=== PATIENT | male | born 1960 | race Caucasian/White ===

== ENCOUNTER 2019-12-04 06:45 | Outpatient (REF) | payer BC, SELFPAY ==
[2019-12-04 07:51] LABS: MANUAL DIFF FLAG NO
[2019-12-04 07:54] LABS: Basophils Percent Auto 0.7 % (0-2); Eosinophils Absolute Auto 0.3 X10*3/uL (0.0-0.4); Eosinophils Percent Auto 5.3 % (0-4); Hematocrit 39.9 % (42-52); Hemoglobin 13.7 g/dl (14.0-18.0); Imm Gran Abs Auto 0.02 X10*3/uL (0.00-0.03); Imm Gran Pct Auto 0.4 % (0.0-0.4); Lymphocytes Absolute Auto 1.6 X10*3/uL (1.2-4.9); Lymphocytes Percent Auto 29.3 % (20-40); Mean Corpuscular HGB Conc 34.3 g/dl (31.0-36.0); Mean Corpuscular Hemoglobin 30.6 pg (27.0-33.0); Mean Corpuscular Volume 89.1 fL (80-98); Mean Platelet Volume 8.8 fL (9.4-12.4); Monocytes Absolute Auto 0.4 X10*3/uL (0.1-1.2); Monocytes Percent Auto 6.6 % (2-11); Neutrophils Absolute Auto 3.1 X10*3/uL (2.0-8.3); Neutrophils Percent Auto 57.7 % (45-73); Platelet Count 274 X10*3/uL (160-400); Red Blood Count 4.48 X10*6/uL (4.60-5.80); Red Cell Distribution Width 12.3 % (11.0-16.0); White Blood Count 5.4 X10*3/uL (4.8-10.8)
[2019-12-04 08:13] LABS: Alanine Aminotransferase 22 U/L (0-40); Albumin Level 4.3 g/dL (3.5-5.0); Alkaline Phosphatase 66 U/L (39-117); Anion Gap 10 (12-20); Aspartate Amino Transferase 22 U/L (5-37); Bilirubin Total 1.7 mg/dL (0.0-1.0); Blood Urea Nitrogen 16 mg/dL (9-16); Calcium 9.1 mg/dL (8.4-10.2); Carbon Dioxide 28 mmol/L (22-29); Chloride 106 mmol/L (96-108); Cholesterol 197 mg/dL; Estimated Glomerular Filt Rate > 60; Glucose Fasting 105 mg/dL (60-99); HDL Cholesterol 51 mg/dL; LDL Cholesterol Calculated 120 mg/dl; Sodium 140 mmol/L (135-145); Total Protein 7.2 g/dL (6.5-8.0); Triglycerides 134 mg/dL
[2019-12-04 08:20] LABS: Glucose Urine UA NEG (NEG); Leukocyte Esterase Urine NEG (NEG); Nitrite Urine NEG (NEG); Specific Gravity - Urine 1.025 (1.005-1.025); Urine Blood TRACE (NEG); Urine Ketones NEG (NEG); Urine Protein NEG (NEG-TRACE)
[2019-12-04 08:30] LABS: Appearance Urine CLEAR; Color Urine YELLOW
[2019-12-04 08:36] LABS: Prostate Specific Antigen 2.49 ng/mL (<0.05-4.0)
[2019-12-04 08:46] LABS: Vitamin B12 438 pg/mL (200-900)
[2019-12-04 08:47] LABS: Mucus Urine 2+ /LPF; Squamous Epithelial Cell Urine TRACE /LPF; WBC Urine 0 /HPF (0-4)
[2019-12-04 08:55] LABS: Creatinine Urine 158.23 mg/dL; Microalbumin Urine < 5.0 mg/L
[2019-12-04 09:25] LABS: Estimated Average Glucose 100 mg/dL; Hemoglobin A1c % 5.1 %
== END 2019-12-04 06:46 | disposition home or self-care (01) ==
LOC: HO.LAB 06:45
PROVIDERS: PCP Internal Medicine; Visit Provider Internal Medicine
DX: Z12.5 Encounter for screening for malignant neoplasm of prostate (principal); N40.0 Benign prostatic hyperplasia without lower urinary tract symptoms; R73.03 Prediabetes; E53.8 Deficiency of other specified B group vitamins
CPT/HCPCS: 36415; 80053; 80061; 81001; 81003; 82043; 82607; 82746; 83036; 84153; 85025

== ENCOUNTER 2020-02-01 15:17 | Outpatient (REF) | payer BC, SELFPAY | END 2020-02-01 15:18 | disposition home or self-care (01) | LOC: HO.LAB 15:17 | PROVIDERS: Visit Provider Internal Medicine | DX: Z20.828 Contact with and (suspected) exposure to other viral communicable diseases (principal) | CPT/HCPCS: C9803; U0003 ==

== ENCOUNTER 2020-11-19 12:18 | Emergency (ER) | payer BC, SELFPAY ==
[2020-11-19 12:30] VITALS: BP 117/76; PULSE 82; RESP 16; TEMP 36.6; O2SAT 98; BMI 33.5
[2020-11-19] MEDS: Lidocaine HCl 1 % MPF 5 ML VIAL SUBCUT (14:01)
--- NOTE | 2020-11-19 14:03 | ED_ITS ---
HPI - Wound/Laceration General Chief Complaint: Wound/Laceration Stated Complaint: lac rt arm Time Seen by Provider: 11/19/20 12:45 Source: patient and family Mode of arrival: ambulatory Limitations: no limitations History of Present Illness HPI narrative: Patient reports he was on a ladder at home when he slipped and he caught himself although when he caught himself his right forearm sustained a laceration. He reports that he is up-to-date on tetanus. He denies head injury or loss of consciousness. He denies thoughts of foreign bodies. He denies any other symptoms complaints or concerns at this time. Onset (ago): minute(s) (Prior to arrival) Extremity Location: right: forearm Place: home Patient tetanus UTD: Yes Context: accidental Associated symptoms: none Treatments prior to arrival: bandage Related Data Previous Rx's Medication Instructions Recorded cephalexin 500 mg capsule 500 mg PO Q6H 10 Days #40 cap 11/19/20 Allergies Allergy/AdvReac Type Severity Reaction Status Date / Time No Known Allergies Allergy Unverified 11/15/19 15:33 [No Known Allergies*] Review of Systems Review of Systems: Constitutional : No Fever, No Chills, Cardiovascular : No Chest Pain, No SOB Respiratory : No Dyspnea Gastrointestinal : No abdominal pain Musculoskeletal : No Joint Swelling Skin : positive skin laceration, No Foreign bodies, No rash, No surrounding erythema Neuro : No Weakness, No Numbness/tingling Psych : No SI/HI/thoughts of self injury Yes all other systems are reviewed and are negative [facility] Past Medical History Attestation statement: The following information was validated with the patient. Social History Social History Alcohol intake: unknown Patient Tobacco Use Status: Never used Tobacco Use of substances other than those prescribed or required for medical reasons: Unknown Advance Directives: Yes Advance Directives Information Provided: No Advance Directives on File: No Physical Exam Vital Signs: Vital Signs: Last Vital Signs Temp 98 F 11/19/20 12:30 Pulse 82 11/19/20 12:30 Resp 16 11/19/20 12:30 BP 117/76 11/19/20 12:30 Pulse Ox 98 11/19/20 12:30 Body Mass Index 33.5 vital signs have been reviewed as normal and appeared to be correct. Blood pressure normal. Heart rate normal. Respiration rate normal. Temperature normal. Oxygen saturation normal. Appearance: Alert. Oriented X3. No acute distress. Head: Normal external exam. Normocephalic. Atraumatic. Eyes: PERRLA. EOMI. Conjunctiva and sclera normal. Eyelids normal. ENT: Pharynx normal. Uvula midline. Moist mucous membranes. Neck: Normal inspection. Neck supple. FROM. CVS: Normal heart rate and rhythm. Respiratory: No respiratory distress. Painless inspiration. Back: Full range of motion noted. No rashes/lesion/induration/fluctuance or s igns of infection noted. Skin: Skin warm and dry. Normal skin color. Normal skin turgor. No rashes/lesions noted. Extremities: To right forearm at the proximal aspect patient has a 2 cm intermediate laceration no active bleeding or foreign bodies noted. No ligamentous or tendon injury noted on my exam. Otherwise all other extremity Extremities exhibit normal range of motion and nontender. Neuro: Oriented X 3. No motor deficit. No sensory deficit. Reflexes normal. Normal steady gait. No focal neuro deficits noted. Vascular: + radial pulses Normal cap refill. No cyanosis noted to upper extremity nails Course Course Course Narrative: Patient now status post laceration repair with 8 sutures placed. Patient tolerated procedure well. I had ordered an x-ray although patient refused and on my exam I do not see any signs of foreign bodies and the patient does not have any bony tenderness. No obvious ligamentous or tendon injury is noted. Patient understands return in 10-14 days for suture removal. Will DC home antibiotics. Tetanus is up-to-date. Along with instructions fo llow-up with primary care provider and to return if any new or worsening symptoms. Patient understands agrees with this plan. [facility] - Wound/Laceration Medical Records Attestation: I reviewed the patient's medical records. Procedures Laceration Laceration 1: Site: upper extremity (Forearm proximal aspect) Side (If applicable): right Size (cm): 2 Description: linear Depth: simple, single layer Local Anesthetic: lidocaine 1% Amount of anesthesia used (mL): 5 Pre-repair: wound explored, irrigated extensively and deep structures intact Skin layer closed with: nylon Size (cm): 4-0 Number of sutures: 8 Technique: simple, interrupted Discharge Plan Discharge Clinical Impression: Laceration Patient Disposition: Home, Self-Care Instructions: Laceration (ED) Prescriptions: New cephalexin 500 mg capsule 500 mg PO Q6H 10 Days Qty: 40 RF: 0 Referrals: Sridhar Holt MD [Primary Care Provider] - 2 days Lexii Genao PA [Emergency Midlevel Provider] - 10 days (10-14 days for suture removal you can come to this ER any other ER any urgent care or your primary care provider although let them know that you will be coming for suture removal some primary care providers do not remove sutures) Print Language: Kyrgyz
== END 2020-11-19 14:29 | disposition home or self-care (01) ==
PROVIDERS: Emergency Provider Emergency Medicine; PCP Internal Medicine
DX: S51.811A Laceration without foreign body of right forearm, initial encounter (principal); M79.631 Pain in right forearm; W26.9XXA Contact with unspecified sharp object(s), initial encounter; Y93.9 Activity, unspecified; Y92.009 Unspecified place in unspecified non-institutional (private) residence as the place of occurrence of the external cause; Y99.9 Unspecified external cause status; Z79.899 Other long term (current) drug therapy
CPT/HCPCS: 12001; 99284

== ENCOUNTER 2020-12-09 14:03 | Outpatient (REF) | payer BC, SELFPAY ==
[2020-12-09 14:06] LABS: MANUAL DIFF FLAG NO
[2020-12-09 14:14] LABS: Basophils Absolute Auto 0.1 X10*3/uL (0.0-0.2); Basophils Percent Auto 1.1 % (0-2); Eosinophils Absolute Auto 0.4 X10*3/uL (0.0-0.4); Eosinophils Percent Auto 7.2 % (0-4); Hematocrit 41.4 % (42-52); Hemoglobin 13.9 g/dl (14.0-18.0); Imm Gran Abs Auto 0.01 X10*3/uL (0.00-0.03); Imm Gran Pct Auto 0.2 % (0.0-0.4); Lymphocytes Absolute Auto 1.9 X10*3/uL (1.2-4.9); Lymphocytes Percent Auto 33.6 % (20-40); Mean Corpuscular HGB Conc 33.6 g/dl (31.0-36.0); Mean Corpuscular Hemoglobin 30.4 pg (27.0-33.0); Mean Corpuscular Volume 90.6 fL (80-98); Mean Platelet Volume 8.8 fL (9.4-12.4); Monocytes Absolute Auto 0.3 X10*3/uL (0.1-1.2); Neutrophils Percent Auto 51.9 % (45-73); Platelet Count 258 X10*3/uL (160-400); Red Blood Count 4.57 X10*6/uL (4.60-5.80); Red Cell Distribution Width 12.5 % (11.0-16.0); White Blood Count 5.7 X10*3/uL (4.8-10.8)
[2020-12-09 14:28] LABS: Alanine Aminotransferase 17 U/L (0-40); Albumin Level 4.2 g/dL (3.5-5.0); Alkaline Phosphatase 64 U/L (39-117); Anion Gap 10 (12-20); Appearance Urine CLEAR; Aspartate Amino Transferase 18 U/L (5-37); Bilirubin Total 1.3 mg/dL (0.0-1.0); Blood Urea Nitrogen 18 mg/dL (9-16); Calcium 9.2 mg/dL (8.4-10.2); Carbon Dioxide 26 mmol/L (22-29); Chloride 106 mmol/L (96-108); Cholesterol 194 mg/dL; Color Urine YELLOW; Estimated Glomerular Filt Rate > 60; Glucose Fasting 101 mg/dL (60-99); Glucose Urine UA NEG (NEG); HDL Cholesterol 50 mg/dL; LDL Cholesterol Calculated 123 mg/dl; Leukocyte Esterase Urine NEG (NEG); Nitrite Urine NEG (NEG); PH 5.5 (5.0-8.0); Potassium 3.9 mmol/L (3.3-5.1); Sodium 138 mmol/L (135-145); Specific Gravity - Urine >= 1.030 (1.005-1.025); Total Protein 7.1 g/dL (6.5-8.0); Triglycerides 106 mg/dL; Urine Blood NEG (NEG); Urine Ketones NEG (NEG); Urine Protein NEG (NEG-TRACE)
[2020-12-09 14:48] LABS: PSA,Total (Free>4and<10) 2.75 ng/mL (0.00-4.00)
[2020-12-09 14:50] LABS: Estimated Average Glucose 97 mg/dL
[2020-12-09 15:00] LABS: Reflex LDLD? No
[2020-12-09 15:19] LABS: Folate 8.9 ng/mL (> or = 4.0); Vitamin B12 351 pg/mL (200-900)
[2020-12-09 15:20] LABS: Creatinine Urine 184.93 mg/dL; Microalbum/Creatinine Ratio Ur 3.7 ug/mg cr
== END 2020-12-09 14:04 | disposition home or self-care (01) ==
LOC: HO.LNP 14:03
PROVIDERS: Visit Provider Internal Medicine
DX: Z00.00 Encounter for general adult medical examination without abnormal findings (principal); R73.03 Prediabetes; E53.8 Deficiency of other specified B group vitamins; N40.0 Benign prostatic hyperplasia without lower urinary tract symptoms; Z12.5 Encounter for screening for malignant neoplasm of prostate
CPT/HCPCS: 80053; 80061; 81003; 82043; 82607; 82746; 83036; 84153; 85025

== ENCOUNTER 2021-08-28 09:45 | Outpatient (REF) | payer BC, SELFPAY ==
--- NOTE | ~2021-08-28 | XR_ITS ---
EXAMINATION: XR KNEE, STANDING AP, BILATERAL XR KNEE, RIGHT XR KNEE, LEFT CLINICAL INFORMATION: Knee pain. COMPARISON: Standing AP knees and left knee 06/28/2017, right knee radiographs 04/27/2016. TECHNIQUE: Standing AP view of both knees is performed. Each knee is also imaged in lateral and axial patella views. FINDINGS: Right: Osteoarthritis medial compartment with prominent joint narrowing and marginal osteophytes medial femoral condyle and tibial plateau with mild secondary genu varus. No erosive change or chondrocalcinosis. No definite effusion. Hoffa's fat pad appears normal. Mild narrowing lateral patellofemoral joint. No lateralization or definite tilting patella. No fracture or dislocation or destructive process. Left: Osteoarthritis medial compartment of greatest severity with marked joint narrowing and medial femoral and tibial plateau osteophytes. Mild secondary genu varus. No erosive change or chondrocalcinosis. Probable trace suprapatellar fluid. Hoffa's fat pad appears normal. Borderline narrowing patellofemoral joint. No lateralization or tilting. No fracture or dislocation or destructive process. XR/XR knee standing BI IMPRESSION: -Bilateral osteoarthritis, medial compartments, greater on left. -Probable trace effusion on left.
--- NOTE | ~2021-08-28 | XR_ITS ---
EXAMINATION: XR KNEE, STANDING AP, BILATERAL XR KNEE, RIGHT XR KNEE, LEFT CLINICAL INFORMATION: Knee pain. COMPARISON: Standing AP knees and left knee 06/28/2017, right knee radiographs 04/27/2016. TECHNIQUE: Standing AP view of both knees is performed. Each knee is also imaged in lateral and axial patella views. FINDINGS: Right: Osteoarthritis medial compartment with prominent joint narrowing and marginal osteophytes medial femoral condyle and tibial plateau with mild secondary genu varus. No erosive change or chondrocalcinosis. No definite effusion. Hoffa's fat pad appears normal. Mild narrowing lateral patellofemoral joint. No lateralization or definite tilting patella. No fracture or dislocation or destructive process. Left: Osteoarthritis medial compartment of greatest severity with marked joint narrowing and medial femoral and tibial plateau osteophytes. Mild secondary genu varus. No erosive change or chondrocalcinosis. Probable trace suprapatellar fluid. Hoffa's fat pad appears normal. Borderline narrowing patellofemoral joint. No lateralization or tilting. No fracture or dislocation or destructive process. XR/XR knee LT 2V IMPRESSION: -Bilateral osteoarthritis, medial compartments, greater on left. -Probable trace effusion on left.
--- NOTE | ~2021-08-28 | XR_ITS ---
EXAMINATION: XR KNEE, STANDING AP, BILATERAL XR KNEE, RIGHT XR KNEE, LEFT CLINICAL INFORMATION: Knee pain. COMPARISON: Standing AP knees and left knee 06/28/2017, right knee radiographs 04/27/2016. TECHNIQUE: Standing AP view of both knees is performed. Each knee is also imaged in lateral and axial patella views. FINDINGS: Right: Osteoarthritis medial compartment with prominent joint narrowing and marginal osteophytes medial femoral condyle and tibial plateau with mild secondary genu varus. No erosive change or chondrocalcinosis. No definite effusion. Hoffa's fat pad appears normal. Mild narrowing lateral patellofemoral joint. No lateralization or definite tilting patella. No fracture or dislocation or destructive process. Left: Osteoarthritis medial compartment of greatest severity with marked joint narrowing and medial femoral and tibial plateau osteophytes. Mild secondary genu varus. No erosive change or chondrocalcinosis. Probable trace suprapatellar fluid. Hoffa's fat pad appears normal. Borderline narrowing patellofemoral joint. No lateralization or tilting. No fracture or dislocation or destructive process. XR/XR knee RT 2V IMPRESSION: -Bilateral osteoarthritis, medial compartments, greater on left. -Probable trace effusion on left.
== END 2021-08-28 09:46 | disposition home or self-care (01) ==
LOC: HO.HOSX 09:45
PROVIDERS: Visit Provider Physician Assistant
DX: M17.0 Bilateral primary osteoarthritis of knee (principal)
CPT/HCPCS: 20610; 73560; 73565; J1040

== ENCOUNTER 2021-12-11 10:38 | Outpatient (REF) | payer BC, SELFPAY ==
[2021-12-11 10:41] LABS: MANUAL DIFF FLAG NO
[2021-12-11 11:08] LABS: Basophils Absolute Auto 0.1 X10*3/uL (0.0-0.2); Basophils Percent Auto 1.2 % (0-2); Eosinophils Absolute Auto 0.3 X10*3/uL (0.0-0.4); Eosinophils Percent Auto 4.2 % (0-4); Hematocrit 39.4 % (42.0-52.0); Hemoglobin 13.3 g/dl (14.0-18.0); Imm Gran Abs Auto 0.01 X10*3/uL (0.00-0.03); Imm Gran Pct Auto 0.2 % (0.0-0.4); Lymphocytes Percent Auto 33.8 % (20-40); Mean Corpuscular HGB Conc 33.8 g/dl (31.0-36.0); Mean Corpuscular Hemoglobin 30.4 pg (27.0-33.0); Mean Platelet Volume 8.9 fL (9.4-12.4); Monocytes Absolute Auto 0.4 X10*3/uL (0.1-1.2); Monocytes Percent Auto 6.9 % (2-11); Neutrophils Absolute Auto 3.2 x10*3/uL (2.0-8.3); Neutrophils Percent Auto 53.7 % (45-73); Platelet Count 262 X10*3/uL (160-400); Red Blood Count 4.38 X10*6/uL (4.60-5.80); Red Cell Distribution Width 12.7 % (11.0-16.0)
[2021-12-11 11:12] LABS: Appearance Urine Clear; Color Urine Yellow; Glucose Urine UA Negative (Negative); Leukocyte Esterase Urine Negative (Negative); Nitrite Urine Negative (Negative); Urine Blood Negative (Negative); Urine Ketones Negative (Negative); Urine Protein Negative (Neg-Trace)
[2021-12-11 11:18] LABS: Bacteria Urine None Seen (None Seen); Hyaline Casts Urine 0-2 /LPF (0-2); RBC Urine 0-2 /HPF (0-2); Squamous Epithelial Cell Urine 0-2 /HPF (0-2); WBC Urine 0-5 /HPF (0-5)
[2021-12-11 11:25] LABS: Alanine Aminotransferase 18 U/L (0-40); Albumin Level 4.2 g/dL (3.5-5.0); Alkaline Phosphatase 66 U/L (39-117); Anion Gap 14 (12-20); Aspartate Amino Transferase 20 U/L (5-37); Bilirubin Total 1.8 mg/dL (0.0-1.0); Blood Urea Nitrogen 18 mg/dL (9-16); Calcium 9.3 mg/dL (8.4-10.2); Carbon Dioxide 28 mmol/L (22-29); Chloride 104 mmol/L (96-108); Cholesterol 203 mg/dL; Estimated Glomerular Filt Rate > 60; Glucose Fasting 102 mg/dL (60-99); HDL Cholesterol 58 mg/dL; LDL Cholesterol Calculated 129 mg/dl; Potassium 4.1 mmol/L (3.3-5.1); Sodium 142 mmol/L (135-145); Total Protein 7.1 g/dL (6.5-8.0); Triglycerides 83 mg/dL
[2021-12-11 11:27] LABS: Estimated Average Glucose 97 mg/dL
[2021-12-11 11:37] LABS: Creatinine Urine 121.96 mg/dL
[2021-12-11 11:47] LABS: PSA,Total (Free>4and<10) 2.41 ng/mL (0.00-4.00)
[2021-12-11 12:12] LABS: Folate 10.8 ng/mL (> or = 4.0); Vitamin B12 294 pg/mL (200-900)
== END 2021-12-11 10:39 | disposition home or self-care (01) ==
LOC: HO.LNP 10:38
PROVIDERS: Visit Provider Internal Medicine
DX: Z00.00 Encounter for general adult medical examination without abnormal findings (principal); Z12.5 Encounter for screening for malignant neoplasm of prostate; N40.0 Benign prostatic hyperplasia without lower urinary tract symptoms; E53.8 Deficiency of other specified B group vitamins; R73.03 Prediabetes
CPT/HCPCS: 80053; 80061; 81001; 82043; 82607; 82746; 83036; 84153; 85025

== ENCOUNTER 2022-01-28 10:31 | Outpatient (REF) | payer BC, SELFPAY ==
--- NOTE | ~2022-01-28 | XR_ITS ---
EXAMINATION: XR CERVICAL SPINE CLINICAL INFORMATION: Posterior occipital pain radiating to trapezius. COMPARISON: None TECHNIQUE: 5 views of the cervical spine were obtained. FINDINGS: There is mild straightening of the cervical lordosis. The vertebral heights and alignment are normal. There is moderate narrowing of the right neural foramina C3-C4, C4-C5, C5-C6, and C6-C7 disc levels from uncovertebral hypertrophic changes. Minimal narrowing of the left neural foramina at C2-C3 through C6-C7 disc levels is noted. The craniovertebral junction and C1-C2 alignment is normal. No visible acute fracture, dislocation or lytic process seen. The paravertebral soft tissues are normal. XR/XR cervical spine 4V IMPRESSION: Degenerative disc changes C3-C4 through C6-C7 disc levels with moderate ventral spondylosis. No visible acute fracture, dislocation or subluxation seen.
== END 2022-01-28 10:32 | disposition home or self-care (01) ==
LOC: HO.XRAY 10:31
PROVIDERS: PCP Internal Medicine; Visit Provider Internal Medicine
DX: M47.812 Spondylosis without myelopathy or radiculopathy, cervical region (principal)
CPT/HCPCS: 72050

== ENCOUNTER → 2022-04-12 13:12 | Outpatient (BNVA) | payer BC, SELFPAY | PROVIDERS: PCP Internal Medicine; Visit Provider Physician Assistant | DX: M17.12 Unilateral primary osteoarthritis, left knee (principal); M17.11 Unilateral primary osteoarthritis, right knee | CPT/HCPCS: 20610; J1040 ==

== ENCOUNTER → 2022-07-15 10:31 | Outpatient (BNVA) | payer BC, SELFPAY | PROVIDERS: PCP Internal Medicine; Visit Provider Orthopaedic Surgery ==

== ENCOUNTER → 2022-08-25 08:04 | Outpatient (BNVA) | payer BC, SELFPAY | PROVIDERS: PCP Internal Medicine; Visit Provider Orthopaedic Surgery ==

== ENCOUNTER → 2022-09-13 13:21 | Outpatient (BNV) | payer BC, SELFPAY | PROVIDERS: Admitting Provider Orthopaedic Surgery; PCP Internal Medicine; Visit Provider Internal Medicine Cardiovascular Disease | DX: Z01.818 Encounter for other preprocedural examination (principal); M17.0 Bilateral primary osteoarthritis of knee | CPT/HCPCS: 93010 ==

== ENCOUNTER 2022-09-15 11:00 | Outpatient (RCR) | payer BC, SELFPAY ==
--- NOTE | 2022-09-03 13:08 | MHC.PT.EP ---
[facility] [place] Office [place] Office [place] Office [address] Rodriguez Gonzalez [address] [phone] F: [phone] F: [phone] F: [phone] F: [phone] Physical Therapy Plan of Care Date of Evaluation: Date of Surgery: 09/21/22 Diagnosis: Unilateral primary OA, R knee, unilateral primary OA L knee, prehab pt scheduled for bilat TKAs on 09/21/22 Assessment: Cedrick is a 61 yo male referred to PT for pre-rehab for Unilateral primary OA, R knee, unilateral primary OA L knee, prehab pt scheduled for bilat TKAs on 09/21/22 . Impairments include impaired posture and gait. Functional limitations include difficulty negotiating stairs, pain with bending B knees, inability to squat, and pain with prolonged sitting/standing. PT to address aforementioned impairments, functional limitations, and to provide pt with pre-rehab HEP to prepare for his B TKA surgery. PT to include pt education regarding surgery and post-op expectations/PT, stair negotiation training, knee ROM/strengthening exercises, HEP, postural education, gait training, and AD use. 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 1. Pt will demonstrate good understanding of using AD for ambulation and stair negotiation Treatment Plan: Modalities to reduce pain, spasms and effusion. Manual therapy to restore motion and function. Therapeutic exercise to improve strength and flexibility. Neuromuscular re-education for posture and balance. Therapeutic activities to return to functional activities of daily living. Electronically signed by: Romana Santiago PT DPT Please sign and return to therapist. Thank you for your referral.
--- NOTE | 2022-09-15 14:13 | MHC.PT.DC ---
[facility] [place] Office [place] Office [place] Office [address] Rodriguez Gonzalez [address] [phone] F: [phone] F: [phone] F: [phone] F: [phone] Physical Therapy Discharge Report Diagnosis: Unilateral primary OA, R knee, unilateral primary OA L knee, prehab pt scheduled for bilat TKAs on 09/21/22 Date of Surgery: 09/21/22 Date of Evaluation: 09/03/22 Date of Discharge: 09/15/22 Treatments to Date: 2 Cancellations to Date: No Shows to Date: Discharge Status: Achieved Goals Improved Function Independent with HEP Discharge Summary: Cedrick arrived stating he is feeling good. He requested today to be his last day as he has a dentist appointment on Tuesday and his surgery is next week. I reviewed GT and stair training with AD and educated him on how to advance LE for ambulation. He was distributed updated HEP as well. Cedrick is being d/c from PT today. Electronically signed by: Romana Santiago, PT DPT Please sign and return to therapist. Thank you for your referral.
== END 2022-09-15 14:13 | disposition home or self-care (01) ==
LOC: HO.PT 11:00
PROVIDERS: PCP Internal Medicine; Visit Provider Physician Assistant
DX: M17.0 Bilateral primary osteoarthritis of knee (principal)
CPT/HCPCS: 97110; 97116; 97161

== ENCOUNTER 2022-09-16 11:30 | Outpatient (AMB) | payer BC, SELFPAY ==
--- NOTE | 2022-09-16 11:34 | MHC.OFFVIS ---
Intake Vital Signs 09/16/22 11:39 Height 5 ft 11 in Weight 240 lb BMI 33.5 Intake Visit Reasons: Preop bilat TKAs 09/21/2022 NE Intake Note: Cedrick 61 yr old male presents today for his Pre op visit for bilateral knee TKA. Patient signed and reviewed pain management. Allergies No Known Allergies [No Known Allergies*] Allergy (Verified 09/16/22 11:39) HPI Preop bilat TKAs 09/21/2022 NE HPI Details Cedrick is a 61 year old man who presents to discuss his bilateral TKA's, scheduled for 09/21/22. he is here with his today. He is unsure if he wants to proceed with bilateral vs unilateral TKA. He is limited in his daily activities by pain and is unable to do things he wants to do. He denies any changes in his medical history or symptoms. He says he is having some pain in a tooth and he is scheduled to see his dentist tomorrow. He is hoping this is just a cavity and he will be able to obtain dental clearance to proceed with surgery next week. 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 Review of Systems Const All systems reviewed & are unremarkable except as noted in HPI and below Physical Exam Vital Signs: BMI result Body Mass Index 33.5 Const General: no acute distress and alert Orientation/consciousness: patient oriented x3 Neuro General: patient oriented x3 Extrem Other: Bilateral Knees: TTP medial compartment Antalgic gait Varus thrust with gait Psych Appearance: grossly normal Affect: normal affect Attitude: cooperative Assessment & Plan Assessment & Plan (1) Osteoarthritis of left knee: Code(s): M17.12 - Unilateral primary osteoarthritis, left knee Plan: This is a 61 year old man with severe bilateral varus knee OA, L>R. He has significant pain with daily activity, worse with prolonged standing, ambulation, or using stairs. He has failed conservative treatment measures, feels limited in his ADLs and is unable to work without pain. He is scheduled for bilateral TKA, DOS: 09/21/22. He is a good candidate for bilateral TKA given his age, motivation, and work status. I discussed the risks, benefits, and alternatives including, but not limited to, the risk of pain, infection, stiffness, need for further surgery as well as potential medical complications such as blood clots, pulmonary embolism and cardiac complications. I discussed the recovery timeline and process as well as the importance of PT. Cedrick is a good candidate for this surgery, and he wishes to proceed with this decision. He is scheduled for a dental appointment on 09/17/22, and his surgery may have to be cancelled depending on diagnosis but no evidence of infection. He will contact the clinic following his appointment if his surgery needs to be rescheduled. (2) Osteoarthritis of right knee: Code(s): M17.11 - Unilateral primary osteoarthritis, right knee Plan Scribed for Cong Johnson MD by Genaro Bridges, medical supply technician, on 09/16/22 at 11:45 AM, EST. Coding Level of Care Code Global (07091) Diagnoses Osteoarthritis of left knee M17.12 Osteoarthritis of right knee M17.11
[2022-09-16 11:39] VITALS: BMI 33.5
== END 2022-09-16 12:17 | disposition home or self-care (01) ==
PROVIDERS: PCP Internal Medicine; Visit Provider Orthopaedic Surgery
DX: M17.0 Bilateral primary osteoarthritis of knee (principal)
CPT/HCPCS: 99024

== ENCOUNTER → 2022-09-16 11:30 | Outpatient (BNVA) | payer BC, SELFPAY | PROVIDERS: PCP Internal Medicine; Visit Provider Orthopaedic Surgery ==

== ENCOUNTER 2022-09-21 09:17 | Inpatient (IN) | payer BC, SELFPAY ==
--- NOTE | 2022-09-13 | ECG_ITS ---
Test Reason : PREOP Blood Pressure : / mmHG Vent. Rate : 072 BPM Atrial Rate : 072 BPM P-R Int : 150 ms QRS Dur : 084 ms QT Int : 382 ms P-R-T Axes : 041 021 -09 degrees QTc Int : 418 ms Normal sinus rhythm Low voltage QRS Borderline ECG No previous ECGs available Referred By: Cong Johnson Electronically Signed By:Robe Roblero
[2022-09-13 12:17] VITALS: BP 133/79; PULSE 71; RESP 20; O2SAT 97; BMI 35.3
--- NOTE | 2022-09-13 12:34 | P.CONAN_ITS ---
Documented by User: Ema Emery NP 09/20/22 08:28 HPI - Anesthesia Eval Consult details Narrative: 61yo M for Bilateral Knee Replacement Total Medically optimized Right ?bottom molar toothache. Pending dental clearance No recent illness No CP/SOB with minimal activity. Limited only d/t knee pain PMFSH Active Problems Active Problems: All Active Problems (Updated 09/13/22 @ 12:15 by Aisha Larios RN) Osteoarthritis of left knee (Acute) Osteoarthritis of right knee (Acute) Past Medical History Medical History Arthritis of neck BPH (benign prostatic hyperplasia) Heartburn Osteoarthritis Renal calculi Family History Family history of problems with anesthesia: No Surgical History Surgical History H/O colonoscopy H/O: knee surgery Hx of umbilical hernia repair History of Problems with Anesthesia: No Social History Social History Are you a primary neonatal intensive care nurse to a significant other at home: No Do you presently have visiting nurse or other home services: No Alcohol intake: unknown Patient Tobacco Use Status: Never used Tobacco Use of substances other than those prescribed or required for medical reasons: No Have you been hit, kicked, punched, or otherwise hurt by someone within the past year? 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 Meds Allergies Allergy/AdvReac Type Severity Reaction Status Date / Time No Known Allergies Allergy Verified 09/16/22 11:39 [No Known Allergies*] Home Medications Medication Instructions Recorded Confirmed Last Taken Type ibuprofen 800 mg tablet 800 mg PO TID 08/28/21 09/13/22 09/12/22 History docusate sodium 100 mg capsule 100 mg PO DAILY 09/13/22 09/13/22 Unknown History (Colace) tamsulosin 0.4 mg capsule 0.4 mg PO QAM 09/13/22 09/13/22 Unknown History Exam Exam Date and Time: September 13, 2022 1234 Height,Weight and Vital Signs: Height 5 ft 11 in Weight 114.759 kg Last Vital Signs Pulse 71 09/13/22 12:17 Resp 20 09/13/22 12:17 BP 133/79 09/13/22 12:17 Pulse Ox 97 09/13/22 12:17 O2 Del Method Room Air 09/13/22 12:17 Pertinent Lab Results Pertinent Lab Results: Lab Results 09/13/22 09/13/22 09/13/22 Range/Units 12:35 13:31 13:44 WBC 7.2 (4.8-10.8) X10*3/uL RBC 4.71 (4.60-5.80) X10*6/uL Hgb 14.2 (14.0-18.0) g/dl Hct 42.4 (42.0-52.0) % MCV 90.0 (80.0-98.0) fL MCH 30.1 (27.0-33.0) pg MCHC 33.5 (31.0-36.0) g/dl RDW 12.7 (11.0-16.0) % Plt Count 246 (160-400) X10*3/uL MPV 8.4 L (9.4-12.4) fL Immature Gran % (Auto) 0.4 (0.0-0.4) % Neut % (Auto) 64.5 (45-73) % Lymph % (Auto) 23.3 (20-40) % Garvin % (Auto) 7.3 (2-11) % Eos % (Auto) 3.9 (0-4) % Baso % (Auto) 0.6 (0-2) % Lymph # (Auto) 1.7 (1.2-4.9) X10*3/uL Garvin # (Auto) 0.5 (0.1-1.2) X10*3/uL Eos # (Auto) 0.3 (0.0-0.4) X10*3/uL Baso # (Auto) 0.0 (0.0-0.2) X10*3/uL Abs Immat Gran (auto) 0.03 (0.00-0.03) X10*3/uL Absolute Neuts (auto) 4.6 (2.0-8.3) x10*3/uL Absolute Nucleated RBC 0.000 (0.0-0.012) X10*3/uL Nucleated RBC % (auto) 0.0 (0.0-0.2) /100WBC Sodium (135-145) mmol/L Potassium (3.3-5.1) mmol/L Chloride (96-108) mmol/L Carbon Dioxide (22-29) mmol/L Anion Gap (12-20) BUN (9-16) mg/dL Creatinine (0.5-1.4) mg/dL Estim Creat Clear Calc Estimated GFR Random Glucose (60-115) mg/dL Calcium (8.4-10.2) mg/dL Nasal Screen MRSA (PCR) NEGATIVE (Negative) Nasal S. aureus Screen NEGATIVE (Negative) Nasal MRSA/S.aureus Interp SEE NOTE Blood Type O Positive Antibody Screen NEGATIVE 09/13/22 Range/Units 13:44 WBC (4.8-10.8) X10*3/uL RBC (4.60-5.80) X10*6/uL Hgb (14.0-18.0) g/dl Hct (42.0-52.0) % MCV (80.0-98.0) fL MCH (27.0-33.0) pg MCHC (31.0-36.0) g/dl RDW (11.0-16.0) % Plt Count (160-400) X10*3/uL MPV (9.4-12.4) fL Immature Gran % (Auto) (0.0-0.4) % Neut % (Auto) (45-73) % Lymph % (Auto) (20-40) % Garvin % (Auto) (2-11) % Eos % (Auto) (0-4) % Baso % (Auto) (0-2) % Lymph # (Auto) (1.2-4.9) X10*3/uL Garvin # (Auto) (0.1-1.2) X10*3/uL Eos # (Auto) (0.0-0.4) X10*3/uL Baso # (Auto) (0.0-0.2) X10*3/uL Abs Immat Gran (auto) (0.00-0.03) X10*3/uL Absolute Neuts (auto) (2.0-8.3) x10*3/uL Absolute Nucleated RBC (0.0-0.012) X10*3/uL Nucleated RBC % (auto) (0.0-0.2) /100WBC Sodium 141 (135-145) mmol/L Potassium 4.3 (3.3-5.1) mmol/L Chloride 106 (96-108) mmol/L Carbon Dioxide 26 (22-29) mmol/L Anion Gap 13 (12-20) BUN 22 H (9-16) mg/dL Creatinine 1.01 (0.5-1.4) mg/dL Estim Creat Clear Calc 98.9 Estimated GFR > 60 Random Glucose 96 (60-115) mg/dL Calcium 9.7 (8.4-10.2) mg/dL Nasal Screen MRSA (PCR) (Negative) Nasal S. aureus Screen (Negative) Nasal MRSA/S.aureus Interp Blood Type Antibody Screen Narrative Narrative: EKG 08/2022 Vent. Rate : 072 BPM ? ? Atrial Rate : 072 BPM ?? P-R Int : 150 ms? QRS Dur : 084 ms ? ? QT Int : 382 ms ? ? ? P-R-T Axes : 041 021 -09 degrees ?? QTc Int : 418 ms ? Normal sinus rhythm Low voltage QRS Borderline ECG No previous ECGs available Airway Mallampati Class: II TM Dist: >3cm Neck ROM: Full (lipoma left neck does not impede movement) Loose/Missing/Broken Teeth: No (Crowned molars) Heart: RRR Lungs: CTAB Assessment and Plan Assessment Anesthesia Assessment: Anesthesia Plan Discussed and PAT Visit Final Anesthetic Review Family History of Problems with Anesthesia: No History of Problems with Anesthesia: No Documented by User: Nikolas Byrd MD 09/21/22 10:53 [facility] Past Medical History Medical History Arthritis of neck BPH (benign prostatic hyperplasia) Heartburn Osteoarthritis Renal calculi Surgical History Surgical History H/O colonoscopy H/O: knee surgery Hx of umbilical hernia repair Social History Social History Are you a primary neonatal intensive care nurse to a significant other at home: No Do you presently have visiting nurse or other home services: No Alcohol intake: unknown Patient Tobacco Use Status: Never used Tobacco Use of substances other than those prescribed or required for medical reasons: No Have you been hit, kicked, punched, or otherwise hurt by someone within the past year? 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 Meds Allergies Allergy/AdvReac Type Severity Reaction Status Date / Time No Known Allergies Allergy Verified 09/16/22 11:39 [No Known Allergies*] Home Medications Medication Instructions Recorded Confirmed Last Taken Type ibuprofen 800 mg tablet 800 mg PO TID 08/28/21 09/13/22 09/12/22 History docusate sodium 100 mg capsule 100 mg PO DAILY 09/13/22 09/13/22 Unknown History (Colace) tamsulosin 0.4 mg capsule 0.4 mg PO QAM 09/13/22 09/13/22 Unknown History Assessment and Plan Assessment Anesthesia Assessment: Chart Reviewed Final Anesthetic Review NPO: Yes ASA Class: II Final Preanesthetic Review: No Changes in Pt Med Stat, Meds/Allgs Chart Reviewed, Consent Obtained/Reviewed and Anes Risks/Benef Reviewed Patient Risk: Intermediate Procedure Risk: Intermediate Anesthetic Plan Anesthetic Plan: Spinal, Regional Block and Agree w/ Assess. and Plan Disposition: Standard PACU
[2022-09-13 13:45] LABS: MANUAL DIFF FLAG NO
[2022-09-13 14:00] LABS: Basophils Percent Auto 0.6 % (0-2); Eosinophils Absolute Auto 0.3 X10*3/uL (0.0-0.4); Eosinophils Percent Auto 3.9 % (0-4); Hematocrit 42.4 % (42.0-52.0); Hemoglobin 14.2 g/dl (14.0-18.0); Imm Gran Abs Auto 0.03 X10*3/uL (0.00-0.03); Imm Gran Pct Auto 0.4 % (0.0-0.4); Lymphocytes Absolute Auto 1.7 X10*3/uL (1.2-4.9); Lymphocytes Percent Auto 23.3 % (20-40); Mean Corpuscular HGB Conc 33.5 g/dl (31.0-36.0); Mean Corpuscular Hemoglobin 30.1 pg (27.0-33.0); Mean Platelet Volume 8.4 fL (9.4-12.4); Monocytes Absolute Auto 0.5 X10*3/uL (0.1-1.2); Monocytes Percent Auto 7.3 % (2-11); Neutrophils Absolute Auto 4.6 x10*3/uL (2.0-8.3); Neutrophils Percent Auto 64.5 % (45-73); Platelet Count 246 X10*3/uL (160-400); Red Blood Count 4.71 X10*6/uL (4.60-5.80); Red Cell Distribution Width 12.7 % (11.0-16.0); White Blood Count 7.2 X10*3/uL (4.8-10.8)
[2022-09-13 14:51] LABS: Anion Gap 13 (12-20); Blood Urea Nitrogen 22 mg/dL (9-16); Calcium 9.7 mg/dL (8.4-10.2); Carbon Dioxide 26 mmol/L (22-29); Chloride 106 mmol/L (96-108); Creatinine Clr Calc Pharmacy 98.9; Estimated Glomerular Filt Rate > 60; Glucose Random 96 mg/dL (60-115); Potassium 4.3 mmol/L (3.3-5.1); Sodium 141 mmol/L (135-145)
[2022-09-13 15:09] LABS: MRSA Nasal PCR NEGATIVE (Negative); SA Nasal PCR NEGATIVE (Negative)
[2022-09-21] VITALS (12 sets, daily range): BP systolic 99–137; BP diastolic 65–87; PULSE 60–99; RESP 14–18; TEMP 36–36.9; O2SAT 94–99
--- NOTE | ~2022-09-21 | XR_ITS ---
EXAMINATION: XR KNEE, LEFT CLINICAL INFORMATION: Status post left total knee arthroplasty. COMPARISON: None available. TECHNIQUE: Two views of the left knee. FINDINGS: The patient is status post total left knee arthroplasty showing good anatomic alignment and no evidence for hardware malfunction. There is no acute fracture. Intra-articular and subcutaneous air is noted. Surgical skin emil overlie the anterior knee. XR/XR knee LT 2V IMPRESSION: Postsurgical changes. No hardware abnormality. No acute fracture.
--- NOTE | ~2022-09-21 | XR_ITS ---
EXAMINATION: XR KNEE, RIGHT CLINICAL INFORMATION: Right total knee arthroplasty. COMPARISON: None available. TECHNIQUE: Two views of the right knee. FINDINGS: The patient is status post total right knee arthroplasty showing good anatomic alignment and no evidence for hardware malfunction. There is no acute fracture. Intra-articular and subcutaneous air is noted. Surgical skin emil overlie the anterior knee. XR/XR knee RT 2V IMPRESSION: Postsurgical changes. No hardware abnormality. No acute fracture.
--- NOTE | 2022-09-21 09:29 | PHA.MEDREC ---
Pharmacy Consult ? Medication Reconciliation Pharmacy has completed the medication reconciliation. Reviewed med rec done by nursing
[2022-09-21 09:42] LABS: Hematocrit 44.4 % (42.0-52.0); Hemoglobin 14.9 g/dl (14.0-18.0)
[2022-09-21] MEDS: Lactated Ringers 1,000 ML 100 ML IVCONT ×2 (10:07→16:10)
--- NOTE | 2022-09-21 14:33 | PM.OP ---
Brief Operative Note Date of Service: 09/21/22 Pre-op diagnosis: Knee OA bilateral Post-op diagnosis: same Procedure: TKA right TKA left Implants: [employer]ley Triathlon posterior stabilized press fit 08/02/10a x 2 Surgeon: Cong Johnson MD Anesthesia: regional and spinal Was an [employer] used for this Procedure?: Yes [employer]: iLncoln Singh Estimated blood loss (mL): 50 Tourniquet time (min): 65 IV fluids (mL): 1,800 Pathology: other Condition: stable Disposition: PACU
[2022-09-21] MEDS: oxyCODONE HCl Immed Release 5 MG TABLET 10 MG PO (16:34)
[2022-09-21] MEDS: Acetaminophen 325 MG TABLET 650 MG PO (16:34)
[2022-09-21] MEDS: HYDROmorphone HCl 0.5 MG/0.5 ML SYRINGE 0.25 MG IVPUSH (16:59)
[2022-09-21] MEDS: ondansetron HCL 4 MG/2 ML VIAL IVPUSH (17:04)
[2022-09-21] MEDS: ceFAZolin Sodium/Dextrose,Iso 2 GM/50 ML PIGGYBACK IV (17:06)
[2022-09-21] MEDS: Acetaminophen 1,000 MG/100 ML PIGGYBACK 400 MG IV (17:57)
[2022-09-21] MEDS: Ketorolac Tromethamine 30 MG/ML VIAL IVPUSH (18:14)
[2022-09-21] MEDS: HYDROmorphone HCl 0.5 MG/0.5 ML SYRINGE IVPUSH ×2 (18:20→20:40)
[2022-09-21] MEDS: oxyCODONE HCl ER 10 MG TAB.ER.12H PO (19:59)
[2022-09-21] MEDS: Docusate Sodium 100 MG CAPSULE PO (20:00)
[2022-09-21] MEDS: Celecoxib 200 MG CAPSULE PO (20:00)
[2022-09-22] MEDS: Acetaminophen 1,000 MG/100 ML PIGGYBACK 100 MG IV (00:02)
[2022-09-22] MEDS: oxyCODONE HCl Immed Release 15 MG TABLET PO ×6 (00:26→22:17)
--- NOTE | 2022-09-22 00:49 | PC.NURSE ---
Patient 15 mg immediate release OxyCode unable to scan in MAR. MAR feedback medication does not exist on patient Pharmacy contacted to verify, confirm malfunctioning barcode related to product. This RN verified the mediation and dosage with CAMELIA Prather. The medication was given at 00:26.
[2022-09-22 01:28] VITALS: RESP 18
[2022-09-22] MEDS: Lactated Ringers 1,000 ML 100 ML IVCONT ×2 (02:07→12:31)
[2022-09-22] MEDS: HYDROmorphone HCl 0.5 MG/0.5 ML SYRINGE IVPUSH ×5 (04:55→21:03)
[2022-09-22 05:57] LABS: MANUAL DIFF FLAG NO
[2022-09-22 06:03] LABS: Basophils Percent Auto 0.2 % (0-2); Eosinophils Absolute Auto 0.1 X10*3/uL (0.0-0.4); Eosinophils Percent Auto 0.7 % (0-4); Hematocrit 34.6 % (42.0-52.0); Hemoglobin 11.5 g/dl (14.0-18.0); Imm Gran Abs Auto 0.02 X10*3/uL (0.00-0.03); Imm Gran Pct Auto 0.2 % (0.0-0.4); Lymphocytes Absolute Auto 1.4 X10*3/uL (1.2-4.9); Mean Corpuscular HGB Conc 33.2 g/dl (31.0-36.0); Mean Corpuscular Hemoglobin 30.6 pg (27.0-33.0); Mean Platelet Volume 8.8 fL (9.4-12.4); Monocytes Absolute Auto 0.9 X10*3/uL (0.1-1.2); Monocytes Percent Auto 10.4 % (2-11); Neutrophils Absolute Auto 6.1 x10*3/uL (2.0-8.3); Neutrophils Percent Auto 72.5 % (45-73); Platelet Count 223 X10*3/uL (160-400); Red Blood Count 3.76 X10*6/uL (4.60-5.80); Red Cell Distribution Width 12.8 % (11.0-16.0); White Blood Count 8.4 X10*3/uL (4.8-10.8)
[2022-09-22] MEDS: Acetaminophen 1,000 MG/100 ML PIGGYBACK 400 MG IV ×2 (06:03→11:52)
[2022-09-22 06:19] LABS: Anion Gap 11 (12-20); Blood Urea Nitrogen 17 mg/dL (9-16); Calcium 8.5 mg/dL (8.4-10.2); Carbon Dioxide 26 mmol/L (22-29); Chloride 105 mmol/L (96-108); Creatinine Clr Calc Pharmacy 101.9; Estimated Glomerular Filt Rate > 60; Glucose Fasting 121 mg/dL (60-99); Potassium 4.2 mmol/L (3.3-5.1); Sodium 138 mmol/L (135-145)
--- NOTE | 2022-09-22 07:29 | PM.PNORT ---
Subjective Subjective Date of Service: 09/22/22 Interval history: POD1 s/p bilat knee TKA. Patient is resting in bed. Complains of pain. No overnight events except for pain control difficulties. No additional complaints. Physical Exam Vital Signs: Vital Signs: Last Vital Signs Temp 97.8 F 09/21/22 23:49 Pulse 76 09/21/22 23:49 Resp 18 09/22/22 01:28 BP 126/66 09/21/22 23:49 Pulse Ox 95 09/21/22 23:49 O2 Del Method Room Air 09/21/22 23:49 BMI result Body Mass Index 35.3 Const: General: cooperative, healthy appearing and no acute distress Resp: Effort & Inspection: normal respiratory effort and able to speak in complete sentences Cardio: Rate: regular rate Peripheral pulses: Peripheral pulses 2+ throughout GI: Palpation (GI): Soft to palpation Skin: Lesions: no lesions Rashes: no rashes Extrem: Other: Bilat knee Aquacel is c/d/i. Able to dorsi/plantar flex. NVI. Procedures Date of Service Date of Service: 09/22/22 Progress Note: A&P Assessment and plan (1) Status post total knee replacement, bilateral: Status: Acute Plan Continue pain mgmnt Begin ASA for dvt ppx begin PT for bilat knee TKA Dispo planning-Pending PT eval, pain mgmnt Time Spent With Patient Time: Total time managing care of this patient today ____ minutes. Quality Stroke Does the patient have a stroke diagnosis?: No VTE Prior VTE?: No VTE Risk Level:: Medical - moderate - high VTE Device Contraindication: N/A - Device Ordered VTE Drug Contraindication: N/A - Med Ordered
[2022-09-22 07:33] VITALS: BP 120/65; PULSE 80; RESP 18; TEMP 37.1; O2SAT 94
[2022-09-22] MEDS: oxyCODONE HCl ER 10 MG TAB.ER.12H PO ×2 (07:45→19:27)
[2022-09-22] MEDS: Celecoxib 200 MG CAPSULE PO ×2 (07:45→19:27)
[2022-09-22] MEDS: Tamsulosin HCL 0.4 MG CAPSULE PO (07:45)
--- NOTE | 2022-09-22 08:01 | HO.POSTANES ---
Post Anesthesia Evaluation Post Anesthesia Evaluation Date of Service: 09/22/22 Vital Signs: Vital Signs Temp Pulse Resp BP Pulse Ox O2 Del Method 09/22/22 07:33 98.7 F 80 18 120/65 94 Room Air 09/22/22 01:28 18 09/21/22 23:49 97.8 F 76 18 126/66 95 Room Air 09/21/22 21:50 18 Anesthesia: Spinal Mental Status: Awake Pain Control: Satisfactory Nausea/Vomiting: None Hydration: Adequate Anesthesia-Related Issues: No Anes. Related Issues
[2022-09-22 08:43] VITALS: BP 120/65; PULSE 80; O2SAT 94
[2022-09-22] MEDS: Enoxaparin Sodium 40 MG/0.4 ML SYRINGE SUBCUT (13:02)
--- NOTE | 2022-09-22 13:47 | MHC.CM.PN ---
pt lives with had no preious servcies physical therapy has receoomnded acute rehab 1st choice [facility]
[2022-09-22 14:21] VITALS: BP 120/65; PULSE 80; O2SAT 94
[2022-09-22 15:17] VITALS: BP 141/74; PULSE 86; RESP 20; TEMP 36.8; O2SAT 96
[2022-09-22 19:06] VITALS: BP 130/94; PULSE 87; RESP 18; TEMP 36.9; O2SAT 95
[2022-09-22] MEDS: 0.9 % Sodium Chloride Flush 3 ML SYRINGE IVFLUSH (21:03)
[2022-09-23] VITALS (8 sets, daily range): BP systolic 130–140; BP diastolic 74–90; PULSE 96–119; RESP 17–20; TEMP 36.3–37; O2SAT 92–95
[2022-09-23] MEDS: HYDROmorphone HCl 0.5 MG/0.5 ML SYRINGE IVPUSH ×4 (01:01→17:11)
[2022-09-23] MEDS: oxyCODONE HCl Immed Release 15 MG TABLET PO ×3 (02:58→13:12)
[2022-09-23 05:48] LABS: MANUAL DIFF FLAG NO
[2022-09-23 05:51] LABS: Basophils Percent Auto 0.2 % (0-2); Eosinophils Absolute Auto 0.1 X10*3/uL (0.0-0.4); Eosinophils Percent Auto 0.7 % (0-4); Hematocrit 33.1 % (42.0-52.0); Hemoglobin 11.1 g/dl (14.0-18.0); Imm Gran Abs Auto 0.04 X10*3/uL (0.00-0.03); Imm Gran Pct Auto 0.4 % (0.0-0.4); Lymphocytes Absolute Auto 1.4 X10*3/uL (1.2-4.9); Lymphocytes Percent Auto 14.3 % (20-40); Mean Corpuscular HGB Conc 33.5 g/dl (31.0-36.0); Mean Corpuscular Hemoglobin 30.6 pg (27.0-33.0); Mean Corpuscular Volume 91.2 fL (80.0-98.0); Mean Platelet Volume 8.6 fL (9.4-12.4); Monocytes Absolute Auto 1.1 X10*3/uL (0.1-1.2); Monocytes Percent Auto 11.1 % (2-11); Neutrophils Absolute Auto 6.9 x10*3/uL (2.0-8.3); Neutrophils Percent Auto 73.3 % (45-73); Platelet Count 224 X10*3/uL (160-400); Red Blood Count 3.63 X10*6/uL (4.60-5.80); Red Cell Distribution Width 12.4 % (11.0-16.0); White Blood Count 9.4 X10*3/uL (4.8-10.8)
[2022-09-23 06:05] LABS: Anion Gap 14 (12-20); Blood Urea Nitrogen 13 mg/dL (9-16); Calcium 8.7 mg/dL (8.4-10.2); Carbon Dioxide 24 mmol/L (22-29); Chloride 101 mmol/L (96-108); Creatinine Clr Calc Pharmacy 117.5; Estimated Glomerular Filt Rate > 60; Glucose Fasting 135 mg/dL (60-99); Sodium 135 mmol/L (135-145)
[2022-09-23] MEDS: Celecoxib 200 MG CAPSULE PO ×2 (08:19→20:16)
[2022-09-23] MEDS: oxyCODONE HCl ER 10 MG TAB.ER.12H PO ×2 (08:19→20:16)
[2022-09-23] MEDS: Tamsulosin HCL 0.4 MG CAPSULE PO (08:20)
[2022-09-23] MEDS: 0.9 % Sodium Chloride Flush 3 ML SYRINGE IVFLUSH ×3 (08:21→20:17)
--- NOTE | 2022-09-23 08:22 | PM.PNORT ---
Subjective Subjective Date of Service: 09/23/22 Principal diagnosis: bilateral TKA Interval history: No overnight events Physical Exam Vital Signs: Vital Signs: Last Vital Signs Temp 97.4 F 09/23/22 07:50 Pulse 100 09/23/22 07:50 Resp 18 09/23/22 07:50 BP 133/79 09/23/22 07:50 Pulse Ox 95 09/23/22 07:50 O2 Del Method Room Air 09/23/22 07:50 BMI result Body Mass Index 35.3 Extrem: Other: Intact DP bilateral with poor quad function Dressing c/d/i Procedures Date of Service Date of Service: 09/23/22 Progress Note: A&P Assessment and plan (1) Status post total knee replacement, bilateral: Status: Acute Plan OOB and walking and PT. Bed to chair > TID Continue lovenox PO pain control Likely SNF tomorrow Time Spent With Patient Time: Total time managing care of this patient today ____ minutes. Quality Stroke Does the patient have a stroke diagnosis?: No VTE Prior VTE?: No VTE Risk Level:: Medical - moderate - high VTE Device Contraindication: N/A - Device Ordered VTE Drug Contraindication: N/A - Med Ordered
[2022-09-23] MEDS: Docusate Sodium 100 MG CAPSULE PO (09:36)
[2022-09-23] MEDS: Enoxaparin Sodium 40 MG/0.4 ML SYRINGE SUBCUT (13:13)
[2022-09-24] MEDS: oxyCODONE HCl Immed Release 15 MG TABLET PO ×4 (04:12→21:18)
[2022-09-24 05:33] VITALS: PULSE 98; O2SAT 92
[2022-09-24 06:20] LABS: MANUAL DIFF FLAG NO
[2022-09-24 06:24] LABS: Basophils Percent Auto 0.3 % (0-2); Eosinophils Absolute Auto 0.1 X10*3/uL (0.0-0.4); Eosinophils Percent Auto 0.7 % (0-4); Hematocrit 30.2 % (42.0-52.0); Hemoglobin 10.2 g/dl (14.0-18.0); Imm Gran Abs Auto 0.03 X10*3/uL (0.00-0.03); Imm Gran Pct Auto 0.3 % (0.0-0.4); Lymphocytes Absolute Auto 1.1 X10*3/uL (1.2-4.9); Mean Corpuscular HGB Conc 33.8 g/dl (31.0-36.0); Mean Corpuscular Hemoglobin 30.4 pg (27.0-33.0); Mean Corpuscular Volume 89.9 fL (80.0-98.0); Monocytes Percent Auto 10.3 % (2-11); Neutrophils Absolute Auto 7.4 x10*3/uL (2.0-8.3); Neutrophils Percent Auto 77.4 % (45-73); Platelet Count 239 X10*3/uL (160-400); Red Blood Count 3.36 X10*6/uL (4.60-5.80); Red Cell Distribution Width 12.2 % (11.0-16.0); White Blood Count 9.5 X10*3/uL (4.8-10.8)
[2022-09-24 06:41] LABS: Anion Gap 16 (12-20); Blood Urea Nitrogen 13 mg/dL (9-16); Calcium 8.9 mg/dL (8.4-10.2); Carbon Dioxide 25 mmol/L (22-29); Chloride 99 mmol/L (96-108); Creatinine Clr Calc Pharmacy 114.8; Estimated Glomerular Filt Rate > 60; Glucose Fasting 127 mg/dL (60-99); Potassium 4.3 mmol/L (3.3-5.1); Sodium 136 mmol/L (135-145)
[2022-09-24] MEDS: oxyCODONE HCl ER 10 MG TAB.ER.12H PO ×2 (07:15→20:22)
[2022-09-24] MEDS: 0.9 % Sodium Chloride Flush 3 ML SYRINGE IVFLUSH ×2 (07:15→20:24)
[2022-09-24] MEDS: Tamsulosin HCL 0.4 MG CAPSULE PO (07:15)
[2022-09-24] MEDS: Celecoxib 200 MG CAPSULE PO ×2 (07:15→20:23)
[2022-09-24 07:36] VITALS: BP 138/81; PULSE 100; RESP 18; TEMP 36.8; O2SAT 94
--- NOTE | 2022-09-24 09:07 | P.DS_ITS ---
DS: Providers Provider Date of Service: 09/27/22 Date of admission: 09/21/22 09:17 Primary care physician: Sridhar Holt MD DS: Diagnosis Discharge Diagnosis (1) Status post total knee replacement, bilateral: Status: Acute DS: Summary Hospital Course Hospital Course: The patient underwent a successful bilateral total knee arthroplasty, they were transferred to PACU and then to the floor to recover. During their stay, their vitals were stable, afebrile at 98.2. Labs were unremarkable, H/H 10.2/30.2. POD 1 they were started on Lovenox for DVT ppx, they also received Physical Therapy services twice a day. Prior to discharge, their dressing was changed, incision clean dry and intact, new Aquacel dressing applied and the plan was to be discharged to acute rehab. Time Spent with Patient Time attestation: Total time managing care of this patient today ____ minutes. Discharge coordination time: Less than 30 minutes Quality: Safe Use of Opioids Does Pt have an Active Cancer Diagnosis on the Problem List?: No Quality: Stroke Does the patient have a stroke diagnosis?: No Physical Exam Vital Signs: Vital Signs: Last Vital Signs Temp 98.2 F 09/24/22 07:36 Pulse 100 09/24/22 07:36 Resp 18 09/24/22 07:36 BP 138/81 09/24/22 07:36 Pulse Ox 94 09/24/22 07:36 O2 Del Method Room Air 09/24/22 07:36 BMI result Body Mass Index 35.3 Extrem: Other: Intact DP bilateral with poor quad function Dressing c/d/i DS: Data Data Completed and Pending Completed studies during hospitalization [Text1]: Pending at discharge 09/21/22 14:26 Surgical [PTH] Routine Labs on day of discharge: Laboratory Results - last 24 hr 09/24/22 09/24/22 05:29 05:29 WBC 9.5 RBC 3.36 L Hgb 10.2 L Hct 30.2 L MCV 89.9 MCH 30.4 MCHC 33.8 RDW 12.2 Plt Count 239 MPV 9.0 L Immature Gran % (Auto) 0.3 Neut % (Auto) 77.4 H Lymph % (Auto) 11.0 L Towner % (Auto) 10.3 Eos % (Auto) 0.7 Baso % (Auto) 0.3 Lymph # (Auto) 1.1 L Towner # (Auto) 1.0 Eos # (Auto) 0.1 Baso # (Auto) 0.0 Abs Immat Gran (auto) 0.03 Absolute Neuts (auto) 7.4 Absolute Nucleated RBC 0.000 Nucleated RBC % (auto) 0.0 Sodium 136 Potassium 4.3 Chloride 99 Carbon Dioxide 25 Anion Gap 16 BUN 13 Creatinine 0.87 Estim Creat Clear Calc 114.8 Estimated GFR > 60 Fasting Glucose 127 H Calcium 8.9 Discharge Plan Discharge Anticipated Discharge Date/Time: 09/24/22 15:57 Patient Disposition: Xfer SNF Discharge Diagnosis: Bilateral total knee Referrals: Physical Therapy - [facility] [Outside] - 2 Weeks (10/11/22 10:00 Physical Therapy Lincoln Singh PA-C) Lincoln Singh PA-C [Physician Medical Engineer] - 2 Weeks (10/07/22 1:30 [facility] Orthopedic Surgeons Lincoln Singh PA-C) Discharge Medications: New acetaminophen 325 mg Tablet 650 mg PO Q6H PRN (Reason: Pain, Mild (Pain Scale 1-3)) 30 Days Qty: 240 0RF enoxaparin 40 mg/0.4 mL Syringe 40 mg subcut Q24H 42 Days Qty: 16.8 0RF celecoxib 200 mg Capsule 200 mg PO BID 30 Days Qty: 60 0RF oxycodone 10 mg tablet 10 mg PO Q4H PRN (Reason: Pain, Moderate(Pain Scale 4-6)) 7 Days Qty: 42 0RF Rx Instructions: Partial Fill upon patient request. Continued tamsulosin 0.4 mg capsule 0.4 mg PO QAM docusate sodium [Colace] 100 mg Capsule 100 mg PO DAILY Discontinued ibuprofen 800 mg tablet 800 mg PO TID Discharge Orders: Discharge Order (Routine); Ordered 09/27/22 Ordered By: Joya King Diet: Regular diet Activity on Discharge: Use cane or walker Stand Alone Forms: Patient Portal Discharge page Care Plan Goals: Restore function of joint Health Concerns: none Plan of Treatment: Physical Therapy Pain management DVT prophylaxis Assessment: Physical Therapy for Total knee arthroplasty: WBAT, gait training, ROM 0-12, quad strength * Limit stair climbing * No showering, no tub bath-keep dressing clean, dry and intact * No driving x6 weeks * Continue lovenox x 6 weeks * Follow up with [facility] Orthopedics in 2 weeks:
--- NOTE | 2022-09-24 10:24 | MHC.CM.PN ---
PT READY TO DC UPDATES SENT TO [facility] WHO WILL SUBMIT FOR AUTH PT AND AWARE OF PROCESS/PLAN
[2022-09-24 11:42] VITALS: BP 138/81; PULSE 100; O2SAT 94
[2022-09-24] MEDS: Enoxaparin Sodium 40 MG/0.4 ML SYRINGE SUBCUT (13:30)
[2022-09-24 15:00] VITALS: BP 171/78; PULSE 104; RESP 18; TEMP 37.4; O2SAT 93
[2022-09-24 15:07] VITALS: BP 158/82
[2022-09-24 20:00] VITALS: BP 141/81; PULSE 116; RESP 16; TEMP 36.6; O2SAT 96
[2022-09-25 03:55] VITALS: BP 137/79; PULSE 110; RESP 18; TEMP 36.4; O2SAT 94
[2022-09-25] MEDS: oxyCODONE HCl Immed Release 15 MG TABLET PO ×2 (07:32→15:32)
[2022-09-25 08:00] VITALS: BP 143/80; PULSE 106; RESP 20; TEMP 36.3; O2SAT 94
[2022-09-25] MEDS: 0.9 % Sodium Chloride Flush 3 ML SYRINGE IVFLUSH (08:45)
[2022-09-25] MEDS: oxyCODONE HCl ER 10 MG TAB.ER.12H PO ×2 (09:00→21:36)
[2022-09-25] MEDS: Tamsulosin HCL 0.4 MG CAPSULE PO (09:01)
[2022-09-25] MEDS: Celecoxib 200 MG CAPSULE PO ×2 (09:01→21:36)
[2022-09-25] MEDS: Docusate Sodium 100 MG CAPSULE PO (09:05)
[2022-09-25 09:07] VITALS: BP 143/80; PULSE 106; O2SAT 94
[2022-09-25] MEDS: Enoxaparin Sodium 40 MG/0.4 ML SYRINGE SUBCUT (12:29)
[2022-09-25 13:45] VITALS: BP 143/80; PULSE 106; O2SAT 94
[2022-09-25 15:10] VITALS: BP 130/62; PULSE 132; RESP 18; TEMP 36.7; O2SAT 98
[2022-09-25] MEDS: polyethylene glycoL 3350 17 GM POWD.PACK PO (15:12)
[2022-09-25] MEDS: Acetaminophen 325 MG TABLET 650 MG PO (15:25)
[2022-09-25 19:15] VITALS: BP 136/68; PULSE 96; RESP 17; TEMP 37; O2SAT 94
[2022-09-26] MEDS: oxyCODONE HCl Immed Release 15 MG TABLET PO (01:43)
[2022-09-26 03:10] VITALS: BP 140/61; PULSE 80; RESP 17; TEMP 36.8; O2SAT 96
[2022-09-26 06:58] VITALS: BP 140/65; PULSE 99; RESP 18; TEMP 36.1; O2SAT 95
[2022-09-26] MEDS: Acetaminophen 325 MG TABLET 650 MG PO ×3 (07:37→18:32)
[2022-09-26] MEDS: polyethylene glycoL 3350 17 GM POWD.PACK PO (07:37)
[2022-09-26] MEDS: Docusate Sodium 100 MG CAPSULE PO (07:38)
--- NOTE | 2022-09-26 09:02 | PM.PNORT ---
Subjective Subjective Date of Service: 09/26/22 Principal diagnosis: bilateral TKA Interval history: POD5 s/p bilat knee TKA. Patient is resting in bed. Reports discomfort and difficulty sleeping. No overnight events. No additional complaints. Physical Exam Vital Signs: Vital Signs: Last Vital Signs Temp 97 F 09/26/22 06:58 Pulse 99 09/26/22 06:58 Resp 18 09/26/22 06:58 BP 140/65 H 09/26/22 06:58 Pulse Ox 95 09/26/22 06:58 O2 Del Method Room Air 09/26/22 06:58 BMI result Body Mass Index 35.3 Extrem: Other: Intact DP bilateral with poor quad function Dressing c/d/i Procedures Date of Service Date of Service: 09/26/22 Progress Note: A&P Assessment and plan (1) Status post total knee replacement, bilateral: Status: Acute Plan OOB and walking and PT. Bed to chair > TID Continue lovenox PO pain control Likely SNF tomorrow Time Spent With Patient Time: Total time managing care of this patient today ____ minutes. Quality Stroke Does the patient have a stroke diagnosis?: No VTE Prior VTE?: No VTE Risk Level:: Medical - moderate - high VTE Device Contraindication: N/A - Device Ordered VTE Drug Contraindication: N/A - Med Ordered
[2022-09-26] MEDS: Tamsulosin HCL 0.4 MG CAPSULE PO (10:11)
[2022-09-26] MEDS: Celecoxib 200 MG CAPSULE PO ×2 (10:12→19:16)
[2022-09-26] MEDS: Enoxaparin Sodium 40 MG/0.4 ML SYRINGE SUBCUT (13:22)
[2022-09-26 15:51] VITALS: BP 135/75; PULSE 99; RESP 20; TEMP 36.3; O2SAT 97
[2022-09-26] MEDS: oxyCODONE HCl Immed Release 5 MG TABLET PO (15:57)
[2022-09-26] MEDS: Melatonin 3 MG TABLET 6 MG PO (19:15)
[2022-09-26] MEDS: oxyCODONE HCl Immed Release 5 MG TABLET 10 MG PO ×2 (19:16→22:51)
[2022-09-26] MEDS: Sennosides 8.6 MG TABLET 17.2 MG PO (19:40)
[2022-09-26] MEDS: oxyCODONE HCl ER 10 MG TAB.ER.12H PO (19:40)
[2022-09-26] MEDS: LORazepam 1 MG TABLET PO (19:40)
[2022-09-26 20:00] VITALS: BP 139/69; PULSE 98; TEMP 36.4; O2SAT 98
[2022-09-26] MEDS: 0.9 % Sodium Chloride Flush 3 ML SYRINGE IVFLUSH (23:53)
[2022-09-27] MEDS: diphenhydrAMINE HCL 25 MG CAPSULE 50 MG PO (02:02)
[2022-09-27 02:45] VITALS: BP 137/74; PULSE 70; RESP 16; TEMP 36.5; O2SAT 96
[2022-09-27] MEDS: oxyCODONE HCl Immed Release 5 MG TABLET 10 MG PO ×3 (02:45→11:08)
[2022-09-27] MEDS: Acetaminophen 325 MG TABLET 650 MG PO ×3 (06:25→13:25)
--- NOTE | 2022-09-27 07:08 | PM.PNORT ---
Subjective Subjective Date of Service: 09/27/22 Principal diagnosis: bilateral TKA Interval history: POD6 s/p bilat knee TKA. Patient is resting in the recliner. Overnight patient c/o pain and anxiety. No additional overnight events. No additional complaints. Physical Exam Vital Signs: Vital Signs: Last Vital Signs Temp 97.7 F 09/27/22 02:45 Pulse 70 09/27/22 02:45 Resp 16 09/27/22 02:45 BP 137/74 09/27/22 02:45 Pulse Ox 96 09/27/22 02:45 O2 Del Method Room Air 09/27/22 02:45 BMI result Body Mass Index 35.3 Extrem: Other: Bilat knee Aquacel is c/d/i. Able to ambulate. Sensation intact. Procedures Date of Service Date of Service: 09/27/22 Progress Note: A&P Assessment and plan (1) Status post total knee replacement, bilateral: Status: Acute Plan OOB and walking and PT. Bed to chair > TID Continue lovenox PO pain control Rehab vs. home after AM session of P.T. Time Spent With Patient Time: Total time managing care of this patient today ____ minutes. Quality Stroke Does the patient have a stroke diagnosis?: No VTE Prior VTE?: No VTE Risk Level:: Medical - moderate - high VTE Device Contraindication: N/A - Device Ordered VTE Drug Contraindication: N/A - Med Ordered
[2022-09-27 07:39] VITALS: BP 129/77; PULSE 84; RESP 18; TEMP 36.8; O2SAT 94
[2022-09-27] MEDS: Celecoxib 200 MG CAPSULE PO (08:28)
[2022-09-27] MEDS: Tamsulosin HCL 0.4 MG CAPSULE PO (08:28)
[2022-09-27] MEDS: Sennosides 8.6 MG TABLET 17.2 MG PO (08:29)
--- NOTE | 2022-09-27 12:14 | MHC.CM.PN ---
DP: PT HAS BEEN MEDICALLY CLEARED FOR DC HOME WITH NEW [facility]. PT AND HAVE DECLINED ACUTE REHAB AND WOULD PREFER HOME. ORTHO PA AND NURSE NAVIGATOR MADE AWARE. RN UPDATED. [facility] NOTIFIED OF DC. [facility] UPDATED THAT PT HAS DECLINED BED. [facility] WILL TRANSPORT HOME.
--- NOTE | 2022-09-27 12:39 | P.F2F_ITS ---
Service Date Service Date: 09/27/22 Encounter Date of encounter: 09/27/22 Reasons for Services Signs and symptoms assessed: s/p bilat TKA. Pt. is considered homebound due to recent surgery. Unable to drive, poor balance, poor gait mechanics. Reason for physical therapy: home safety and mobility, therapeutic exercises, restore joint function, gait/transfer training, assess need for DME, ADL training and energy conservation Homebound: Leaving the home is medically contraindicated at this time without the asist of a device and/or another person due th the listed conditions above and below. Reason homebound: unsteady gait / fall risk, leg weakness, pain with ambulation, pain with transfers, poor balance / fall risk and unable to drive Certification: Based on the above findings, I certify that this patient is confined to the home and needs intermittent group home care, physical therapy and/or speech therapy, or continues to need occupational therapy. The patient is under my care, and I have initiated the establishment of the plan of care. The patient will be followed by a physician who will periodically review the plan of care. Time Spent With Patient Time: Total time managing care of this patient today ____ minutes.
[2022-09-27] MEDS: Enoxaparin Sodium 40 MG/0.4 ML SYRINGE SUBCUT (13:25)
--- NOTE | 2022-09-29 10:54 | P.OP_ITS ---
Operative Note Operative Note Date of Service: 09/21/22 Narrative: Date of Service: 09/21/22 Pre-op diagnosis: Knee OA bilateral Post-op diagnosis: same Procedure: TKA right TKA left Implants: Wei Triathlon posterior stabilized press fit 08/02/10a x 2 Surgeon: Cong Johnson MD Anesthesia: regional and spinal Was an Purchasing Assistant used for this Procedure?: Yes Purchasing Assistant: Lincoln Singh Estimated blood loss (mL): 50 Tourniquet time (min): 65 IV fluids (mL): 1,800 Pathology: other Condition: stable Disposition: PACU Procedure in detail: The patient was brought to the operating room and prepped and draped in standard sterile fashion. A time-out was called to identify proper site proper procedure proper surgeon and IV antibiotics were administered. 1 g of IV tranexamic acid was administered. I began with the right knee. I began by making a midline incision to the retinaculum and performed a medial parapatellar arthrotomy. The patella was translated laterally and the knee was flexed up. The knee had a 15 deg flexion contracture. The medial compartment was eburnated and the collateral were tight. I performed a small medial peel and resected the infrapatellar fat pad. Austin's line was then used to drill my intramedullary femoral guide and my distal femur cut of 14 mm was made in 5 degrees of valgus while protecting the soft tissues. I then measured a # 6 femur and placed my cutting guide and made my anterior posterior and chamfer cuts protecting the soft tissues at all times. A box cut was made removing the PCL. Once I was satisfied with my cuts I turned my attention to the tibia. I removed the meniscus medially and laterally and , using an external cutting guide, in line with the tibial crest and the third ray, I made my distal tibial cut in 0 deg slope of while protecting the posterior soft tissues at all times. An extension block was used to confirm appropriate amount of bony resection. I then sized a #5 tibia and once I was satisfied that there was complete tibial coverage I placed my trial and with the trial femur in place took the knee through range of motion. I was satisfied with the extension and flexion as well as the stability and balance at 0, 30 and 90 degrees. I then turned my attention to the patella where I removed 1 cm from the undersurface of the patella and then trialed a 35a patellar button. Again the knee was taken through range of motion I was satisfied with the tracking. I then returned to the femur and drilled my femoral lug holes and prepared the tibia. A femoral bone plug was placed and the knee was irrigated copiously. I then press fit the patella, tibia and femur in standard fashion. I trialed different inserts until I selected a #11 insert. The final insert was placed and a 3 minutes iodine soak with local TXA was performed. A Werewolf cautery wand was used to maintain hemostasis over the capsule and meniscal beds, the gutters and peripatellar soft tissues. I then turned my attention to the left side. There was also a flexiopn contracture of about 10 deg., I began by making a midline incision to the retinaculum and performed a medial parapatellar arthrotomy. The patella was translated laterally and the knee was flexed up. The knee had a 15 deg flexion contracture. The medial compartment was eburnated and the collateral were tight. I performed a small medial peel and resected the infrapatellar fat pad. Austin's line was then used to drill my intramedullary femoral guide and my d istal femur cut of 12 mm was made in 5 degrees of valgus while protecting the soft tissues. I then measured a # 6 femur and placed my cutting guide and made my anterior posterior and chamfer cuts protecting the soft tissues at all times. A box cut was made removing the PCL. Once I was satisfied with my cuts I turned my attention to the tibia. I removed the meniscus medially and laterally and , using an external cutting guide, in line with the tibial crest and the third ray, I made my distal tibial cut in 0 deg slope of while protecting the posterior soft tissues at all times. An extension block was used to confirm appropriate amount of bony resection. I then sized a #5 tibia and once I was satisfied that there was complete tibial coverage I placed my trial and with the trial femur in place took the knee through range of motion. I was satisfied with the extension and flexion as well as the stability and balance at 0, 30 and 90 degrees. I then turned my attention to the patella where I removed 1 cm from the undersurface of the patella and then trialed a 35a patellar button. Again the knee was taken through range of motion I was satisfied with the tracking. I then returned to the femur and drilled my femoral lug holes and prepared the tibia. A femoral bone plug was placed and the knee was irrigated copiously. I then press fit the patella, tibia and femur in standard fashion. I trialed different inserts until I selected a #11 insert. The final insert was placed and a 3 minutes iodine soak with local TXA was performed. A Werewolf cautery wand was used to maintain hemostasis over the capsule and meniscal beds, the gutters and peripatellar soft tissues. Each knee was then closed with a running Quill suture, a 3 0 Vicryl and emil on the skin. Patient was then placed in sterile dressing and brought to recovery room in stable condition there were no known complications.
== END 2022-09-27 14:00 | disposition home health service (06) | DRG 302 ==
LOC: HO.SSSA 09:25 → HO.S3 15:10
PROVIDERS: Absent Provider Physician Assistant; Admitting Provider Physician Assistant; PCP Internal Medicine; Visit Provider Orthopaedic Surgery
PROC: 0SRD0JA Replacement of Left Knee Joint with Synthetic Substitute, Uncemented, Open Approach (ICD-10-PCS; CPT 27447; principal; 2022-09-21 10:50)
DX: M17.0 Bilateral primary osteoarthritis of knee (principal); G89.18 Other acute postprocedural pain; N40.0 Benign prostatic hyperplasia without lower urinary tract symptoms; Z79.899 Other long term (current) drug therapy
CPT/HCPCS: 36415; 73560; 80048; 85014; 85018; 85025; 86850; 86900; 86901; 87640; 87641; 88305; 88311; 93005; 97110; 97116; 97163; 97166; 97530; 97535; C1776; J0131; J0690; J1170; J1650; J1885; J2405; J2795; J3010

== ENCOUNTER → 2022-09-21 09:17 | Outpatient (BNV) | payer BC, SELFPAY | PROVIDERS: Absent Provider Physician Assistant; Admitting Provider Physician Assistant; PCP Internal Medicine; Visit Provider Orthopaedic Surgery | DX: Z47.1 Aftercare following joint replacement surgery (principal); Z96.653 Presence of artificial knee joint, bilateral | CPT/HCPCS: 27447; 99024; 99231; 99238; G0180 ==

== ENCOUNTER → 2022-09-28 14:14 | Outpatient (BNVA) | payer BC, SELFPAY | PROVIDERS: PCP Internal Medicine; Visit Provider Orthopaedic Surgery ==

== ENCOUNTER 2022-10-01 13:19 | Outpatient (REF) | payer BC, SELFPAY ==
[2022-10-01 13:33] LABS: Appearance Urine Clear; Color Urine Yellow; Glucose Urine UA Negative (Negative); Leukocyte Esterase Urine Negative (Negative); Nitrite Urine Negative (Negative); Specific Gravity - Urine <= 1.005 (1.005-1.025); Urine Blood Negative (Negative); Urine Ketones Negative (Negative); Urine Protein Negative (Neg-Trace)
[2022-10-01 13:35] LABS: Bacteria Urine None Seen (None Seen); Hyaline Casts Urine 0-2 /LPF (0-2); RBC Urine 0-2 /HPF (0-2); Squamous Epithelial Cell Urine 0-2 /HPF (0-2); WBC Urine 0-5 /HPF (0-5)
== END 2022-10-01 13:20 | disposition home or self-care (01) ==
LOC: HO.LNP 13:19
PROVIDERS: Visit Provider Internal Medicine
DX: N39.0 Urinary tract infection, site not specified (principal)
CPT/HCPCS: 81001

== ENCOUNTER 2022-10-07 13:18 | Outpatient (AMB) | payer BC, SELFPAY ==
--- NOTE | 2022-10-07 13:24 | A.OFFVIS_ITS ---
Intake Intake Visit Reasons: PO-Bilat TKAs 09/21/22 NE Intake Note: Cedrick 62 yr old male presents today for his P/O visit for his bilateral TKA's from 09/21/[address] Johnson. Patient reports he is doing well, his most discomfort comes at night. Allergies No Known Allergies [No Known Allergies*] Allergy (Verified 10/07/22 13:55) HPI PO-Bilat TKAs 09/21/22 NE HPI Details 62-year-old male who returns to the office today for post-op bilateral TKA, 09/21/[address] Johnson. He continues to experience discomfort at night which is worse in his right knee than the left. He is taking oxycodone at night and Celebrex as instructed. He is doing well otherwise and has no concerns today. 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 No erythema or joint effusion. ROM is 0-90 degrees. Calf supple, nontender. NVI. Assessment & Plan Assessment & Plan (1) Status post total knee replacement, bilateral: Code(s): Z96.653 - Presence of artificial knee joint, bilateral Plan Obdulia removed, steri strips applied. He will begin to transition to Outpatient PT to continue working on Gait training, ROM and quad strength. No driving for another 4 weeks. He will require ppx abx for dental procedures. He will f/u in 4 weeks, sooner if needed. Orders: Orders PT Evaluation and Treatment 10/06/22 Z96.653 - Presence of artificial knee joint, bilateral Medications: Changed From oxycodone Partial Fill upon patient request. 10 mg PO Q4H 7 days PRN 42 tabs 0RF Pain, Moderate(Pain Scale 4-6) To oxycodone Partial Fill upon patient request. 10 mg PO Q6H PRN 28 tabs 0RF Pain, Moderate(Pain Scale 4-6) 7 days Patient Instructions: Scribed for Lincoln Singh PA-C, by Ho Aguilar medical biller, on 10/07/2022 at 1:30 PM EST. I, Lincoln Singh PA-C, have personally reviewed and agree with the information entered by the scribe. Coding Level of Care Code Global (08441) Diagnoses Status post total knee replacement, bilateral Z96.653
== END 2022-10-07 14:23 | disposition home or self-care (01) ==
PROVIDERS: Visit Provider Physician Assistant
DX: Z96.653 Presence of artificial knee joint, bilateral (principal)
CPT/HCPCS: 99024

== ENCOUNTER → 2022-10-07 13:18 | Outpatient (BNVA) | payer BC, SELFPAY | PROVIDERS: Visit Provider Physician Assistant | DX: Z96.653 Presence of artificial knee joint, bilateral (principal) ==

== ENCOUNTER 2022-11-11 14:56 | Outpatient (AMB) | payer BC, SELFPAY ==
--- NOTE | 2022-11-11 15:12 | A.OFFVIS_ITS ---
Intake Intake Visit Reasons: PO-Bilat TKAs 09/21/22 NE Intake Note: Cedrick is a 62 year old male who presents today for a post operative appointment s/p Bilateral TKA's 09/21/22. Patient reports that he is experiencing continued pain pain is worse at night, Left seems to be more painful than the right. He feels that the left knee is looking a bit deformed. He has concerns of redness and swelling at the incision site. He is taking oxycodone, he only has two left - he is requesting a refill. He is also taking celebrex and Tylenol, he is asking about taking ibuprofen but he just recently finished the lovenox Allergies No Known Allergies [No Known Allergies*] Allergy (Verified 10/07/22 13:55) HPI PO-Bilat TKAs 09/21/22 NE HPI Details 6 weeks post op doing well. Describes wa rmth and pain. Left knee not as strong as right. Has been mowing lawn and very active and describes discomfort at end of day. 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 F/u 6 weeks. COntinue ROM and strengthening Coding Level of Care Code Global (81524) Diagnoses Status post total knee replacement, bilateral Z96.653
== END 2022-11-11 15:26 | disposition home or self-care (01) ==
PROVIDERS: PCP Internal Medicine; Visit Provider Orthopaedic Surgery
DX: Z96.653 Presence of artificial knee joint, bilateral (principal)
CPT/HCPCS: 99024

== ENCOUNTER → 2022-11-11 14:56 | Outpatient (BNVA) | payer BC, SELFPAY | PROVIDERS: PCP Internal Medicine; Visit Provider Orthopaedic Surgery ==

== ENCOUNTER 2022-12-09 10:46 | Outpatient (AMB) | payer BC, SELFPAY ==
--- NOTE | 2022-12-09 11:02 | MHC.OFFVIS ---
Intake Intake Visit Reasons: PO - Bilateral TKA 09/23/22 - Discuss work status Intake Note: Cedrick is a 62 year old female who presents today for a post operative follow up s/p Bilateral TKA 09/23/22. Patient presents today to discuss work status. Patient reports that he feels that he is at a stand still with his progression. He is having some pain after being stationary for prolonged period of time and is struggling with ambulation of stairs. He is set to return to work next week and is apprehensive of this. Allergies No Known Allergies [No Known Allergies*] Allergy (Verified 12/14/22 06:28) HPI PO - Bilateral TKA 09/23/22 - Discuss work status HPI Details Cedrick is a 62 year old man who presents ~10 weeks S/P bilateral TKA's. He continues to have pain in his knees with activity, and difficulty with use of stairs. He denies any difficulty walking on even ground, but walking an incline is difficult for him. He says his pain has improved since his last appointment. He continues to attend PT and perform at-home exercises. 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 Review of Systems Const All systems reviewed & are unremarkable except as noted in HPI and below Physical Exam Const General: no acute distress, alert and awake Orientation/consciousness: patient oriented x3 HEENT Head: Yes normocephalic and Yes atraumatic Eyes EOM: EOMs intact bilaterally Resp Effort & Inspection: normal respiratory effort and able to speak in complete sentences Cardio Jugular venous distension: no JVD Skin General skin exam: turgor normal Rashes: no rashes Neuro General: patient oriented x3 Extrem Other: Bilateral Knees: Well-healed incision palpable defect in distal quad with 10 deg lag Psych Appearance: grossly normal Affect: normal affect Attitude: cooperative Results Reviewed Results Reviewed: I personally reviewed relevant radiographs. Bilateral total knee arthroplasty in expected post operative position with no hardware complications or evidence of loosening Assessment & Plan Assessment & Plan (1) Status post total knee replacement, bilateral: Code(s): Z96.653 - Presence of artificial knee joint, bilateral Plan: This is a 62 year old man S/P bilateral TKA, DOS: 09/21/22. He is improving but continues to have pain & difficulty with using stairs or prolonged activity. He has been attending PT and exercising at home. He has notable left quad weakness and a palpable quad defect in his left leg, suspect for a partial quad tendon tear. I recommend surgical repair/. It is unclear how long this hs been present but there was nothing palpable 6 weeks ago. I discussed the risks, benefits, and alternatives including, but not limited to, the risk of pain, infection, stiffness, need for further surgery as well as potential medical complications such as blood clots, pulmonary embolism and cardiac complications. I discussed the recovery timeline and process as well as the importance of PT. He will speak with his concerning this procedure and contact the clinic with his decision. I explained that this procedure should be performed KODY if he decides to move forward. If he does not with to proceed with surgery, I recommend he remain out of work for the next 6 weeks and continue to work on strengthening exercises. Shanice will contact him to discuss this further. (2) Rupture of left quadriceps tendon: Comment: S/P bilateral TKA, DOS: 09/21/22 Code(s): S76.112A - Strain of left quadriceps muscle, fascia and tendon, initial encounter Plan Scribed for Cong Johnson MD by Genaro Bridges, nuclear medical technologist, on 12/09/22 at 11:25 AM, EST. Coding Level of Care Code Est Pt Level 4 (30672) Diagnoses Status post total knee replacement, bilateral Z96.653 Rupture of left quadriceps tendon S76.112A
== END 2022-12-09 11:56 | disposition home or self-care (01) ==
PROVIDERS: PCP Internal Medicine; Visit Provider Orthopaedic Surgery
DX: Z47.1 Aftercare following joint replacement surgery (principal); Z96.653 Presence of artificial knee joint, bilateral; S76.112A Strain of left quadriceps muscle, fascia and tendon, initial encounter
CPT/HCPCS: 99214

== ENCOUNTER → 2022-12-09 10:46 | Outpatient (BNVA) | payer BC, SELFPAY | PROVIDERS: PCP Internal Medicine; Visit Provider Orthopaedic Surgery ==

== ENCOUNTER 2022-12-10 11:00 | Outpatient (RCR) | payer BC, SELFPAY ==
--- NOTE | 2022-10-11 10:58 | MHC.PT.EP ---
[facility] [place] Office [place] Office [place] Office [address] [phone] F: [phone] F: [phone] F: [phone] F: [phone] Physical Therapy Plan of Care Date of Evaluation: Date of Surgery: 09/21/22 Diagnosis: Presence of artificial knee joint, B Assessment: Cedrick is a 62 year old male who is referred to PT for presence of artificial knee, B . He reports of having B TKA on 09/21. He is about 3 weeks post op. Post surgery he went home and had home PT until 2 days back. He had TKA secondary to OA knees. On PT examination he presented with 3/10 pain at rest and 7/10 pain with standing, walking, sleeping, rolling in bed, TTP along medial joint line B, decreased B LE strength, impaired posture, balance and gait. He lives with his and is independent with self care activities. His has been performing all IADLS at home. 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 He would benefit from skilled PT to address the aforementioned impairments and improve tolerance to functional activities. Frequency and Duration: The patient will be seen 2/week for 7 weeks Short Term Goals: 1. Pt will have 50% decrease in pain which will enable him walk with a cane instead of walker in 2 weeks. 2. Pt will demonstrate B knee ROM WFL which will enable him to negotiate stairs without difficulty in 3 weeks. [facility] Goals: 1. Pt will demonstrate an increase in muscle strength by 1 grade which will enable to him to walk, stand and perform sit to stand without support in 6 weeks. 2. Pt will be independent with HEP and return to PLOF in 7 weeks. Treatment Plan: Modalities to reduce pain, spasms and effusion. Manual therapy to restore motion and function. Therapeutic exercise to improve strength and flexibility. Neuromuscular re-education for posture and balance. Therapeutic activities to return to functional activities of daily living. Electronically signed by: Romana Santiago PT DPT Please sign and return to therapist. Thank you for your referral.
--- NOTE | 2022-12-24 10:36 | MHC.PT.DC ---
[facility] [place] Office [place] Office [place] Office [address] Rodriguez Gonzalez [address] [facility] [phone] F: [phone] F: [phone] F: [phone] F: [phone] Physical Therapy Discharge Report Diagnosis: Presence of artificial knee joint, B Date of Surgery: 09/21/22 Date of Evaluation: 10/11/22 Date of Discharge: 12/24/22 Treatments to Date: 17 Cancellations to Date: 0 No Shows to Date: 0 Discharge Status: Improved Function Independent with HEP Physician Discontinued Tx Discharge Summary: Cedrick arrived stating he is scheduled for quad tendon repair surgery for L knee on 12/14. He had no known trauma recently. The only thing he remembers was hearing a pop in the L knee POD 1. As he is scheduled for a surgery on 12/14 he is being d/c from PT for B TKA today. Electronically signed by: Romana Santiago PT DPT Please sign and return to therapist. Thank you for your referral.
== END 2022-12-24 10:37 | disposition home or self-care (01) ==
LOC: HO.PT 11:00
PROVIDERS: PCP Internal Medicine; Visit Provider Physician Assistant
DX: Z96.653 Presence of artificial knee joint, bilateral (principal)
CPT/HCPCS: 97110; 97116; 97161; 97530

== ENCOUNTER 2022-12-13 10:52 | Outpatient (REF) | payer BC, SELFPAY ==
[2022-12-13 10:55] LABS: MANUAL DIFF FLAG NO
[2022-12-13 11:44] LABS: Appearance Urine Clear; Color Urine Yellow; Glucose Urine UA Negative (Negative); Leukocyte Esterase Urine Negative (Negative); Nitrite Urine Negative (Negative); PH 5.5 (5.0-9.0); Urine Blood Negative (Negative); Urine Ketones Negative (Negative); Urine Protein Negative (Neg-Trace)
[2022-12-13 11:47] LABS: Basophils Percent Auto 0.8 % (0-2); Eosinophils Absolute Auto 0.3 X10*3/uL (0.0-0.4); Eosinophils Percent Auto 6.1 % (0-4); Hematocrit 42.3 % (42.0-52.0); Hemoglobin 14.1 g/dl (14.0-18.0); Imm Gran Abs Auto 0.01 X10*3/uL (0.00-0.03); Imm Gran Pct Auto 0.2 % (0.0-0.4); Lymphocytes Absolute Auto 1.7 X10*3/uL (1.2-4.9); Lymphocytes Percent Auto 32.9 % (20-40); Mean Corpuscular HGB Conc 33.3 g/dl (31.0-36.0); Mean Corpuscular Hemoglobin 29.5 pg (27.0-33.0); Mean Corpuscular Volume 88.5 fL (80.0-98.0); Mean Platelet Volume 8.9 fL (9.4-12.4); Monocytes Absolute Auto 0.4 X10*3/uL (0.1-1.2); Monocytes Percent Auto 6.9 % (2-11); Neutrophils Absolute Auto 2.7 x10*3/uL (2.0-8.3); Neutrophils Percent Auto 53.1 % (45-73); Platelet Count 280 X10*3/uL (160-400); Red Blood Count 4.78 X10*6/uL (4.60-5.80); Red Cell Distribution Width 13.2 % (11.0-16.0); White Blood Count 5.1 X10*3/uL (4.8-10.8)
[2022-12-13 11:50] LABS: Bacteria Urine None Seen (None Seen); Hyaline Casts Urine 0-2 /LPF (0-2); RBC Urine 0-2 /HPF (0-2); Squamous Epithelial Cell Urine 0-2 /HPF (0-2); WBC Urine 0-5 /HPF (0-5)
[2022-12-13 11:51] LABS: Estimated Average Glucose 97 mg/dL
[2022-12-13 12:28] LABS: PSA,Total (Free>4and<10) 2.65 ng/mL (0.00-4.00)
[2022-12-13 12:40] LABS: Creatinine Urine 132.94 mg/dL; Microalbumin Urine < 5.0 mg/L
[2022-12-13 12:42] LABS: Alanine Aminotransferase 20 U/L (0-40); Albumin Level 4.3 g/dL (3.5-5.0); Alkaline Phosphatase 82 U/L (39-117); Anion Gap 14 (12-20); Aspartate Amino Transferase 17 U/L (5-37); Bilirubin Total 0.9 mg/dL (0.0-1.0); Blood Urea Nitrogen 16 mg/dL (9-16); Calcium 10.2 mg/dL (8.4-10.2); Carbon Dioxide 25 mmol/L (22-29); Chloride 105 mmol/L (96-108); Estimated Glomerular Filt Rate > 60; Glucose Fasting 99 mg/dL (60-99); Potassium 4.4 mmol/L (3.3-5.1); Sodium 140 mmol/L (135-145); Total Protein 7.5 g/dL (6.5-8.0)
== END 2022-12-13 10:53 | disposition home or self-care (01) ==
LOC: HO.LNP 10:52
PROVIDERS: Visit Provider Internal Medicine
DX: Z00.00 Encounter for general adult medical examination without abnormal findings (principal); Z12.5 Encounter for screening for malignant neoplasm of prostate; N40.0 Benign prostatic hyperplasia without lower urinary tract symptoms; R73.03 Prediabetes
CPT/HCPCS: 80053; 81001; 82043; 82570; 83036; 84153; 85025

== ENCOUNTER 2022-12-14 06:00 | Day surgery (SDC) | payer BC, SELFPAY ==
--- NOTE | 2022-12-13 09:26 | HO.ANESPROP2 ---
Documented by User: Ema Emery NP 12/13/22 09:27 HPI - Anesthesia Eval Consult details Narrative: 62yo M for Left Knee Arthroscopy,poss quad tendon repair s/p bilat tka 08/2022 with spinal/blocks PMFSH Active Problems Active Problems: All Active Problems (Updated 12/09/22 @ 11:25 by Genaro Bridges) Rupture of left quadriceps tendon (Acute) Status post total knee replacement, bilateral (Acute) Osteoarthritis of left knee (Acute) Osteoarthritis of right knee (Acute) Past Medical History Medical History Arthritis of neck BPH (benign prostatic hyperplasia) Heartburn Osteoarthritis Renal calculi Family History Family history of problems with anesthesia: No Surgical History Surgical History H/O colonoscopy H/O: knee surgery Hx of umbilical hernia repair History of Problems with Anesthesia: No Social History Social History Household Members: Spouse Housing: House Are you a primary dialysis patient care technician to a significant other at home: No Do you presently have visiting nurse or other home services: No Alcohol intake: unknown Patient Tobacco Use Status: Never used Tobacco service: No Current occupational status: employed 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, 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 Meds Allergies Allergy/AdvReac Type Severity Reaction Status Date / Time No Known Allergies Allergy Verified 12/14/22 06:28 [No Known Allergies*] Home Medications Medication Instructions Recorded Confirmed Last Taken Type melatonin 10 mg PO BEDTIME 12/14/22 12/14/22 Unknown History Exam Exam Date and Time: December 13, 2022 0926 Pertinent Lab Results Pertinent Lab Results: Laboratory Tests 09/24/22 05:29 WBC 9.5 Hgb 10.2 L Hct 30.2 L Plt Count 239 Sodium 136 Potassium 4.3 Chloride 99 Carbon Dioxide 25 BUN 13 Creatinine 0.87 Assessment and Plan Assessment Anesthesia Assessment: Chart Reviewed Final Anesthetic Review Family History of Problems with Anesthesia: No History of Problems with Anesthesia: No Documented by User: Diego Story MD 12/14/22 17:44 PMFSH Past Medical History Medical History Arthritis of neck BPH (benign prostatic hyperplasia) Heartburn Osteoarthritis Renal calculi Surgical History Surgical History H/O colonoscopy H/O: knee surgery Hx of umbilical hernia repair Social History Social History Household Members: Spouse Housing: House Are you a primary dialysis patient care technician to a significant other at home: No Do you presently have visiting nurse or other home services: No Alcohol intake: unknown Patient Tobacco Use Status: Never used Tobacco service: No Current occupational status: employed 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, 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 Meds Allergies Allergy/AdvReac Type Severity Reaction Status Date / Time No Known Allergies Allergy Verified 12/14/22 06:28 [No Known Allergies*] Home Medications Medication Instructions Recorded Confirmed Last Taken Type melatonin 10 mg PO BEDTIME 12/14/22 12/14/22 Unknown History Exam Airway Mallampati Class: IV Loose/Missing/Broken Teeth: Yes (poor dentition ) Assessment and Plan Assessment Anesthesia Assessment: Anesthesia Plan Discussed Final Anesthetic Review NPO: Yes ASA Class: III Final Preanesthetic Review: Meds/Allgs Chart Reviewed, Consent Obtained/Reviewed and Anes Risks/Benef Reviewed Patient Risk: Intermediate Procedure Risk: Intermediate Anesthetic Plan Anesthetic Plan: GA and Agree w/ Assess. and Plan Disposition: Standard PACU
[2022-12-14] VITALS (15 sets, daily range): BP systolic 95–138; BP diastolic 61–88; PULSE 70–90; RESP 14–20; TEMP 35.9–37.2; O2SAT 96–100; BMI 34.2
--- OUTSIDE RECORDS SUMMARY | 2022-12-14 06:03 | XMS_ITS | Patient Health Record ---
Author Name Unknown Organization Sridhar Holt MD Address [address] [place], [place] [id number] Care Team Providers Care [employer] Police Officer Name Role Phone Sridhar Holt Primary Care Provider [phone] ALLERGIES No Known Allergies RESULTS Component Value Reference Range Notes Occult Blood, Stool, Guaiac Reviewed date:12/18/2021 01:50:11 PM Interpretation:Negative Performing Lab: Notes/Report: Negative Occult Blood, Stool, Guaiac Neg XR cervical spine 4V Reviewed date:02/04/2022 08:47:14 AM Interpretation: Performing Lab: Notes/Report: [facility] [address] [place] [id number] XRay Report Signed Patient: Cedrick Olsen MR#: [id number] : 1960 Acct:[id number] Age/Sex: 61 / M ADM Date: 01/28/22 Loc: HO.XRAY Attending Dr: Sridhar Holt MD Ordering Physician: Sridhar Holt MD Date of Service: 01/28/22 Procedure(s): XR cervical spine 4V Accession Number(s): [id number] cc: Sridhar Holt MD EXAMINATION: XR CERVICAL SPINE CLINICAL INFORMATION: Posterior occipital pain radiating to trapezius. COMPARISON: None TECHNIQUE: 5 views of the cervical spine were obtained. FINDINGS: There is mild straightening of the cervical lordosis. The vertebral heights and alignment are normal. There is moderate narrowing of the right neural foramina C3-C4, C4-C5, C5-C6, and C6-C7 disc levels from uncovertebral hypertrophic changes. Minimal narrowing of the left neural foramina at C2-C3 through C6-C7 disc levels is noted. The craniovertebral junction and C1-C2 alignment is normal. No visible acute fracture, dislocation or lytic process seen. The paravertebral soft tissues are normal. XR/XR cervical spine 4V IMPRESSION: Degenerative disc changes C3-C4 through C6-C7 disc levels with moderate ventral spondylosis. No visible acute fracture, dislocation or subluxation seen. Dictated By: Elias Patel MD Signed By: <Electronically signed by Elias Patel MD in OV> 02/02/22 1648 DD/ 1102 TD/TT: Chiropractic Teacher: LUIS Complete Blood Count Auto Di ff Reviewed date:09/13/2022 05:14:46 PM Interpretation: Performing Lab:[facility], [address] [place] [phone] Notes/Report: White Blood Count 7.2 4.8-10.8 X10*3/uL Red Blood Count 4.71 4.60-5.80 X10*6/uL Hemoglobin 14.2 14.0-18.0 g/dl Hematocrit 42.4 42.0-52.0 % Mean Corpuscular Volume 90.0 80.0-98.0 fL Mean Corpuscular Hemoglobin 30.1 27.0-33.0 pg Mean Corpuscular HGB Conc 33.5 31.0-36.0 g/dl Red Cell Distribution Width 12.7 11.0-16.0 % Platelet Count 246 160-400 X10*3/uL Mean Platelet Volume 8.4 9.4-12.4 fL Neutrophils Percent Auto 64.5 45-73 % Imm Gran Pct Auto 0.4 0.0-0.4 % Lymphocytes Percent Auto 23.3 20-40 % Monocytes Percent Auto 7.3 2-11 % Eosinophils Percent Auto 3.9 0-4 % Basophils Percent Auto 0.6 0-2 % NRBC Pct Auto 0.0 0.0-0.2 /100WBC Neutrophils Absolute Auto 4.6 2.0-8.3 x10*3/u L Imm Gran Abs Auto 0.03 0.00-0.03 X10*3/uL Lymphocytes Absolute Auto 1.7 1.2-4.9 X10*3/u L Monocytes Absolute Auto 0.5 0.1-1.2 X10*3/uL Eosinophils Absolute Auto 0.3 0.0-0.4 X10*3/u L Basophils Absolute Auto 0.0 0.0-0.2 X10*3/uL NRBC Abs Auto 0.000 0.0-0.012 X10*3/uL Basic Metabolic Panel Reviewed date:09/13/2022 05:13:24 PM Interpretation: Performing Lab:[facility], [address] [place] [phone] Notes/Report: Sodium 141 135-145 mmol/L Potassium 4.3 3.3-5.1 mmol/L Chloride 106 96-108 mmol/L Carbon Dioxide 26 22-29 mmol/L Anion Gap 13 12-20 Blood Urea Nitrogen 22 9-16 mg/dL Creatinine 1.01 0.5-1.4 mg/dL Creatinine Clr Calc Pharmacy 98.9 eGFR (calculated from the MDRD study equation) and eCrCl (calculated from the Cockcroft-Gault equation) are based on different parameters and may not yield comparable results. If eCrCl result is absurd, please check patient's height/weight. Estimated Glomerular Filt Rate > 60 NOTE: For -Hungarian individuals, multiply the result by 1.210. Chronic Kidney Disease: Estimated GFR < 60 mL/min/1.73m2 Severe Kidney Disease: Estimated GFR < 15 mL/min/1.73m2 Glucose Random 96 60-115 mg/dL Calcium 9.7 8.4-10.2 mg/dL MRSA Nasal Screen Reviewed date:09/13/2022 05:11:21 PM Interpretation: Performing Lab:[facility], [address] [place] [phone] Notes/Report: MRSA Nasal PCR NEGATIVE Negative SA Nasal PCR NEGATIVE Negative MRSA Interpretation SEE NOTE MRSA target DNA not detected; SA target DNA not detected. A MRSA NEGATIVE, SA NEGATIVE test result does not preclude MRSA or SA nasal colonization. Type and Screen Reviewed date:09/13/2022 05:12:05 PM Interpretation: Performing Lab:[facility], [address] [place] [phone] Notes/Report: witnessed by [email or web address] NURSING: Call Blood Bank (ext. [phone]) to band patient on admission. Type and Screen in effect until 2300 on 09-21-2022 Blood Type OP Antibody Screen NEGATIVE Hemoglobin and Hematocrit Reviewed date:09/21/2022 12:32:09 PM Interpretation: Performing Lab:[facility], [address] [place] [phone] Notes/Report: Hemoglobin 14.9 14.0-18.0 g/dl Hematocrit 44.4 42.0-52.0 % Pathology Reviewed date:09/24/2022 07:54:52 AM Interpretation: Performing Lab:[facility], [address] [place] [phone] Notes/Report: Complete Blood Count Auto Di ff Reviewed date:09/22/2022 02:33:24 PM Interpretation: Performing Lab:[facility], [address] [place] [phone] Notes/Report: White Blood Count 8.4 4.8-10.8 X10*3/uL Red Blood Count 3.76 4.60-5.80 X10*6/uL Hemoglobin 11.5 14.0-18.0 g/dl Hematocrit 34.6 42.0-52.0 % Mean Corpuscular Volume 92.0 80.0-98.0 fL Mean Corpuscular Hemoglobin 30.6 27.0-33.0 pg Mean Corpuscular HGB Conc 33.2 31.0-36.0 g/dl Red Cell Distribution Width 12.8 11.0-16.0 % Platelet Count 223 160-400 X10*3/uL Mean Platelet Volume 8.8 9.4-12.4 fL Neutrophils Percent Auto 72.5 45-73 % Imm Gran Pct Auto 0.2 0.0-0.4 % Lymphocytes Percent Auto 16.0 20-40 % Monocytes Percent Auto 10.4 2-11 % Eosinophils Percent Auto 0.7 0-4 % Basophils Percent Auto 0.2 0-2 % NRBC Pct Auto 0.0 0.0-0.2 /100WBC Neutrophils Absolute Auto 6.1 2.0-8.3 x10*3/u L Imm Gran Abs Auto 0.02 0.00-0.03 X10*3/uL Lymphocytes Absolute Auto 1.4 1.2-4.9 X10*3/u L Monocytes Absolute Auto 0.9 0.1-1.2 X10*3/uL Eosinophils Absolute Auto 0.1 0.0-0.4 X10*3/u L Basophils Absolute Auto 0.0 0.0-0.2 X10*3/uL NRBC Abs Auto 0.000 0.0-0.012 X10*3/uL Basic Metabolic Panel Fastin g Reviewed date:09/22/2022 02:31:21 PM Interpretation: Performing Lab:[address] [phone] Notes/Report: Sodium 138 135-145 mmol/L Potassium 4.2 3.3-5.1 mmol/L Chloride 105 96-108 mmol/L Carbon Dioxide 26 22-29 mmol/L Anion Gap 11 12-20 Blood Urea Nitrogen 17 9-16 mg/dL Creatinine 0.98 0.5-1.4 mg/dL Creatinine Clr Calc Pharmacy 101.9 eGFR (calculated from the MDRD study equation) and eCrCl (calculated from the Cockcroft-Gault equation) are based on different parameters and may not yield comparable results. If eCrCl result is absurd, please check patient's height/weight. Estimated Glomerular Filt Rate > 60 NOTE: For -Hungarian individuals, multiply the result by 1.210. Chronic Kidney Disease: Estimated GFR < 60 mL/min/1.73m2 Severe Kidney Disease: Estimated GFR < 15 mL/min/1.73m2 Glucose Fasting 121 60-99 mg/dL A fasting glucose from 100-125 mg/dl is considered impaired (pre-diabetes). Calcium 8.5 8.4-10.2 mg/dL Complete Blood Count Auto Di ff Reviewed date:09/23/2022 12:52:26 PM Interpretation: Performing Lab:[address] [place] [phone] Notes/Report: White Blood Count 9.4 4.8-10.8 X10*3/uL Red Blood Count 3.63 4.60-5.80 X10*6/uL Hemoglobin 11.1 14.0-18.0 g/dl Hematocrit 33.1 42.0-52.0 % Mean Corpuscular Volume 91.2 80.0-98.0 fL Mean Corpuscular Hemoglobin 30.6 27.0-33.0 pg Mean Corpuscular HGB Conc 33.5 31.0-36.0 g/dl Red Cell Distribution Width 12.4 11.0-16.0 % Platelet Count 224 160-400 X10*3/uL Mean Platelet Volume 8.6 9.4-12.4 fL Neutrophils Percent Auto 73.3 45-73 % Imm Gran Pct Auto 0.4 0.0-0.4 % Lymphocytes Percent Auto 14.3 20-40 % Monocytes Percent Auto 11.1 2-11 % Eosinophils Percent Auto 0.7 0-4 % Basophils Percent Auto 0.2 0-2 % NRBC Pct Auto 0.0 0.0-0.2 /100WBC Neutrophils Absolute Auto 6.9 2.0-8.3 x10*3/u L Imm Gran Abs Auto 0.04 0.00-0.03 X10*3/uL Lymphocytes Absolute Auto 1.4 1.2-4.9 X10*3/u L Monocytes Absolute Auto 1.1 0.1-1.2 X10*3/uL Eosinophils Absolute Auto 0.1 0.0-0.4 X10*3/u L Basophils Absolute Auto 0.0 0.0-0.2 X10*3/uL NRBC Abs Auto 0.000 0.0-0.012 X10*3/uL Basic Metabolic Panel Fastin g Reviewed date:09/23/2022 12:52:43 PM Interpretation: Performing Lab:[facility], [address] [place] [phone] Notes/Report: Sodium 135 135-145 mmol/L Potassium 4.0 3.3-5.1 mmol/L Chloride 101 96-108 mmol/L Carbon Dioxide 24 22-29 mmol/L Anion Gap 14 12-20 Blood Urea Nitrogen 13 9-16 mg/dL Creatinine 0.85 0.5-1.4 mg/dL Creatinine Clr Calc Pharmacy 117.5 eGFR (calculated from the MDRD study equation) and eCrCl (calculated from the Cockcroft-Gault equation) are based on different parameters and may not yield comparable results. If eCrCl result is absurd, please check patient's height/weight. Estimated Glomerular Filt Rate > 60 NOTE: For -Hungarian individuals, multiply the result by 1.210. Chronic Kidney Disease: Estimated GFR < 60 mL/min/1.73m2 Severe Kidney Disease: Estimated GFR < 15 mL/min/1.73m2 Glucose Fasting 135 60-99 mg/dL A fasting glucose of 126 mg/dl or greater on more than one occasion is considered diagnostic of diabetes. Calcium 8.7 8.4-10.2 mg/dL Complete Blood Count Auto Di ff Reviewed date:09/24/2022 08:14:24 AM Interpretation: Performing Lab:[facility], [address] [place] [phone] Notes/Report: White Blood Count 9.5 4.8-10.8 X10*3/uL Red Blood Count 3.36 4.60-5.80 X10*6/uL Hemoglobin 10.2 14.0-18.0 g/dl Hematocrit 30.2 42.0-52.0 % Mean Corpuscular Volume 89.9 80.0-98.0 fL Mean Corpuscular Hemoglobin 30.4 27.0-33.0 pg Mean Corpuscular HGB Conc 33.8 31.0-36.0 g/dl Red Cell Distribution Width 12.2 11.0-16.0 % Platelet Count 239 160-400 X10*3/uL Mean Platelet Volume 9.0 9.4-12.4 fL Neutrophils Percent Auto 77.4 45-73 % Imm Gran Pct Auto 0.3 0.0-0.4 % Lymphocytes Percent Auto 11.0 20-40 % Monocytes Percent Auto 10.3 2-11 % Eosinophils Percent Auto 0.7 0-4 % Basophils Percent Auto 0.3 0-2 % NRBC Pct Auto 0.0 0.0-0.2 /100WBC Neutrophils Absolute Auto 7.4 2.0-8.3 x10*3/u L Imm Gran Abs Auto 0.03 0.00-0.03 X10*3/uL Lymphocytes Absolute Auto 1.1 1.2-4.9 X10*3/u L Monocytes Absolute Auto 1.0 0.1-1.2 X10*3/uL Eosinophils Absolute Auto 0.1 0.0-0.4 X10*3/u L Basophils Absolute Auto 0.0 0.0-0.2 X10*3/uL NRBC Abs Auto 0.000 0.0-0.012 X10*3/uL Basic Metabolic Panel Fastin g Reviewed date:09/24/2022 08:14:15 AM Interpretation: Performing Lab:[facility], [address] [place] [phone] Notes/Report: Sodium 136 135-145 mmol/L Potassium 4.3 3.3-5.1 mmol/L Chloride 99 96-108 mmol/L Carbon Dioxide 25 22-29 mmol/L Anion Gap 16 12-20 Blood Urea Nitrogen 13 9-16 mg/dL Creatinine 0.87 0.5-1.4 mg/dL Creatinine Clr Calc Pharmacy 114.8 eGFR (calculated from the MDRD study equation) and eCrCl (calculated from the Cockcroft-Gault equation) are based on different parameters and may not yield comparable results. If eCrCl result is absurd, please check patient's height/weight. Estimated Glomerular Filt Rate > 60 NOTE: For -Hungarian individuals, multiply the result by 1.210. Chronic Kidney Disease: Estimated GFR < 60 mL/min/1.73m2 Severe Kidney Disease: Estimated GFR < 15 mL/min/1.73m2 Glucose Fasting 127 60-99 mg/dL A fasting glucose of 126 mg/dl or greater on more than one occasion is considered diagnostic of diabetes. Calcium 8.9 8.4-10.2 mg/dL UA ClnCatch+Micro w/rflx Cul t Reviewed date:2022 02:37:03 PM Interpretation: Performing Lab:[facility], [address] [place] [phone] Notes/Report: Urine, Clean Catch Color Urine Yellow Appearance Urine Clear PH 7.0 5.0-9.0 Glucose Urine UA Negative Negative mg/dL Urine Blood Negative Negative Specific Perham - Urine <= 1.005 1.005-1.025 Urine Protein Negative Neg-Trace mg/dL Urine Ketones Negative Negative mg/dL Nitrite Urine Negative Negative Leukocyte Esterase Urine Negative Negative RBC Urine 0-2 0-2 /HPF WBC Urine 0-5 0-5 /HPF Squamous Epithelial Cell Urine 0-2 0-2 /HPF Bacteria Urine None Seen None Seen Hyaline Casts Urine 0-2 0-2 /LPF Complete Blood Count Auto Di ff Reviewed date:12/13/2022 05:50:59 PM Interpretation: Performing Lab:[facility], [address] [place] [phone] Notes/Report: White Blood Count 5.1 4.8-10.8 X10*3/uL Red Blood Count 4.78 4.60-5.80 X10*6/uL Hemoglobin 14.1 14.0-18.0 g/dl Hematocrit 42.3 42.0-52.0 % Mean Corpuscular Volume 88.5 80.0-98.0 fL Mean Corpuscular Hemoglobin 29.5 27.0-33.0 pg Mean Corpuscular HGB Conc 33.3 31.0-36.0 g/dl Red Cell Distribution Width 13.2 11.0-16.0 % Platelet Count 280 160-400 X10*3/uL Mean Platelet Volume 8.9 9.4-12.4 fL Neutrophils Percent Auto 53.1 45-73 % Imm Gran Pct Auto 0.2 0.0-0.4 % Lymphocytes Percent Auto 32.9 20-40 % Monocytes Percent Auto 6.9 2-11 % Eosinophils Percent Auto 6.1 0-4 % Basophils Percent Auto 0.8 0-2 % NRBC Pct Auto 0.0 0.0-0.2 /100WBC Neutrophils Absolute Auto 2.7 2.0-8.3 x10*3/u L Imm Gran Abs Auto 0.01 0.00-0.03 X10*3/uL Lymphocytes Absolute Auto 1.7 1.2-4.9 X10*3/u L Monocytes Absolute Auto 0.4 0.1-1.2 X10*3/uL Eosinophils Absolute Auto 0.3 0.0-0.4 X10*3/u L Basophils Absolute Auto 0.0 0.0-0.2 X10*3/uL NRBC Abs Auto 0.000 0.0-0.012 X10*3/uL Comprehensive Empire. Panel Fa Reviewed date:12/13/2022 05:50:19 PM Interpretation: Performing Lab:[facility], [address] [place] [phone] Notes/Report: Sodium 140 135-145 mmol/L Potassium 4.4 3.3-5.1 mmol/L Chloride 105 96-108 mmol/L Carbon Dioxide 25 22-29 mmol/L Anion Gap 14 12-20 Blood Urea Nitrogen 16 9-16 mg/dL Creatinine 0.91 0.5-1.4 mg/dL Estimated Glomerular Filt Rate > 60 NOTE: For -Hungarian individuals, multiply the result by 1.210. Chronic Kidney Disease: Estimated GFR < 60 mL/min/1.73m2 Severe Kidney Disease: Estimated GFR < 15 mL/min/1.73m2 Glucose Fasting 99 60-99 mg/dL Calcium 10.2 8.4-10.2 mg/dL Bilirubin Total 0.9 0.0-1.0 mg/dL Aspartate Amino Transferase 17 5-37 U/L Alanine Aminotransferase 20 0-40 U/L Total Protein 7.5 6.5-8.0 g/dL Albumin Level 4.3 3.5-5.0 g/dL Alkaline Phosphatase 82 39-117 U/L PSA,Total (Free>4and<10) Reviewed date:12/13/2022 05:43:15 PM Interpretation: Performing Lab:[facility], [address] [place] [phone] Notes/Report: PSA,Total (Free>4and<10) 2.65 0.00-4.00 ng/mL A Free PSA was not performed: The percentage of Free PSA can be used to enhance the differentiation of prostate cancer from benign prostatic disease in subjects whose PSA levels are between 4.0 and 10.0 ng/mL. For subjects whose PSA levels are below 4.0 or above 10.0 ng/mL, the risk of prostate cancer is determined on the basis of the PSA alone. Therefore the % Free PSA is recommended only for those subjects whose PSA levels are between 4.0 and 10.0 ng/mL. PSA methodology: Fletcher Alinity i Chemiluminescent Microparticle Immunoassay (CMIA) Microalbumin, Random Reviewed date:12/13/2022 05:42:03 PM Interpretation: Performing Lab:[facility], [address] [place] [phone] Notes/Report: Creatinine Urine 132.94 Microalbumin Urine < 5.0 Microalbum/Creatinine Ratio Ur TNP <30 ug/mg cr Unable to calculate albumin/creatinine ratio due to low microalbumin or creatinine result. Hemoglobin A1c Reviewed date:12/13/2022 05:43:04 PM Interpretation: Performing Lab:[facility], [address] [place] [phone] Notes/Report: Hemoglobin A1c % 5.0 <6.0 % Hemoglobin A1C Reference Range Adults: 4.8 - 6.0 % Non diabetic: < 6.0 % Goal: < 7.0 % Additional Action Suggested: > 8.0 % Note: Hemoglobin A1c results are invalid for patients with abnormal amounts of HbF. Blood transfusions may impact the HbA1c concentration in the patient sample. Estimated Average Glucose 97 eAG = Estimated average glucose which is %A1C expressed as average glucose, using the formula of the F7T-Igbaxeq Average Glucose study (ADAG), Diabetes Care, Vol.31,#8, Sep. 2007 UA ClnCatch+Micro w/rflx Cul t Reviewed date:12/13/2022 05:51:50 PM Interpretation: Performing Lab:[facility], [address] [place] [phone] Notes/Report: [id number] Urine, Clean Catch Color Urine Yellow Appearance Urine Clear PH 5.5 5.0-9.0 Glucose Urine UA Negative Negative mg/dL Urine Blood Negative Negative Specific Perham - Urine 1.020 1.005-1.025 Urine Protein Negative Neg-Trace mg/dL Urine Ketones Negative Negative mg/dL Nitrite Urine Negative Negative Leukocyte Esterase Urine Negative Negative RBC Urine 0-2 0-2 /HPF WBC Urine 0-5 0-5 /HPF Squamous Epithelial Cell Urine 0-2 0-2 /HPF Bacteria Urine None Seen None Seen Hyaline Casts Urine 0-2 0-2 /LPF REASON FOR REFERRAL No Information MEDICATIONS Medication SIG (Take, Route, Frequency, Duration) Notes Start Date End Date Status Bactrim DS 800-160 MG 1 tablet Orally Tw ice a day for 5 days 2022 Active Tadalafil 20 MG 1 tablet Orally Once a day as needed for 30 day(s) 12/16/2020 Active Vitamin B12 1000 MCG 1 tablet Orally Onc e a day Not-Taking oxyCODONE HCl 10 MG 1 tablet as needed O rally every 6 hrs Active Viagra 50 MG 1 tablet as needed O rally Once a day for 30 day(s) 07/10/2015 Not-Curt ing DULoxetine HCl 30 MG TAKE 1 CAPSULE BY M OUTH EVERY DAY for 30 Active Ibuprofen 800 MG TAKE 1 TABLET BY LE TH THREE TIMES DAILY WITH FOOD OR MILK NEEDED for 90 Active Lovenox 40 MG/0.4ML 0.4 mL Injection Onc e a day for 30 day(s) Active CeleBREX 200 MG 1 capsule with food Orally twice a day Active Senna 8.6 MG 2 tablets at bedtime as needed Orally Once a day for 30 day(s) Active Tylenol 325 MG 1 capsule as needed Orally every 6 hrs Active Tamsulosin HCl 0.4 MG 1 capsule Orally O nce a day for 30 days 12/16/2020 Active Terbinafine HCl 250 MG 1 tablet Orally O nce a day for 10 days 06/18/2022 Active IMMUNIZATIONS Vaccine Route Administration Date Status Comme nts Tetanus Unknown 08/06/2017 Administered Given [place] [facility] [place] Covid Vaccine Unknown 05/22/2020 Administered Moderna SARS-COV-2 Moderna Unknown 06/19/2020 Administered SARS-COV-2 Moderna Unknown 02/22/2021 Administered Flu Vaccine Unknown 05/13/2014 Refused Fluarix Quadrivalent Unknown 04/26/2016 Refused Fluarix Quadrivalent Unknown 08/25/2018 Refused Fluarix Quadrivalent Unknown 01/05/2019 Refused Fluarix Quadrivalent Unknown 03/25/2020 Refused Fluarix Quadrivalent Unknown 12/09/2020 Refused Fluarix Quadrivalent Unknown 12/11/2021 Refused PPSV23 (Pnemovax) Unknown 06/18/2022 Refused SOCIAL HISTORY Tobacco Use: Social History Observation Description Date Details (start date - stop date) Never Smoker NA - NA Sex Assigned At : Social History Observation Description Sex Assigned At Unknown Tobacco Use/Smoking Question Answer Notes Patient is a nonsmoker Additional Findings: Tobacco Non-User Cu rrent non-smoker, currently using no form of tobacco Alcohol Screen Question Answer Notes Did you have a drink contain ing alcohol in the past year? Yes How often did you have a dri nk containing alcohol in the past year? Monthly or less (1 point) How many drinks did you have on a typical day when you were drinking in the past year? 1 or 2 drinks (0 point) How often did you have 6 or more drinks on one occasion in the past year? Never (0 point) Points 1 Interpretation Negative PROBLEMS Problem Type ICD Code Onset Dates Problem Status W/U Status Risk SNOMED Code Notes Problem Nevus (216.9) Active confirmed Nevus (1 517882646) Problem Prostatism (N40.0) Active confirmed 84617769 Problem Body mass index (BMI) 32.0-32.9, adult (Z68.32) Active confirmed 250889032 Problem Arthritis (M19.90) Active confirmed 1607211 Problem Prediabetes (R73.09) Active confirmed 7070991 Problem Erectile dysfunction, unspecified erectile dysfunction type (N52.9) Active confirmed 247779413 Problem Vitamin B12 deficiency (E53.8) Active confirmed 805069570 Problem Pressure sore, stage I (L89.91) Active confirmed Problem Sciatica of right side (M54.31) Active confirmed 40740004 Problem Arthritis of knee (M17.10) Active confirmed 331021228 Problem Sinusitis chronic, frontal (J32.1) Active confirmed 22331185 Problem BMI 32.0-32.9,adult (Z68.32) Active confirmed 340663473 Problem Hydronephrosis with urinary obstruction due to renal calculus (N13.2) Active confirmed 71314519 Problem Obesity (BMI 30.0-34.9) (E66.9) Active confirmed 655919391288336 Problem Neck arthritis (M46.92) Active confirmed 910750877 Problem Kidney stone on left side (N20.0) Active confirmed 81087543 Problem Arthritis of both knees (M17.0) Active confirmed 8805499099023501 Problem Cervical arthritis (M47.812) Active confirmed 020963015 VITAL SIGNS Blood pressure diastolic 76 mm Hg 09/13/2022 danielle ght is up 7 pounds since 07-02-22 Height 72 in 2022 weight at home is 247 BP not taken today no temp Blood pressure systolic 118 mm Hg 09/13/2022 weig ht is up 7 pounds since 07-02-22 Weight 247 lbs 2022 weight at home is 247 BP not taken today no temp BMI 33.50 kg/m2 2022 weight at home is 247 BP not taken today no temp Encounters Encounter Location Date Provider Diagnosis Sridhar Holt MD [address] [place] [address] [id number] 12/18/2021 Sridhar Holt Sciatica of right side M54.31 ; Annual physical exam Z00.00 ; Low vitamin B12 level E53.8 ; Cervical arthritis M47.812 ; Obesity (BMI 30.0-34.9) E66.9 ; Prediabetes R73.09 ; Prostatism N40.0 ; Colon cancer screening Z12.11 ; Depression screen Z13.31 and Encounter for screening for other viral diseases Z11.59 Sridhar Holt MD [address] [place] [address] [id number] 12/13/2022 Sridhar Holt Blood tests for routine general physical examination Z00.00 ; Prediabetes R73.09 and Prostatism N40.0 Sridhar Holt MD [address] [place] [address] [id number] 01/28/2022 Sridhar Jeromyardier Pain in right knee M25.561 and Cervical arthritis M47.812 Sridhar Holt MD [address] [place] [id number] 04/30/2022 Sridhar Holt Neck arthritis M46.92 and Prostatism N40.0 Sridhar Holt MD [address] [place] [address] [id number] 07/02/2022 Sridhar Holt Arthritis of both knees M17.0 and Jock itch B35.6 Sridhar Holt MD [address] [place] [address] [id number] 09/13/2022 Sridhar Holt Preop testing Z01.818 and Arthritis of both knees M17.0 Sridhar Holt MD [address] [place] [address] [id number] 06/18/2022 Sridhar Holt Jock itch B35.6 Sridhar Holt MD [address] [place] [address] [id number] 12/24/2021 Sridhar Holt MD [address] [place] [address] [id number] 09/13/2022 Sridhar Holt MD [address] [place] [address] [id number] 09/14/2022 Sridhar Holt MD [address] [place] [address] [id number] 09/27/2022 Sridhar Holt MD [address] [place] [address] [id number] 2022 Sridhar Holt Pressure sore, stage I L89.91 and Urinary tract infection N39.0 ASSESSMENTS Encounter Date Diagnosis Assessment Notes Treatment Notes Treatment Clinical Notes 12/18/2021 Annual physical exam (ICD-10 - Z00.00) needs colonscopy next year. 12/18/2021 Sciatica of right side (ICD-10 - M54.31) 12/13/2022 Prediabetes (ICD-10 - R73.09) 12/13/2022 Blood tests for routine general physical examination (ICD-10 - Z00.00) 01/28/2022 Pain in right knee (ICD-10 - M25.561) he had seen a surgeon who said he needed his knee replaced. he doesn't want cortisone and hopefully the duloxitine will help 01/28/2022 Cervical arthritis (ICD-10 - M47.812) order given to patient, pending diagnostic testing 04/30/2022 Prostatism (ICD-10 - N40.0) stable, will continue current regiment 04/30/2022 Neck arthritis (ICD-10 - M46.92) is doing well at present . has a little discomfort recently/ if it comes back to send to physical therapy, will continue current regiment 07/02/2022 Arthritis of both knees (ICD-10 - M17.0) is improving 09/13/2022 Preop testing (ICD-10 - Z01.818) patient low risk for surgery. pending the results of labs and ecg would clear for surgery/ is going to check with dentist to be certain no infection. if there is will need to delay surgery 09/13/2022 Arthritis of both knees (ICD-10 - M17.0) 06/18/2022 Jock itch (ICD-10 - B35.6) Patient verbalizes understanding of medications side effects, interactions and warnings. 2022 Urinary tract infection (ICD-10 - N39.0) wants him treated before we get the culture back 2022 Pressure sore, stage I (ICD-10 - L89.91) using cream and getting up more 12/18/2021 Low vitamin B12 level (ICD-10 - E53.8) to restart his b12 12/13/2022 Prostatism (ICD-10 - N40.0) 07/02/2022 Jock itch (ICD-10 - B35.6) will continue current regiment 12/18/2021 Cervical arthritis (ICD-10 - M47.812) suggested physical therapy and he doesn't want to do that 12/18/2021 Obesity (BMI 30.0-34.9) (ICD-10 - E66.9) diet and exercise 12/18/2021 Prediabetes (ICD-10 - R73.09) stable, no need for medication at this time 12/18/2021 Prostatism (ICD-10 - N40.0) stable, will continue current regimnt 12/18/2021 Colon cancer screening (ICD-10 - Z12.11) guaiac negative 12/18/2021 Depression screen (ICD-10 - Z13.31) negative screen 12/18/2021 Encounter for screening for other viral diseases (ICD-10 - Z11.59) no covid sx's PLAN OF TREATMENT Pending Test Test Name Order Date Electrocardiogram (EKG) 07/10/2015 Electrocardiogram (EKG) 07/22/2016 Electrocardiogram (EKG) 08/18/2017 Electrocardiogram (EKG) 08/25/2018 Next Appt Details Provider Name:Sridhar miner, 12/20/2022 04:00:00 PM, [address] [place] [address], [address], [place], [place], [phone], Insurance Providers Payer Name Payer Address Payer Phone Subscriber Number Group Number Insured Name Patient Relationship to Insured Coverage Start Date Coverage End Date [employer] [address] [place], [place] [phone] [id number] Cedrick Olsen Self - patient is the insured 8 MEDICATIONS ADMINISTERED Medication Instructions Date of Administration Dosage Notes B12 08/26/2016 1 cm3 B12 10/25/2016 1 cm3 B12 11/29/2016 1 cm3 B12 01/17/2017 1 cm3 MEDICAL (GENERAL) HISTORY Medical History History ICD Code colonoscopy 01/31/2013 - repeat 10 years Umbilical hernia
[2022-12-14] MEDS: Lactated Ringers 1,000 ML 100 ML IVCONT (06:46)
--- NOTE | 2022-12-14 09:42 | PM.OP ---
Brief Operative Note Date of Service: 12/14/22 Pre-op diagnosis: Quadriceps tendon tear Post-op diagnosis: same Procedure: Quadriceps repair with allograft Implants: [employer] Regeneten graft Surgeon: Cong Johnson MD Anesthesia: GETA and local Was an Title Manager used for this Procedure?: Yes Title Manager: Lincoln Singh Estimated blood loss (mL): 150 IV fluids (mL): 800 Pathology: none sent Condition: stable Disposition: PACU
[2022-12-14] MEDS: HYDROmorphone HCl 0.5 MG/0.5 ML SYRINGE 0.25 MG IVPUSH ×4 (09:57→10:12)
[2022-12-14] MEDS: oxyCODONE HCl Immed Release 5 MG TABLET PO ×2 (10:00→10:46)
[2022-12-14] MEDS: fentaNYL citrate/PF 100 MCG/2 ML VIAL 50 MCG IVPUSH ×2 (10:42→12:12)
[2022-12-14] MEDS: Acetaminophen 325 MG TABLET 650 MG PO (15:25)
--- NOTE | 2022-12-14 15:33 | PC.NURSE ---
PATIENT GIVEN ACETAMINOPHEN 650 MG PO FOR 5/[address] PAIN [address] LEFT KNEE. DR[address] GUTIERREZ HAD REASSESSED. PATIENT DOES NOT WANT TO GO BACK TO PACU AND DOES NOT WANT TO BE ADMITTED. AT BEDSIDE AND STATED THEY WOULD CALL THE SURGEON AND/OR GO THE ED WITH ANY ISSUES.
--- NOTE | 2022-12-23 10:37 | P.OP_ITS ---
Operative Note Operative Note Date of Service: 12/14/22 Narrative: Date of Service: 12/14/22 Pre-op diagnosis: Quadriceps tendon tear Post-op diagnosis: same Procedure: Quadriceps repair with allograft Implants: [employer] Nephew Regeneten graft Surgeon: Cong Johnson MD Anesthesia: GETA and local Was an [employer] Attendant used for this Procedure?: Yes [employer] Attendant: Lincoln Singh Estimated blood loss (mL): 150 IV fluids (mL): 800 Pathology: none sent Condition: stable Disposition: PACU Procedure in detail: Patient brought the operating room placed supine on the operative table prepped and draped in standard sterile fashion. Time-out was called and her receptor procedure per surgeon IV antibiotics per weight were administered. I began by making an incision over the proximal half of the prior total knee incision. Dissection was taken down to the retinaculum and this was incised. I was a hematoma and expression of joint fluid. I cleaned this up and evaluated the distal quad. There was a partial intrasubstance quad tear and a partial dehiscence of the arthrotomy just proximal to the patella. I irrigated copiously removed all excess suture and examined the defect. There was portion of the medial tendon and vastus that was slightly retracted but I was able to reapproximate the normal anatomy of the tendon. The quality of the tendon was reasonable and I while in terminal extension after copious irrigation used to Prolene and then a running Quill to reapproximate the quad. At the proximal quad where there was degeneration of the tissue and intrasubstance tearing I applied a Regeneten graft over the the repair. This was sutured in place with absorbable Vicryl. States I then took the knee through range of motion I was happy with the repair. It was stable through full range of motion. I then irrigated copiously closed the skin with absorbable suture and emil. Patient was placed into a sterile dressing and a knee brace locked in extension. He was extubated recovery room stable condition. There were no known complications.
== END 2022-12-14 15:42 | disposition home or self-care (01) ==
PROVIDERS: PCP Internal Medicine; Visit Provider Orthopaedic Surgery
PROC: (CPT 29870; principal; 2022-12-14 07:30)
DX: S76.112A Strain of left quadriceps muscle, fascia and tendon, initial encounter (principal); Z96.653 Presence of artificial knee joint, bilateral; M47.812 Spondylosis without myelopathy or radiculopathy, cervical region; M19.90 Unspecified osteoarthritis, unspecified site; N40.0 Benign prostatic hyperplasia without lower urinary tract symptoms; N20.0 Calculus of kidney; R12 Heartburn; Z98.890 Other specified postprocedural states
CPT/HCPCS: 27385; J0131; J0171; J0690; J1170; J2250; J2550; J2795; J3010

== ENCOUNTER → 2022-12-14 06:00 | Outpatient (BNV) | payer BC, SELFPAY | PROVIDERS: PCP Internal Medicine; Visit Provider Orthopaedic Surgery | DX: S76.112A Strain of left quadriceps muscle, fascia and tendon, initial encounter (principal) | CPT/HCPCS: 27385; 27447 ==

== ENCOUNTER 2022-12-20 12:45 | Outpatient (AMB) | payer BC, SELFPAY ==
--- NOTE | 2022-12-20 12:48 | A.OFFVIS_ITS ---
Intake Intake Visit Reasons: EP, Left quad tendon repair Intake Note: Cedrick a 62 year old male presents today for a follow up s/p Bilateral TKA 09/23/22. Allergies No Known Allergies [No Known Allergies*] Allergy (Verified 12/20/22 12:53) HPI EP, Left quad tendon repair HPI Details 62-year-old male who returns to the [facility] today for a follow-up of bilateral TKA, . He presents today for a brace adjustment. 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 No erythema. He has mild effusion. He can activate his quad muscle with SLR. Flexion to 45 degrees. Calf supple, nontender. NVI. Assessment & Plan Assessment & Plan (1) Rupture of left quadriceps tendon: Comment: S/P bilateral TKA, DOS: 09/21/22 Code(s): S76.112A - Strain of left quadriceps muscle, fascia and tendon, initial encounter Qualifiers: Encounter type: subsequent encounter Qualified Code(s): S76.112D - Strain of left quadriceps muscle, fascia and tendon, subsequent encounter Plan Dr. Johnson was available to see the patient with me today. Reassurance was given to the patient that he is doing well. There is good quad activation. He can discontinue the brace while sleeping and resting at home. It is advised that court wear the brace while walking to protect form quad failure and reinjury. He does have a routine post-op appointment scheduled for next week in the office. We will see him at that time, sooner if needed. Medications: Discontinued oxycodone Partial Fill upon patient request. Discontinued Reason: Doctor's Order 10 mg PO Q6H 7 days PRN 28 tabs 0RF pain Patient Instructions: Scribed for Lincoln Singh PA-C, by Ho Aguilar medical scientific officer, on 12/20/2022 at 12:45 PM EST. I, Lincoln Singh PA-C, have personally reviewed and agree with the information entered by the scribe. Coding Level of Care Code Global (58212) Diagnoses Rupture of left quadriceps tendon, subsequent encounter S76.112D Encounter type: subsequent encounter
== END 2022-12-20 13:40 | disposition home or self-care (01) ==
PROVIDERS: PCP Internal Medicine; Visit Provider Physician Assistant
DX: S76.112D Strain of left quadriceps muscle, fascia and tendon, subsequent encounter (principal)
CPT/HCPCS: 99024

== ENCOUNTER → 2022-12-20 12:45 | Outpatient (BNVA) | payer BC, SELFPAY | PROVIDERS: PCP Internal Medicine; Visit Provider Physician Assistant ==

== ENCOUNTER 2022-12-20 15:10 | Outpatient (REF) | payer BC, SELFPAY ==
--- NOTE | ~2022-12-20 | CT_ITS ---
EXAMINATION: CT ANGIOGRAM OF THE CHEST WITH AND WITHOUT CONTRAST (CT PULMONARY ANGIOGRAM FOR PE) CLINICAL INFORMATION: Reason for Exam precordial pain COMPARISON: Previous chest x-ray May 2006 TECHNIQUE: Prior to contrast administration, noncontrast localization images were obtained. Subsequently, multidetector volumetric imaging was performed from the thoracic inlet to below the diaphragms following the administration of 65 mL Omnipaque 350 intravenous contrast. No contrast reaction reported Sagittal, coronal, and MIP oblique sagittal reformatted images were obtained on the CT workstation, uploaded to PACS, and reviewed. This CT examination was performed using dose optimization techniques as appropriate, variously including the following: *Automated exposure control *Adjustment of mA and/or kV according to patient size (this includes techniques or standardized protocols for targeted exams where dose is matched to indication/reason for exam; i.e. extremities or head) *Use of iterative reconstruction technique Total exam dose-length product 186 mGy-cm FINDINGS: QUALITY OF STUDY/CONTRAST BOLUS: Satisfactory. PULMONARY ARTERIES: No pulmonary emboli. THORACIC AORTA: No aneurysm. LUNG: Subsegmental atelectasis left lung base in the left lower lobe. 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 PLEURA: No pleural effusion or pneumothorax. MEDIASTINUM: Normal heart size. No pericardial effusion. No hilar or mediastinal lymphadenopathy. No evidence of septal bowing or right heart strain. CORONARY ARTERY CALCIFICATION: None visualized on this study. CHEST WALL/AXILLA: No axillary or internal mammary lymphadenopathy. OSSEOUS STRUCTURES: No acute or suspicious osseous abnormality. Degenerative changes of the spine. UPPER ABDOMEN: Low-attenuation seen centrally in the left kidney, question peripelvic cyst versus hydronephrosis. This is similar to the abdomen and pelvis May 2018. No reflux of contrast into the hepatic veins to suggest elevated right heart pressures. CT/CT angio chest PE protocol IMPRESSION: No evidence of pulmonary embolism. VTE: negative
== END 2022-12-20 15:11 | disposition home or self-care (01) ==
LOC: HO.CT 15:10
PROVIDERS: PCP Internal Medicine; Visit Provider Internal Medicine
DX: R07.2 Precordial pain (principal)
CPT/HCPCS: 71275

== ENCOUNTER 2022-12-30 12:46 | Outpatient (AMB) | payer BC, SELFPAY ==
--- NOTE | 2022-12-30 12:47 | A.OFFVIS_ITS ---
Intake Intake Visit Reasons: PO LT quad repair 12/14/22 NE Intake Note: Cedrick is a 62 year old male who presents today for a 2 week post operative appointment s/p Left quad repair 12/14/22. Patient reports that he is doing well making slow progress. He explains that he has been sleeping better. He complains of tightness of the right knee. Allergies No Known Allergies [No Known Allergies*] Allergy (Verified 12/20/22 12:53) HPI PO LT quad repair 12/14/22 NE HPI Details Cedrick is a 62 year old man who presents ~2 weeks S/P left quad tendon repair. He is ~3 months S/P bilateral TKA's. He says he is doing better overall and has been wearing his brace with daily activity. He says he has been sleeping better recently, which has been a relief for him. He continues to have pain and difficulty with activities and use of his left leg. He says his right knee is feeling somewhat numb still. He has been taking Ativan to help him sleep at night. 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 Review of Systems Const All systems reviewed & are unremarkable except as noted in HPI and below Physical Exam Const General: no acute distress, alert and awake Orientation/consciousness: patient oriented x3 HEENT Head: Yes normocephalic and Yes atraumatic Eyes EOM: EOMs intact bilaterally Resp Effort & Inspection: normal respiratory effort and able to speak in complete sentences Cardio Jugular venous distension: no JVD Skin General skin exam: turgor normal Rashes: no rashes Neuro General: patient oriented x3 Extrem Other: inc c/d/i quad intact Psych Appearance: grossly normal Affect: normal affect Attitude: cooperative Assessment & Plan Assessment & Plan (1) Rupture of left quadriceps tendon: Comment: S/P bilateral TKA, DOS: 09/21/22 Code(s): S76.112A - Strain of left quadriceps muscle, fascia and tendon, initial encounter Qualifiers: Encounter type: subsequent encounter Qualified Code(s): S76.112D - Strain of left quadriceps muscle, fascia and tendon, subsequent encounter Plan: This is a 62 year old man S/P left quad tendon repair, with allograft, DOS: 12/14/22, & bilateral TKA, DOS: 09/21/22. He is doing well overall, as expected, though he continues to have pain with activities & motion. He has been wearing his brace with activity as instructed, and says he is sleeping better at night after removing his brace and taking Ativan. His emil were removed today, which he tolerated well. I recommend he continue with isometric & closed-chain quad strengthening exercises, and he work on gentle ambulation for activity. I ordered PT and recommend icing his legs prn to help with pain and effusion. He should consider wearing the brace again at night to keep his leg straight. He will follow up in 2 weeks. (2) Status post total knee replacement, bilateral: Code(s): Z96.653 - Presence of artificial knee joint, bilateral Plan: S/P bilateral TKA, DOS: 09/21/22. Right knee doing well overall. left knee still with difficulties as expected post quad tendon repair. Plan Scribed for Cong Johnson MD by Genaro Bridges, medical grade shoemaker, on 12/30/22 at 12:55 PM, EST. Orders: Orders PT Evaluation and Treatment 12/30/22 S76.112A - Strain of left quadriceps muscle, fascia and tendon, initial encounter, Z96.653 - Presence of artificial knee joint, bilateral Coding Level of Care Code Global (03245) Diagnoses Rupture of left quadriceps tendon, subsequent encounter S76.112D Encounter type: subsequent encounter Status post total knee replacement, bilateral Z96.653
== END 2022-12-30 13:57 | disposition home or self-care (01) ==
PROVIDERS: PCP Internal Medicine; Visit Provider Orthopaedic Surgery
DX: S76.112D Strain of left quadriceps muscle, fascia and tendon, subsequent encounter (principal); Z96.653 Presence of artificial knee joint, bilateral
CPT/HCPCS: 99024

== ENCOUNTER → 2022-12-30 12:46 | Outpatient (BNVA) | payer BC, SELFPAY | PROVIDERS: PCP Internal Medicine; Visit Provider Orthopaedic Surgery ==

== ENCOUNTER 2023-01-13 12:29 | Outpatient (AMB) | payer BC, SELFPAY ==
--- NOTE | 2023-01-13 12:31 | A.OFFVIS_ITS ---
Intake Intake Visit Reasons: PO LT quad repair 12/14/22NE Intake Note: Cedrick is a 62 year old male who presents today for a 4 week post op appointment s/p Left quad repair 12/14/22. he reports that he has continued pain and swelling of the left knee. Allergies No Known Allergies [No Known Allergies*] Allergy (Verified 12/20/22 12:53) HPI PO LT quad repair 12/14/22NE HPI Details Cedrick is a 62 year old man who presents ~4 weeks S/P left quad tendon repair. He is ~3 months S/P bilateral TKA's. He says he is doing better overall and has been wearing his brace with daily activity, and at night. He says he has been sleeping better recently, which has been a relief for him. He continues to have pain and difficulty with activities and use of his left leg. He says his right knee has had some increased soreness and tightness with activity. He has been trying to be more active with gentle walking, stretching, and strengthening exercises, and says he is scheduled to begin PT next week. He has been taking Ativan to help him sleep at night. 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 Review of Systems Const All systems reviewed & are unremarkable except as noted in HPI and below Physical Exam Const General: no acute distress, alert and awake Orientation/consciousness: patient oriented x3 HEENT Head: Yes normocephalic and Yes atraumatic Eyes EOM: EOMs intact bilaterally Resp Effort & Inspection: normal respiratory effort and able to speak in complete sentences Cardio Jugular venous distension: no JVD Skin General skin exam: turgor normal Rashes: no rashes Neuro General: patient oriented x3 Extrem Other: inc c/d/i quad intact No ext lag Psych Appearance: grossly normal Affect: normal affect Attitude: cooperative Assessment & Plan Assessment & Plan (1) Rupture of left quadriceps tendon: Comment: S/P bilateral TKA, DOS: 09/21/22 Code(s): S76.112A - Strain of left quadriceps muscle, fascia and tendon, initial encounter Qualifiers: Encounter type: subsequent encounter Qualified Code(s): S76.112D - Strain of left quadriceps muscle, fascia and tendon, subsequent encounter Plan: swelling improved and quad intac continue isometrics and walking may defer PT for now f/u 2 weeks (2) Status post total knee replacement, bilateral: Code(s): Z96.653 - Presence of artificial knee joint, bilateral Plan: S/P bilateral TKA, DOS: 09/21/22. Right knee doing well overall, with some increased soreness and tightness since he started PT. left knee still with difficulties as expected post quad tendon repair. Plan Scribed for Cong Johnson MD by Genaro Birdges, coroner/medical examiner, on 01/13/23 at 1:00 PM, EST. Coding Level of Care Code Global (10709) Diagnoses Rupture of left quadriceps tendon, subsequent encounter S76.112D Encounter type: subsequent encounter Status post total knee replacement, bilateral Z96.653
== END 2023-01-13 13:14 | disposition home or self-care (01) ==
PROVIDERS: PCP Internal Medicine; Visit Provider Orthopaedic Surgery
DX: S76.112D Strain of left quadriceps muscle, fascia and tendon, subsequent encounter (principal); Z96.653 Presence of artificial knee joint, bilateral
CPT/HCPCS: 99024

== ENCOUNTER → 2023-01-13 12:29 | Outpatient (BNVA) | payer BC, SELFPAY | PROVIDERS: PCP Internal Medicine; Visit Provider Orthopaedic Surgery ==

== ENCOUNTER 2023-01-27 13:17 | Outpatient (AMB) | payer BC, SELFPAY ==
--- NOTE | 2023-01-27 13:27 | MHC.OFFVIS ---
Intake Intake Visit Reasons: Post op Intake Note: This is a 62 year old male who presents for a post op s/p Left quad repair 12/14/22 He reports swelling and a feeling of tightness. He is working with physical therapy. He reports pain in his right knee as well but has more range of motion on that side. Allergies No Known Allergies [No Known Allergies*] Allergy (Verified 01/27/23 13:52) Medication List - Last Reconciled 01/27/23 by Amisha Israel RN acetaminophen 650 mg (2 x 325 mg) PO Q6H PRN 30 days acetaminophen 650 mg (2 x 325 mg) PO Q6H PRN 30 days aspirin 81 mg PO BID 6 weeks celecoxib (Celebrex) 200 mg PO BID 30 days cephalexin 500 mg PO BID 3 days gabapentin 100 mg PO BEDTIME 7 days hydromorphone (Dilaudid) 2 mg PO Q4-6H PRN 7 days lorazepam (Ativan) 1 mg PO BEDTIME PRN [melatonin 10 mg PO BEDTIME] morphine ER (MS Contin) 15 mg PO Q12H 3 days HPI Post op HPI Details Cedrick is a 62 year old man who presents ~6 weeks S/P left quad tendon repair. He is ~3 months S/P bilateral TKA's. He says he is doing better overall and has been wearing his brace with daily activity, and at night. He says he has been sleeping better recently, which has been a relief for him. He continues to have pain and difficulty with activities and use of his left leg, saying he has a feeling of tightness . He has been focusing on walking exercises, stretching, and isometrics, which he says is going well. He has been attending PT. 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, 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 Physical Exam Const General: no acute distress, alert and awake Orientation/consciousness: patient oriented x3 HEENT Head: Yes normocephalic and Yes atraumatic Eyes EOM: EOMs intact bilaterally Resp Effort & Inspection: normal respiratory effort and able to speak in complete sentences Cardio Jugular venous distension: no JVD Skin General skin exam: turgor normal Rashes: no rashes Neuro General: patient oriented x3 Extrem Other: inc c/d/i quad intact No ext lag Psych Appearance: grossly normal Affect: normal affect Attitude: cooperative Results Reviewed Results Reviewed: I personally reviewed relevant radiographs. Bilateral total knee arthroplasty in expected post operative position with no hardware complications or evidence of loosening Assessment & Plan Assessment & Plan (1) Rupture of left quadriceps tendon: Comment: S/P bilateral TKA, DOS: 09/21/22 Code(s): S76.112A - Strain of left quadriceps muscle, fascia and tendon, initial encounter Qualifiers: Encounter type: subsequent encounter Qualified Code(s): S76.112D - Strain of left quadriceps muscle, fascia and tendon, subsequent encounter Plan: This is a 62 year old man S/P left quad tendon repair, with allograft, DOS: 12/14/22, & bilateral TKA, DOS: 09/21/22. He is doing well overall, as expected but his improvement is slow. We discussed PT and closed chain exercises. An Rx was writtien. f/u 4 weeks (2) Status post total knee replacement, bilateral: Code(s): Z96.653 - Presence of artificial knee joint, bilateral Plan: S/P bilateral TKA, DOS: 09/21/22. Right knee doing well overall, with some increased soreness and tightness since he started PT. left knee still with difficulties as expected post quad tendon repair. Coding Level of Care Code Global (19191) Diagnoses Rupture of left quadriceps tendon, subsequent encounter S76.112D Encounter type: subsequent encounter Status post total knee replacement, bilateral Z96.653
== END 2023-01-27 14:35 | disposition home or self-care (01) ==
PROVIDERS: PCP Internal Medicine; Visit Provider Orthopaedic Surgery
DX: S76.112D Strain of left quadriceps muscle, fascia and tendon, subsequent encounter (principal); Z96.653 Presence of artificial knee joint, bilateral
CPT/HCPCS: 99024

== ENCOUNTER → 2023-01-27 13:17 | Outpatient (BNVA) | payer BC, SELFPAY | PROVIDERS: PCP Internal Medicine; Visit Provider Orthopaedic Surgery ==

== ENCOUNTER 2023-02-23 10:00 | Outpatient (RCR) | payer BC, SELFPAY ==
--- NOTE | 2023-02-02 15:50 | MHC.PT.EP ---
[facility] [place] Office [place] Office [place] Office [address] Rodriguez Gonzalez [address] [phone] F: [phone] F: [phone] F: [phone] F: [phone] Physical Therapy Plan of Care Date of Evaluation: 02/02/23 Date of Surgery: 09/21/22, 12/14/22 Diagnosis: S/P L QUAD TENDON RUPTURE WITH SURGERY Assessment: Pt IS 62 YO M REFERRED TO PT FROM DR ESTRELLA S/O B TKR 09/21/22, THEN TORN QUAD TENDON REPAIR L 12/14/22. PRESENTS TO PT WITH DECENT ROM AND STRENGTH. HAS ANTALGIC GT PATTERN AND REPORTS TROUBLE SQUATTING AND GETTING UP AFTER PROLONGED SIT. C/O TIGHTNESS DISTAL QUAD B, HAS BEEN OOW SINCE TKRS. SHOULD BENEFIT FROM PT TO ADDRESS THESE ISSUES Frequency and Duration: The patient will be seen 2X/WK X 6 WKS Short Term Goals: 1. INCREASED AWARNESS KNEE CARE 2. IMROVED GT PATTERN WITH ST CANE OR NO AD Counter Dish Carrier Goals: 1. I HEP WITH DC EX PLAN 2. DECREASED KNEE PAIN AT LEAST 50% WITH ADLS Treatment Plan: Modalities to reduce pain, spasms and effusion. Manual therapy to restore motion and function. Therapeutic exercise to improve strength and flexibility. Neuromuscular re-education for posture and balance. Therapeutic activities to return to functional activities of daily living. Electronically signed by: JOE RITTER PT Please sign and return to therapist. Thank you for your referral.
--- NOTE | 2023-04-12 16:05 | MHC.PT.DC ---
[facility] [place] Office [place] Office [place] Office [address] Rodriguez Gonzalez [address] [phone] F: [phone] F: [phone] F: [phone] F: [phone] Physical Therapy Discharge Report Diagnosis: S/P L QUAD TENDON RUPTURE WITH SURGERY Procedure: Quadriceps repair with allograft 12/14/22 Date of Surgery: 09/21/22, 12/14/22 Date of Evaluation: 02/02/23 Date of Discharge: 04/12/23 Treatments to Date: 5 Cancellations to Date: No Shows to Date: Discharge Status: Patient Elected to Stop Discharge Summary: Pt LAST SEEN ON 02/23/23. PER THAT ASSESSMENT GRIMACING DURING SESSION WITH MOST EXS/STRETCHES TO SEE ORTHO NEXT TUESDAY. WILL CALL AFTER RE CONT/HOLD/RTW ETC (TO MAKE APPT TODAY FOR THE FOLLOWING TUESDAY. CHALLENGED WITH EX. REPORTS NO PROGRESS PER CHART, Pt DID SEE ORTHO ON 04/07/23 (DID NOT LOOK LIKE FURTHER PT RECOMMENDED) THIS PT CALLED AND LEFT MESSAGE FOR Pt TO CALL RE PROGRESS/NEED FOR FURTHER PT. WILL DC CHART AT THIS TIME Electronically signed by: JOE RITTER PT Please sign and return to therapist. Thank you for your referral.
== END 2023-04-12 16:05 | disposition home or self-care (01) ==
LOC: HO.PTWFD 10:00
PROVIDERS: PCP Internal Medicine; Visit Provider Orthopaedic Surgery
DX: S76.112D Strain of left quadriceps muscle, fascia and tendon, subsequent encounter (principal); Z96.653 Presence of artificial knee joint, bilateral
CPT/HCPCS: 97110; 97116; 97162; 97530; 97535

== ENCOUNTER 2023-03-03 12:11 | Outpatient (AMB) | payer BC, SELFPAY ==
--- NOTE | 2023-03-03 12:14 | MHC.OFFVIS ---
Intake Intake Visit Reasons: PO Lt quad repair 12/14/22 Intake Note: Cedrick is a 62 year old male who presents today for a post operative appointment s/p Left Quad Tendon Repair 12/14/2022. Patient reports that her is continuing to have pain both of the knees. He has increased pain and stiffness with gain initiation. Allergies No Known Allergies [No Known Allergies*] Allergy (Verified 01/27/23 13:52) HPI PO Lt quad repair 12/14/22 HPI Details Cedrick is a 62 year old man who presents ~11 weeks S/P left quad tendon repair. He is ~4 months S/P bilateral TKA's. He says he is doing somewhat better but continues to have bilateral knee pain, worse with activity and use of his left leg. He is saying he has a feeling of tightness in his left thigh with use. He has been focusing on walking exercises, stretching, and isometrics, which he says is going well. He continues to attend PT, which he feels is helping him. 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 Review of Systems Const All systems reviewed & are unremarkable except as noted in HPI and below Physical Exam Const General: no acute distress, alert and awake Orientation/consciousness: patient oriented x3 HEENT Head: Yes normocephalic and Yes atraumatic Eyes EOM: EOMs intact bilaterally Resp Effort & Inspection: normal respiratory effort and able to speak in complete sentences Cardio Jugular venous distension: no JVD Skin General skin exam: turgor normal Rashes: no rashes Neuro General: patient oriented x3 Extrem Other: inc c/d/i there is a < 5 deg lag on the right with a small palpable defect in quad tendon Psych Appearance: grossly normal Affect: normal affect Attitude: cooperative Assessment & Plan Assessment & Plan (1) Rupture of left quadriceps tendon: Comment: S/P bilateral TKA, DOS: 09/21/22 Code(s): S76.112A - Strain of left quadriceps muscle, fascia and tendon, initial encounter Qualifiers: Encounter type: subsequent encounter Qualified Code(s): S76.112D - Strain of left quadriceps muscle, fascia and tendon, subsequent encounter (2) Status post total knee replacement, bilateral: Code(s): Z96.653 - Presence of artificial knee joint, bilateral Plan: Slow progress but improving Still with painful days May resume activity as tolerated. Will try to return to work slowly at first. Plan Scribed for Cong Johnson MD by Genaro Bridges, diploma medical assistant, on 03/03/23 at 12:20 PM, EST. Coding Level of Care Code Global (45646) Diagnoses Rupture of left quadriceps tendon, subsequent encounter S76.112D Encounter type: subsequent encounter Status post total knee replacement, bilateral Z96.653
== END 2023-03-03 12:57 | disposition home or self-care (01) ==
PROVIDERS: PCP Internal Medicine; Visit Provider Orthopaedic Surgery
DX: S76.112D Strain of left quadriceps muscle, fascia and tendon, subsequent encounter (principal); Z96.653 Presence of artificial knee joint, bilateral
CPT/HCPCS: 99024

== ENCOUNTER → 2023-03-03 12:11 | Outpatient (BNVA) | payer BC, SELFPAY | PROVIDERS: PCP Internal Medicine; Visit Provider Orthopaedic Surgery ==

== ENCOUNTER 2023-04-07 09:30 | Outpatient (AMB) | payer BC, SELFPAY ==
--- NOTE | 2023-04-07 09:40 | A.OFFVIS_ITS ---
Intake Intake Visit Reasons: OV- Lt quad repair 12/14/22 Intake Note: Cedrick is a 62 year old male who presents today for a follow up of his left quad repair 12/14/22. Patient reports that he is having significant pain in bilateral knees, he has increased pain with standing and walking. He also reports that he is getting a tingling and burning pain of the thigh in the right leg. He is able to do most acitivites but struggles with pain after Allergies No Known Allergies [No Known Allergies*] Allergy (Verified 04/07/23 09:42) HPI OV- Lt quad repair 12/14/22 HPI Details Cedrick is a 62 year old man who presents ~15 weeks S/P left quad tendon repair. He is ~5 months S/P bilateral TKA's. He complains of worsening pain in his bilateral knees, which increases with standing or walking. He reports a new tingling & burning pain in his right thigh. He feels he can perform most daily activities, but has pain following. 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 Lateral quad intact No effusion Psych Appearance: grossly normal Affect: normal affect Attitude: cooperative Assessment & Plan Assessment & Plan (1) Rupture of left quadriceps tendon: Comment: S/P bilateral TKA, DOS: 09/21/22 Code(s): S76.112A - Strain of left quadriceps muscle, fascia and tendon, initial encounter Qualifiers: Encounter type: subsequent encounter Qualified Code(s): S76.112D - Strain of left quadriceps muscle, fascia and tendon, subsequent encounter Plan: Partial quad tear that is stable and strong (2) Status post total knee replacement, bilateral: Code(s): Z96.653 - Presence of artificial knee joint, bilateral Plan: Improving but slow. Motion is excellent Stable exam with no effusion or swelling There may be a radicular component on the right with burning and numbness but he does not want to pursue diagnositc of treatments for that at this time. Continue strengthening f/u as scheduled in May. Plan Prepared for Cong Johnson MD by Genaro Bridges, neuropsychology medical consultant, on 04/07/23 at 9:45 AM, EST. Coding Level of Care Code Est Pt Level 3 (95185) Diagnoses Rupture of left quadriceps tendon, subsequent encounter S76.112D Encounter type: subsequent encounter Status post total knee replacement, bilateral Z96.653
== END 2023-04-07 10:15 | disposition home or self-care (01) ==
PROVIDERS: PCP Internal Medicine; Visit Provider Orthopaedic Surgery
DX: S76.112D Strain of left quadriceps muscle, fascia and tendon, subsequent encounter (principal); Z96.653 Presence of artificial knee joint, bilateral
CPT/HCPCS: 99213

== ENCOUNTER → 2023-04-07 09:30 | Outpatient (BNVA) | payer BC, SELFPAY | PROVIDERS: PCP Internal Medicine; Visit Provider Orthopaedic Surgery ==

== ENCOUNTER 2023-06-02 11:30 | Outpatient (AMB) | payer BC, SELFPAY ==
--- NOTE | 2023-06-02 11:31 | A.OFFVIS_ITS ---
Intake Vital Signs 06/02/23 11:34 Height 5 ft 11 in Weight 245 lb BMI 34.2 Intake Visit Reasons: ov-S/P Lt quad repair 12/14/22 Intake Note: Cedrick is a 62 year old male who presents today for a follow up of his bilateral knees, he is s/p Bilateral TKA 09/23/22 & Left Quad Tendon Repair 12/14/22. PAtient reports that he is having aching an weakness in both of his legs. He has anxiety when walking in conditions like snow. He feels that he has not made much progress in the last three months and is feeling discouraged. Allergies No Known Allergies [No Known Allergies*] Allergy (Verified 06/02/23 11:32) HPI ov-S/P Lt quad repair 12/14/22 HPI Details Cedrick is a 62 year old male who presents today for a follow up of his bilateral knees, he is s/p Bilateral TKA 09/23/22 & Left Quad Tendon Repair 12/14/22. PAtient reports that he is having aching an weakness in both of his legs. He has anxiety when walking in conditions like snow. He feels that he has not made much progress in the last three months and is feeling discouraged. 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 Assessment & Plan Assessment & Plan (1) Rupture of left quadriceps tendon: Comment: S/P bilateral TKA, DOS: 09/21/22 Code(s): S76.112A - Strain of left quadriceps muscle, fascia and tendon, initial encounter Qualifiers: Encounter type: subsequent encounter Qualified Code(s): S76.112D - Strain of left quadriceps muscle, fascia and tendon, subsequent encounter Plan: Patient is approximately 9 months status post bilateral knee replacements. His left knee replacement complicated by a quadriceps tendon rupture. His right knee however continues to bother him as much as his left. His motion is good and there is no effusion or swelling. He is better than the last time I saw on albeit minimally but he is headed in the right direction. I recommend he continue activity as tolerated and I recommend some light aerobic exercise such as riding a stationary bicycle. He will see me back in 3 months. (2) Status post total knee replacement, bilateral: Code(s): Z96.653 - Presence of artificial knee joint, bilateral Plan: Coding Level of Care Code Est Pt Level 3 (60739) Diagnoses Rupture of left quadriceps tendon, subsequent encounter S76.112D Encounter type: subsequent encounter Status post total knee replacement, bilateral Z96.653
[2023-06-02 11:34] VITALS: BMI 34.2
== END 2023-06-02 12:06 | disposition home or self-care (01) ==
PROVIDERS: PCP Internal Medicine; Visit Provider Orthopaedic Surgery
DX: S76.112D Strain of left quadriceps muscle, fascia and tendon, subsequent encounter (principal); Z96.653 Presence of artificial knee joint, bilateral
CPT/HCPCS: 99213

== ENCOUNTER → 2023-06-02 11:30 | Outpatient (BNVA) | payer BC, SELFPAY | PROVIDERS: PCP Internal Medicine; Visit Provider Orthopaedic Surgery ==

== ENCOUNTER 2023-06-27 09:35 | Outpatient (REF) | payer BC, SELFPAY ==
[2023-06-27 10:03] LABS: MANUAL DIFF FLAG NO
[2023-06-27 10:51] LABS: Basophils Percent Auto 0.3 % (0-2); Eosinophils Absolute Auto 0.4 X10*3/uL (0.0-0.4); Eosinophils Percent Auto 6.8 % (0-4); Hematocrit 41.7 % (42.0-52.0); Hemoglobin 14.3 g/dl (14.0-18.0); Imm Gran Abs Auto 0.02 X10*3/uL (0.00-0.03); Imm Gran Pct Auto 0.3 % (0.0-0.4); Mean Corpuscular HGB Conc 34.3 g/dl (31.0-36.0); Mean Corpuscular Hemoglobin 30.2 pg (27.0-33.0); Mean Corpuscular Volume 88.2 fL (80.0-98.0); Mean Platelet Volume 8.5 fL (9.4-12.4); Monocytes Absolute Auto 0.3 X10*3/uL (0.1-1.2); Monocytes Percent Auto 5.3 % (2-11); Neutrophils Absolute Auto 3.1 x10*3/uL (2.0-8.3); Neutrophils Percent Auto 53.3 % (45-73); Platelet Count 241 X10*3/uL (160-400); Red Blood Count 4.73 X10*6/uL (4.60-5.80); Red Cell Distribution Width 12.9 % (11.0-16.0); White Blood Count 5.9 X10*3/uL (4.8-10.8)
[2023-06-27 11:13] LABS: Alanine Aminotransferase 15 U/L (0-40); Albumin Level 4.3 g/dL (3.5-5.0); Alkaline Phosphatase 83 U/L (39-117); Anion Gap 13 (12-20); Aspartate Amino Transferase 17 U/L (5-37); Bilirubin Total 1.2 mg/dL (0.0-1.0); Blood Urea Nitrogen 19 mg/dL (9-16); Calcium 9.4 mg/dL (8.4-10.2); Carbon Dioxide 25 mmol/L (22-29); Chloride 106 mmol/L (96-108); Estimated Glomerular Filt Rate > 60; Glucose Random 99 mg/dL (60-115); Potassium 4.4 mmol/L (3.3-5.1); Sodium 140 mmol/L (135-145); Total Protein 7.6 g/dL (6.5-8.0)
[2023-06-27 11:58] LABS: Folate 7.2 ng/mL (> or = 4.0); Vitamin B12 421 pg/mL (200-900)
== END 2023-06-27 09:36 | disposition home or self-care (01) ==
LOC: HO.LAB 09:35
PROVIDERS: PCP Internal Medicine; Visit Provider Internal Medicine
DX: R53.83 Other fatigue (principal)
CPT/HCPCS: 36415; 80053; 82607; 82746; 85025

== ENCOUNTER 2023-07-28 11:18 | Outpatient (REF) | payer OTHER, SELFPAY ==
--- NOTE | ~2023-07-28 | XR_ITS ---
EXAMINATION: XR LUMBOSACRAL SPINE WITH OBLIQUES CLINICAL INFORMATION: Low back pain COMPARISON: None available. TECHNIQUE: 5 views of the lumbosacral spine FINDINGS: Degenerative change in the imaged lower thoracic spine. Facet arthritis in the lower lumbosacral spine. Multilevel lumbar spondylosis. Marked loss of disc space height at L5-S1. Moderate loss of disc space height at L4-L5 with grade 1 retrolisthesis of L4 and L5. Grade 1 retrolisthesis of L3 on L4. Moderate loss of disc space height at L2-L3. XR/XR lumbar spine 4V min IMPRESSION: Multilevel degenerative disc disease most notable at L5-S1.
== END 2023-07-28 11:19 | disposition home or self-care (01) ==
LOC: HO.XRAY 11:18
PROVIDERS: PCP Internal Medicine; Visit Provider Internal Medicine
DX: M54.50 Low back pain, unspecified (principal)
CPT/HCPCS: 72110

== ENCOUNTER 2023-08-31 09:18 | Outpatient (REF) | payer OTHER, SELFPAY ==
--- NOTE | ~2023-08-31 | FL_ITS ---
EXAMINATION: XR FLUOROSCOPY UPPER GI WITH AIR CLINICAL INFORMATION: Reflux. COMPARISON: None TECHNIQUE: Fluoroscopic air contrast upper GI examination was performed utilizing standard techniques with thin and thick barium and effervescent granules. Numerous spot images were obtained. FINDINGS: Images of the hypopharynx demonstrate normal swallow mechanism with normal epiglottic inversion and soft palate elevation. No tracheal penetration, glottic or subglottic aspiration identified. No nasopharyngeal reflux present. Hypopharyngeal structures appear normal without evidence of mass or diverticulum. 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 Dual and single contrast images of the esophagus demonstrate a normal caliber, and contour. There is a granular appearance to the mid and distal esophageal mucosa. No evidence of stricture, mass, or ulcerations identified. Esophageal peristalsis was normal. A small type I hiatal hernia is present. A moderate amount of gastroesophageal reflux is seen up to the aortic arch. Dual contrast and single contrast images of the stomach demonstrated normal contour and mucosal pattern without evidence of mass, ulceration, or other abnormality. Contrast freely passed into the gastric antrum and duodenal bulb without delay. Single and air-contrast images of the duodenal bulb demonstrate no abnormality. The duodenal sweep has a normal appearance, course, and mucosal fold appearance. The imaged proximal jejunum has a normal fold pattern and caliber. FLUOROSCOPY TIME: 3 minutes 7 seconds Number of Spot Images: 8 Number of Cine: 13 DOSE AREA PRODUCT: 2569 uGy-m2 (microgray-meter squared) FL/FL upper GI w air IMPRESSION: 1. 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 2. Granular appearance of the mid and distal esophageal mucosa suggestive of reflux esophagitis. 3. Small type I hiatal hernia. 4. Moderate gastroesophageal reflux. This procedure was performed by Ceferino Minor PA-C, and supervised by Dr. Mark
== END 2023-08-31 09:19 | disposition home or self-care (01) ==
LOC: HO.XRAY 09:18
PROVIDERS: PCP Internal Medicine; Visit Provider Internal Medicine
DX: K21.9 Gastro-esophageal reflux disease without esophagitis (principal)
CPT/HCPCS: 74246

== ENCOUNTER → 2023-08-31 09:25 | Outpatient (BNV) | payer OTHER, SELFPAY | PROVIDERS: PCP Internal Medicine; Visit Provider Physician Assistant Surgical | DX: K21.9 Gastro-esophageal reflux disease without esophagitis (principal) | CPT/HCPCS: 74246 ==

== ENCOUNTER 2023-09-21 09:44 | Outpatient (AMB) | payer OTHER, SELFPAY ==
--- NOTE | 2023-09-21 09:50 | MHC.OFFVIS ---
Vital Signs 09/21/23 09:57 Height 5 ft 11 in Weight 245 lb BMI 34.2 Intake Visit Reasons: ov-S/P Lt quad repair 12/14/22 Intake Note: Cedrick is a 62 year old male who presents today for a follow up of his bilateral knees, he is s/p Bilateral TKA 09/23/22 & Left Quad Tendon Repair 12/14/22. Patient states that his knees and quad feel weak and tired as well as difficulty with stair use. He mentions lower back pain that presented about 3 months ago. Allergies No Known Allergies [No Known Allergies*] Allergy (Verified 09/21/23 09:53) HPI HPI ov-S/P Lt quad repair 12/14/22: Details: Cedrick is a 62-year-old male who presents today for a follow up of his bilateral knees. He is status post bilateral TKA 09/23/22 andleft quad tendon repair on 12/14/22. He claims that his knees and quads are weak. He reports discomfort while climbing the stairs and standing makes the pain worse. He states that he is having lower back pain that started around 3 months ago. He claims that even after riding a stationary bike in a gym for nearly a mile and using a treadmill, he still feels discomfort. He took sessions of physical therapy in the past with significant relief. 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 Review of Systems Const All systems reviewed & are unremarkable except as noted in HPI and below Physical Exam Vital Signs: BMI result Body Mass Index 34.2 Const General: cooperative, healthy appearing, comfortable and no acute distress Orientation/consciousness: patient oriented x3 Neck Neck: Yes normal visual inspection and Yes no JVD Chest Chest palpation & inspection: normal inspection of the chest Resp Effort & Inspection: normal respiratory effort Auscultation: clear to auscultation bilaterally, crackles (no), rales (no), rhonchi (no) and wheezes (no) Cardio Jugular venous distension: no JVD Rate: regular rate Rhythm: regular rhythm Heart sounds: S1 normal heart sound present, S2 normal heart sound present, Murmur heart sound present (no) and Rub heart sound present (no) Neuro General: patient oriented x3 Extrem Other: Incision clean dry and intact bilaterally No effusion bilaterally On the right there is 0-125 deg of motion stable to varus and valgus stress On the left there is 0-125 deg of motion with a intact lateral quadriceps but the medial portion is weak. General: Yes normal to inspection, Yes no pedal edema and Yes no calf tenderness Assessment & Plan Assessment & Plan (1) Rupture of left quadriceps tendon: Comment: S/P bilateral TKA, DOS: 09/21/22 Code(s): S76.112A - Strain of left quadriceps muscle, fascia and tendon, initial encounter Category: Medical Qualifiers: Encounter type: subsequent encounter Qualified Code(s): S76.112D - Strain of left quadriceps muscle, fascia and tendon, subsequent encounter (2) Status post total knee replacement, bilateral: Code(s): Z96.653 - Presence of artificial knee joint, bilateral Category: Surgical Plan We discussed options which includes returning to physical therapy to focus on some glute, quad, and hamstring strength. We also discussed possibly riding the stationary bike to help improve some muscle tone. He will return in 6 weeks to follow up with Dr. Johnson for further evaluation or sooner if needed. Orders: Orders PT Evaluation and Treatment Today S76.112D - Strain of left quadriceps muscle, fascia and tendon, subsequent encounter, Z96.653 - Presence of artificial knee joint, bilateral Patient Instructions: Scribed for Lincoln Singh PA-C, by Homar Ferguson medical language specialist, on 09/21/2023 at 9:45 AM SHARI. Lincoln Chand PA-C, have personally reviewed and agree with the information entered by the scribe. Coding Level of Care Code Est Pt Level 3 (46846) Diagnoses Rupture of left quadriceps tendon, subsequent encounter S76.112D Encounter type: subsequent encounter Status post total knee replacement, bilateral Z96.653
[2023-09-21 09:57] VITALS: BMI 34.2
== END 2023-09-21 10:22 | disposition home or self-care (01) ==
PROVIDERS: PCP Internal Medicine; Visit Provider Physician Assistant
DX: S76.112D Strain of left quadriceps muscle, fascia and tendon, subsequent encounter (principal); Z96.653 Presence of artificial knee joint, bilateral
CPT/HCPCS: 99213

== ENCOUNTER → 2023-09-21 09:44 | Outpatient (BNVA) | payer BC, SELFPAY | PROVIDERS: PCP Internal Medicine; Visit Provider Physician Assistant ==

== ENCOUNTER 2023-11-18 11:12 | Outpatient (AMB) | payer OTHER, SELFPAY ==
--- NOTE | 2023-11-18 11:43 | MHC.OFFVIS ---
Intake Visit Reasons: ov-S/P Lt quad repair 12/14/22-follow up Intake Note: Cedrick is a 63 year old male who presents today for a follow up of his Left Quad Tendon Repair 12/14/22. Patient reports that he is having continued pain, he has more pain now than he did 3 months ago. Allergies No Known Allergies [No Known Allergies*] Allergy (Verified 11/18/23 14:39) HPI HPI ov-S/P Lt quad repair 12/14/22-follow up: Details: eCdrick is a 63 year old male who presents today for a follow up of his Left Quad Tendon Repair 12/14/22. Patient reports that he is having continued pain, he has more pain now than he did 3 months ago. He is 11 months status post simultaneous bilateral knee arthroplasty. His left knee was complicated by a partial tear of his quadriceps tendon. He states he has pain with daily activities and feels ?stiffness?. He is sleeping well although. This is a change from prior. 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 There is a defect in his left VMO but his flexion is proximally 120 degrees bilaterally. His incisions are clean dry and intact and he does not appear to be uncomfortable. He walks reasonably well better than prior. Assessment & Plan Assessment & Plan (1) Status post total knee replacement, bilateral: Code(s): Z96.653 - Presence of artificial knee joint, bilateral Category: Surgical Plan: Cedrick is a 63-year-old gentleman with pain and stiffness in bilateral knees after arthroplasty. He is not particularly happy with the results but I did tell him I think he appears to be improving compared to prior. He does not agree with me but at last visit when I moved his knees he was visibly wincing and now when I see him walking he looks comfortable and on range of motion is knees appear comfortable and he has full extension. He is also sleeping better at now at night. Nevertheless he is frustrated and I recommended that he see the pain management doctors for consideration of a genicular nerve ablation. I think this would help him as most of his pain is anterior knee. A referral will be made. Orders: Referrals Pain Management Referral Z96.653 - Presence of artificial knee joint, bilateral Coding Level of Care Code Est Pt Level 3 (15048) Diagnoses Status post total knee replacement, bilateral Z96.653
== END 2023-11-18 13:10 | disposition home or self-care (01) ==
PROVIDERS: PCP Internal Medicine; Visit Provider Orthopaedic Surgery
DX: S76.112D Strain of left quadriceps muscle, fascia and tendon, subsequent encounter (principal); Z96.653 Presence of artificial knee joint, bilateral
CPT/HCPCS: 99213

== ENCOUNTER → 2023-11-18 11:12 | Outpatient (BNVA) | payer OTHER, SELFPAY | PROVIDERS: PCP Internal Medicine; Visit Provider Orthopaedic Surgery ==

== ENCOUNTER 2023-12-21 10:35 | Outpatient (AMB) | payer OTHER, SELFPAY ==
--- NOTE | 2023-12-21 10:35 | MHC.OFFVIS ---
Vital Signs 12/21/23 10:37 Height 5 ft 11 in Weight 253 lb BMI 35.3 BP 153/80 H Blood Pressure Location Lt brachial Position Sitting Respiration 15 Pulse 63 Pulse Source Pulse Oximeter Pulse Oximetry (%) 95 Oxygen Delivery Method Room Air Intake Visit Reasons: Presence of artificial knee joint, bilateral Allergies No Known Allergies [No Known Allergies*] Allergy (Verified 12/21/23 10:38) Medication List - Last Reconciled 12/21/23 by Heather Adamson LPN meloxicam 15 mg PO DAILY omeprazole 20 mg PO DAILY tamsulosin 0.4 mg PO DAILY HPI HPI Presence of artificial knee joint, bilateral: Details: 63-year-old male who presents today to the office for evaluation of presence of bilateral artificial knee joint. He had bilateral TKA on 09/23/2022 and Left Quad Tendon Repair on 12/14/22. He reports pain and stiffness in bilateral knees. He reports that he is having aching an weakness in both of his legs. He states he has pain with daily activities and feels ?stiffness?. ?He reports discomfort while climbing the stairs and standing makes the pain worse. He took sessions of physical therapy in the past with improved his range of motion, but no significant relief in his pain. He rates his pain at 7/10 in intensity in both knees. The pain interferes with his daily activities and normal function. His pain is least severe when he is resting or sleeping and is worse with movement and activity. He is taking meloxicam 15 milligrams once daily. He is planning for a trip to countries in June 2024. He retired recently in June 2023. COUNT INCLUDES THE [facility] Medical History BPH (benign prostatic hyperplasia) Arthritis of neck Heartburn Renal calculi Osteoarthritis Surgical History Hx of umbilical hernia repair H/O colonoscopy H/O: knee surgery Social History (System 11/18/23 @ 14:39 by Kathy Harrington) Household Members: Spouse Housing: House Are you a primary care center manager to a significant other at home: No Do you presently have visiting nurse or other home services: No Alcohol intake: unknown Patient Tobacco Use Status: Never used Tobacco service: No Current occupational status: employed 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 Alert and oriented. Mood and affect appropriate. Follows and participates in conversation appropriately. Respiratory effort is unlabored. Able to transition from sit to stand unassisted. Ambulates with bilaterally normal heel strike and toe off. Results Reviewed Results Reviewed: No imaging is available for review. Assessment & Plan Assessment & Plan (1) Rupture of left quadriceps tendon: Comment: S/P bilateral TKA, DOS: 09/21/22 Code(s): S76.112A - Strain of left quadriceps muscle, fascia and tendon, initial encounter Category: Medical Qualifiers: Encounter type: subsequent encounter Qualified Code(s): S76.112D - Strain of left quadriceps muscle, fascia and tendon, subsequent encounter (2) Status post total knee replacement, bilateral: Code(s): Z96.653 - Presence of artificial knee joint, bilateral Category: Surgical (3) Chronic knee pain: Code(s): M25.569 - Pain in unspecified knee; G89.29 - Other chronic pain Category: Medical Plan 63-year-old male status post bilateral knee arthroplasty with the left one complicated by quad rupture status post quadriceps repair. He has been through multiple rounds of physical therapy with some improvement in his range of motion but continues to have persistent post-arthroplasty knee pain. I discussed both temporary and permanent nerve stimulation therapies with him as possible solutions. We also discussed radiofrequency ablation and hydrodissection of the nerves as alternatives that are less likely to provide longer-term relief. After a detailed discussion of all the risks and benefits, he is interested in proceeding with a temporary nerve stimulation trial first with the sprint device for bilateral knee pain left worse than right. We will request insurance authorization for left saphenous nerve stimulator replacement followed by the right side two weeks later. Justification for interventional therapy: ? Patient with average pain > 6/10 ? Patient has exhausted conservative therapy including TKA, physical therapy, and oral medications. ? Patient unable to tolerate physical therapy due to pain. . Patient has a good understanding of their pain condition and has appropriate mental and social support Scribed for Dr. Swain by Jigar Carr, medical laboratory assistant, on 12/21/2023. I, Dr. Swain, have personally reviewed and agree with the information entered by the scribe. Coding Level of Care Code New Pt Level 4 (23019) Diagnoses Rupture of left quadriceps tendon, subsequent encounter S76.112D Encounter type: subsequent encounter Status post total knee replacement, bilateral Z96.653 Chronic knee pain M25.569; G89.29
[2023-12-21 10:37] VITALS: BP 153/80; PULSE 63; RESP 15; O2SAT 95; BMI 35.3
== END 2023-12-21 11:40 | disposition home or self-care (01) ==
PROVIDERS: PCP Internal Medicine; Visit Provider Internal Medicine
DX: G89.29 Other chronic pain (principal); M25.561 Pain in right knee; M25.562 Pain in left knee; Z96.653 Presence of artificial knee joint, bilateral
CPT/HCPCS: 99204

== ENCOUNTER → 2023-12-21 10:35 | Outpatient (BNVA) | payer OTHER, SELFPAY | PROVIDERS: PCP Internal Medicine; Visit Provider Internal Medicine ==

== ENCOUNTER 2024-02-09 06:18 | Outpatient (REF) | payer OTHER, SELFPAY | END 2024-02-09 06:19 | disposition home or self-care (01) | LOC: CF 06:18 | PROVIDERS: Visit Provider Internal Medicine | DX: M25.561 Pain in right knee (principal); G89.29 Other chronic pain | CPT/HCPCS: 64555; C1778; J2003 ==

== ENCOUNTER 2024-02-09 13:30 | Outpatient (AMB) | payer OTHER, SELFPAY ==
--- NOTE | 2024-02-09 13:30 | A.OFFVIS_ITS ---
Vital Signs 02/09/24 13:36 BP 162/89 H Blood Pressure Location Lt brachial Position Sitting Pulse 70 Pulse Source Pulse Oximeter Pulse Oximetry (%) 99 Oxygen Delivery Method Room Air Intake Visit Reasons: Right saphenous Sprint Allergies No Known Allergies [No Known Allergies*] Allergy (Verified 12/21/23 10:38) HPI HPI Right saphenous Sprint: Details: Patient presents for scheduled procedure. Denies any recent cough, cold, infection, fever or other significant changes in medical history since last office visit. 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 After the risks, benefits and alternatives were discussed with the patient and informed consentwas obtained, patient was placed in the supine position and padded to foster comfort. Appropriate skin and bony landmarks were identified, and pertinent vascular structures were located. The skin overlying the needle entry site was prepped and draped in sterile fashion. Ultrasound was used to identify the femoral artery, the femoral vein and the saphenous nerve. After identifying and marking the intended target along the course of the saphenous nerve, the skin around the planned entry point and the subcutaneous tissues were injected with local anesthetic. An introducer needle and stimulating probe were assembled, inserted and advanced along the intended course of the saphenous; nerve, taking care to maintain the proper depth of insertion as the introducer was advanced under ultrasound guidance. The introducer needle was delivered to a location in proximity to the nerve taking care not to puncture the femoral artery or the vein. Multiple stimulation parameters were used to deliver stimulation to the saphenous nerve in concert with stimulating at multiple positions around the nerve. Nerve target acquisition was confirmed noting generation of sensory and mild motor effects (paresthesia, muscle tension, etc) in the medial knee, leg and ankle; corresponding to the distribution of the saphenous nerve. Various electrical parameter combinations were tested, and the lead location was adjusted (physically relocated under ultrasound guidance) until the patient indicated medial knee paresthesia and tension overlapping the distribution of the patient?s typical region of pain. The stimulating probe was removed from the introducer and a percutaneous lead was guided through the needle and delivered to a location in similar proximity to the nerve. Final location was verified with electrical stimulation and documented. The introducer needle was removed, and the exposed end of the percutaneous lead was attached to an external stimulator unit. Various electrical parameter combinations were again tested until the patient indicated paresthesia and muscle tension overlapping the distribution of the patient?s typical region of pain. After confirming that lead impedance was in the normal range, the external unit was detached, the needle was removed, and the lead was anchored at the skin. The lead was threaded into the connector block and electrical continuity and desired patient response was confirmed. The connector block was attached to the external stimulator unit. The site was covered with a sterile occlusive dressing. A final ultrasound image was taken to document final placement. The patient was observed for stability of vital signs and comfort. Sprint PNS Device: Sprint PNS Device [id number] Percutaneous Peripheral Neuroelectrode Procedure: 61473 - Percutaneous Peripheral Neuroelectrode Procedure code (CPT) selection complete Office Meds lidocaine HCl 10 mg/mL (1 %) injection solution Performing Provider: Joanna Felipe APRN, [employer] Performing Location[place] [facility] Administered by: Heather Adamson LPN on 02/09/24 13:49 Dose Route Admin Location Dispensed Lot Number Expiration Date [facility] Assurance Associate 5 mL subcut 5 mL Assessment & Plan Assessment & Plan (1) Chronic knee pain: Code(s): M25.569 - Pain in unspecified knee; G89.29 - Other chronic pain Category: Medical Plan Patient is status post temporary right saphenous nerve stimulator placement. Patient tolerated procedure well and was discharged home in stable condition with discharge instructions. All questions were answered. We will follow-up via telephone or in clinic to assess response to therapy. A follow-up appointment was made during today's visit. Orders: Orders US guide needle placement Today G89.29 - Other chronic pain, M25.569 - Pain in unspecified knee AMB Sprint PNS Today G89.29 - Other chronic pain, M25.569 - Pain in unspecified knee Coding Level of Care Code Procedure Only Diagnoses Chronic knee pain M25.569; G89.29 CPT Codes Sprint PNS - Sprint PNS Device: Sprint PNS Device ([id number]) Sprint PNS - SPRINT: 79991 - Percutaneous Peripheral Neuroelectrode ([id number]) Implantable Device Implantable Device Implantable Devices Qty Assurance Associate Implant Date Expiration Date Analgesic PENS system 1 [employer] 02/09/24 04/07/25 Coated knee femur prosthesis 1 [employer] 09/21/22 07/15/26 Coated knee femur prosthesis 1 [employer]. 09/21/22 12/04/25 Coated knee tibia prosthesis 1 [employer] [place]. 09/21/22 05/10/27 Coated knee tibia prosthesis 1 [employer]. 09/21/22 06/07/27 Extra-gynaecological surgical mesh, collagen, bioabsorbable 1 [employer] 12/14/22 03/20/25 INSERT [id number] TIBIAL PS 1 09/21/22 07/19/27 INSERT [id number] TIBIAL PS 1 09/21/22 03/30/26 Metal-backed patella prosthesis 1 [employer]. 09/21/22 06/29/27 Metal-backed patella prosthesis 1 [employer]. 09/21/22 07/20/27
[2024-02-09 13:36] VITALS: BP 162/89; PULSE 70; O2SAT 99
[2024-02-09 14:06] VITALS: BP 143/91; PULSE 66; O2SAT 97
== END 2024-02-09 13:41 | disposition home or self-care (01) ==
LOC: HO.PMCPRC 13:30
PROVIDERS: PCP Internal Medicine; Visit Provider Internal Medicine
DX: M25.569 Pain in unspecified knee (principal); G89.29 Other chronic pain
CPT/HCPCS: 64555

== ENCOUNTER 2024-02-13 10:56 | Outpatient (AMB) | payer OTHER, SELFPAY ==
--- NOTE | 2024-02-13 11:02 | A.OFFVIS_ITS ---
Vital Signs 02/13/24 11:04 Height 5 ft 11 in Weight 235 lb BMI 32.8 BP 144/76 H Blood Pressure Location Lt brachial Position Sitting Respiration 16 Pulse 73 Pulse Source Pulse Oximeter Pulse Oximetry (%) 96 Oxygen Delivery Method Room Air Intake Visit Reasons: s/p right Sprint Allergies No Known Allergies [No Known Allergies*] Allergy (Verified 02/13/24 11:08) Medication List - Last Reconciled 02/13/24 by Heather Adamson LPN meloxicam 15 mg PO DAILY omeprazole 20 mg PO DAILY tamsulosin 0.4 mg PO DAILY HPI HPI s/p right Sprint: Details: 63-year-old male who presents today to the office for a status post right sprint. The patient reports no significant relief yet following the procedure. The patient endorses appropriate paresthesia sensation from the device, though he does seem to be having more proximal motor stimulation then intended. He has mild pain which is constant in nature and he also noticed occasional sharp pain. He was using the device setting at 55 but increased the frequency this morning. Past procedures 02/09/24: Peripheral Nerve Stimulation Temporary Lead Placement, Ultrasound- Guided, Saphenous Nerve, Right: No relief yet. 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 Alert and oriented. Mood and affect appropriate. Follows and participates in conversation appropriately. Respiratory effort is unlabored. Able to transition from sit to stand unassisted. Ambulates with bilaterally normal heel strike and toe off. Lead insertion site is clean dry and intact. Results Reviewed Results Reviewed: No imaging is available for review. Assessment & Plan Assessment & Plan (1) Chronic knee pain: Code(s): M25.569 - Pain in unspecified knee; G89.29 - Other chronic pain Category: Medical (2) Status post total knee replacement, bilateral: Code(s): Z96.653 - Presence of artificial knee joint, bilateral Category: Surgical Plan He will follow up in 1 week for left-side sprint placement. If he is not having good relief on the right side by that time, we will consider replacing the right-sided lead as well, given the [id number] proximal motor activation noticed during today's visit. Scribed for Dr. Swain by Jigar Carr, coroner/medical examiner, on 02/13/2024. I, Dr. Swain, have personally reviewed and agree with the information entered by the scribe. Coding Level of Care Code Est Pt Level 3 (23954) Diagnoses Chronic knee pain M25.569; G89.29 Status post total knee replacement, bilateral Z96.653
[2024-02-13 11:04] VITALS: BP 144/76; PULSE 73; RESP 16; O2SAT 96; BMI 32.8
== END 2024-02-13 11:24 | disposition home or self-care (01) ==
PROVIDERS: PCP Internal Medicine; Visit Provider Internal Medicine
DX: M25.569 Pain in unspecified knee (principal); G89.29 Other chronic pain; Z96.653 Presence of artificial knee joint, bilateral
CPT/HCPCS: 99024

== ENCOUNTER 2024-02-23 06:40 | Outpatient (REF) | payer OTHER, SELFPAY | END 2024-02-23 06:41 | disposition home or self-care (01) | LOC: CF 06:40 | PROVIDERS: Visit Provider Internal Medicine | DX: M25.569 Pain in unspecified knee (principal); G89.29 Other chronic pain; Z96.653 Presence of artificial knee joint, bilateral | CPT/HCPCS: 64555; C1778; J2003 ==

== ENCOUNTER 2024-02-23 11:13 | Outpatient (AMB) | payer OTHER, SELFPAY ==
[2024-02-23 11:27] VITALS: BP 123/85; PULSE 70; O2SAT 98
--- NOTE | 2024-02-23 11:27 | MHC.OFFVIS ---
Vital Signs 02/23/24 11:27 02/23/24 12:23 BP 123/85 156/78 H Blood Pressure Location Lt brachial Lt brachial Position Sitting Sitting Pulse 70 64 Pulse Source Pulse Oximeter Pulse Oximeter Pulse Oximetry (%) 98 97 Oxygen Delivery Method Room Air Room Air Intake Visit Reasons: Left saphenous Sprint Allergies No Known Allergies [No Known Allergies*] Allergy (Verified 02/13/24 11:08) HPI HPI Left saphenous Sprint: Details: Patient presents for scheduled procedure. Denies any recent cough, cold, infection, fever or other significant changes in medical history since last office visit. He continues to endorse only proximal right hamstring activation on the right side without significant pain relief as of yet. We will proceed with removal and replacement of the right saphenous nerve stimulator placement as well as placement of the left saphenous nerve stimulator as planned for today. Patient expressed understanding and is on board with the plan. [facility] Medical History BPH (benign prostatic hyperplasia) Arthritis of neck Heartburn Renal calculi Osteoarthritis Surgical History (Reviewed 09/21/23 @ 09:57 by Brandy Johnson [facility]) Hx of umbilical hernia repair H/O colonoscopy H/O: knee surgery Social History (System 11/18/23 @ 14:39 by Kathy Harrington) Household Members: Spouse Housing: House Are you a primary nursing care partner to a significant other at home: No Do you presently have visiting nurse or other home services: No Alcohol intake: unknown Patient Tobacco Use Status: Never used Tobacco service: No Current occupational status: employed 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 After the risks, benefits and alternatives were discussed with the patient and informed consentwas obtained, patient was placed in the supine position and padded to foster comfort. The right-sided lead was removed with tip intact. Appropriate skin and bony landmarks were identified, and pertinent vascular structures were located. The skin overlying the needle entry site was prepped and draped in sterile fashion on the right side 1st. Ultrasound was used to identify the femoral artery, the femoral vein and the saphenous nerve. After identifying and marking the intended target along the course of the saphenous nerve, the skin around the planned entry point and the subcutaneous tissues were injected with local anesthetic. An introducer needle and stimulating probe were assembled, inserted and advanced along the intended course of the saphenous; nerve, taking care to maintain the proper depth of insertion as the introducer was advanced under ultrasound guidance. The introducer needle was delivered to a location in proximity to the nerve taking care not to puncture the femoral artery or the vein. Multiple stimulation parameters were used to deliver stimulation to the saphenous nerve in concert with stimulating at multiple positions around the nerve. Nerve target acquisition was confirmed noting generation of sensory and mild motor effects (paresthesia, muscle tension, etc) in the medial knee, leg and ankle; corresponding to the distribution of the saphenous nerve. Various electrical parameter combinations were tested, and the lead location was adjusted (physically relocated under ultrasound guidance) until the patient indicated medial knee paresthesia and tension overlapping the distribution of the patient?s typical region of pain. The stimulating probe was removed from the introducer and a percutaneous lead was guided through the needle and delivered to a location in similar proximity to the nerve. Final location was verified with electrical stimulation and documented. The introducer needle was removed, and the exposed end of the percutaneous lead was attached to an external stimulator unit. Various electrical parameter combinations were again tested until the patient indicated paresthesia and muscle tension overlapping the distribution of the patient?s typical region of pain. After confirming that lead impedance was in the normal range, the external units were detached, the needle was removed, and the lead was anchored at the skin. The lead was threaded into the connector block and electrical continuity and desired patient response was confirmed. The connector block was attached to the external stimulator unit. The site was covered with a sterile occlusive dressing. A final ultrasound image was taken to document final placement. The same process was then repeated on the left side. The patient was observed for stability of vital signs and comfort. Sprint PNS Device: Sprint PNS Device [id number] Percutaneous Peripheral Neuroelectrode Procedure: 15812 - Percutaneous Peripheral Neuroelectrode Procedure code (CPT) selection complete Office Meds lidocaine HCl 10 mg/mL (1 %) injection solution Performing Provider: Joanna Felipe APRN, ASSOCIATE ART DIRECTOR Performing Location[place] [facility] Administered by: Heather Adamson LPN on 02/23/24 11:43 Dose Route Admin Location Dispensed Lot Number Expiration Date [facility] [employer] Inspector 5 mL subcut 5 mL Assessment & Plan Assessment & Plan (1) Chronic knee pain: Code(s): M25.569 - Pain in unspecified knee; G89.29 - Other chronic pain Category: Medical (2) Status post total knee replacement, bilateral: Code(s): Z96.653 - Presence of artificial knee joint, bilateral Category: Surgical Plan Patient is status post right saphenous nerve stimulator replacement and left saphenous nerve stimulator initial placement. Patient tolerated procedure well and was discharged home in stable condition with discharge instructions. All questions were answered. Plan for removal of both devices simultaneously in 8 weeks. Orders: Orders US guide needle placement Today M17.12 - Unilateral primary osteoarthritis, left knee AMB Sprint PNS Today M17.12 - Unilateral primary osteoarthritis, left knee Coding Level of Care Code Procedure Only Diagnoses Chronic knee pain M25.569; G89.29 Status post total knee replacement, bilateral Z96.653 CPT Codes Sprint PNS - Sprint PNS Device: Sprint PNS Device ([id number]) Sprint PNS - SPRINT: 83930 - Percutaneous Peripheral Neuroelectrode ([id number]) Comment There is no charge from [employer] for replacement leads Implantable Device Implantable Device Implantable Devices [employer] Installations Inspector Implant Date Expiration Date Analgesic PENS system 1 [employer] 02/09/24 04/07/25 Analgesic PENS system 1 [employer] 02/23/24 04/27/25 Coated knee femur prosthesis 1 [employer] 09/21/22 07/15/26 Coated knee femur prosthesis 1 [employer]. 09/21/22 12/04/25 Coated knee tibia prosthesis 1 [employer]. 09/21/22 05/10/27 Coated knee tibia prosthesis 1 [employer]. 09/21/22 06/07/27 Extra-gynaecological surgical mesh, collagen, bioabsorbable 1 [employer] 12/14/22 03/20/25 INSERT [id number] TIBIAL PS 1 09/21/22 07/19/27 INSERT [id number] TIBIAL PS 1 09/21/22 03/30/26 Metal-backed patella prosthesis 1 [facility] [place]. 09/21/22 06/29/27 Metal-backed patella prosthesis 1 [facility]. 09/21/22 07/20/27
[2024-02-23 12:23] VITALS: BP 156/78; PULSE 64; O2SAT 97
== END 2024-02-23 12:34 | disposition home or self-care (01) ==
PROVIDERS: PCP Internal Medicine; Visit Provider Internal Medicine
DX: G89.29 Other chronic pain (principal); M25.561 Pain in right knee; Z96.653 Presence of artificial knee joint, bilateral
CPT/HCPCS: 64555

== ENCOUNTER 2024-02-27 13:29 | Outpatient (AMB) | payer OTHER, SELFPAY ==
--- NOTE | 2024-02-27 13:33 | A.OFFVIS_ITS ---
Vital Signs 02/27/24 13:38 Height 5 ft 11 in Weight 252 lb BMI 35.1 BP 148/76 H Blood Pressure Location Lt brachial Position Sitting Pulse 89 Pulse Source Pulse Oximeter Pulse Oximetry (%) 97 Oxygen Delivery Method Room Air Intake Visit Reasons: s/p Left Sprint Intake Note: Pain today 08/07 Activity Coordinator Required: No Accompanied by: Self / Same As Patient Allergies No Known Allergies [No Known Allergies*] Allergy (Verified 02/27/24 13:39) HPI Comments Details: Patient is a 63 years old male 1 week status post right saphenous nerve stimulator replacement and left saphenous nerve stimulator initial placement on 02/23/[address] Swain. Patient reports 40-50% pain relief since both procedures with partial improvement in his daily activities, functioning, and sleep. Current stimulation settings are at 70 on the right and 43 on the left with positive parasthesia. He reports better pain relief on the left with pain relief in his knee and lower leg but reports partial relief on the right. Patient has been adjusting stimulation and increase frequency as needed. Denies any recent cough, cold, infection, fever or other significant changes in medical history since last office visit. The dressing was removed today. Lead insertion site look clean, dry, intact, no redness, no swelling, no pathological discharge. Area was cleansed with Chloraprep and covered with Sprint Tegaderm film and gauze dressing. Past procedures 02/23/24: Right saphenous nerve stimulator replacement and left saphenous nerve stimulator initial placement: 02/09/24: Peripheral Nerve Stimulation Temporary Lead Placement, Ultrasound- Guided, Saphenous Nerve, Right: No relief yet. 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 Alert and oriented. Mood and affect appropriate. Follows and participates in conversation appropriately. Respiratory effort is unlabored. Able to transition from sit to stand unassisted. Ambulates with bilaterally normal heel strike and toe off. Lead Insertion Site: Lead insertion site looks clean, dry, intact.? No pathological discharge, no swelling and no erythema.? Lead site dressings were changed today in the clinic. Positive paresthesia at 70 on the right, at 43 on the left. Results Reviewed Results Reviewed: No imaging is available for review. Assessment & Plan Assessment & Plan (1) Chronic knee pain: Code(s): M25.569 - Pain in unspecified knee; G89.29 - Other chronic pain Category: Medical (2) Status post total knee replacement, bilateral: Code(s): Z96.653 - Presence of artificial knee joint, bilateral Category: Surgical Plan Patient is one week status post right saphenous nerve stimulator replacement and left saphenous nerve stimulator initial placement. The dressings were changed in the office today. Patient has better pain relief on the left than on the right. He would like to see Dr. Swain next week. Plan for removal of both devices simultaneously in 8 weeks. Continue dressing changes at home by family per patient. All questions were answered and the patient agreed with the plan. Follow up with Dr. Swain in 1 week for right Sprint therapy check and sooner as needed. Coding Level of Care Code Est Pt Level 3 (62063) Complex EM visit Add On G2211 Diagnoses Chronic knee pain M25.569; G89.29 Status post total knee replacement, bilateral Z96.653
[2024-02-27 13:38] VITALS: BP 148/76; PULSE 89; O2SAT 97; BMI 35.1
== END 2024-02-27 13:56 | disposition home or self-care (01) ==
LOC: HO.PMC 13:29
PROVIDERS: PCP Internal Medicine; Visit Provider Nurse Practitioner Family
DX: M25.569 Pain in unspecified knee (principal); G89.29 Other chronic pain; Z96.653 Presence of artificial knee joint, bilateral
CPT/HCPCS: 99024

== ENCOUNTER → 2024-02-27 13:29 | Outpatient (BNVA) | payer OTHER, SELFPAY | PROVIDERS: PCP Internal Medicine; Visit Provider Nurse Practitioner Family ==

== ENCOUNTER 2024-04-09 10:57 | Outpatient (REF) | payer OTHER, SELFPAY ==
[2024-04-09 11:52] LABS: PSA,Total (Free>4and<10) 4.73 ng/mL (0.00-4.00)
--- OUTSIDE RECORDS SUMMARY | 2024-04-09 12:05 | XMS_ITS ---
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 Name Role Phone Sridhar Holt Primary Care Provider [phone] REASON FOR VISIT PSA blood work Encounters Encounter Location Date Provider Diagnosis Sridhar Holt MD [address] [facility] [address] [place] [phone] 04/05/2024 Sridhar Holt Plan Of Treatment Next Appt Details Provider Name:Sridhar miner, 04/19/2024 03:30:00 PM, [address] [place] [address], [address], [phone], Provider Name:Sridhar miner, 03/25/2025 07:15:00 AM, [address] [place] [address], [address], [phone], Provider Name:Sridhar miner, 04/01/2025 04:00:00 PM, [address] [place] [address], [address], [phone], Progress Notes * Cedrick OLSEN MDOB:1960 (63 yo M)Acc No.[id number]:04/05/2024 Patient:?PRETTYRamses STUARTard Adin :1960???Age:63 Y???Sex:Male [facility] [place] [place], [address] * true * Date:? Generated for Rolandoi candida/Brynn/eTransmitting on:?04/09/2024 12:04 PM EST
--- OUTSIDE RECORDS SUMMARY | 2024-04-09 12:05 | XMS_ITS ---
Author Organization Sridhar Holt MD Address [address] [place] [phone] Care Team Providers Care Nitriles Lab Technician Name Role Phone Sridhar Holt Primary Care Provider Allergies No Known Allergies Results Component Value Reference Range Notes Occult Blood, Stool, Guaiac Reviewed date:03/27/2024 12:31:32 PM Interpretation:Negative Performing Lab: Notes/Report: Negative Occult Blood, Stool, Guaiac Neg Reason For Referral Reason RECTUS DIASTASIS Diagnosis 1 Rectus diastasis (M6 2.08) Referral Organization Sridhar Holt MD Referring Provider First Name Sridhar Referring Provider Last Name Yanet Referring Provider Speciality Internal M edicine Referred Provider Conner Tucker Referred Provider Specialty Urology General Notes CANCEL THIS REFERRAL , FAXED IN ERROR Referral Priority Routine Reason PSA , TOTAL Diagnosis 1 Elevated PSA (R97.20 ) Referral Organization Sridhar Holt MD Referring Provider First Name Sridhar Referring Provider Last Name Yanet Referring Provider Speciality Internal M edicine Referred Provider Conner Tucker Referred Provider Specialty Urology General Notes Radha Nolan 04/06/2024 10:35:43 AM >APPT SCHEDULED FOR 04/26/24 AT 11AM Referral Priority Routine Referral Appointment Date 04/26/2024 REASON FOR VISIT ANNUAL EXAM Medications Medication SIG (Take, Route, Frequency, Duration) Notes Start Date End Date Status Tamsulosin HCl 0.4 MG TAKE 1 CAPSULE BY MOUTH EVERY DAY for 30 Active Omeprazole 20 MG 3 Orally Once a day for 30 day(s) 08/30/2023 Not-Taking Tadalafil 20 MG 1 tablet Orally Once a day as needed 12/16/2020 Active Triamcinolone Acetonide 0.1 % 1 application Externally Two times a Week Active Ibuprofen 800 MG take 1 tablet by amna th three times daily with food or milk as needed Orally every 8 hrs for 90 days Active Viagra 50 MG 1 tablet as needed Orally Once a day for 30 day(s) 07/10/2015 Not-Taking Bactrim DS 800-160 MG 1 tablet Orally Tw ice a day for 5 days 2022 Not-Taking Vitamin B12 1000 MCG 1 tablet Orally Onc e a day Not-Taking Cyclobenzaprine HCl 5 MG 1 tablet at bed time as needed Orally Once a day for 30 day(s) 11/14/2023 Active DULoxetine HCl 30 MG TAKE 1 CAPSULE BY MOUTH EVERY DAY for 30 Not-Takin g Albuterol Sulfate HFA 108 (90 Base) MCG/ACT 1 puff as needed Inhalation every 4 hrs for 30 days 06/24/2023 Active Social History Tobacco Use: Social History Observation Description Date Details (start date - stop date) Never Smoker NA - NA Tobacco Use/Smoking Question Answer Notes Patient is [...] Never (0 point) Points 1 Interpretation Negative Problems Problem Type SNOMED Code ICD Code Onset Dates Problem Status W/U Status Risk Notes Problem 265455502 Annual physical exam (Z00.00) Active confirmed Vital Signs Blood pressure systolic 118 mm Hg 01/27/20 25 Blood pressure diastolic 76 mm Hg 025 Height 72 in 03/26/2024 Weight 257 lbs 03/26/2024 BMI 34.85 kg/m2 03/26/2024 weight is down 6 pounds suresh herron 9-16-24 Encounters Encounter Location Date Provider Diagnosis Sridhar Holt MD [address] [facility] [address] [place], [place] [id number] 03/26/2024 Sridhar Holt Elevated PSA R97.20 ; Annual physical exam Z00.00 ; Rectus diastasis M62.08 ; Arthritis of knee M17.10 ; Obesity (BMI 30.0-34.9) E66.9 ; Colon cancer screening Z12.11 and Depression screening Z13.31 Assessments Encounter Date Diagnosis (ICD Code) Assessment Notes Treatment Notes Treatment Clinical Notes Section Notes 03/26/2024 Elevated PSA (ICD-10 - R97.20) referral to [facility] urology 03/26/2024 Annual physical exam (ICD-10 - Z00.00) labs reviewed and discussed with patient 03/26/2024 Rectus diastasis (ICD-10 - M62.08) no treatment needed/ THIS REFERRAL HAS BEEN CLOSED , SENT IN ERROR 03/26/2024 Arthritis of knee (ICD-10 - M17.10) had surgery and not doing well 03/26/2024 Obesity (BMI 30.0-34.9) (ICD-10 - E66.9) dieting 03/26/2024 Colon cancer screening (ICD-10 - Z12.11) guaiac negative 03/26/2024 Depression screening (ICD-10 - Z13.31) negative screen Plan Of Treatment Treatment Notes Assessment Notes Annual physical exam labs reviewed and d iscussed with patient Rectus diastasis no treatment needed/ THIS REFERRAL HAS BEEN CLOSED , SENT IN ERROR Arthritis of knee had surgery and not doing well Obesity (BMI 30.0-34.9) dieting Colon cancer screening guaiac negative Depression screening negative screen Pending Test Test Name Order Date PSA,Total (Free>4and<10) 03/26/2024 Referrals Referral Date Details 03/26/2024 03/26/2024, RECTUS D Conner KELLER 03/26/2024 03/26/2024, PSA , Conner DÍAZ Next Appt Details Follow Up: 3 Weeks, Reason: Provider Name:Sridhar Lieberman iemiguel, 04/19/2024 03:30:00 PM, [address], [address], [place], [phone], Provider Name:Sridhar Lieberman isidra, 03/25/2025 07:15:00 AM, [address], [address], [place], [phone], Provider Name:Sridhar Lieberman isidra, 04/01/2025 04:00:00 PM, [address], [address], [place], [phone], Progress Notes * Cedrick OLSEN MDOB:1960 (63 yo M)Acc No.[id number]:03/26/2024 Progress Notes Patient:?Cedrick OLSEN Provider:?Sridhar Holt MD :1960???Age:63 Y???Sex:Male Connor e:03/26/2024 Address:[address] [place], [place] [phone] Subjective: * Chief Complaints: * ???ANNUAL EXAM * HPI: ???Depression Screening:?PHQ-9?Little interest or pleasure in doing things?Not at all,?Feeling down, depressed, or hopeless?Not at all,?Trouble falling or staying asleep, or sleeping too much?Not at all,?Feeling tired or having little energy?Not at all,?Poor appetite or overeating?Not at all,?Feeling bad about yourself or that you are a failure, or have let yourself or your family down?Not at all,?Trouble concentrating on things, such as reading the newspaper or watching television?Not at all,?Moving or speaking so slowly that other people could have noticed; or the opposite, being so fidgety or restless that you have been moving around a lot more than usual?Not at all,?Thoughts that you would be better off or of hurting yourself in some way?Not at all,?Total Score?0.?Interpretation and Intervention?Depression Screening Findings?Negative,?Follow-Up for Depression?: review of PHQ-9 found negative result, no follow-up needed.?Communication Needs:?Communication Needs?Does the patient have a hearing impairment?Yes,?If yes, what is the hearing impairment??Hard of hearing, Hearing Aids,?Does the patient have a vision impairment??Yes,?If yes, what is the vision impairment??Glasses,?Does the patient have a cognition impairment??No.?Fall Risk:?History?Have you had any falls with injury in the past year??No,?Have you had two or more falls in the past year??No.?SDOH Questions:?SDOH Questions?In the past year have you been worried about losing housing??No,?In the past year have you or any family members you live with been unable to get any of the following when it was really needed? Check all that apply:?None.?Symptom(s):? patient is a 63 yo male here for annual visit with review of recent labs and follow up of chronic issues. doing poorly with knees. has sprint stimulators/ still with knee pain.walks a couple miles at gym. feels better lafter walking. * ROS:?General/Constitutional:?Patient denies?fatigue, headache.?Change in appetite?denies.?Chills?denies.?Fever?denies.?Ophthalmologic:?Blurred vision?denies.?Discharge?denies.?Pain?denies.?ENT:?Patient denies?decreased sense of smell, any loss of taste, sore throat.?Decreased hearing?denies.?Sore throat?denies.?Swollen glands?denies.?Endocrine:?Cold intolerance?denies.?Excessive thirst?denies.?Heat intolerance?denies.?Weight loss?denies.?Respiratory:?Cough?denies.?Shortness of breath at rest?denies.?Shortness of breath with exertion?denies.?Wheezing?denies.?Cardiovascular:?Chest pain at rest?denies.?Chest pain with exertion?denies.?Irregular heartbeat?denies.?Shortness of breath?denies.?Gastrointestinal:?Abdominal pain?denies.?Change in bowel habits?denies.?Diarrhea?denies.?Nausea?denies.?Rectal bleeding?denies.?Vomiting?denies .?Genitourinary:?Blood in urine?denies.?Difficulty urinating?denies.?Frequent urination?denies.?Musculoskeletal:?Patient denies?muscle aches.?Painful joints?denies.?Weakness?denies.?Peripheral Vascular:?Patient denies?red and blue toes.?Skin:?Dry skin?denies.?Itching?denies.?Denies?Mole(s),? changes in moles, new moles or any lesions of concern.?Denies?Photosensitivity.?Rash?denies.?Neurologic:?Dizziness?denies.?Fainting?denies.?Headache?denies.? * Medical History:? * Surgical History:? * Hospitalization/Major Diagno stic Procedure:? * Family History:?Father: dece ased 90 yrs.?Mother: 78 yrs.?2 sister(s) . 1 son(s) , 2 daughter(s) . .? Father-Healthy Mother-ALS, Denies mental health/substance abuse family history, No pertinent family medical history, Denies mental health/substance abuse family history. * Social History:?Tobacco Use:?Tobacco Use/Smoking?Patient is a?nonsmoker,?Additional Findings: Tobacco Non-User?Current non-smoker, currently using no form of tobacco.?Drugs/Alcohol:?Alcohol Screen?Did you have a drink containing alcohol in the past year??Yes,?How often did you have a drink containing alcohol in the past year??Monthly or less (1 point),?How many drinks did you have on a typical day when you were drinking in the past year??1 or 2 drinks (0 point),?How often did you have 6 or more drinks on one occasion in the past year??Never (0 point),?Points?1,?Interpretation?Negative.?Miscellaneous:?Caffeine: yes, frequency:, 1-2 cups per day. Children: yes. Community involvements: no. Exercise: yes, pt and Gym. Home smoke detector use: yes. Housing: owning. Living with: family, spouse. Marital status: . Occupation: works full-time. Pets: cats: dogs:1 dog. Travel outside of the [place]: no. * Medications:?TakingTriamcino lone Acetonide 0.1 % Cream 1 application Externally Two times a Week Tadalafil 20 MG Tablet 1 tablet Orally Once a day as needed Tamsulosin HCl 0.4 MG Capsule TAKE 1 CAPSULE BY MOUTH EVERY DAY Ibuprofen 800 MG Tablet take 1 tablet by mouth three times daily with food or milk as needed Orally every 8 hrs Albuterol Sulfate HFA 108 (90 Base) MCG/ACT Aerosol Solution 1 puff as needed Inhalation every 4 hrs Cyclobenzaprine HCl 5 MG Tablet 1 tablet at bedtime as needed Orally Once a day Taking Triamcinolone Acetonide 0.1 % Cream 1 application Externally Two times a Week Taking Tadalafil 20 MG Tablet 1 tablet Orally Once a day as needed Taking Tamsulosin HCl 0.4 MG Capsule TAKE 1 CAPSULE BY MOUTH EVERY DAY Taking Ibuprofen 800 MG Tablet take 1 tablet by mouth three times daily with food or milk as needed Orally every 8 hrs Taking Albuterol Sulfate HFA 108 (90 Base) MCG/ACT Aerosol Solution 1 puff as needed Inhalation every 4 hrs Taking Cyclobenzaprine HCl 5 MG Tablet 1 tablet at bedtime as needed Orally Once a day Not-Taking/PRNOmeprazole 20 MG Capsule Delayed Release 3 Orally Once a day DULoxetine HCl 30 MG Capsule Delayed Release Particles TAKE 1 CAPSULE BY MOUTH EVERY DAY Bactrim DS 800-160 MG Tablet 1 tablet Orally Twice a day Vitamin B12 1000 MCG Tablet Extended Release 1 tablet Orally Once a day Viagra 50 MG Tablet 1 tablet as needed Orally Once a day Medication List reviewed and reconciled with the patientNot-Taking/PRN Omeprazole 20 MG Capsule Delayed Release 3 Orally Once a day Not-Taking/PRN DULoxetine HCl 30 MG Capsule Delayed Release Particles TAKE 1 CAPSULE BY MOUTH EVERY DAY Not-Taking/PRN Bactrim DS 800-160 MG Tablet 1 tablet Orally Twice a day Not-Taking/PRN Vitamin B12 1000 MCG Tablet Extended Release 1 tablet Orally Once a day Not-Taking/PRN Viagra 50 MG Tablet 1 tablet as needed Orally Once a day Medication List reviewed and reconciled with the patient * Allergies:?N.K.D.A.yes[Aller gies Verified] Objective: * Vitals:?Ht: 72, Wt: 257, BMI :34.85, BP:118/76, Wt-k.57. weight is down 6 pounds since 11-14-23. * ???Past Orders: ???Lab:Complete Blood Count Auto Diff (Order Date - 03/16/2024) (Collection Date & Time - 03/16/2024 07:39 AM) ? Value Reference Range ?White Blood Count 6.3 4. 8-10.8 - X10*3/uL ?Red Blood Count 5.08 4.60 -5.80 - X10*6/uL ?Hemoglobin 15.4 14.0-18.0 - g/dl ?Hematocrit 45.0 42.0-52.0 - % ?Mean Corpuscular Volume 88.6 80.0-98.0 - fL ?Mean Corpuscular Hemoglobin 30.3 27.0-33.0 - pg ?Mean Corpuscular HGB Conc 34.2 31.0-36.0 - g/dl ?Red Cell Distribution Width 12.5 11.0-16.0 - % ?Platelet Count 285 160-4 00 - X10*3/uL ?Mean Platelet Volume 9.0 L 9.4-12.4 - fL ?Neutrophils Percent Auto 57.6 45-73 - % ?Imm Gran Pct Auto 0.5 H 0. 0-0.4 - % ?Lymphocytes Percent Auto 29.6 20-40 - % ?Monocytes Percent Auto 6.9 2-11 - % ?Eosinophils Percent Auto 4.6 H 0-4 - % ?Basophils Percent Auto 0.8 0-2 - % ?NRBC Pct Auto 0.0 0.0-0. 2 - /100WBC ?Neutrophils Absolute Auto 3.6 2.0-8.3 - x10*3/uL ?Imm Gran Abs Auto 0.03 0. 00-0.03 - X10*3/uL ?Lymphocytes Absolute Auto 1.9 1.2-4.9 - X10*3/uL ?Monocytes Absolute Auto 0.4 0.1-1.2 - X10*3/uL ?Eosinophils Absolute Auto 0.3 0.0-0.4 - X10*3/uL ?Basophils Absolute Auto 0.1 0.0-0.2 - X10*3/uL ?NRBC Abs Auto 0.000 0.0-0. 012 - X10*3/uL ???Lab:UA CC w/rflx Micro + Cult (Order Date - 03/16/2024) (Collection Date & Time - 03/16/2024 07:39 AM) ? Value Reference Range ?Color Urine Yellow - ?Appearance Urine Clear - ?PH 5.0 5.0-9.0 - ?Glucose Urine UA Negative Neg ative - mg/dL ?Urine Blood Negative Negative - ?Specific [place] - Urine 1.025 1.005-1.025 - ?Urine Protein Negative Neg-Tr bessy - mg/dL ?Urine Ketones Negative Negati ve - mg/dL ?Nitrite Urine Negative Negati ve - ?Leukocyte Esterase Urine Negative Negative - ???Lab:Comprehensive [place]. P nicole Fast (Order Date - 03/16/2024) (Collection Date & Time - 03/16/2024 07:39 AM) ? Value Reference Range ?Sodium 140 135-145 - mmo l/L ?Bilirubin Total 1.3 H 0.0- 1.0 - mg/dL ?Aspartate Amino Transferase 24 5-37 - U/L ?Alanine Aminotransferase 20 0-40 - U/L ?Total Protein 8.0 6.5-8. 0 - g/dL ?Albumin Level 4.3 3.5-5. 0 - g/dL ?Alkaline Phosphatase 77 39-117 - U/L ?Potassium 4.2 3.3-5.1 - mmol/L ?Chloride 105 96-108 - mm ol/L ?Carbon Dioxide 27 22-29 - mmol/L ?Anion Gap 12 12-20 - ?Blood Urea Nitrogen 19 H 9-16 - mg/dL ?Creatinine 1.01 0.5-1.4 - mg/dL ?Estimated Glomerular Filt Rate > 60 - ?Glucose Fasting 99 60-9 9 - mg/dL ?Calcium 9.5 8.4-10.2 - m g/dL ???Lab:Lipid Panel (Order Da te - 03/16/2024) (Collection Date & Time - 03/16/2024 07:39 AM) ? Value Reference Range ?Triglycerides 92 <150 - mg/dL ?Cholesterol 202 H <200 - m g/dL ?LDL Cholesterol Calculated 136 H <100 - mg/dL ?HDL Cholesterol 48 >40 - mg/dL ???Lab:Microalbumin, Random (Order Date - 03/16/2024) (Collection Date & Time - 03/16/2024 07:39 AM) ? Value Reference Range ?Creatinine Urine 226.31 - m g/dL ?Microalbumin Urine 11.0 - mg/L ?Microalbum Creatinine Ratio Ur 4.8 <30 - ug/mg cr ???Lab:Hemoglobin A1c (Order Date - 03/16/2024) (Collection Date & Time - 03/16/2024 07:39 AM) ? Value Reference Range ?Hemoglobin A1c % 5.1 <6. 0 - % ?Estimated Average Glucose 100 - mg/dL * Examination: ???General Examination: ?GENERAL APPEARANCE:?well developed, well nourished, in no acute distress.?HEAD:?normocephalic, atraumatic.?EYES:?pupils equal, round, reactive to light and accommodation, sclera non-icteric.?EARS:?normal.?ORAL CAVITY:?mucosa moist.?THROAT:?clear.?NECK/THYROID:?neck supple, full range of motion, no cervical lymphadenopathy, no bruits.?SKIN:?warm and dry, no suspicious lesions.?HEART:?regular rate and rhythm, S1, S2 normal, no murmurs.?LUNGS:?clear to auscultation bilaterally.?ABDOMEN:?soft, nontender, nondistended, bowel sounds present, normal, no organomegaly , no masses palpable.?RECTAL EXAM:?normal tone, no external hemorrhoids, no masses palpable, prostate normal, stool guaiac negative.?MALE GENITOURINARY:?circumcised.?EXTREMITIES:?no clubbing, cyanosis, or edema.?NEUROLOGIC:?nonfocal, motor strength normal upper and lower extremities, sensory exam intact.? Assessment: * Assessment: 1.?Annual physical exam - Z0 0.00 (Primary)???2.?Elevated PSA - R97.20???3.?Rectus diastasis - M62.08???4.?Arthritis of knee - M17.10???5.?Obesity (BMI 30.0-34.9) - E66.9???6.?Colon cancer screening - Z12.11???7.?Depression screening - Z13.31??? Plan: * Treatment: 2.?Elevated PSA?LAB: PSA,Total (Free>4and<10) Clinical Notes: referral to [facility] urology? Referral To:Conner Tucker??Urology ?Reason:PSA , TOTAL 3.?Rectus diastasis? Notes: no treatment needed/ THIS REFERRAL HAS BEEN CLOSED , SENT IN ERROR? Referral To:Conner Tucker??Urology ?Reason:RECTUS DIASTASIS 4.?Arthritis of knee? Notes: had surgery and not doing well?? 5.?Obesity (BMI 30.0-34.9)? Notes: dieting?? 6.?Colon cancer screening?LAB: Occult Blood, Stool, Guaiac (Collection Date & Time - 03/27/2024)?Negative ? Value Reference Range ?Occult Blood, Stool, Guaiac Neg Notes: guaiac negative??7.?Depression screening? Notes: negative screen?? * Procedure Codes:?30214 TEST FOR BLOOD, FECES * Preventive Medicine:? ??Counseling:?Care goal follow-up plan:?Counseling for abnormal BMI provided?Yes,?Above Normal BMI Follow-up?Giving encouragement to exercise.? * Follow Up:?3 Weeks * * Sign off status: Completed true * Provider:?Sridhar Holt MD Date:?0 03/26/2024 Generated for Janice tirado/Brynn/eTgabrielsmitting on:?04/09/2024 12:04 PM EST History and Physical Notes * HPI (History of Present Illness) Category Sub-Category Detail Notes Category Not es Symptom(s) patient is a 63 yo male here for annual visit with review of recent labs and follow up of chronic issues. doing poorly with knees. has sprint stimulators/ still with knee pain.walks a couple miles at gym. feels better lafter walking. Depression Screening PHQ-9 Little inte rest or pleasure in doing things: Not at all Feeling down, depressed, or hopeless: No t at all Trouble falling or staying asleep, or sl eeping too much: Not at all Feeling tired or having little energy: N ot at all Poor appetite or overeating: Not at all Feeling bad about yourself o r that you are a failure, or have let yourself or your family down: Not at all Trouble concentrating on thi ngs, such as reading the newspaper or watching television: Not at all Moving or speaking so slowly that other people could have noticed; or the opposite, being so fidgety or restless that you have been moving around a lot more than usual: Not at all Thoughts that you would be b [place]our[place] off or of hurting yourself in some way: Not at all Total Score: 0 Interpretation and Intervention Depression Onelia lyles Findings: Negative Follow-Up for Depression: : review of PH Q-9 found negative result, no follow-up needed SDOH Questions SDOH Questions In the past year have you been worried about losing housing?: No In the past year have you or any family members you live with been unable to get any of the following when it was really needed? Check all that apply:: None Fall Risk History Have you had any falls with injury i n the past year?: No Have you had two or more falls in the st year?: No Communication Needs Communication Needs Does the patient have a hearing impairment: Yes ?If yes, what is the hearing impairment? : Hard of hearing, Hearing Aids Does the patient have a vision impairmen t?: Yes ?If yes, what is the vision impairment?: Glasses Does the patient have a cognition impair ment?: No Examination Category Sub-Category Detail Notes Category Not es General Examination GENERAL APPEARANCE: well dev eloped, well nourished, in no acute distress HEAD: normocephalic, atrau matic EYES: pupils equal, round, reactive to light and accommodation, sclera non- icteric EARS: normal THROAT: clear NECK/THYROID: neck supple, full ra nge of motion, no cervical lymphadenopathy, no bruits HEART: regular rate and rhy thm, S1, S2 normal, no murmurs LUNGS: clear to auscultatio n bilaterally ABDOMEN: soft, nontender, non distended, bowel sounds present, normal, no organomegaly , no masses palpable NEUROLOGIC: nonfocal, motor stre ngth normal upper and lower extremities, sensory exam intact SKIN: warm and dry, no latha picious lesions EXTREMITIES: no clubbing, cyanosi s, or edema MALE GENITOURINARY: circumcised RECTAL EXAM: normal tone, no exte rnal hemorrhoids, no masses palpable, prostate normal, stool guaiac negative ORAL CAVITY: mucosa moist Consultation Request Notes Referral Date Referring Provider Referred Provider Not es 03/26/2024 Sridhar Holt William RECTUS DIASTASIS 03/26/2024 Sridhar Holt William PSA , Jazlyn [facility]
--- OUTSIDE RECORDS SUMMARY | 2024-04-09 12:05 | XMS_ITS | Patient Health Record ---
Author Organization [facility] Address [address] [place] [address] Care Team Providers Care Bicycle Taxi Driver Name Role Phone Yanet SILVA, Sridhar Primary Care Provider Rafa Sánchez Jr Unavailable [phone] REASON FOR REFERRAL No Information MEDICATIONS Medication SIG (Take, Route, Fr equency, Duration) Notes Start Date End Date Status MoviPrep 100 GM as directed before c olonoscopy Orally for 1 dose 11/08/2012 02/29/2024 Active SOCIAL HISTORY Sex Assigned At : Social History Observation Description Sex Assigned At Unknown PROBLEMS Problem Type ICD Code Onset Dates Problem Status W/U Status Risk SNOMED Code Notes Problem Colon cancer screening (V76.51) Active confirmed Colon cancer screening (013974017) PLAN OF TREATMENT No Information Insurance Providers Payer Name Payer Address Payer Phone Subscriber Number Group Number Insured Name Patient Relationship to Insured Coverage Start Date Coverage End Date [facility] [id number] [place], [place] [id number] [phone] [id number] RAFA OLSEN Self - patient is the insured MEDICAL (GENERAL) HISTORY Medical History History ICD Code Denies [place],DM,CVA,Lung disease,renal dise ase Surgical History Surgery Date(Month/Year) umbilical hernia repair 2011 seborrheic keratosis left leg 2012 right knee arthroscopy
--- OUTSIDE RECORDS SUMMARY | 2024-04-09 12:05 | XMS_ITS ---
Author Organization Sridhar Holt MD Address [address] [place] [phone] Care Team Providers Care Lottery Office Manager Name Role Phone Sridhar Holt Primary Care Provider Results Component Value Reference Range Notes PSA,Total (Free>4and<10) (No t yet reviewed by provider) Interpretation: Performing Lab:[facility], [address] [place] [id number] Notes/Report: PSA,Total (Free>4and<10) 4.73 0.00-4.00 ng/mL PSA methodology: Fletcher Alinity i Chemiluminescent Microparticle Immunoassay (CMIA) REASON FOR VISIT PSA Encounters Encounter Location Date Provider Diagnosis Sridhar Holt MD [address] [place] [phone] 04/09/2024 Sridhar Holt Elevated PSA R97.20 Assessments Encounter Date Diagnosis (ICD Code) Assessment Notes Treatment Notes Treatment Clinical Notes Section Notes 04/09/2024 Elevated PSA (ICD-10 - R97.20) Plan Of Treatment Pending Test Test Name Order Date PSA,Total (Free>4and<10) 04/09/2024 Next Appt Details Provider Name:Sridhar Lieberman ier, 04/19/2024 03:30:00 PM, [address], [address], [place], [phone], Provider Name:Sridhar Lieberman ier, 03/25/2025 07:15:00 AM, [address], [address], [place], [phone], Provider Name:Sridhar Lieberman ier, 04/01/2025 04:00:00 PM, [address], [address], [place], [phone], Progress Notes * Cedrick OLSEN MDOB:1960 (63 yo M)Acc No.[id number]:04/09/2024 Progress Note Patient:?PRETTYCedrick GUSTAFSON Adin Provider:?Sridhar Holt MD :1960???Age:63 Y???Sex:Male Connor e:04/09/2024 Address:[address] [place], [place] [phone] Subjective: * Chief Complaints: * ???1. PSA. * Medical History:? Objective: * Vitals:? Assessment: * Assessment: 1.?Elevated PSA - R97.20??? Plan: * Treatment: * Procedure Codes:?85632 VENIP UNCT, ROUTINE* * * The named appointment provid er may or may not be the originator of this progress note, and it is not deemed complete until electronically signed by the appointment provider. Sign off status: Pending * Provider:?Sridhar Holt MD Date:?0 04/09/2024 Generated for Janice tirado/Brynn/Cecilitting on:?04/09/2024 12:05 PM EST
[2024-04-11 13:03] LABS: Free Prostate Spec Ag 0.7 ng/mL; Percent Free Prostate Spec Ag 15 % (calc) (>25); Prostate Specific Ag Total 4.6 ng/mL (< OR = 4.0)
== END 2024-04-09 10:58 | disposition home or self-care (01) ==
LOC: HO.LNP 10:57
PROVIDERS: Visit Provider Internal Medicine
DX: R97.20 Elevated prostate specific antigen [PSA] (principal)
CPT/HCPCS: 84153; 84154

== ENCOUNTER 2024-04-19 16:04 | Outpatient (REF) | payer OTHER, SELFPAY ==
--- NOTE | ~2024-04-19 | XR_ITS ---
CLINICAL HISTORY: PAIN 3 view left knee Comparison: None Findings: No fracture or dislocation. Left total knee arthroplasty with Press-Fit femoral, tibial and patellar components. Normal alignment. Uniform height of the silastic tibial tray. Moderate joint effusion. Soft tissues intact. Impression: Left total knee arthroplasty with hardware intact and in good position. Nonspecific joint effusion. This document has been electronically signed by: Marty Gary MD on 04/20/2024 11:15:03
--- NOTE | ~2024-04-19 | XR_ITS ---
CLINICAL HISTORY: PAIN 3 view right knee Comparison: None Findings: Right total knee arthroplasty with Press-Fit femoral, tibial and patellar components. Anatomic alignment. Hardware intact and projecting good position. Uniform height of the silastic tibial tray. No apparent joint effusion. Soft tissues intact. Impression: Normal appearing right total knee arthroplasty. This document has been electronically signed by: Marty Gary MD on 04/20/2024 11:23:56
--- OUTSIDE RECORDS SUMMARY | 2024-04-19 16:46 | XMS_ITS ---
Author Organization Sridhar Holt MD Address [address] [place] [phone] Care Team Providers Care Rn Otolaryngology Name Role Phone Sridhar Holt Primary Care Provider Allergies No Known Allergies REASON FOR VISIT 3 WEEKS Medications Medication SIG (Take, Route, Frequency, Duration) Notes Start Date End Date Status Vitamin B12 1000 MCG 1 tablet Orally Onc e a day Not-Taking Cyclobenzaprine HCl 5 MG 1 tablet at bed time as needed Orally Once a day for 30 day(s) 11/14/2023 Active Omeprazole 20 MG 3 Orally Once a day for 30 day(s) 08/30/2023 Not-Taking Bactrim DS 800-160 MG 1 tablet Orally Tw ice a day for 5 days 2022 Not-Taking DULoxetine HCl 30 MG TAKE 1 CAPSULE BY MOUTH EVERY DAY for 30 Not-Takin g Tadalafil 20 MG 1 tablet Orally Once a day as needed 12/16/2020 Active Tamsulosin HCl 0.4 MG TAKE 1 CAPSULE BY MOUTH EVERY DAY for 30 Active Triamcinolone Acetonide 0.1 % 1 application Externally Two times a Week Active Albuterol Sulfate HFA 108 (90 Base) MCG/ACT 1 puff as needed Inhalation every 4 hrs for 30 days 06/24/2023 Active Ibuprofen 800 MG take 1 tablet by three times daily with food or milk as needed Orally every 8 hrs for 90 days Active Viagra 50 MG 1 tablet as needed Orally Once a day for 30 day(s) 07/10/2015 Not-Taking Vital Signs Blood pressure systolic 112 mm Hg 04/19/19 25 Blood pressure diastolic 70 mm Hg 025 Height 72 in 04/19/2024 Weight 253 lbs 04/19/2024 BMI 34.31 kg/m2 04/19/2024 weight is down 4 pounds [facility] e 03-26-24 Encounters Encounter Location Date Provider Diagnosis Sridhar Holt MD [address] [place] [address] Drive [address] [place], [place] [phone] 04/19/2024 Sridhar Holt Elevated PSA R97.20 ; Other chronic pain G89.29 ; Pain in right knee M25.561 and Pain in left knee M25.562 Assessments Encounter Date Diagnosis (ICD Code) Assessment Notes Treatment Notes Treatment Clinical Notes Section Notes 04/19/2024 Elevated PSA (ICD-10 - R97.20) came down and is seeing urology next week 04/19/2024 Other chronic pain (ICD-10 - G89.29) 04/19/2024 Pain in right knee (ICD-10 - M25.561) THE XRAY ORDER WAS PRINTED ANFD GIVEN TO PATIENT 04/19/2024 Pain in left knee (ICD-10 - M25.562) Plan Of Treatment Medication Medication Name Sig Start Date Stop Date Notes Tamsulosin HCl 0.4 MG TAKE 1 CAPSULE BY MOUTH EVERY DAY for 30 Treatment Notes Assessment Notes Elevated PSA came down and is see ing urology next week Pain in right knee THE XRAY ORDER WAS P RINTED ANFD GIVEN TO PATIENT Pending Test Test Name Order Date XR knee LT 3V 04/19/2024 XR knee RT 3V 04/19/2024 Next Appt Details Follow Up: 4 Weeks, Reason: Provider Name:Sridhar miner, 05/07/2024 08:15:00 AM, [address], [address], [place], [place], [phone], Provider Name:Sridhar Lieberman isidra, 05/24/2024 03:30:00 PM, [address], [address], [place], [phone], Provider Name:Sridhar Lieberman isidra, 03/25/2025 07:15:00 AM, [address], [address], [place], [phone], Provider Name:Sridhar Lieberman isidra, 04/01/2025 04:00:00 PM, [address], [address], [place], [phone], Progress Notes * Cedrick OLSEN MDOB:1960 (63 yo M)Acc No.[id number]:04/19/2024 Progress Notes Patient:?Cedrick OLSEN Provider:?Sridhar Holt MD :1960???Age:63 Y???Sex:Male Connor e:04/19/2024 Address:[address] [place], [place] [phone] Subjective: * Chief Complaints: * ???1. 3 WEEKS. * ROS:?General/Constitutional:?Denies?Chills.?Denies?Fatigue.?Denies?Fever.?Denies?Headache.?ENT:?Denies?Sore throat.?Respiratory:?Denies?Cough.?Denies?Shortness of breath at rest.?Denies?Shortness of breath with exertion.?Gastrointestinal:?Denies?Diarrhea.?Denies?Nausea.? * Medical History:?Colonoscopy 01/31/2013 - repeat 10 years, Umbilical hernia. * Medications:?Taking Triamcin olone Acetonide 0.1 % Cream 1 application Externally Two times a Week , Taking Tadalafil 20 MG Tablet 1 tablet Orally Once a day as needed , Taking Ibuprofen 800 MG Tablet take 1 tablet by mouth three times daily with food or milk as needed Orally every 8 hrs , Taking Albuterol Sulfate HFA 108 (90 Base) MCG/ACT Aerosol Solution 1 puff as needed Inhalation every 4 hrs , Taking Cyclobenzaprine HCl 5 MG Tablet 1 tablet at bedtime as needed Orally Once a day , Taking Tamsulosin HCl 0.4 MG Capsule TAKE 1 CAPSULE BY MOUTH EVERY DAY , Not-Taking/PRN Omeprazole 20 MG Capsule Delayed Release 3 Orally Once a day , Not-Taking/PRN DULoxetine HCl 30 MG Capsule Delayed Release Particles TAKE 1 CAPSULE BY MOUTH EVERY DAY , Not-Taking/PRN Bactrim DS 800-160 MG Tablet 1 tablet Orally Twice a day , Not-Taking/PRN Vitamin B12 1000 MCG Tablet Extended Release 1 tablet Orally Once a day , Not-Taking/PRN Viagra 50 MG Tablet 1 tablet as needed Orally Once a day * Allergies:?N.K.D.A. Objective: * Vitals:?Ht: 72, Wt: 253, BMI :34.31, BP:112/70, Wt-k.76. weight is down? 4 pounds since 03-26-24. * Examination: ???General Examination: ?GENERAL APPEARANCE:?alert, well hydrated, in no distress.?HEAD:?normocephalic.?SKIN:?good turgor.?HEART:?no murmurs, rubs, gallops, regular rate and rhythm.?LUNGS:?clear to auscultation bilaterally, no wheezes, rales, rhonchi, good air movement.? Assessment: * Assessment: 1.?Elevated PSA - R97.20 (Pr imary)???2.?Other chronic pain - G89.29???3.?Pain in right knee - M25.561???4.?Pain in left knee - M25.562??? Plan: * Treatment: 2.?Pain in right knee?Imaging: XR knee LT 3V ?Imaging: XR knee RT 3V Notes: THE XRAY ORDER WAS PRINTED ANFD GIVEN TO PATIENT?? 3.?Pain in left knee?Imaging: XR knee LT 3V ?Imaging: XR knee RT 3V 4.?Others? Refill Tamsulosin HCl Capsule, 0.4 MG, TAKE 1 CAPSULE BY MOUTH EVERY DAY, 30, 30 Capsule, Refills 12.?? * Follow Up:?4 Weeks * * The named appointment provid er may or may not be the originator of this progress note, and it is not deemed complete until electronically signed by the appointment provider. Sign off status: Pending * Provider:?Sridhar Holt MD Date:?0 04/19/2024 Generated for Janice tirado/Brynn/eTransmitting on:?04/19/2024 04:46 PM EST History and Physical Notes * Examination Category Sub-Category Detail Notes Category Not es General Examination GENERAL APPEARANCE: alert, w ell hydrated, in no distress HEAD: normocephalic HEART: no murmurs, rubs, ga llops, regular rate and rhythm LUNGS: clear to auscultatio n bilaterally, no wheezes, rales, rhonchi, good air movement SKIN: good turgor
--- OUTSIDE RECORDS SUMMARY | 2024-04-19 16:47 | XMS_ITS ---
Author Organization Sridhar Holt MD Address [address] [place] [phone] Care Team Providers Care Literacy Tutor Name Role Phone Sridhar Holt Primary Care Provider [phone] REASON FOR VISIT PSA blood work Encounters Encounter Location Date Provider Diagnosis Sridhar Holt MD [facility] [address] [place] [phone] 04/05/2024 Sridhar Holt Plan Of Treatment Next Appt Details Provider Name:Sridhar miner, 05/07/2024 08:15:00 AM, [address] [place] [address], [address], [phone], Provider Name:Sridhar miner, 05/24/2024 03:30:00 PM, [address] [place] [address], [address], [phone], Provider Name:Sridhar miner, 03/25/2025 07:15:00 AM, [address] [place] [address], [address], [phone], Provider Name:Sridhar miner, 04/01/2025 04:00:00 PM, [address], [address], [place], [phone], Progress Notes * Cedrick OLSEN MDOB:1960 (63 yo M)Acc No.[id number]:04/05/2024 Patient:?Cedrick OLSEN :1960???Age:63 Y???Sex:Male Address: [address], [place], [address] * true * Date:? Generated for Janice tirado/Brynn/eTransmitting on:?04/19/2024 04:46 PM EST
--- OUTSIDE RECORDS SUMMARY | 2024-04-19 16:47 | XMS_ITS ---
Author Organization Sridhar Holt MD Address [address] [place] [phone] Care Team Providers Care Management Manager Name Role Phone Sridhar Holt Primary Care Provider Results Component Value Reference Range Notes PSA,Total (Free>4and<10) Reviewed date:04/09/2024 12:36:50 PM Interpretation: Performing Lab:[facility], [address] [place] [phone] Notes/Report: PSA,Total (Free>4and<10) 4.73 0.00-4.00 ng/mL PSA methodology: Fletcher Alinity i Chemiluminescent Microparticle Immunoassay (CMIA) REASON FOR VISIT PSA Encounters Encounter Location Date Provider Diagnosis Sridhar Holt MD [address] [place] [phone] 04/09/2024 Sridhar Holt Elevated PSA R97.20 Assessments Encounter Date Diagnosis (ICD Code) Assessment Notes Treatment Notes Treatment Clinical Notes Section Notes 04/09/2024 Elevated PSA (ICD-10 - R97.20) Plan Of Treatment Next Appt Details Provider Name:Sridhar miner 05/07/2024 08:15:00 AM, [address], [address], [place], [phone], Provider Name:Sridhar Lieberman elisabethr, 05/24/2024 03:30:00 PM, [address], [address], [place], [phone], Provider Name:Sridhar Lieberman elisabethr, 03/25/2025 07:15:00 AM, [address], [address], [place], [phone], Provider Name:Sridhar Lieberman ier, 04/01/2025 04:00:00 PM, [address], [address], [place], [phone], Progress Notes * Cedrick OLSEN MDOB:1960 (63 yo M)Acc No.[id number]:04/09/2024 Progress Note Patient:?Cedrick OLSEN Provider:?Sridhar Holt MD :1960???Age:63 Y???Sex:Male Connor e:04/09/2024 Address:[address] [place], [place] [phone] Subjective: * Chief Complaints: * ???1. PSA. * Medical History:? Objective: * Vitals:? Assessment: * Assessment: 1.?Elevated PSA - R97.20 (Pr imary)??? Plan: * Treatment: * Procedure Codes:?44246 VENIP UNCT, ROUTINE* * * The named appointment provid er may or may not be the originator of this progress note, and it is not deemed complete until electronically signed by the appointment provider. Sign off status: Pending * Provider:?Sridhar Holt MD Date:?0 04/09/2024 Generated for Janice tirado/Brynn/eTransmitting on:?04/19/2024 04:47 PM EST
--- OUTSIDE RECORDS SUMMARY | 2024-04-19 16:47 | XMS_ITS | Patient Health Record ---
Author Organization [facility] Address [address] [place] [address] Care Team Providers Care Roof Plumber Name Role Phone Yanet SILVA, Sridhar Primary Care Provider Rafa Sánchez Jr Unavailable REASON FOR REFERRAL No Information MEDICATIONS Medication [...] screening (V76.51) Active confirmed Colon cancer screening ([id number]) PLAN OF TREATMENT No Information Insurance Providers Payer Name Payer Address Payer Phone Subscriber Number Group Number Insured Name Patient Relationship to Insured Coverage Start Date Coverage End Date [facility] [id number] [place], [place] [id number] RAFA OLSEN Self - patient is the insured MEDICAL (GENERAL) HISTORY Medical History History ICD Code Denies [place],DM,CVA,Lung disease,renal dise ase Surgical History Surgery Date(Month/Year) umbilical hernia repair 2011 seborrheic keratosis left leg 2012 right knee arthroscopy
== END 2024-04-19 16:05 | disposition home or self-care (01) ==
LOC: HO.XRAY 16:04
PROVIDERS: PCP Internal Medicine; Visit Provider Internal Medicine
DX: M25.561 Pain in right knee (principal); M25.562 Pain in left knee
CPT/HCPCS: 73562

== ENCOUNTER → 2024-04-19 16:15 | Outpatient (BNV) | payer OTHER, SELFPAY | PROVIDERS: PCP Internal Medicine; Visit Provider Radiology Diagnostic Radiology | DX: M25.462 Effusion, left knee (principal); M25.561 Pain in right knee; Z96.653 Presence of artificial knee joint, bilateral | CPT/HCPCS: 73562 ==

== ENCOUNTER 2024-05-07 10:25 | Outpatient (REF) | payer OTHER, SELFPAY ==
--- OUTSIDE RECORDS SUMMARY | 2024-05-07 11:44 | XMS_ITS ---
Author Organization Sridhar Holt MD Address [address] [place] [phone] Care Team Providers Care Registered Radiation Therapist Name Role Phone Sridhar Holt Primary Care Provider [phone] Results Component Value Reference Range Notes PSA,Total (Free>4and<10) (No t yet reviewed by provider) Interpretation: Performing Lab:[facility], [address] [place] [phone] Notes/Report: PSA,Total (Free>4and<10) 4.90 0.00-4.00 ng/mL PSA methodology: Fletcher Alinity i Chemiluminescent Microparticle Immunoassay (CMIA) REASON FOR VISIT 1 month repeat PSA Encounters Encounter Location Date Provider Diagnosis Sridhar Holt MD [address] [place] [phone] 05/07/2024 Sridhar Holt Prostatism N40.0 Assessments Encounter Date Diagnosis (ICD Code) Assessment Notes Treatment Notes Treatment Clinical Notes Section Notes 05/07/2024 Prostatism (ICD-10 - N40.0) Plan Of Treatment Pending Test Test Name Order Date PSA,Total (Free>4and<10) 05/07/2024 Next Appt Details Provider Name:Sridhar Lieberman ier, 05/24/2024 03:30:00 PM, [address], [address], [place], [phone], Provider Name:Sridhar Lieberman ier, 03/25/2025 07:15:00 AM, [address], [address], [place], [phone], Provider Name:Sridhar Lieberman ier, 04/01/2025 04:00:00 PM, [address], [address], [place], [phone], Progress Notes * Cedrick OLSEN MDOB:1960 (63 yo M)Acc No.[id number]:05/07/2024 Progress Note Patient:?Cedrick OLSEN Adin Provider:?Sridhar Holt MD :1960???Age:63 Y???Sex:Male Connor e:05/07/2024 Address:[address] [place] [address] [facility] Subjective: * Chief Complaints: * ???1. 1 month repeat PSA. * Medical History:? Objective: * Vitals:? Assessment: * Assessment: 1.?Prostatism - N40.0 (Prima ry)??? Plan: * Treatment: * * The named appointment provid er may or may not be the originator of this progress note, and it is not deemed complete until electronically signed by the appointment provider. Sign off status: Pending * Provider:?Sridhar Holt MD Date:?0 05/07/2024 Generated for Janice tirado/Brynn/Indirasmitting on:?05/07/2024 11:44 AM EDT
--- OUTSIDE RECORDS SUMMARY | 2024-05-07 11:44 | XMS_ITS | Patient Health Record ---
Author Organization [facility] Address [address] [place] [address] Care Team Providers Care Form Grader Name Role Phone Yanet SILVA, Sridhar Primary Care Provider Rafa Sánchez Jr Unavailable Reason For Referral No Information Medications Medication SIG (Take, Route, Fr equency, Duration) Notes Start Date End Date Status MoviPrep 100 GM as directed before c olonoscopy Orally for 1 dose 11/08/2012 02/29/2024 Active Problems Problem Type SNOMED Code ICD Code Onset Dates Problem Status W/U Status Risk Notes Problem Colon cancer screening ([id number]) Colon cancer screening (V76.51) Active confirmed Plan Of Treatment No Information Insurance Providers Payer Name Payer Address Payer Phone Subscriber Number Group Number Insured Name Patient Relationship to Insured Coverage Start Date Coverage End Date [facility] [id number] [place], [place] [id number] [phone] [id number] RAAF OLSEN Self - patient is the insured Medical (General) History Medical History History ICD Code Denies [place],DM,CVA,Lung disease,renal dise ase Surgical History Surgery Date(Month/Year) umbilical hernia repair 2012 seborrheic keratosis left leg 2012 right knee arthroscopy
--- OUTSIDE RECORDS SUMMARY | 2024-05-07 11:44 | XMS_ITS ---
Author Organization Sridhar Holt MD Address [address] [place] [phone] Care Team Providers Care Brand Engineer Name Role Phone Sridhar Holt Primary Care Provider Allergies No Known Allergies Results Component Value Reference Range Notes XR knee LT 3V Reviewed date:04/20/2024 04:24:58 PM Interpretation: Performing Lab: Notes/Report: [address] [address] XRay Report Signed Patient: Cedrick Olsen MR#: [id number] : 1960 Acct:[id number] Age/Sex: 63 / M ADM Date: 04/19/24 Loc: [facility] Attending Dr: Sridhar Holt MD Ordering Physician: Sridhar Holt MD Date of Service: 04/19/24 Procedure(s): XR knee LT 3V Accession Number(s): [id number] cc: Sridhar Holt MD CLINICAL HISTORY: PAIN 3 view left knee Comparison: None Findings: No fracture or dislocation. Left total knee arthroplasty with Press-Fit femoral, tibial and patellar components. Normal alignment. Uniform height of the silastic tibial tray. Moderate joint effusion. Soft tissues intact. Impression: Left total knee arthroplasty with hardware intact and in good position. Nonspecific joint effusion. This document has been electronically signed by: Marty Gary MD on 04/20/2024 11:15:03 Dictated By: Marty Gary MD Signed By: <Electronically signed by Marty Gary MD in [place]> 04/20/241115 DD/ 14 TD/TT: 04/20/241114 Head Of Merchandise Buying: [place] [address] XRay Report Signed Patient: Vikas Olsen MR#: [id number] : 1960 Acct:[id number] Age/Sex: 63 / M ADM Date: 04/19/24 Loc: HO.XRAY Attending Dr: Sridhar Holt MD Ordering Physician: Sridhar Holt MD Date of Service: 04/19/24 Procedure(s): XR knee LT 3V Accession Number(s): [id number] cc: Sridhar Holt MD CLINICAL HISTORY: PAIN 3 view left knee Comparison: None Findings: No fracture or dislocation. Left total knee arth roplasty with Press-Fit femoral, tibial and patellar components. Normal alignment. Un iform height of the silastic tibial tray. Moderate joint effusion. Soft tissues intact. Impression: Left total knee arth roplasty with hardware intact and in good position. Nonspecific joint effusion. This document has be en electronically signed by: Marty Gary MD on 04/20/2024 11:15:03 Dictated By: Marty Gary MD Signed By: <Eric tavarez signed by Marty Gary MD in [place]> 04/20/241115 DD/ 14 TD/TT: 04/20/241114 Head Of Merchandise Buying: REASON FOR VISIT 3 WEEKS Medications Medication [...] kg/m2 04/19/2024 weight is down 4 pounds [facility] 03-26-24 Encounters Encounter Location Date Provider Diagnosis Sridhar Holt MD [address] [place] [address] [place] [phone] 04/19/2024 Sridhar Holt Elevated PSA R97.20 ; Other chronic pain G89.29 ; Pain in right knee M25.561 and Pain in left knee M25.562 Assessments Encounter Date Diagnosis (ICD Code) Assessment Notes Treatment Notes Treatment Clinical Notes Section Notes 04/19/2024 Elevated PSA (ICD-10 - R97.20) came down and is seeing urology next week, will continue to monitor 04/19/2024 Other chronic pain (ICD-10 - G89.29) [...] down and is see ing urology next week, will continue to monitor Pain in right knee THE XRAY ORDER WAS Loy MARLYS ANFD GIVEN TO PATIENT Pending Test Test Name Order Date XR KNEE RT 3 VIEWS 04/19/2024 Next Appt Details Follow Up: 4 Weeks, Reason: Provider Name:Sridhar miner, 05/24/2024 03:30:00 PM, [address] [place] [address], [address], [place], [place], [phone], Provider Name:Sridhar Lieberman ier, 03/25/2025 07:15:00 AM, [address] [place] [address], [address], [place], [place], [phone], Provider Name:Sridhar miner, 04/01/2025 04:00:00 PM, [address] [place] [address], [address], [place], [place], [phone], Progress Notes * Cedrick OLSEN MDOB:1960 (63 yo M)Acc No.[id number]:04/19/2024 Progress Notes Patient:?Cedrick OLSEN Provider:?Sridhar Holt MD :1960???Age:63 Y???Sex:Male Connor e:04/19/2024 Address:[address] [place], [place] [phone] Subjective: * Chief Complaints: * ???3 WEEKS * HPI: ???Isolation Precautions:? patient is a 63 yo male here for 3 week follow up vsit,. * ROS:?General/Constitutional:?Denies?Chills.?Denies?Fatigue.?Denies?Fever.?Denies?Headache.?ENT:?Patient denies?decreased sense of smell, any loss of taste, sore throat.?Denies?Sore throat.?Respiratory:?Denies?Cough.?Denies?Shortness of breath at rest.?Denies?Shortness of breath with exertion.?Gastrointestinal:?Denies?Diarrhea.?Denies?Nausea.?Musculoskeletal:?Patient denies?muscle aches.?Peripheral Vascular:?Patient denies?red and blue toes.? * Medical History:? * Surgical History:? * Hospitalization/Major Diagno stic Procedure:? * Medications:?TakingTriamcino lone Acetonide 0.1 % Cream 1 application Externally Two times a Week Tadalafil 20 MG Tablet 1 tablet Orally Once a day as needed Ibuprofen 800 MG Tablet take 1 tablet by mouth three times daily with food or milk as needed Orally every 8 hrs Albuterol Sulfate HFA 108 (90 Base) MCG/ACT Aerosol Solution 1 puff as needed Inhalation every 4 hrs Cyclobenzaprine HCl 5 MG Tablet 1 tablet at bedtime as needed Orally Once a day Tamsulosin HCl 0.4 MG Capsule TAKE 1 CAPSULE BY MOUTH EVERY DAY Taking Triamcinolone Acetonide 0.1 % Cream 1 application Externally Two times a Week Taking Tadalafil 20 MG Tablet 1 tablet Orally Once a day as needed Taking Ibuprofen 800 MG Tablet take 1 tablet by mouth three times daily with food or milk as needed Orally every 8 hrs Taking Albuterol Sulfate HFA 108 (90 Base) MCG/ACT Aerosol Solution 1 puff as needed Inhalation every 4 hrs Taking Cyclobenzaprine HCl 5 MG Tablet 1 tablet at bedtime as needed Orally Once a day Taking Tamsulosin HCl 0.4 MG Capsule TAKE 1 CAPSULE BY MOUTH EVERY DAY Not-Taking/PRNOmeprazole 20 MG Capsule Delayed Release 3 Orally Once a day DULoxetine HCl 30 MG Capsule Delayed Release Particles TAKE 1 CAPSULE BY MOUTH EVERY DAY Bactrim DS 800-160 MG Tablet 1 tablet Orally Twice a day Vitamin B12 1000 MCG Tablet Extended Release 1 tablet Orally Once a day Viagra 50 MG Tablet 1 tablet as needed Orally Once a day Not-Taking/PRN Omeprazole 20 MG Capsule Delayed Release [...] as needed Orally Once a day * Allergies:?N.K.D.A.yes[Aller gies Verified] Objective: * Vitals:?Ht: 72, Wt: 253, BMI [...] * Treatment: 2.?Pain in right knee?Imaging: XR KNEE RT 3 VIEWS Notes: THE XRAY ORDER WAS PRINTED ANFD GIVEN TO PATIENT?? 3.?Pain in left knee?Imaging: XR knee LT 3V (Performed Date - 04/20/2024) 4.?Others? Refill Tamsulosin HCl Capsule, 0.4 MG, TAKE 1 CAPSULE BY MOUTH EVERY DAY, 30, 30 Capsule, Refills 12.?? * Procedure Codes:? * Follow Up:?4 Weeks * * Sign off status: Completed true * Provider:?Sridhar Holt MD Date:?0 04/19/2024 Generated for Janice tirado/Brynn/eTgabrielsmitting on:?05/07/2024 11:44 AM EDT History and Physical Notes * HPI (History of Present Illness) Category Sub-Category Detail Notes Category Not es Isolation Precautions sanjuanita hamilton is a 63 yo male here for 3 week follow up vsit, Examination Category Sub-Category Detail Notes Category Not es General Examination GENERAL APPEARANCE: alert, w ell hydrated, in no distress HEAD: normocephalic HEART: no murmurs, rubs, ga llops, regular rate and rhythm LUNGS: clear to auscultatio n bilaterally, no wheezes, rales, rhonchi, good air movement SKIN: good turgor
--- OUTSIDE RECORDS SUMMARY | 2024-05-07 11:45 | XMS_ITS ---
Author Organization Sridhar Holt MD Address [address] [place] [phone] Care Team Providers Care Seaman Officer Name Role Phone Sridhar Holt Primary Care Provider [phone] Results Component Value Reference Range Notes PSA,Total (Free>4and<10) Reviewed date:04/09/2024 12:36:50 PM Interpretation: Performing Lab:[facility], [address] [place] [id number] Notes/Report: PSA,Total (Free>4and<10) 4.73 0.00-4.00 ng/mL PSA methodology: Fletcher Alinity i Chemiluminescent Microparticle Immunoassay (CMIA) REASON FOR VISIT PSA Encounters Encounter Location Date Provider Diagnosis Sridhar Holt MD [address] [place] [phone] 04/09/2024 Sridhar Holt Elevated PSA R97.20 Assessments Encounter Date Diagnosis (ICD Code) Assessment Notes Treatment Notes Treatment Clinical Notes Section Notes 04/09/2024 Elevated PSA (ICD-10 - R97.20) Plan Of Treatment Next Appt Details Provider Name:Sridhar miner 05/24/2024 03:30:00 PM, [address], [address], [place], [phone], Provider Name:Sridhar Lieberman isidra, 03/25/2025 07:15:00 AM, [address], [address], [place], [phone], Provider Name:Sridhar Lieberman isidra, 04/01/2025 04:00:00 PM, [address], [address], [place], [phone], Progress Notes * Cedrick OLSEN MDOB:1960 (63 yo M)Acc No.[id number]:04/09/2024 Progress Note Patient:?Cedrick OLSEN Provider:?Sridhar Holt MD :1960???Age:63 Y???Sex:Male Connor e:04/09/2024 Address:[address] [place], [place] [phone] Subjective: * Chief Complaints: * ???1. PSA. * Medical History:? Objective: * Vitals:? Assessment: * Assessment: 1.?Elevated PSA - R97.20 (Pr imary)??? Plan: * Treatment: * Procedure Codes:?80425 VENIP UNCT, ROUTINE* * * The named appointment provid er may or may not be the originator of this progress note, and it is not deemed complete until electronically signed by the appointment provider. Sign off status: Pending * Provider:?Sridhar Holt MD Date:?0 04/09/2024 Generated for Janice tirado/Brynn/eTransmitting on:?05/07/2024 11:44 AM EDT
[2024-05-08 13:58] LABS: Free Prostate Spec Ag 0.7 ng/mL; Percent Free Prostate Spec Ag 15 % (calc) (>25); Prostate Specific Ag Total 4.6 ng/mL (< OR = 4.0)
== END 2024-05-07 10:26 | disposition home or self-care (01) ==
LOC: HO.LNP 10:25
PROVIDERS: Visit Provider Internal Medicine
DX: N40.0 Benign prostatic hyperplasia without lower urinary tract symptoms (principal)
CPT/HCPCS: 84153; 84154

== ENCOUNTER 2024-06-08 11:27 | Outpatient (AMB) | payer OTHER, SELFPAY ==
--- NOTE | 2024-06-08 11:29 | MHC.OFFVIS ---
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 The knee pain has been persistent for over a month following a recent surgical intervention, with symptoms described as a constant tightness without swelling. Despite trying ice and various medications, there is no substantial relief. The pain has reportedly worsened over the last six months. Back pain has also been an ongoing issue, with some relief from the use of meloxicam but limited effect on knee pain. The patient expresses significant discomfort and difficulty managing daily activities due to these symptoms and wishes to address pain management, especially prior to an impending travel abroad. Pain Description - Onset and Timing: Persistent knee pain for over a month, worsening over the last six months. - Quality and Character: Tightness without notable swelling in the knees. - Primary Location: Bilateral knees. - Radiation: Not mentioned. - Exacerbating Factors: Daily activities increase pain, with some days being particularly severe. - Relieving Factors: Use of ice provides temporary relief. - Interference: Pain disrupts daily activities and is a focal concern ahead of travel plans. - Back pain contributing to the long day and fatigue. Physical Exam - Appears afebrile. - Alert and oriented. - Mood and affect appropriate. - Follows and participates in conversation appropriately. - Respiratory effort is unlabored. - Able to transition from sit to stand unassisted. - Ambulates with bilaterally normal heel strike and toe off. - Able to stand and walk on toes and heels. Results - Tests and Diagnostics: Recent x-rays of knees reveal no need for revision; devices are reported as intact without displacement. Pain Management - Affect: Pain affects mood and daily functioning significantly, with concerns about managing symptoms ahead of travel. - Analgesia: Currently using meloxicam with some effect on back pain, considering tramadol and gabapentin for enhanced management. No report of substantial relief from current regimen. - Adverse Effects: Concern about drowsiness with new medications like gabapentin and tramadol. - Activities of Daily Living: Pain limits activity level and impacts quality of life, significant focus ahead of planned travel. - Aberrant Drug Related Behaviors: No reported concerns. 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 Physical Exam Vital Signs: Last Vital Signs Pulse 75 06/08/24 11:30 Resp 16 06/08/24 11:30 BP 147/83 H 06/08/24 11:30 Pulse Ox 99 06/08/24 11:30 Oxygen Delivery Method Room Air 06/08/24 11:30 BMI result Body Mass Index 35.1 Assessment & Plan Assessment & Plan (1) Chronic knee pain: Code(s): M25.569 - Pain in unspecified knee; G89.29 - Other chronic pain Category: Medical (2) Status post total knee replacement, bilateral: Code(s): Z96.653 - Presence of artificial knee joint, bilateral Category: Medical Plan Plan Unfortunately, he did not have a response to temporary PNS of bilateral saphenous nerves for his chronic knee pain following total joint arthroplasty. The plan involves starting the patient on a trial of gabapentin at nighttime to evaluate its effectiveness on neuropathic knee and back pain while avoiding daytime sedation effects. A short-term tramadol prescription is provided as needed for breakthrough pain during the patient's trip to [place]. We explored the option of peripheral nerve stimulation as a future measure, which involves a trial phase before deciding on a permanent implant. This option seems to provide a low-invasiveness solution, though we acknowledge the associated risks like lead migration. The patient is counseled on these options and agrees to proceed with the current plan before reevaluating further invasive interventions. Patient was informed and verbally consented to the use of an ambient scribe for clinic note documentation during this visit. Discussion Notes During the visit, I discussed the chronicity of the patient's knee and back pain, acknowledging the limited relief from previous treatments. We discussed permanent implantable PNS devices as well and the need for a retrial before a permanent implant. Risks such as lead migration and potential complications were mentioned. Tramadol as a short-term adjunct and gabapentin for neuropathic management were proposed given the patient's upcoming travel. We agreed on follow-up through phone contact post-trip to evaluate treatment efficacy, and reassess after the gabapentin introduction. Alternatives like spinal cord stimulation were considered premature given invasiveness and the patient's current preference. Patient Instructions - Start taking gabapentin at night to assess its effectiveness on neuropathic pain and monitor for drowsiness. - Use tramadol as needed for breakthrough pain while traveling; adhere to the specified dosage. - Continue using ice for temporary relief as needed. - Schedule a check-in via phone a month from now to evaluate pain management strategies and adjust as necessary. - Seek immediate care should new symptoms arise or current symptoms significantly worsen. - Consider marking a follow-up appointment post-travel to discuss the potential of peripheral nerve stimulation or other treatment options. - Maintain the current regimen until reassessment. Medications: New gabapentin 300 mg PO BID 60 caps 0RF Coding Level of Care Code Est Pt Level 3 (94872) Diagnoses Chronic knee pain M25.569; G89.29 Status post total knee replacement, bilateral Z96.653
[2024-06-08 11:30] VITALS: BP 147/83; PULSE 75; RESP 16; O2SAT 99; BMI 35.1
--- OUTSIDE RECORDS SUMMARY | 2024-06-08 12:28 | XMS_ITS | Patient Health Record ---
Author Organization Sridhar Holt MD Address [address] [place], [place] [id number] Care Team Providers Care Poem Writer Name Role Phone Sridhar Holt Primary Care Provider Allergies No Known Allergies Results Component Value Reference Range Notes Hemoglobin A1c Reviewed date:07/28/2023 11:15:17 AM Interpretation: Performing Lab: Notes/Report: Hemoglobin A1c 5.2 Complete Blood Count Auto Di ff Reviewed date:03/16/2024 05:57:27 PM Interpretation: Performing Lab:[facility], [address] [place] [phone] Notes/Report: White Blood Count 6.3 4.8-10.8 X10*3/uL Red Blood Count 5.08 4.60-5.80 X10*6/uL Hemoglobin 15.4 14.0-18.0 g/dl Hematocrit 45.0 42.0-52.0 % Mean Corpuscular Volume 88.6 80.0-98.0 fL Mean Corpuscular Hemoglobin 30.3 27.0-33.0 pg Mean Corpuscular HGB Conc 34.2 31.0-36.0 g/dl Red Cell Distribution Width 12.5 11.0-16.0 % Platelet Count 285 160-400 X10*3/uL Mean Platelet Volume 9.0 9.4-12.4 fL Neutrophils Percent Auto 57.6 45-73 % Imm Gran Pct Auto 0.5 0.0-0.4 % Lymphocytes Percent Auto 29.6 20-40 % Monocytes Percent Auto 6.9 2-11 % Eosinophils Percent Auto 4.6 0-4 % Basophils Percent Auto 0.8 0-2 % NRBC Pct Auto 0.0 0.0-0.2 /100WBC Neutrophils Absolute Auto 3.6 2.0-8.3 x10*3/uL Imm Gran Abs Auto 0.03 0.00-0.03 X10*3/uL Lymphocytes Absolute Auto 1.9 1.2-4.9 X10*3/uL Monocytes Absolute Auto 0.4 0.1-1.2 X10*3/uL Eosinophils Absolute Auto 0.3 0.0-0.4 X10*3/uL Basophils Absolute Auto 0.1 0.0-0.2 X10*3/uL NRBC Abs Auto 0.000 0.0-0.012 X10*3/uL [facility]. Panel Fa st Reviewed date:03/16/2024 12:31:05 PM Interpretation: Performing Lab:[facility], [address] [place] [phone] Notes/Report: Sodium 140 135-145 mmol/L Potassium 4.2 3.3-5.1 mmol/L Chloride 105 96-108 mmol/L Carbon Dioxide 27 22-29 mmol/L Anion Gap 12 12-20 Blood Urea Nitrogen 19 9-16 mg/dL Creatinine 1.01 0.5-1.4 mg/dL Estimated Glomerular Filt Rate > 60 Chronic Kidney Disease: Estimated GFR < 60 mL/min/1.73m2 Severe Kidney Disease: Estimated GFR < 15 mL/min/1.73m2 Glucose Fasting 99 60-99 mg/dL Calcium 9.5 8.4-10.2 mg/dL Bilirubin Total 1.3 0.0-1.0 mg/dL Aspartate Amino Transferase 24 5-37 U/L Alanine Aminotransferase 20 0-40 U/L Total Protein 8.0 6.5-8.0 g/dL Albumin Level 4.3 3.5-5.0 g/dL Alkaline Phosphatase 77 39-117 U/L Lipid Panel Reviewed date:03/16/2024 12:25:03 PM Interpretation: Performing Lab:[address] [phone] Notes/Report: Triglycerides 92 <150 mg/dL Desirable Triglyceride: less than 150 mg/dL Borderline High Triglyceride 150-199 mg/dL High Triglyceride: 200-499 mg/dL Very High Triglyceride: greater than or equal to 5OO mg/dL Cholesterol 202 <200 mg/dL Desirable Cholesterol: less than 200 mg/dL Borderline High Cholesterol: 200-239 mg/dL High Cholesterol: greater than 239 mg/dL LDL Cholesterol Calculated 136 <100 mg/dL Desirable LDL: less than 100 mg/dL Near Optimal/Above Optimal LDL: 110-129 mg/dL Borderline High LDL: 130-159 mg/dL High LDL: 160-189 mg/dL Very High LDL: greater than or equal to 190 mg/dL HDL Cholesterol 48 >40 mg/dL Desirable HDL: greater than 40 mg/dL Note: This HDL assay may give artificially low results in patients with liver disease. PSA,Total (Free>4and<10) Reviewed date:03/29/2024 08:56:24 AM Interpretation:STEPHEN 03/26/24 PSA Performing Lab:[address] [phone] Notes/Report: PSA,Total (Free>4and<10) 5.24 0.00-4.00 ng/mL PSA methodology: Fletcher Alinity i Chemiluminescent Microparticle Immunoassay (CMIA) Microalbumin, Random Reviewed date:03/16/2024 12:29:44 PM Interpretation: Performing Lab:[address] [phone] Notes/Report: Creatinine Urine 226.31 Microalbumin Urine 11.0 Microalbum/Creatinine Ratio Ur 4.8 <30 ug/mg cr Albumin/Creatinine Ratio Reference Ranges: Normal: < 30 ug/mg creatinine Microalbuminuria: 30 - 300 ug/mg creatinine Clinical Albuminuria: > 300 ug/mg creatinine Hemoglobin A1c Reviewed date:03/16/2024 12:33:01 PM Interpretation: Performing Lab:[address] [phone] Notes/Report: Hemoglobin A1c % 5.1 <6.0 % Hemoglobin A1C Reference Range Adults: 4.8 - 6.0 % Non diabetic: < 6.0 % Goal: < 7.0 % Additional Action Suggested: > 8.0 % Note: Hemoglobin A1c results are invalid for patients with abnormal amounts of HbF. Blood transfusions may impact the HbA1c concentration in the patient sample. Estimated Average Glucose 100 eAG = Estimated average glucose which is %A1C expressed as average glucose, using the formula of the [id number] Average Glucose study (ADAG), Diabetes Care, Vol.31,#8, Sep. 2007 PSA,Total (Free>4and<10) Reviewed date:04/09/2024 12:36:50 PM Interpretation: Performing Lab:[facility], [address] [place] [phone] Notes/Report: PSA,Total (Free>4and<10) 4.73 0.00-4.00 ng/mL PSA methodology: Fletcher Alinity i Chemiluminescent Microparticle Immunoassay (CMIA) PSA,Total (Free>4and<10) Reviewed date:05/07/2024 12:40:05 PM Interpretation: Performing Lab:[facility], [address] [place] [phone] Notes/Report: PSA,Total (Free>4and<10) 4.90 0.00-4.00 ng/mL PSA methodology: Fletcher Alinity i Chemiluminescent Microparticle Immunoassay (CMIA) Complete Blood Count Auto Di ff Reviewed date:06/27/2023 12:09:29 PM Interpretation: Performing Lab:[facility], [address] [place] [phone] Notes/Report: White Blood Count 5.9 4.8-10.8 X10*3/uL Red Blood Count 4.73 4.60-5.80 X10*6/uL Hemoglobin 14.3 14.0-18.0 g/dl Hematocrit 41.7 42.0-52.0 % Mean Corpuscular Volume 88.2 80.0-98.0 fL Mean Corpuscular Hemoglobin 30.2 27.0-33.0 pg Mean Corpuscular HGB Conc 34.3 31.0-36.0 g/dl Red Cell Distribution Width 12.9 11.0-16.0 % Platelet Count 241 160-400 X10*3/uL Mean Platelet Volume 8.5 9.4-12.4 fL Neutrophils Percent Auto 53.3 45-73 % Imm Gran Pct Auto 0.3 0.0-0.4 % Lymphocytes Percent Auto 34.0 20-40 % Monocytes Percent Auto 5.3 2-11 % Eosinophils Percent Auto 6.8 0-4 % Basophils Percent Auto 0.3 0-2 % NRBC Pct Auto 0.0 0.0-0.2 /100WBC Neutrophils Absolute Auto 3.1 2.0-8.3 x10*3/uL Imm Gran Abs Auto 0.02 0.00-0.03 X10*3/uL Lymphocytes Absolute Auto 2.0 1.2-4.9 X10*3/uL Monocytes Absolute Auto 0.3 0.1-1.2 X10*3/uL Eosinophils Absolute Auto 0.4 0.0-0.4 X10*3/uL Basophils Absolute Auto 0.0 0.0-0.2 X10*3/uL NRBC Abs Auto 0.000 0.0-0.012 X10*3/uL Vitamin B12 and Folate Reviewed date:06/27/2023 12:05:27 PM Interpretation: Performing Lab:[facility], [address] [place] [phone] Notes/Report: Vitamin B12 421 200-900 pg/mL NORMAL 200-900 PG/ML INDETERMINATE 160-199 PG/ML DEFICIENT < 160 PG/ML Folate 7.2 > or = 4.0 ng/mL Reference Values: > or = 4.0 ng/mL < 4.0 ng/mL suggests folate deficiency Methotrexate, aminopterin and folinic acid (leucovorin) are chemotherapeutic agents whose molecular structures are similar to folate; therefore, the Material Handling Technician folate assay cannot be used for patients using these drugs. Glucose, finger stick Reviewed date:07/28/2023 10:54:06 AM Interpretation: Performing Lab: Notes/Report: Value 100 XR lumbar spine 4V min Reviewed date:08/15/2023 02:54:48 PM Interpretation: Performing Lab: Notes/Report: [address] [address] XRay Report Signed Patient: Cedrick Olsen MR#: [id number] : 1960 Acct:[id number] Age/Sex: 62 / M ADM Date: 07/28/23 Loc: HO.XRAY Attending Dr: Sridhar Holt MD Ordering Physician: Sridhar Holt MD Date of Service: 07/28/23 Procedure(s): XR lumbar spine 4V min Accession Number(s): [id number] cc: Sridhar Holt MD EXAMINATION: XR LUMBOSACRAL SPINE WITH OBLIQUES CLINICAL INFORMATION: Low back pain COMPARISON: None available. TECHNIQUE: 5 views of the lumbosacral spine FINDINGS: Degenerative change in the imaged lower thoracic spine. Facet arthritis in the lower lumbosacral spine. Multilevel lumbar spondylosis. Marked loss of disc space height at L5-S1. Moderate loss of disc space height at L4-L5 with grade 1 retrolisthesis of L4 and L5. Grade 1 retrolisthesis of L3 on L4. Moderate loss of disc space height at L2-L3. XR/XR lumbar spine 4V min IMPRESSION: Multilevel degenerative disc disease most notable at L5-S1. Dictated By: Anitha Lemons MD Signed By: <Electronically signed by Anitha Lemons MD in OV> 08/15/23 1403 DD/ 1202 TD/TT: Chief Counsel: [place] [address] XRay Report Signed Patient: Cedrick Olsen MR#: [id number] : 1960 Acct:[id number] Age/Sex: 62 / M ADM Date: 07/28/23 Loc: HO.XRAY Attending Dr: Sridhar Holt MD Ordering Physician: Sridhar Holt MD Date of Service: 07/28/23 Procedure(s): XR lum bar spine 4V min Accession Number(s): [id number] cc: Sridhar Holt MD EXAMINATION: XR LUMBOSACRAL SPINE WITH OBLIQUES CLINICAL INFORMATION: Low back pain COMPARISON: None available. TECHNIQUE: 5 views of the lumbosacral spine FINDINGS: Degenerative change in the imaged lower thoracic spine. Facet arthritis in the lower lumbosacral spine. Multilevel lumbar spondylosis. Marked loss of disc space height at L5-S1. Moderate loss of disc space height at L4-L5 with grade 1 retrolisthesis of L4 and L5. Grade 1 retrolisthesis of L3 on L4. Moderate loss of dis c space height at L2-L3. XR/XR lumbar spine 4V min IMPRESSION: Multilevel degenerat catarina disc disease most notable at L5-S1. Dictated By: Anitha Lemons MD Signed By: <Electronically signed by Anitha Lemons MD in OV> 08/15/23 1403 DD/ 1202 TD/TT: Chief Counsel: Occult Blood, Stool, Guaiac Reviewed date:03/27/2024 12:31:32 PM Interpretation:Negative Performing Lab: Notes/Report: Negative Occult Blood, Stool, Guaiac Neg XR knee LT 3V Reviewed date:04/20/2024 04:24:58 PM Interpretation: Performing Lab: Notes/Report: [address] [address] XRay Report Signed Patient: Cedrick Olsen MR#: [id number] : 1960 Acct:[id number] Age/Sex: 63 / M ADM Date: 04/19/24 Loc: HO.CONSUELO Attending Dr: Sridhar Holt MD Ordering Physician: Sridhar Holt MD Date of Service: 04/19/24 Procedure(s): XR knee LT 3V Accession Number(s): [id number] cc: Srdihar Holt MD CLINICAL HISTORY: PAIN 3 view [...] signed by Marty Gary MD in OV> 04/20/24 1116 DD/ 14 TD/TT: 04/20/241114 Chief Counsel: [address] [address] XRay Report Signed Patient: Cedrick Olsen MR#: [id number] : 1960 Acct:[id number] Age/Sex: 63 / M ADM Date: 04/19/24 Loc: HO.CONSUELO Attending Dr: Sridhar Holt MD Ordering Physician: Sridhar Holt MD Date of Service: 04/19/24 Procedure(s): XR kne e LT 3V Accession Number(s): [id number] cc: Sridhar Holt MD CLINICAL HISTORY: PAIN [...] in OV> 04/20/241115 DD/ 14 TD/TT: 04/20/241114 Chief Counsel: Masha Sanabria. Panel Reviewed date:06/27/2023 12:17:17 PM Interpretation: Performing Lab:[facility], [address] [place] [phone] Notes/Report: Sodium 140 135-145 mmol/L Potassium 4.4 3.3-5.1 mmol/L Chloride 106 96-108 mmol/L Carbon Dioxide 25 22-29 mmol/L Anion Gap 13 12-20 Blood Urea Nitrogen 19 9-16 mg/dL Creatinine 0.88 0.5-1.4 mg/dL Estimated Glomerular Filt Rate > 60 NOTE: For [place] individuals, multiply the result by 1.210. Chronic Kidney Disease: Estimated GFR < 60 mL/min/1.73m2 Severe Kidney Disease: Estimated GFR < 15 mL/min/1.73m2 Glucose Random 99 60-115 mg/dL Calcium 9.4 8.4-10.2 mg/dL Bilirubin Total 1.2 0.0-1.0 mg/dL Aspartate Amino Transferase 17 5-37 U/L Alanine Aminotransferase 15 0-40 U/L Total Protein 7.6 6.5-8.0 g/dL Albumin Level 4.3 3.5-5.0 g/dL Alkaline Phosphatase 83 39-117 U/L FL upper GI w air Reviewed date:09/08/2023 12:56:50 PM Interpretation: Performing Lab: Notes/Report: [address] [address] Fluoroscopy Report Signed Patient: Cedrick Olsen MR#: [id number] : 1960 Acct:[id number] Age/Sex: 62 / M ADM Date: 08/31/23 Loc: HO.XOCHILTAY Attending Dr: Sridhar Holt MD Ordering Physician: Sridhar Holt MD Date of Service: 08/31/23 Procedure(s): FL upper GI w air Accession Number(s): [id number] cc: Sridhar Holt MD EXAMINATION: XR FLUOROSCOPY UPPER GI WITH AIR CLINICAL INFORMATION: Reflux. COMPARISON: None TECHNIQUE: Fluoroscopic air contrast upper GI examination was performed utilizing standard techniques with thin and thick barium and effervescent granules. Numerous spot images were obtained. FINDINGS: Images of the hypopharynx demonstrate normal swallow mechanism with normal epiglottic inversion and soft palate elevation. No tracheal penetration, glottic or subglottic aspiration identified. No nasopharyngeal reflux present. Hypopharyngeal structures appear normal without evidence of mass or diverticulum. 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 Dual and single contrast images of the esophagus demonstrate a normal caliber, and contour. There is a granular appearance to the mid and distal esophageal mucosa. No evidence of stricture, mass, or ulcerations identified. Esophageal peristalsis was normal. A small type I hiatal hernia is present. A moderate amount of gastroesophageal reflux is seen up to the aortic arch. Dual contrast and single contrast images of the stomach demonstrated normal contour and mucosal pattern without evidence of mass, ulceration, or other abnormality. Contrast freely passed into the gastric antrum and duodenal bulb without delay. Single and air-contrast images of the duodenal bulb demonstrate no abnormality. The duodenal sweep has a normal appearance, course, and mucosal fold appearance. The imaged proximal jejunum has a normal fold pattern and caliber. FLUOROSCOPY TIME: 3 minutes 7 seconds Number of Spot Images: 8 Number of Cine: 13 DOSE AREA PRODUCT: 2569 uGy-m2 (microgray-meter squared) FL/FL upper GI w air IMPRESSION: 1. 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 2. Granular appearance of the mid and distal esophageal mucosa suggestive of reflux esophagitis. 3. Small type I hiatal hernia. 4. Moderate gastroesophageal reflux. This procedure was performed by Ceferino Minor PA-C, and supervised by Dr. Mark Dictated By: Ceferino Minor Signed By: <Electronically signed by Ceferino Minor in OV> 09/06/23 1532 <Electronically signed by Sony Mark MD in OV> 09/06/23 153 DD/ 4 TD/TT: Chief Counsel: [place] [address] Fluoroscopy Report Signed Patient: Cedrick Olsen MR#: [id number] : 1960 Acct:[id number] Age/Sex: 62 / M ADM Date: 08/31/23 Loc: HO.XRAY Attending Dr: Sridhar Holt MD Ordering Physician: Sridhar Holt MD Date of Service: 08/31/23 Procedure(s): FL upp er GI w air Accession Number(s): [id number] cc: Sridhar Holt MD EXAMINATION: XR FLUOROSCOPY UPPER GI WITH AIR CLINICAL INFORMATION: Reflux. COMPARISON: None TECHNIQUE: Fluoroscopic air contrast upper GI examination was performed utilizing standard techniques with thin and thick barium and effervescent granules. Numerous s pot images were obtained. FINDINGS: Images of the hypopharynx demonstrate normal swallow mechanism with normal epiglottic inversion and soft palate elevation. No tracheal penetration, glottic or subglottic aspiration identified. No nasopharyngeal reflu x present. Hypopharyngeal structures appear normal without evidence of mass or diverticulum. 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 Dual and single contrast images of the esophagus demonstrate a normal caliber, and contour . There is a granular appearance to the mid and distal esophageal mucosa. No evidence of stricture, mass, or ulcerations identifi ed. Esophageal peristalsis was normal. A small type I hiata l hernia is present. A moderate amount of gastroesophageal ref lux is seen up to the aortic arch. Dual contrast and single contrast images of the stomach demonstrated normal contour and mucosal pattern without evidence of mass, ulceration, or other abnormality. Contrast freely passed into the gastric antrum and duodenal bulb without delay. Single and air-contr ast images of the duodenal bulb demonstrate no abnormality. The duodenal sweep has a normal appearance, course, and mucosal fold appearance. The imaged proximal jejunum has a normal fold pattern and caliber. FLUOROSCOPY TIME: 3 minutes 7 seconds Number of Spot Image s: 8 Number of Cine: 13 DOSE AREA PRODUCT: 2569 uGy-m2 (microgray-meter squared) FL/FL upper GI w air IMPRESSION: 1. 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 2. Granular appearan ce of the mid and distal esophageal mucosa suggestive of reflux esophagitis. 3. Small type I hiat al hernia. 4. Moderate gastroesophageal reflux. This procedure was performed by Ceferino Minor PA-C, and supervised by Dr. Mark Dictated By: Ceferino Minor Signed By: <Electronically signed by Ceferino Minor in OV> 09/06/23 1532 <Electronically sign ed by Sony Mark MD in OV> 09/06/23 1535 DD/ TD/TT: Chief Counsel: JERILYN Reviewed date:11/04/2023 01:13:37 PM Interpretation:Negative Performing Lab: Notes/Report: Negative PSA Free and Total Reviewed date:03/29/2024 08:55:57 AM Interpretation:STEPHEN 03/26 Performing Lab:[facility], [address] [place] [phone] Notes/Report: Prostate Specific Ag Total 5.6 < OR = 4.0 ng/mL Percent Free Prostate Spec Ag 11 >25 % (calc) PSA(ng/mL) Free PSA(%) Estimated(x) Probability of Cancer(as%) 0-2.5 (*) Approx. 1 2.6-4.0(1) 0-27(2) 24(3) 4.1-10(4) 0-10 56 11-15 28 16-20 20 21-25 16 >or =26 8 >10(+) N/A >50 References:(1)Mikal et al.:Urology 60: 469-474 (2001) (2)Mikal et al.:J.Urol 168: 922-925 (2001) Free PSA(%) Sensitivity(%) Specificity(%) < or = 25 85 19 < or = 30 93 9 (3)Lupeona et al.:TAI 277: 2008-6991 (1996) (4)Catalona et al.:TAI 279: 3118-2625 (1997) (x)These estimates vary with age, ethnicity, family history and ROJAS results. (*)The diagnostic usefulness of % Free PSA has not been established in patients with total PSA below 2.6 ng/mL (+)In men with PSA above 10 ng/mL, prostate cancer risk is determined by total PSA alone. The Total PSA value from this assay system is standardized against the equimolar PSA standard. The test result will be approximately 20% higher when compared to the WHO-standardized Total PSA (Siemens assay). Comparison of serial PSA results should be interpreted with this fact in mind. PSA was performed using the Misa [place] Immunoassay method. Values obtained from different assay methods cannot be used interchangeably. PSA levels, regardless of value, should not be interpreted as absolute evidence of the presence or absence of disease. THIS TEST WAS PERFORMED AT: [facility] [address] [address] NATHAN OSORIO MD Free Prostate Spec Ag 0.6 UA CC w/rflx Micro + Cult Reviewed date:03/16/2024 12:35:38 PM Interpretation: Performing Lab:[facility], [address] [place] [phone] Notes/Report: [id number] Urine, Clean Catch Color Urine Yellow Appearance Urine Clear PH 5.0 5.0-9.0 Glucose Urine UA Negative Negative mg/dL Urine Blood Negative Negative Specific Esmond - Urine 1.025 1.005-1.025 Urine Protein Negative Neg-Trace mg/dL Urine Ketones Negative Negative mg/dL Nitrite Urine Negative Negative Leukocyte Esterase Urine Negative Negative PSA Free and Total Reviewed date:04/12/2024 04:51:47 PM Interpretation: Performing Lab:[facility], [address] [place] [phone] Notes/Report: Prostate Specific Ag Total 4.6 < OR = 4.0 ng/mL Percent Free Prostate Spec Ag 15 >25 % (calc) PSA(ng/mL) Free PSA(%) Estimated(x) Probability of Cancer(as%) 0-2.5 (*) Approx. 1 2.6-4.0(1) 0-27(2) 24(3) 4.1-10(4) 0-10 56 11-15 28 16-20 20 21-25 16 >or =26 8 >10(+) N/A >50 References:(1)Mikal et al.:Urology 60: 469-474 (2001) (2)Mikal et al.:J.Urol 168: 922-925 (2001) Free PSA(%) Sensitivity(%) Specificity(%) < or = 25 85 19 < or = 30 93 9 (3)Catalona et al.:TAI 277: 1771-4700 (1996) (4)Catalona et al.:TAI 279: 3068-0737 (1997) (x)These estimates vary with age, ethnicity, family history and ROJAS results. (*)The diagnostic usefulness of % Free PSA has not been established in patients with total PSA below 2.6 ng/mL (+)In men with PSA above 10 ng/mL, prostate cancer risk is determined by total PSA alone. The Total PSA value from this assay system is standardized against the equimolar PSA standard. The test result will be approximately 20% higher when compared to the WHO-standardized Total PSA (Siemens assay). Comparison of serial PSA results should be interpreted with this fact in mind. PSA was performed using the Misa [place] Immunoassay method. Values obtained from different assay methods cannot be used interchangeably. PSA levels, regardless of value, should not be interpreted as absolute evidence of the presence or absence of disease. THIS TEST WAS PERFORMED AT: [facility] [address] [place] [phone] NATHAN OSORIO MD Free Prostate Spec Ag 0.7 XR knee RT 3V Reviewed date:04/20/2024 12:20:46 PM Interpretation: Performing Lab: Notes/Report: [address] [address] XRay Report Signed Patient: Cedrick Olsen MR#: [id number] : 1960 Acct:[id number] Age/Sex: 63 / M ADM Date: 04/19/24 Loc: HO.XRAY Attending Dr: Sridhar Holt MD Ordering Physician: Sridhar Holt MD Date of Service: 04/19/24 Procedure(s): XR knee RT 3V Accession Number(s): [id number] cc: Sridhar Holt MD CLINICAL HISTORY: PAIN 3 view right knee Comparison: None Findings: Right total knee arthroplasty with Press-Fit femoral, tibial and patellar components. Anatomic alignment. Hardware intact and projecting good position. Uniform height of the silastic tibial tray. No apparent joint effusion. Soft tissues intact. Impression: Normal appearing right total knee arthroplasty. This document has been electronically signed by: Marty Gary MD on 04/20/2024 11:23:56 Dictated By: Marty Gary MD Signed By: <Electronically signed by Marty Gary MD in OV> 04/20/24 1125 DD/ 1123 TD/TT: 04/20/24 1123 Chief Counsel: [address] [address] XRay Report Signed Patient: Cedrick Olsen MR#: [id number] : 1960 Acct:[id number] Age/Sex: 63 / M ADM Date: 04/19/24 Loc: HO.XRAY Attending Dr: Sridhar Holt MD Ordering Physician: Sridhar Holt MD Date of Service: 04/19/24 Procedure(s): XR kne e RT 3V Accession Number(s): [id number] cc: Sridhar Holt MD CLINICAL HISTORY: PAIN 3 view right knee Comparison: None Findings: Right total knee arthroplasty with Press-Fit femoral, tibial and patellar components. Anatomic alignment. Hardware intact and projecting good position. Uniform height of th e silastic tibial tray. No apparent joint effusion. Soft tissues intact. Impression: Normal appearing right total knee arthroplasty. This document has be en electronically signed by: Marty Gary MD on 04/20/2024 11:23:56 Dictated By: Marty Gary MD Signed By: <Electronically signed by Marty Gary MD in OV> 04/20/24 1125 DD/ 22 TD/TT: 04/20/241122 Chief Counsel: PSA Free and Total Reviewed date:05/08/2024 02:05:14 PM Interpretation: Performing Lab:[facility], [address] [place] [phone] Notes/Report: Prostate Specific Ag Total 4.6 < OR = 4.0 ng/mL Percent Free Prostate Spec Ag 15 >25 % (calc) PSA(ng/mL) Free PSA(%) Estimated(x) Probability of Cancer(as%) 0-2.5 (*) Approx. 1 2.6-4.0(1) 0-27(2) 24(3) 4.1-10(4) 0-10 56 11-15 28 16-20 20 21-25 16 >or =26 8 >10(+) N/A >50 References:(1)Lupeona et al.:Urology 60: 469-474 (2001) (2)Catalona et al.:J.Urol 168: 922-925 (2001) Free PSA(%) Sensitivity(%) Specificity(%) < or = 25 85 19 < or = 30 93 9 (3)Catalona et al.:TAI 277: 8448-0774 (1996) (4)Catalona et al.:TAI 279: 6039-1308 (1997) (x)These estimates vary with age, ethnicity, family history and ROJAS results. (*)The diagnostic usefulness of % Free PSA has not been established in patients with total PSA below 2.6 ng/mL (+)In men with PSA above 10 ng/mL, prostate cancer risk is determined by total PSA alone. The Total PSA value from this assay system is standardized against the equimolar PSA standard. The test result will be approximately 20% higher when compared to the WHO-standardized Total PSA (Siemens assay). Comparison of serial PSA results should be interpreted with this fact in mind. PSA was performed using the Misa [place] Immunoassay method. Values obtained from different assay methods cannot be used interchangeably. PSA levels, regardless of value, should not be interpreted as absolute evidence of the presence or absence of disease. THIS TEST WAS PERFORMED AT: [facility] [address] [place] [phone] NATHAN OSORIO MD Free Prostate Spec Ag 0.7 Reason For Referral Reason Eval and treat for b ack pain Diagnosis 1 Low back pain, unspe cified (M54.50) Referral Organization Sridhar Holt MD Referring Provider First Name Sridhar Referring Provider Last Name Yanet Referring Provider Speciality Internal edicine Referred Provider [facility] Referred Provider Specialty Physical Med icine General Notes Kirstin Jeffers 10:44:10 AM EDT > info faxed Shree Vargas appt with Zeyad Sharpe Annette 11/08/2023 02:25:49 PM EDT > info mailed to patient Referral Priority Routine Referral Appointment Date 12/07/2023 Reason RECTUS DIASTASIS Diagnosis 1 Rectus diastasis (M6 2.08) Referral Organization Sridhar Holt MD Referring Provider First Name Sridhar Referring Provider Last Name Yanet Referring Provider Speciality Internal edicine Referred Provider Conner Tucker Referred Provider Specialty Urology General Notes CANCEL THIS REFERRAL , FAXED IN ERROR Referral Priority Routine Reason PSA , TOTAL Diagnosis 1 Elevated PSA (R97.20 ) Referral Organization Sridhar Holt MD Referring Provider First Name Sridhar Referring Provider Last Name Yanet Referring Provider [facility] Referred Provider Conner Tucker Referred Provider Specialty Urology General Notes Radha Nolan 04/06/2024 10:35:43 AM >APPT SCHEDULED FOR 04/26/24 AT 11AM, Radha Nolan 05/01/2024 12:21:44 PM >OFFICE NOTE RECD Referral Priority Routine Referral Appointment Date 04/26/2024 Medications Medication SIG (Take, Route, Frequency, Duration) Notes Start Date End Date Status Viagra 50 MG 1 tablet as needed Orally Once a day for 30 day(s) 07/10/2015 Not-Taking Vitamin B12 1000 MCG 1 tablet Orally Onc e a day Not-Taking Tadalafil 20 MG 1 tablet Orally [...] every 8 hrs for 90 days Active Cyclobenzaprine HCl 5 MG 1 tablet at [...] MOUTH EVERY DAY for 30 Not-Takin g Immunizations Vaccine Route Administration Date Status Comme nts Tetanus Unknown 08/06/2017 Administered Given at [facility] Covid Vaccine Unknown 05/22/2020 Administered Moderna SARS-COV-2 Moderna Unknown 06/19/2020 Administered SARS-COV-2 Moderna Unknown 02/22/2021 Administered Flu Vaccine Unknown 05/13/2014 Refused Fluarix Quadrivalent Unknown 04/26/2016 Refused Fluarix Quadrivalent Unknown 08/25/2018 Refused Fluarix Quadrivalent Unknown 01/05/2019 Refused Fluarix Quadrivalent Unknown 03/25/2020 Refused Fluarix Quadrivalent Unknown 12/09/2020 Refused Fluarix Quadrivalent Unknown 12/11/2021 Refused PPSV23 (Pnemovax) Unknown 06/18/2022 Refused Fluarix Quadrivalent - 150 Unknown 11/14/2023 Refused Social History Tobacco Use: Social History Observation [...] Problem Status W/U Status Risk Notes Problem Nevus (2195016284) Nevus (216.9) Active confirm ed Problem 12372929 Prostatism (N40.0) Active confirmed Problem 747844802 Annual physical exam (Z00.00) Active confirmed Problem 75545895 Other chronic pain (G89.29) Active confirmed Problem 373661477 Body mass index (BMI) 32.0-32.9, adult (Z68.32) Active confirmed Problem 7044094 Arthritis (M19.90) Active confirmed Problem 9363855 Prediabetes (R73.09) Active confirmed Problem 832197668 Erectile dysfunction, unspecified erectile dysfunction type (N52.9) Active confirmed Problem 541241389 Vitamin B12 deficiency (E53.8) Active confirmed Problem Pressure sore, stage I (L89.91) Active confirmed Problem 11278014 Sciatica of righ t side (M54.31) Active confirmed Problem 446273516 Panic attack (F41.0) Active confirmed Problem 54533284 NATHALY (obstructive sleep apnea) (G47.33) Active confirmed Problem 659337856 Arthritis of kne e (M17.10) Active confirmed Problem 70952078 Sinusitis chronic, frontal (J32.1) Active confirmed Problem 010066943 BMI 32.0-32.9,adult (Z68.32) Active confirmed Problem 95391184 Hydronephrosis with urinary obstruction due to renal calculus (N13.2) Active confirmed Problem 670212811806186 Obesity (BMI 30.0-34.9) (E66.9) Active confirmed Problem 321936022 Neck arthritis (M46.92) Active confirmed Problem 02951997 Kidney stone on left side (N20.0) Active confirmed Problem 2196356968435945 Arthritis of kalani th knees (M17.0) Active confirmed Problem 759721221 Cervical arthritis (M47.812) Active confirmed Problem 191149375 Gastric reflux (K21.9) Active confirmed Problem 03729185 Purdys spots (Q38.6) Active confirmed Vital Signs Blood pressure diastolic 70 mm Hg 04/19/2024 danielle ght is down 4 pounds since 1-27-25 Height 72 in 04/19/2024 weight is down 4 pounds since 03-26-24 Blood pressure systolic 112 mm Hg 04/19/2024 weig ht is down 4 pounds since 03-26-24 Weight 253 lbs 04/19/2024 weight is down 4 pounds since 03-26-24 BMI 34.31 kg/m2 04/19/2024 weight is down 4 pounds since 03-26-24 Encounters Encounter Location Date Provider Diagnosis Sridhar Holt MD [address] [place] [id number] 03/16/2024 Sridhar Holt Blood tests for routine general physical examination Z00.00 ; Prediabetes R73.09 and Prostatism N40.0 Sridhar Holt MD [address] [facility] [address] [place] [id number] 04/09/2024 Sridhar Holt Elevated PSA R97.20 Sridhar Holt MD [address] [place] [address] [id number] 05/07/2024 Sridhar Holt Prostatism N40.0 Sridhar Holt MD [address] [place] [address] Drive [address] [place] [id number] 06/24/2023 Sridhar Holt Low energy R53.83 and Bronchitis J40 Sridhar Holt MD [address] [facility] [address] [place] [id number] 07/28/2023 Sridhar Holt Prediabetes R73.09 ; Other chronic pain G89.29 and Low back pain, unspecified M54.50 Sridhar Holt MD [address] [facility] [address] [facility] [address] [id number] 08/30/2023 Sridhar Holt Gastric reflux K21.9 ; NATHALY (obstructive sleep apnea) G47.33 ; Encounter for screening for malignant neoplasm of colon Z12.11 and Encounter for screening for malignant neoplasm of rectum Z12.12 Sridhar Holt MD [address] [facility] [address] [id number] 09/27/2023 Sridhar Holt Gastric reflux K21.9 ; Low back pain, unspecified M54.50 ; Pain in right knee M25.561 ; Other chronic pain G89.29 ; Pain in left knee M25.562 and Pruritic rash L28.2 Sridhar Holt MD [address] [place] [id number] 11/14/2023 Sridhar Holt Low back pain, unspecified M54.50 ; Pain in right knee M25.561 and Pain in left knee M25.562 Sridhar Holt MD [address] [place] [address] Drive [address] [place] [id number] 03/26/2024 Sridhar Holt Elevated PSA R97.20 ; Annual physical exam Z00.00 ; Rectus diastasis M62.08 ; Arthritis of knee M17.10 ; Obesity (BMI 30.0-34.9) E66.9 ; Colon cancer screening Z12.11 and Depression screening Z13.31 Sridhar Holt MD [address] [place] [address] Drive [address] [place] [id number] 04/19/2024 Sridhar Holt Elevated PSA R97.20 ; Other chronic pain G89.29 ; Pain in right knee M25.561 and Pain in left knee M25.562 Sridhar Holt MD [address] [place] [id number] 07/01/2023 Sridhar Holt MD [address] [id number] 03/21/2024 Sridhar Holt MD [address] [place] [address] [address] [id number] 04/05/2024 Sridhar Holt Assessments Encounter Date Diagnosis (ICD Code) Assessment Notes Treatment Notes Treatment Clinical Notes Section Notes 03/16/2024 Blood tests for routine general physical examination (ICD-10 - Z00.00) 03/16/2024 Prediabetes (ICD-10 - R73.09) 04/09/2024 Elevated PSA (ICD-10 - R97.20) 05/07/2024 Prostatism (ICD-10 - N40.0) 06/24/2023 Low energy (ICD-10 - R53.83) THE ORDER WAS FAXED TO [facility] PATIENT REG PATIENT GOING IN TOMORROW 06/24/2023 Bronchitis (ICD-10 - J40) patient verbalized understanding od medications and directions for use 07/28/2023 Prediabetes (ICD-10 - R73.09) stable, no need for medication at this time, will continue to monitor 07/28/2023 Other chronic pain (ICD-10 - G89.29) is continuing to do poorly with the pain in his knees and is in constant pain. feels that something needs to be done however it does not appear that there is a solution. is going to be seeing dr neil in the coming weeks to discuss, Total time spent on the date of the encounter is 35 minutes including both face to face time spent and time spent reviewing documentation and counseling the patient. 08/30/2023 Gastric reflux (ICD-10 - K21.9) pending diagnostic testing, patient verbalized an understanding of medication and directions for use 08/30/2023 NATHALY (obstructive sleep apnea) (ICD-10 - G47.33) send for sleep study 09/27/2023 Gastric reflux (ICD-10 - K21.9) doing a little better. 09/27/2023 Low back pain, unspecified (ICD-10 - M54.50) send to [facility] 11/14/2023 Low back pain, unspecified (ICD-10 - M54.50) [facility] 11/14/2023 Pain in right knee (ICD-10 - M25.561) trying to go to second opinion/ has been severely affected with his knees and is wanting to see if there is another treatment availab.e. both knees still swollen. had been trying to exercise but had to quit because he was getting more pain. his insurance will pay for [facility] so i have suggested he find where and go there 03/26/2024 Elevated PSA (ICD-10 - R97.20) referral to [facility] urology 03/26/2024 Annual physical exam (ICD-10 - Z00.00) labs reviewed and discussed with patient 04/19/2024 Elevated PSA (ICD-10 - R97.20) came down and is seeing urology next week, will continue to monitor 04/19/2024 Other chronic pain (ICD-10 - G89.29) 03/16/2024 Prostatism (ICD-10 - N40.0) 07/28/2023 Low back pain, unspecified (ICD-10 - M54.50) [place] [facility] [place] X[place] given to the patient, ORDER PRINTED AND GIVEN TO PATIENT . PT ORDER FAXED TO [facility] 08/30/2023 Encounter for screening for malignant neoplasm of colon (ICD-10 - Z12.11) pending diagnostic tsting/ order faxed to [facility] 09/27/2023 Pain in right knee (ICD-10 - M25.561) should see about getting second opinion 11/14/2023 Pain in left knee (ICD-10 - M25.562) 03/26/2024 Rectus diastasis (ICD-10 - M62.08) no treatment needed/ THIS REFERRAL HAS BEEN CLOSED , SENT IN ERROR 04/19/2024 Pain in right knee (ICD-10 - M25.561) THE XRAY ORDER WAS PRINTED ANFD GIVEN TO PATIENT 08/30/2023 Encounter for screening for malignant neoplasm of rectum (ICD-10 - Z12.12) pending diagnostic testing 09/27/2023 Other chronic pain (ICD-10 - G89.29) 03/26/2024 Arthritis of knee (ICD-10 - M17.10) had surgery and not doing well 04/19/2024 Pain in left knee (ICD-10 - M25.562) 09/27/2023 Pain in left knee (ICD-10 - M25.562) 03/26/2024 Obesity (BMI 30.0-34.9) (ICD-10 - E66.9) dieting 09/27/2023 Pruritic rash (ICD-10 - L28.2) 03/26/2024 Colon cancer screening (ICD-10 - Z12.11) guaiac negative 03/26/2024 Depression screening (ICD-10 - Z13.31) negative screen Plan Of Treatment Pending Test Test Name Order Date Electrocardiogram (EKG) 08/25/2018 Electrocardiogram (EKG) 07/10/2015 Electrocardiogram (EKG) 07/22/2016 Electrocardiogram (EKG) 08/18/2017 XR GI SERIES 08/30/2023 XR KNEE RT 3 VIEWS 04/19/2024 PSA,Total (Free>4and<10) 03/26/2024 UA ClnCatch+Micro w/rflx Cult 03/16/2024 Next Appt Details Provider Name:Sridhar miner, 03/25/2025 07:15:00 AM, [address], [address], [place], [place], [phone], Provider Name:Sridhar miner, 04/01/2025 04:00:00 PM, [address], [address], [place], [phone], Insurance Providers Payer Name Payer Address Payer Phone Subscriber Number Group Number Insured Name Patient Relationship to Insured Coverage Start Date Coverage End Date [facility] [address] [place] [address] [id number] Cedrick Olsen Self - patient is the insured Medications Administered Medication Instructions Date of Administration Dosage Notes B12 08/26/2016 1 mL B12 10/25/2016 1 mL B12 11/29/2016 1 mL B12 01/17/2017 1 mL Medical (General) History Medical History History ICD Code colonoscopy 01/31/2013 - repeat 10 years Umbilical hernia
--- OUTSIDE RECORDS SUMMARY | 2024-06-08 12:28 | XMS_ITS | Patient Health Record ---
Author Organization [facility] Address [address] [place] [address] Care Team Providers Care Bottom Liner Name Role Phone Yanet SLIVA, Sridhar Primary Care Provider Rafa Sánchez Jr Unavailable [phone] Reason For Referral No Information Medications Medication SIG (Take, Route, Fr equency, Duration) Notes Start Date End Date Status MoviPrep 100 GM as directed before c olonoscopy Orally for 1 dose 11/08/2012 02/29/2024 Active Problems Problem Type SNOMED Code ICD Code Onset Dates Problem Status W/U Status Risk Notes Problem Colon cancer screening (731044022) Colon cancer screening (V76.51) Active confirmed Plan Of Treatment No Information Insurance Providers Payer Name Payer Address Payer Phone Subscriber Number Group Number Insured Name Patient Relationship to Insured Coverage Start Date Coverage End Date [facility] [id number] [place], [place] [id number] [phone] [id number] RAFA OLSEN Self - patient is the insured Medical (General) History Medical History History ICD Code Denies SC,DM,CVA,Lung disease,renal dise ase Surgical History Surgery Date(Month/Year) umbilical hernia repair 2012 seborrheic keratosis left leg 2012 right knee arthroscopy
--- OUTSIDE RECORDS SUMMARY | 2024-06-08 12:28 | XMS_ITS ---
Author Organization Sridhar Holt MD Address [address] [place] [phone] Care Team Providers Care Loading Unit Operator Seating Name Role Phone Sridhar Holt Primary Care Provider Allergies No Known Allergies REASON FOR VISIT 4 WEEK F/U Encounters Encounter Location Date Provider Diagnosis Sridhar Holt MD [address] [facility] [address] [place] [phone] 05/24/2024 Sridhar Holt Plan Of Treatment Next Appt Details Provider Name:Sridhar miner, 03/25/2025 07:15:00 AM, [address] [place] [address], [address] [place] [address], [phone], Provider Name:Sridhar miner, 04/01/2025 04:00:00 PM, [address] [place] [address], [address], [phone], Progress Notes * Cedrick OLSEN MDOB:1960 (63 yo M)Acc No.[id number]:05/24/2024 Progress Notes Patient:?Cedrick OLSEN Provider:?Sridhar Holt MD :1960???Age:63 Y???Sex:Male Connor e:05/24/2024 [address] [facility] [facility] Subjective: * Chief Complaints: * ???1. 4 WEEK F/U. * ROS:?General/Constitutional:?Denies?Chills.?Denies?Fatigue.?Denies?Fever.?Denies?Headache.?ENT:?Denies?Sore throat.?Gastrointestinal:?Denies?Diarrhea.?Denies?Nausea.? * Medical History:?Colonoscopy 01/31/2013 - repeat 10 years, Umbilical hernia. * Allergies:?N.K.D.A. Objective: * Vitals:? Assessment: Plan: * Treatment: * * The named appointment provid er may or may not be the originator of this progress note, and it is not deemed complete until electronically signed by the appointment provider. Sign off status: Pending * Provider:?Sridhar Holt MD Date:?0 05/24/2024 Generated for Janice tirado/Brynn/eTgabrielsmitting on:?06/08/2024 12:28 PM EDT
--- OUTSIDE RECORDS SUMMARY | 2024-06-08 12:28 | XMS_ITS ---
Author Organization Sridhar Holt MD Address [address] [place] [phone] Care Team Providers Care Office Machine Repair Shop Supervisor Name Role Phone Sridhar Holt Primary Care Provider [phone] Results Component Value Reference Range Notes PSA,Total (Free>4and<10) Reviewed date:05/07/2024 12:40:05 PM Interpretation: Performing Lab:[facility], [address] [place] [phone] Notes/Report: PSA,Total (Free>4and<10) 4.90 0.00-4.00 ng/mL PSA methodology: Fletcher Alinity i Chemiluminescent Microparticle Immunoassay (CMIA) REASON FOR VISIT 1 month repeat PSA Encounters Encounter Location Date Provider Diagnosis Sridhar Holt MD [address] [place] [phone] 05/07/2024 Sridhar Holt Prostatism N40.0 Assessments Encounter Date Diagnosis (ICD Code) Assessment Notes Treatment Notes Treatment Clinical Notes Section Notes 05/07/2024 Prostatism (ICD-10 - N40.0) Plan Of Treatment Next Appt Details Provider Name:Sridhar Granado Jeromyjuan ier, 03/25/2025 07:15:00 AM, [address], [address], [place], [phone], Provider Name:Sridhar Granado Jeromyjuan ier, 04/01/2025 04:00:00 PM, [address], [address], [place], [phone], Progress Notes * Cedrick OLSEN MDOB:1960 (63 yo M)Acc No.[id number]:05/07/2024 Progress Note Patient:?Cedrick OLSEN Provider:?Sridhar Holt MD :1960???Age:63 Y???Sex:Male Connor e:05/07/2024 Address:[address] [place], [place] [phone] Subjective: * Chief Complaints: * ???1. 1 month repeat PSA. * Medical History:? Objective: * Vitals:? Assessment: * Assessment: 1.?Prostatism - N40.0 (Prima ry)??? Plan: * Treatment: * Procedure Codes:?32545 VENIP UNCT, ROUTINE* * * The named appointment provid er may or may not be the originator of this progress note, and it is not deemed complete until electronically signed by the appointment provider. Sign off status: Pending * Provider:?Sridhar Holt MD Date:?0 05/07/2024 Generated for Janice tirado/Brynn/eTransmitting on:?06/08/2024 12:28 PM EDT
--- OUTSIDE RECORDS SUMMARY | 2024-06-08 12:28 | XMS_ITS ---
Author Organization Sridhar Holt MD Address [address] [place] [phone] Care Team Providers Care Marine Safety Officer Name Role Phone Sridhar Holt Primary Care Provider Allergies No Known Allergies Results Component Value Reference Range Notes XR knee LT 3V Reviewed date:04/20/2024 04:24:58 PM Interpretation: Performing Lab: Notes/Report: [address] [address] XRay Report Signed Patient: Cedrick Olsen MR#: [id number] : 1960 Acct:[id number] Age/Sex: 63 / M ADM Date: 04/19/24 Loc: [facility] Attending Dr: Sridhar Holt MD Ordering Physician: Sridhar Holt MD Date of Service: 04/19/24 Procedure(s): XR knee LT 3V Accession Number(s): [id number] cc: Sridhar Holt MD CLINICAL HISTORY: PAIN [...] in OV> 04/20/241115 DD/ 14 TD/TT: 04/20/241114 Director Of District Office: [place] [address] XRay Report Signed Patient: Vikas Olsen MR#: [id number] : 1960 Acct:[id number] Age/Sex: 63 / M ADM Date: 04/19/24 Loc: HO.XRAY Attending Dr: Sridhar Holt MD Ordering Physician: Sridhar Holt MD Date of Service: 04/19/24 Procedure(s): XR knee LT 3V Accession Number(s): [id number] cc: Sridhar Holt MD CLINICAL HISTORY: PAIN [...] in OV> 04/20/241115 DD/ 14 TD/TT: 04/20/241114 Director Of District Office: REASON FOR VISIT 3 WEEKS Medications Medication [...] kg/m2 04/19/2024 weight is down 4 pounds [facility] 03-26-24 Encounters Encounter Location Date Provider Diagnosis Sridhar Holt MD [address] [place] [address] [place] [phone] 04/19/2024 Sridhar Holt Elevated PSA R97.20 ; [...] Follow Up: 4 Weeks, Reason: Provider Name:Sridhar Lieberman ier, 03/25/2025 07:15:00 AM, [address], [address], [place], [place], [phone], Provider Name:Sridhar Lieberman ier, 04/01/2025 04:00:00 PM, [address] [facility], [address], [place], [place], [phone], Progress Notes * Cedrick OLSEN MDOB:1960 (63 yo M)Acc No.[id number]:04/19/2024 Progress Notes Patient:?Cedrick OLSEN Provider:?Sridhar Holt MD :1960???Age:63 Y???Sex:Male Connor e:04/19/2024 Address:[address] [place] [address] Subjective: * Chief Complaints: * ???3 WEEKS [...] Holt MD Date:?0 04/19/2024 Generated for Janice tirado/Brynn/eTkasandraitting on:?06/08/2024 12:27 PM EDT History and Physical Notes * HPI (History of Present Illness) Category Sub-Category Detail Notes Category Not es Isolation Precautions patishaina hamilton is a 63 yo male here [...]
== END 2024-06-08 12:06 | disposition home or self-care (01) ==
LOC: HO.PMC 11:28
PROVIDERS: PCP Internal Medicine; Visit Provider Internal Medicine
DX: M25.569 Pain in unspecified knee (principal); G89.29 Other chronic pain; Z96.653 Presence of artificial knee joint, bilateral
CPT/HCPCS: 99213

== ENCOUNTER → 2024-06-08 11:27 | Outpatient (BNVA) | payer OTHER, SELFPAY | PROVIDERS: PCP Internal Medicine; Visit Provider Internal Medicine | DX: M25.562 Pain in left knee (principal); M25.561 Pain in right knee; G89.29 Other chronic pain; Z96.653 Presence of artificial knee joint, bilateral | CPT/HCPCS: 99212 ==

== ENCOUNTER 2024-07-06 11:15 | Outpatient (AMB) | payer OTHER, SELFPAY ==
[2024-07-06 11:25] VITALS: BP 128/76; PULSE 79; RESP 16; O2SAT 97; BMI 34.3
--- NOTE | 2024-07-06 11:25 | A.OFFVIS_ITS ---
Vital Signs 07/06/24 11:25 Height 5 ft 11 in Weight 246 lb BMI 34.3 BP 128/76 Blood Pressure Location Lt brachial Position Sitting Respiration 16 Pulse 79 Pulse Source Pulse Oximeter Pulse Oximetry (%) 97 Oxygen Delivery Method Room Air Intake Visit Reasons: 1 Month Follow Up Director Of Graduate Admissions Required: No Allergies No Known Allergies [No Known Allergies*] Allergy (Verified 07/06/24 11:26) Medication List - Last Reconciled 07/06/24 by Heather Adamson LPN gabapentin 300 mg PO BID meloxicam 15 mg PO DAILY tamsulosin 0.4 mg PO DAILY HPI HPI 1 Month Follow Up: Details: History of Present Illness The patient is a 63-year-old male presenting with concerns regarding the management of knee and back pain. His knee pain is attributed to osteoarthritis and is a significant barrier to his desired activities and life enjoyment. Despite previous interventions, including medications like Gabapentin, relief has been minimal. His back pain, associated with lumbar radiculopathy, has progressively worsened, and is characterized by leg tingling and weakness. These issues hinder his mobility and activity level. His treatment history includes Gabapentin without substantial improvement and planned MRI imaging for further evaluation. The possibility of ablation therapy and diagnostic blocks was discussed to address his chronic pain issues. Pain Description - Pain onset: Several months ago, initially due to a sprinting activity. - Quality: Tingling and sharp pain - Primary Location: Above the knee and lumbar region - Radiation: Down the leg - Exacerbating Factors: Physical activity, mobility efforts - Alleviating Factors: Not significantly alleviated by current medication - Interference: Greatly impacts quality of life and daily activities, limits mobility Results - Planned MRI of the spine Pain Management - Affect: Pain significantly impacts patient's desired lifestyle and ambitions following nursing home. - Analgesia: Currently taking Gabapentin 300 mg twice daily with minimal alleviation. Dosage increase to 1200 mg per day planned. - Adverse Effects: None reported from Gabapentin. - Activities of Daily Living: Severely limited by knee osteoarthritis and lumbar radiculopathy. - Aberrant Drug Related Behaviors: None reported. 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 - Diagnostic genicular nerve blocks under US scheduled to evaluate potential relief and suitability for nerve ablation. - MRI of the spine is pending to guide further treatment options. - Prescribe Tramadol for travel-related pain management, with restricted use. - Follow-up visit scheduled for nerve blocks and assessment of pain management efficacy. Patient was informed and verbally consented to the use of an ambient scribe for clinic note documentation during this visit. Discussion Notes During this visit, I discussed with the patient the ongoing management of knee and back pain attributed to osteoarthritis and lumbar radiculopathy. We explored the possibility of increasing Gabapentin to 1200 mg daily to improve pain control. The patient was informed of the diagnostic nerve blocks, serving as a preliminary step to evaluate potential success with nerve ablation. While the efficacy of such interventions is largely short-term, this plan will help assess the viability of more extensive procedures. The patient was briefed on the lack of insurance coverage for ablation unless diagnostic blocks show significant relief. Furthermore, the patient was advised on the concurrent use of Tramadol for acute episodes during travel, emphasizing cautious use to prevent adverse effects. We discussed the upcoming MRI to ascertain structural causes of his lumbar symptoms, integral for a comprehensive treatment plan. Patient Instructions - Take Gabapentin 1200 mg daily as prescribed. - Attend your next appointment on the at 9:15 for nerve blocks. - Use Tramadol sparingly, particularly for travel discomfort. - Follow up for MRI of the spine as scheduled. - Report any significant changes in symptoms or adverse reactions to medications immediately. - Keep scheduled follow-up appointments for ongoing pain management. Medications: New tramadol 50 mg PO BID PRN 60 tabs 0RF pain Changed 2 From gabapentin 300 mg PO BID 60 caps 0RF To gabapentin 300 mg PO QID 120 caps 0RF Coding Level of Care Code Est Pt Level 3 (31356) Diagnoses Chronic knee pain M25.569; G89.29 Status post total knee replacement, bilateral Z96.659
--- OUTSIDE RECORDS SUMMARY | 2024-07-06 11:43 | XMS_ITS ---
Author Organization Sridhar Holt MD Address [address] [place] [phone] Care Team Providers Care Customer Service Correspondence Clerk Name Role Phone Sridhar Holt Primary Care Provider Results Component Value Reference Range Notes PSA,Total (Free>4and<10) Reviewed date:05/07/2024 12:40:05 PM Interpretation: Performing Lab:[facility], [address] [place] [phone] Notes/Report: PSA,Total (Free>4and<10) 4.90 0.00-4.00 ng/mL PSA methodology: Fletcher Alinity i Chemiluminescent Microparticle Immunoassay (CMIA) REASON FOR VISIT 1 month repeat PSA Encounters Encounter Location Date Provider Diagnosis Sridhar Holt MD [address] [place] [phone] 05/07/2024 Sridhar Holt Prostatism N40.0 Assessments Encounter Date Diagnosis (ICD Code) Assessment Notes Treatment Notes Treatment Clinical Notes Section Notes 05/07/2024 Prostatism (ICD-10 - N40.0) Plan Of Treatment Next Appt Details Provider Name:Sridhar Granado Jeromyjuan ier, 03/25/2025 07:15:00 AM, [address], [address], [place], [phone], Provider Name:Sridhar Granado Jeromyjuan ier, 04/01/2025 04:00:00 PM, [address], [address], [place], [phone], Progress Notes * Cedrick OLSEN MDOB:1960 (63 yo M)Acc No.[id number]:05/07/2024 Progress Note Patient:?Cedrick OLSEN Provider:?Sridhar Holt MD :1960???Age:63 Y???Sex:Male Connor e:05/07/2024 Address:[address] [place], [place] [phone] Subjective: * Chief Complaints: * ???1. 1 month repeat PSA. * Medical History:? Objective: * Vitals:? Assessment: * Assessment: 1.?Prostatism - N40.0 (Prima ry)??? Plan: * Treatment: * Procedure Codes:?78773 VENIP UNCT, ROUTINE* * * The named appointment provid er may or may not be the originator of this progress note, and it is not deemed complete until electronically signed by the appointment provider. Sign off status: Pending * Provider:?Sridhar Holt MD Date:?0 05/07/2024 Generated for Janice tirado/Brynn/eTransmitting on:?07/06/2024 11:43 AM EDT
--- OUTSIDE RECORDS SUMMARY | 2024-07-06 11:43 | XMS_ITS | Patient Health Record ---
Author Organization [facility] Address [address] [place] [address] Care Team Providers Care Sealer Sander Name Role Phone Yanet SILVA, Sridhar Primary Care Provider Rafa Sánchez Jr Unavailable [phone] Reason For Referral No Information Medications Medication SIG (Take, Route, Fr equency, Duration) Notes Start Date End Date Status MoviPrep 100 GM as directed before c olonoscopy Orally for 1 dose 11/08/2012 02/29/2024 Active Problems Problem Type SNOMED Code ICD Code Onset Dates Problem Status W/U Status Risk Notes Problem Colon cancer screening (V76.51) Active confirmed Plan Of Treatment No Information Insurance Providers Payer Name Payer Address Payer Phone Subscriber Number Group Number Insured Name Patient Relationship to Insured Coverage Start Date Coverage End Date [facility] [id number] [place], [place] [id number] RAFA OLSEN Self - patient is the insured Medical (General) History Medical History History ICD Code Denies [place],DM,CVA,Lung disease,renal dise ase Surgical History Surgery Date(Month/Year) umbilical hernia repair 2012 seborrheic keratosis left leg 2012 right knee arthroscopy
--- OUTSIDE RECORDS SUMMARY | 2024-07-06 11:44 | XMS_ITS ---
Author Organization Sridhar Holt MD Address [address] [place] [phone] Care Team Providers Care Bristle Machine Operator Name Role Phone Sridhar Holt Primary Care Provider [phone] Allergies No Known Allergies REASON FOR VISIT 4 WEEK F/U Encounters Encounter Location Date Provider Diagnosis Sridhar Holt MD [address] [facility] [address] [place] [phone] 05/24/2024 Sridhar Holt Plan Of Treatment Next Appt Details Provider Name:Sridhar miner, 03/25/2025 07:15:00 AM, [address] [place] [address], [address] [place] [address], [phone], Provider Name:Sridhar miner, 04/01/2025 04:00:00 PM, [address] [place] [address], [address], [phone], Progress Notes * Cedrick OLSEN MDOB:1960 (63 yo M)Acc No.[id number]:05/24/2024 Progress Notes Patient:?Cedrick OLSEN Provider:?Sridhar Holt MD :1960???Age:63 Y???Sex:Male Connor e:05/24/2024 Address[address] [id number] Subjective: * Chief Complaints: * ???1. 4 [...] Holt MD Date:?0 05/24/2024 Generated for Janice tirado/Brynn/Cecilitting on:?07/06/2024 11:43 AM EDT
--- OUTSIDE RECORDS SUMMARY | 2024-07-06 11:44 | XMS_ITS ---
Author Organization Sridhar Holt MD Address [address] [place] [phone] Care Team Providers Care Instructional Systems Design Consultant Name Role Phone Sridhar Holt Primary Care Provider REASON FOR VISIT Anti nausea patches Medications Medication SIG (Take, Route, Fr equency, Duration) Notes Start Date End Date Status Scopolamine 1 MG/3DAYS 1 patch to skin b ehind the ear as needed Transdermal for 30 day(s) 07/03/2024 Active Encounters Encounter Location Date Provider Diagnosis Sridhar Holt MD [address] [facility] [address] [place] [phone] 07/02/2024 Sridhar Holt Plan Of Treatment Medication Medication Name Sig Start Date Stop Date Notes Scopolamine 1 MG/3DAYS 1 patch to skin b ehind the ear as needed Transdermal for 30 day(s) 07/03/2024 Next Appt Details Provider Name:Sridhar miner, 03/25/2025 07:15:00 AM, [address] [facility], [address] [facility], [place], [place], [phone], Provider Name:Sridhar Lieberman ier, 04/01/2025 04:00:00 PM, [address], [address], [place], [phone], Progress Notes * Cedrick OLSEN MDOB:1960 (63 yo M)Acc No.[id number]:07/02/2024 Patient:?Cedrick OLSEN :1960???Age:63 Y???Sex:Male [facility] [place], [address] * Refills? Start Scopolamine Patch 72 Hour, 1 MG/3DAYS, Transdermal, 9, 1 patch to skin behind the ear as needed, 30 day(s) * true * Date:? Generated for Janice tirado/Brynn/eTransmitting on:?07/06/2024 11:43 AM EDT
--- OUTSIDE RECORDS SUMMARY | 2024-07-06 11:44 | XMS_ITS | Patient Health Record ---
Author Organization Sridhar Holt MD Address [address] [place], [place] [id number] Care Team Providers Care Salesperson Meats Name Role Phone Sridhar Holt Primary Care Provider [phone] Allergies No Known Allergies Results Component Value Reference Range Notes Hemoglobin A1c Reviewed date:07/28/2023 11:15:17 AM Interpretation: Performing Lab: Notes/Report: Hemoglobin A1c 5.2 Complete Blood Count Auto Di ff Reviewed date:03/16/2024 05:57:27 PM Interpretation: Performing Lab:[facility], [address] [place] [address] Notes/Report: White Blood Count 6.3 4.8-10.8 X10*3/uL [...] NRBC Abs Auto 0.000 0.0-0.012 X10*3/uL Comprehensive [place]. Panel Fa st Reviewed date:03/16/2024 12:31:05 PM Interpretation: Performing Lab:[facility], [address] [place] [phone] Notes/Report: Sodium 140 135-145 mmol/L Potassium 4.2 [...] Panel Reviewed date:03/16/2024 12:25:03 PM Interpretation: Performing Lab:[address] [phone] Notes/Report: Triglycerides 92 <150 mg/dL Desirable Triglyceride: [...] date:03/29/2024 08:56:24 AM Interpretation:STEPHEN 03/26/24 PSA Performing Lab:[address] [address] Notes/Report: PSA,Total (Free>4and<10) 5.24 0.00-4.00 ng/mL PSA methodology: Fletcher Alinity i Chemiluminescent Microparticle Immunoassay (CMIA) Microalbumin, Random Reviewed date:03/16/2024 12:29:44 PM Interpretation: Performing Lab:[address] [address] Notes/Report: Creatinine Urine 226.31 Microalbumin Urine 11.0 Microalbum/Creatinine Ratio Ur 4.8 <30 ug/mg cr Albumin/Creatinine Ratio Reference Ranges: Normal: < 30 ug/mg creatinine Microalbuminuria: 30 - 300 ug/mg creatinine Clinical Albuminuria: > 300 ug/mg creatinine Hemoglobin A1c Reviewed date:03/16/2024 12:33:01 PM Interpretation: Performing Lab:[address] [address] Notes/Report: Hemoglobin A1c % 5.1 <6.0 % [...] average glucose, using the formula of the W0D-Fyleygd Average Glucose study (ADAG), Diabetes Care, Vol.31,#8, Sep. 2007 PSA,Total (Free>4and<10) Reviewed date:04/09/2024 12:36:50 PM Interpretation: Performing Lab:[facility], [address] [place] [address] Notes/Report: PSA,Total (Free>4and<10) 4.73 0.00-4.00 ng/mL PSA methodology: Fletcher Alinity i Chemiluminescent Microparticle Immunoassay (CMIA) PSA,Total (Free>4and<10) Reviewed date:05/07/2024 12:40:05 PM Interpretation: Performing Lab:[facility], [address] [place] [phone] Notes/Report: PSA,Total (Free>4and<10) 4.90 0.00-4.00 ng/mL PSA methodology: Fletcher Alinity i Chemiluminescent Microparticle Immunoassay (CMIA) Glucose, finger stick Reviewed date:07/28/2023 10:54:06 AM Interpretation: Performing Lab: Notes/Report: Value 100 XR lumbar spine 4V min Reviewed date:08/15/2023 02:54:48 PM Interpretation: Performing Lab: Notes/Report: [address] [address] XRay Report Signed Patient: Cedrick Olsen MR#: [id number] : 1960 Acct:[id number] Age/Sex: 62 / M ADM Date: 07/28/23 Loc: HO.XRAY Attending Dr: Sridhar Holt MD Ordering Physician: Sridhar Holt MD Date of Service: 07/28/23 Procedure(s): XR lumbar spine 4V min Accession Number(s): [id number] cc: Sridhar Holt MD EXAMINATION: XR LUMBOSACRAL [...] in OV> 08/15/23 1403 DD/ 1202 TD/TT: Toby Maker: [place] [address] XRay Report Signed Patient: Vikas Olsen MR#: [id number] : 1960 Acct:[id number] Age/Sex: 62 / M ADM Date: 07/28/23 Loc: HO.XOCHILTAY Attending Dr: Sridhar Holt MD Ordering Physician: Sridhar Holt MD Date of Service: 07/28/23 Procedure(s): XR lum bar spine 4V min Accession Number(s): [id number] cc: Sridhar Holt MD EXAMINATION: XR LUMBOSACRAL SPINE WITH OBLIQUES CLINICAL INFORMATION: Low back pain COMPARISON: None available. TECHNIQUE: 5 views of the lumbosacral spine FINDINGS: Degenerative change in the imaged lower thoracic spine. Facet arthritis in the lower lumbosa cral spine. Multilevel lumbar spondylosis. Marked loss of disc space height at L5-S1. Moderate loss of disc space height at L4-L5 with grade 1 retrolisthesis of L4 and L5. Grade 1 retrolisthesis of L3 on L4. Moderate loss of dis c space height at L2-L3. X R/XR lumbar spine 4V min IMPRESSION: Multilevel degenerat catarina disc disease most notable at L5-S1. Dictated By: Anitha Lemons MD Signed By: <Electronically signed by Anitha Lemons MD in OV> 08/15/23 1403 DD/ 1202 TD/TT: Toby Maker: Occult Blood, Stool, Guaiac Reviewed date:03/27/2024 12:31:32 PM Interpretation:Negative Performing Lab: Notes/Report: Negative Occult Blood, Stool, Guaiac Neg XR knee LT 3V Reviewed date:04/20/2024 04:24:58 PM Interpretation: Performing Lab: Notes/Report: [address] [address] XRay Report Signed Patient: Cedrick Olsen MR#: [id number] : 1960 Acct:[id number] Age/Sex: 63 / M ADM Date: 04/19/24 Loc: HOYUDELKA Attending Dr: Sridhar Holt MD Ordering Physician: Sridhar Holt MD Date of Service: 04/19/24 Procedure(s): XR knee LT 3V Accession Number(s): [id number] cc: Sridhar Holt MD CLINICAL HISTORY: PAIN [...] Gary MD in OV> 04/20/24 1116 DD/ 1115 TD/TT: 04/20/24 1115 Toby Maker: [address] [address] XRay Report Signed Patient: Vikas Olsen MR#: [id number] : 1960 Acct:[id number] Age/Sex: 63 / M ADM Date: 04/19/24 Loc: SHAYANAY Attending Dr: Sridhar Holt MD Ordering Physician: Sridhar Holt MD Date of Service: 04/19/24 Procedure(s): XR kne e LT 3V Accession Number(s): [id number] cc: Sridhar Holt MD CLINICAL HISTORY: PAIN [...] Gary MD in OV> 04/20/24 1116 DD/ 1115 TD/TT: 04/20/24 1115 Toby Maker: FL upper GI w air Reviewed date:09/08/2023 12:56:50 PM Interpretation: Performing Lab: Notes/Report: [place] [address] Fluoroscopy Report Signed Patient: Cedrick Olsen MR#: [id number] : 1960 Acct:[id number] Age/Sex: 62 / M ADM Date: 08/31/23 Loc: MORALES Attending Dr: Sridhar Holt MD Ordering Physician: Sridhar Holt MD Date of Service: 08/31/23 Procedure(s): FL upper GI w air Accession Number(s): [id number] cc: Sridhar Holt MD EXAMINATION: XR FLUOROSCOPY [...] Mark MD in OV> 09/06/23 1535 DD/ 0945 TD/TT: Toby Maker: [address] [address] Fluoroscopy Report Signed Patient: Vikas Olsen MR#: [id number] : 1960 Acct:[id number] Age/Sex: 62 / M ADM Date: 08/31/23 Loc: HO.XRAY Attending Dr: Sridhar Holt MD Ordering Physician: Sridhar Holt MD Date of Service: 08/31/23 Procedure(s): FL upp er GI w air Accession Number(s): [id number] cc: Sridhar Holt MD EXAMINATION: XR FLUOROSCOPY [...] cricopharyngeal achalasia is present. Dual and single cont rast images of the esophagus demonstrate a normal caliber, and contour . There is a granular appearance to the mid and distal esophageal mucosa. No evidence of stricture, mass, or ulcerations identifi ed. Esophageal peristalsis was normal. A small type I hiata l hernia is present. A moderate amount of gastroesophageal ref lux is seen up to the aortic arch. Dual contrast and si ngle contrast images of the stomach demonstrated normal contour and mucosal pattern without evidence of mass, ulceration, or other abnormality. Contrast freely passed into the gastric antrum and duodenal bulb without delay. Single and air-contr ast images of the duodenal bulb demonstrate no abnormality. The duodenal sweep has a normal appearance, course, and mucosal fold appeara nce. The imaged proximal jejunum has a normal fold pattern and caliber. FLUOROSCOPY TIME: 3 minutes 7 seconds Number of Spot Images: 8 Number of Cine: 13 DOSE AREA PRODUCT: 2569 uGy-m2 (microgray-meter squared) F L/FL upper GI w air IMPRESSION: 1. 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 2. Granular appearan ce of the mid and distal esophageal mucosa suggestive of reflux esophagitis. 3. Small type I hiat al hernia. 4. Moderate gastroesophageal reflux. This procedure was performed by Ceferino Minor PA-C, and supervised by Dr. Mark Dictated By: Francesco Minor Signed By: <Electronically signed by Ceferino Minor in OV> 09/06/23 1532 <Electronically sign ed by Sony Mark MD in OV> 09/06/23 1535 DD/ TD/TT: Toby Maker: JERILYN Reviewed date:11/04/2023 01:13:37 PM Interpretation:Negative Performing Lab: Notes/Report: Negative PSA Free and Total Reviewed date:03/29/2024 08:55:57 AM Interpretation:STEPHEN 03/26 Performing Lab:[facility], [address] [place] [phone] Notes/Report: Prostate Specific Ag Total 5.6 < OR = 4.0 ng/mL Percent Free Prostate Spec Ag 11 >25 % (calc) PSA(ng/mL) Free PSA(%) Estimated(x) Probability of Cancer(as%) 0-2.5 (*) Approx. 1 2.6-4.0(1) 0-27(2) 24(3) 4.1-10(4) 0-10 56 11-15 28 16-20 20 21-25 16 >or =26 8 >10(+) N/A >50 References:(1)Annika singh et al.:Urology 60: 469-474 (2001) (2)Mikal et al.:J.Urol 168: 922-925 (2001) Free PSA(%) Sensitivity(%) Specificity(%) < or = 25 85 19 < or = 30 93 9 (3)Catalona et al.:TAI 277: 2329-2058 (1996) (4)Catalona et al.:TAI 279: 7011-2494 (1997) (x)These estimates vary with age, ethnicity, [...] mind. PSA was performed using the [place] Immunoassay method. Values obtained from different assay methods cannot be used interchangeably. PSA levels, regardless of value, should not be interpreted as absolute evidence of the presence or absence of disease. THIS TEST WAS PERFORMED AT: [facility] [address] [place] [phone] NATHAN OSORIO MD Free Prostate Spec Ag 0.6 UA CC w/rflx Micro + Cult Reviewed date:03/16/2024 12:35:38 PM Interpretation: Performing Lab:[facility], [address] [place] [address] Notes/Report: [id number] Urine, Clean Catch Color Urine Yellow Appearance Urine Clear PH 5.0 5.0-9.0 Glucose Urine UA Negative Negative mg/dL Urine Blood Negative Negative Specific [place] - Urine 1.025 1.005-1.025 Urine Protein Negative Neg-Trace mg/dL Urine Ketones Negative Negative mg/dL Nitrite Urine Negative Negative Leukocyte Esterase Urine Negative Negative PSA Free and Total Reviewed date:04/12/2024 04:51:47 PM Interpretation: Performing Lab:[facility], [address] [place] [phone] Notes/Report: Prostate Specific Ag Total 4.6 < OR = 4.0 ng/mL Percent Free Prostate Spec Ag 15 >25 % (calc) PSA(ng/mL) Free PSA(%) Estimated(x) Probability of Cancer(as%) 0-2.5 (*) Approx. 1 2.6-4.0(1) 0-27(2) 24(3) 4.1-10(4) 0-10 56 11-15 28 16-20 20 21-25 16 >or =26 8 >10(+) N/A >50 References:(1)Annika singh et al.:Urology 60: 469-474 (2001) (2)Mikal et al.:J.Urol 168: 922-925 (2001) Free PSA(%) Sensitivity(%) Specificity(%) < or = 25 85 19 < or = 30 93 9 (3)Catalona et al.:TAI 277: 8690-5540 (1996) (4)Catalona et al.:TAI 279: 3034-7882 (1997) (x)These estimates vary with age, ethnicity, [...] mind. PSA was performed using the [place] Immunoassay method. Values obtained from different assay methods cannot be used interchangeably. PSA levels, regardless of value, should not be interpreted as absolute evidence of the presence or absence of disease. THIS TEST WAS PERFORMED AT: [facility] [address] [place] [phone] NATHAN OSORIO MD Free Prostate Spec Ag 0.7 XR knee RT 3V Reviewed date:04/20/2024 12:20:46 PM Interpretation: Performing Lab: Notes/Report: [address] [address] XRay Report Signed Patient: Cedrick Olsen MR#: [id number] : 1960 Acct:[id number] Age/Sex: 63 / M ADM Date: 04/19/24 Loc: MORALES Attending Dr: Sridhar Holt MD Ordering Physician: Sridhar Holt MD Date of Service: 04/19/24 Procedure(s): XR knee RT 3V Accession Number(s): [id number] cc: Sridhar Holt MD CLINICAL HISTORY: PAIN [...] Gary MD in OV> 04/20/24 1125 DD/ 112 TD/TT: 04/20/24 112 Toby Maker: [address] [address] XRay Report Signed Patient: Vikas Olsen MR#: [id number] : 1960 Acct:[id number] Age/Sex: 63 / M ADM Date: 04/19/24 Loc: HO.XRAY Attending Dr: Sridhar Holt MD Ordering Physician: Sridhar Holt MD Date of Service: 04/19/24 Procedure(s): XR kne e RT 3V Accession Number(s): [id number] cc: Sridhar Holt MD CLINICAL HISTORY: PAIN [...] 04/20/24 1125 DD/ 1123 TD/TT: 04/20/24 1123 Toby Maker: PSA Free and Total Reviewed date:05/08/2024 02:05:14 PM Interpretation: Performing Lab:[facility], [address] [place] [phone] Notes/Report: Prostate Specific Ag Total 4.6 < OR = 4.0 ng/mL Percent Free Prostate Spec Ag 15 >25 % (calc) PSA(ng/mL) Free PSA(%) Estimated(x) Probability of Cancer(as%) 0-2.5 (*) Approx. 1 2.6-4.0(1) 0-27(2) 24(3) 4.1-10(4) 0-10 56 11-15 28 16-20 20 21-25 16 >or =26 8 >10(+) N/A >50 References:(1)Lupeo na et al.:Urology 60: 469-474 (2002) (2)Mikal et al.:J.Urol 168: 922-925 (2002) Free PSA(%) Sensitivity(%) Specificity(%) < or = 25 85 19 < or = 30 93 9 (3)Mikal et al.:TAI 277: 1003-0921 (1997) (4)Mikal et al.:TAI 279: 6892-9756 (1998) (x)These estimates vary with age, ethnicity, family [...] mind. PSA was performed using the Misa [place] Immunoassay method. Values obtained from different assay methods cannot be used interchangeably. PSA levels, regardless of value, should not be interpreted as absolute evidence of the presence or absence of disease. THIS TEST WAS PERFORMED AT: [facility] [address] [place] [phone] NATHAN OSORIO MD Free Prostate Spec Ag 0.7 Reason For Referral Reason Eval and treat for b ack pain Diagnosis 1 Low back pain, unspe cified (M54.50) Referral Organization Sridhar Holt MD Referring Provider First Name Sridhar Referring Provider Last Name Yanet Referring Provider Speciality Internal edicine Referred Provider [facility] Referred Provider Specialty [...] a day for 5 days 2022 Not-Taking Scopolamine 1 MG/3DAYS 1 patch to skin b ehind the ear as needed Transdermal for 30 day(s) 07/03/2024 Active DULoxetine HCl 30 MG TAKE 1 CAPSULE BY MOUTH EVERY DAY for 30 Not-Takin g Immunizations Vaccine Route Administration Date Status Comme nts Tetanus Unknown 08/06/2017 Administered Given at [facility] Covid Vaccine Unknown 05/22/2020 Administered Moderna [...] Status W/U Status Risk Notes Problem Nevus (8674743533) Nevus (216.9) Active confirm ed Problem 10816762 Prostatism (N40.0) Active confirmed Problem 012337258 Annual physical exam (Z00.00) Active confirmed Problem 66551789 Other chronic pain (G89.29) Active confirmed Problem 857883250 Body mass index (BMI) 32.0-32.9, adult (Z68.32) Active confirmed Problem 2620370 Arthritis (M19.90) Active confirmed Problem 7049244 Prediabetes (R73.09) Active confirmed Problem 607874064 Erectile dysfunction, unspecified erectile dysfunction type (N52.9) Active confirmed Problem 368834375 Vitamin B12 deficiency (E53.8) Active confirmed Problem Pressure sore, stage I (L89.91) Active confirmed Problem 75507053 Sciatica of righ t side (M54.31) Active confirmed Problem 941105028 Panic attack (F41.0) Active confirmed Problem 87014975 NATHALY (obstructive sleep apnea) (G47.33) Active confirmed Problem 542939430 Arthritis of kne e (M17.10) Active confirmed Problem 91428396 Sinusitis chronic, frontal (J32.1) Active confirmed Problem 790514333 BMI 32.0-32.9,adult (Z68.32) Active confirmed Problem 64309869 Hydronephrosis with urinary obstruction due to renal calculus (N13.2) Active confirmed Problem 212605516837122 Obesity (BMI 30.0-34.9) (E66.9) Active confirmed Problem 244579345 Neck arthritis (M46.92) Active confirmed Problem 85196944 Kidney stone on left side (N20.0) Active confirmed Problem 0423721682979965 Arthritis of kal[place] th knees (M17.0) Active confirmed Problem 078075019 Cervical arthritis (M47.812) Active confirmed Problem 983591362 Gastric reflux (K21.9) Active confirmed Problem 49676766 [place] spots (Q38.6) Active confirmed Vital Signs Blood pressure diastolic 70 mm Hg 04/19/2024 danielle ght is down 4 pounds since 03-26-24 Height 72 in 04/19/2024 weight is down 4 pounds since 03-26-24 Blood pressure systolic 112 mm Hg 04/19/2024 weig ht is down 4 pounds since 03-26-24 Weight 253 lbs 04/19/2024 weight is down 4 pounds since 03-26-24 BMI 34.31 kg/m2 04/19/2024 weight is down 4 pounds since 03-26-24 Encounters Encounter Location Date Provider Diagnosis Sridhar Holt MD [address] [place] [id number] 03/16/2024 Sridhar Holt Blood tests for routine general physical examination Z00.00 ; Prediabetes R73.09 and Prostatism N40.0 Sridhar Holt MD [address] [place] [id number] 04/09/2024 Sridhar Holt Elevated PSA R97.20 Sridhar Holt MD [address] [place] [id number] 05/07/2024 Sridhar Holt Prostatism N40.0 Sridhar Holt MD [address] [place] [id number] 07/28/2023 Sridhar Holt Prediabetes R73.09 ; Other chronic pain G89.29 and Low back pain, unspecified M54.50 Sridhar Holt MD [address] [place] [id number] 08/30/2023 Sridhar Holt Gastric reflux K21.9 ; NATHALY (obstructive sleep apnea) G47.33 ; Encounter for screening for malignant neoplasm of colon Z12.11 and Encounter for screening for malignant neoplasm of rectum Z12.12 Sridhar Holt MD [address] [id number] 09/27/2023 Sridhar Holt Gastric reflux K21.9 ; Low back pain, unspecified M54.50 ; Pain in right knee M25.561 ; Other chronic pain G89.29 ; Pain in left knee M25.562 and Pruritic rash L28.2 Sridhar Holt MD [address] [id number] 11/14/2023 Sridahr Holt Low back pain, unspecified M54.50 ; Pain in right knee M25.561 and Pain in left knee M25.562 Sridhar Holt MD [address] [id number] 03/26/2024 Sridhar Holt Elevated PSA R97.20 ; Annual physical exam Z00.00 ; Rectus diastasis M62.08 ; Arthritis of knee M17.10 ; Obesity (BMI 30.0-34.9) E66.9 ; Colon cancer screening Z12.11 and Depression screening Z13.31 Sridhar Holt MD [address] [id number] 04/19/2024 Sridhar Holt Elevated PSA R97.20 ; Other chronic pain G89.29 ; Pain in right knee M25.561 and Pain in left knee M25.562 Sridhar Holt MD [address] [id number] 03/21/2024 Sridhar Holt MD [address] [id number] 04/05/2024 Sridhar Holt MD [address] [id number] 07/02/2024 Sridhar Holt Assessments Encounter Date Diagnosis (ICD Code) Assessment Notes Treatment Notes Treatment Clinical Notes Section Notes 03/16/2024 Blood tests for routine general physical examination (ICD-10 - Z00.00) 03/16/2024 Prediabetes (ICD-10 - R73.09) 04/09/2024 Elevated PSA (ICD-10 - R97.20) 05/07/2024 Prostatism (ICD-10 - N40.0) 07/28/2023 Prediabetes (ICD-10 - R73.09) stable, no [...] pain, unspecified (ICD-10 - M54.50) send to [facility] 11/14/2023 Low back pain, unspecified (ICD-10 - M54.50) going to [facility] 11/14/2023 Pain in right knee (ICD-10 - M25.561) trying to go to second opinion/ has been severely affected with his knees and is wanting to see if there is another treatment availab.e. both knees still swollen. had been trying to exercise but had to quit because he was getting more pain. his insurance will pay for [place] so i have suggested he find where and go there 03/26/2024 Elevated PSA (ICD-10 - R97.20) referral to [facility] urology 03/26/2024 Annual physical exam (ICD-10 - Z00.00) labs reviewed and discussed with patient 04/19/2024 Elevated PSA (ICD-10 - R97.20) came down and is seeing urology next week, will continue to monitor 04/19/2024 Other chronic pain (ICD-10 - G89.29) 03/16/2024 Prostatism (ICD-10 - N40.0) 07/28/2023 Low back pain, unspecified (ICD-10 - M54.50) referral to physical [place] [facility] [place] Xray [place] given to the patient, ORDER PRINTED AND GIVEN TO PATIENT . PT ORDER FAXED TO [facility] 08/30/2023 Encounter for screening for malignant neoplasm of colon (ICD-10 - Z12.11) pending diagnostic tsting/ order faxed to [facility] 09/27/2023 Pain in right knee (ICD-10 - [...] 07/22/2016 Electrocardiogram (EKG) 08/18/2017 Electrocardiogram (EKG) 08/25/2018 XR GI SERIES 08/30/2023 XR KNEE RT 3 VIEWS 04/19/2024 Next Appt Details Provider Name:Sridhar Lieberman ier, 03/25/2025 07:15:00 AM, [address] [facility], [address], [place], [place], [phone], Provider Name:Sridhar Lieberman ier, 04/01/2025 04:00:00 PM, [address] [facility], [place], [place], [phone], Insurance Providers Payer Name Payer Address Payer Phone Subscriber Number Group Number Insured Name Patient Relationship to Insured Coverage Start Date Coverage End Date [facility] [employer] [facility] [employer] Direct [address] [place] [address] [id number] Cedrick Olsen Self - patient is the insured Medications Administered Medication Instructions Date of Administration Dosage Notes B12 08/26/2016 1 mL B12 10/25/2016 1 mL B12 11/29/2016 1 mL B12 01/17/2017 1 mL Medical (General) History Medical History History ICD Code colonoscopy 01/31/2013 - repeat 10 years Umbilical hernia
== END 2024-07-06 12:04 | disposition home or self-care (01) ==
LOC: HO.PMC 11:15
PROVIDERS: PCP Internal Medicine; Visit Provider Internal Medicine
DX: G89.29 Other chronic pain (principal); M25.561 Pain in right knee; M25.562 Pain in left knee; Z96.653 Presence of artificial knee joint, bilateral
CPT/HCPCS: 99213

== ENCOUNTER → 2024-07-06 11:15 | Outpatient (BNVA) | payer OTHER, SELFPAY | PROVIDERS: PCP Internal Medicine; Visit Provider Internal Medicine | DX: M54.16 Radiculopathy, lumbar region (principal); M25.569 Pain in unspecified knee; G89.29 Other chronic pain; Z96.653 Presence of artificial knee joint, bilateral; Z79.899 Other long term (current) drug therapy | CPT/HCPCS: 99212 ==

== ENCOUNTER 2024-07-20 09:32 | Outpatient (AMB) | payer OTHER, SELFPAY ==
[2024-07-20 09:36] VITALS: BP 133/88; PULSE 83; RESP 16; O2SAT 99; BMI 34.3
--- NOTE | 2024-07-20 09:36 | A.OFFVIS_ITS ---
Vital Signs 07/20/24 09:36 Height 5 ft 11 in Weight 246 lb BMI 34.3 BP 133/88 Blood Pressure Location Rt brachial Position Sitting Respiration 16 Pulse 83 Pulse Source Pulse Oximeter Pulse Oximetry (%) 99 Oxygen Delivery Method Room Air Intake Visit Reasons: GENICULAR NERVE BLOCK Paper Machine Backtender Required: No Librarian Special Collections: Librarian Special Collections Present Allergies No Known Allergies [No Known Allergies*] Allergy (Verified 07/20/24 09:39) Medication List - Last Reconciled 07/20/24 by Heather Adamson LPN gabapentin 300 mg PO QID meloxicam 15 mg PO DAILY tamsulosin 0.4 mg PO DAILY tramadol 50 mg PO BID PRN HPI HPI GENICULAR NERVE BLOCK: Details: History of Present Illness The patient is a 63 year old male presenting with bilateral knee pain as the primary reason for the visit. He had received a diagnostic genicular nerve block in his back a day prior to this visit, due to severe spinal stenosis, a herniated disc, and ligament hypertrophy, all confirmed by MRI. Despite these interventions, he continues to experience right leg pain and sensations of knee tightness and tingling. He struggles to discern whether the origin of the pain is from the knees themselves or related to another condition. His reported pain is exacerbated by ambulation and physical activity, limiting his functional capability. Although the recent nerve block in the back was deemed a treatment for right leg pain, the precise effectiveness is uncertain at this time, given the short interval since administration. Pain Description - Onset and Timing: Ongoing, with recent exacerbation in left knee and foot. - Quality and Character: Tightness, tingling sensations, difficulty distinguishing the primary source. - Primary Location: Bilateral knees; also reports related back and right leg discomfort. - Radiation: Reports pain possibly radiating to the right leg and foot. - Exacerbating Factors: Physical activity, ambulation. - Relieving Factors: Not specified; underwent nerve block without immediate evaluation of efficacy. - Interference with Activities: Limitations in ambulation, possibly exacerbated by activity. Physical Exam - Musculoskeletal- Observed knee tightness, no specific lateral findings documented. Results - MRI: Severe spinal stenosis, herniated disc, ligamentous hypertrophy noted. Pain Management - Affect: Reports difficulty in discerning source of pain. - Analgesia: Recent nerve block for back pain; effectiveness in knee pain remains undetermined. - Adverse Effects: No adverse effects noted from recent procedure. - Activities of Daily Living: Restricted ambulation and activity due to pain. - Aberrant Drug-Related Behaviors: Not reported. Procedure - Bilateral Genicular Nerve Blocks - Informed consent obtained. - 25-gauge needle utilized. - Targeted nerves: Superior lateral, superior medial, and infra-patellar saphenous nerves. - Administered under ultrasound guidance with 1 cc of 0.5% bupivacaine. - Visualized via ultrasound; images saved; patient tolerated well without blood loss. 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 Physical Exam Vital Signs: Last Vital Signs Pulse 83 07/20/24 09:36 Resp 16 07/20/24 09:36 BP 133/88 07/20/24 09:36 Pulse Ox 99 07/20/24 09:36 Oxygen Delivery Method Room Air 07/20/24 09:36 BMI result Body Mass Index 34.3 Assessment & Plan Assessment & Plan (1) Chronic knee pain: Code(s): M25.569 - Pain in unspecified knee; G89.29 - Other chronic pain Category: Medical (2) Status post total knee replacement, bilateral: Code(s): Z96.653 - Presence of artificial knee joint, bilateral Category: Surgical Plan Plan - Re-assess knee pain after genicular nerve block; determine efficacy and need for further intervention. - Consider radiofrequency ablation for long-term relief if nerve block is effective; confirm insurance provisions. - Schedule follow-up post-travel to allow full evaluation of intervention effectiveness. - Discuss and educate patient on potential therapies, particularly interventions applied sequentially. Patient was informed and verbally consented to the use of an ambient scribe for clinic note documentation during this visit. Discussion Notes I discussed with the patient the purpose of the genicular nerve block and the benefits and risks associated with it. The potential for radiofrequency ablation was also explored, dependent on the short-term success of the nerve block. Follow-up discussions will assess pain relief and if identified, we will proceed with insurance consultations to confirm procedural coverage. The need for patient understanding of differences in procedures and expectations was highlighted, with specifics on postoperative care and scheduling for evaluation once temporarily alleviating therapies wear off. Patient Instructions - Monitor pain level after the genicular nerve block. - Follow up after travel to evaluate pain and discuss radiofrequency ablation. - Report any changes in pain or discomfort immediately. - Avoid activities that exacerbate pain where possible. - Track any improvement or lack thereof in knee or leg sensations. Coding Level of Care Code Procedure Only Diagnoses Chronic knee pain M25.569; G89.29 Status post total knee replacement, bilateral Z96.653
--- OUTSIDE RECORDS SUMMARY | 2024-07-20 09:45 | XMS_ITS | Patient Health Record ---
Author Organization [facility] Address [address] [place] [address] Care Team Providers Care Almond Blancher Name Role Phone Yanet SILVA, Sridhar Primary [...] Insured Coverage Start Date Coverage End Date [facility] [id number] [place], [place] [id number] [phone] [id number] RAFA OLSEN Self - patient is the insured Medical (General) History Medical History History ICD Code Denies GA,DM,CVA,Lung disease,renal dise ase Surgical History Surgery Date(Month/Year) umbilical hernia repair 2012 seborrheic keratosis left leg 2012 right knee arthroscopy
== END 2024-07-20 10:06 | disposition home or self-care (01) ==
LOC: HO.PMC 09:32
PROVIDERS: PCP Internal Medicine; Visit Provider Internal Medicine
DX: M25.561 Pain in right knee (principal); M25.562 Pain in left knee; G89.29 Other chronic pain; Z96.653 Presence of artificial knee joint, bilateral
CPT/HCPCS: 64454

== ENCOUNTER → 2024-07-20 09:32 | Outpatient (BNVA) | payer OTHER, SELFPAY | PROVIDERS: PCP Internal Medicine; Visit Provider Internal Medicine | DX: M25.562 Pain in left knee (principal); G89.29 Other chronic pain; Z96.653 Presence of artificial knee joint, bilateral | CPT/HCPCS: 64454 ==

== ENCOUNTER 2024-08-10 11:27 | Outpatient (AMB) | payer OTHER, SELFPAY ==
--- NOTE | 2024-08-10 11:28 | MHC.OFFVIS ---
Vital Signs 08/10/24 11:29 Height 5 ft 11 in Weight 241 lb BMI 33.6 BP 140/78 H Blood Pressure Location Lt brachial Position Sitting Respiration 16 Pulse 85 Pulse Source Pulse Oximeter Pulse Oximetry (%) 97 Oxygen Delivery Method Room Air Intake Visit Reasons: FOLLOW UP Cover Cutter Machine Required: No Allergies No Known Allergies (No Known Allergies*) Allergy (Verified 08/10/24 11:31) Medication List - Last Reconciled 08/10/24 by Heather Adamson LPN gabapentin 300 mg PO QID meloxicam 15 mg PO DAILY tamsulosin 0.4 mg PO DAILY tramadol 50 mg PO BID PRN HPI HPI FOLLOW UP: Details: History of Present Illness The patient is a 63-year-old male presenting with chronic knee pain and tightness. Chronic discomfort has been associated with significant local knee symptoms over several years, intensifying with extended periods of inactivity, notably during a long-haul flight. While the use of genicular nerve blocks was attempted, the relief was marginal and transient. Further complexity is added by the coexistence of spinal back pain, though this has not been addressed via recent PT sessions. Past interventions, including temporary nerve stimulation and efforts with nerve blocks, yielded disappointing results. Pain is mostly described as a tightness , likely secondary to scar formation. Pain Description - Pain onset several years ago, worsened after long duration of sitting during travel. - Quality: Chronic, persistent localized pain with tightness. - Primary location: Right knee, infrapatellar region. - Exacerbating factors: Prolonged sitting or inactivity. - Alleviating factors: Topical application of Icy Hot and turmeric. - Activities: Pain limits mobility, affects activities like walking and climbing stairs. Physical Exam - Musculoskeletal- Right knee shows good range of motion. Tightness and pain noted during forced flexion of the knee, particularly in the infrapatellar region. Pain Management - Affect: Reports of ongoing tightness and heaviness affecting mood and mobility. - Analgesia: Limited relief historically with nerve blocks and topical agents. - Adverse Effects: None reported specifically from current treatments. - ADLs: Daily activities, particularly involving the knee, are impaired. - Aberrant Behaviors: None reported or suspected. 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 Johnson to assess potential for scar tissue manipulation under anesthesia. - Initiate Physical Therapy to target knee tightness and enhance mobility. - Evaluate necessity for orthopedic referral depending on PT response. - Reexamine possibility of genicular nerve blocks to gauge their working effectiveness in varying activity levels. Patient was informed and verbally consented to the use of an ambient scribe for clinic note documentation during this visit. Discussion Notes During the visit, we discussed the possibility of further manipulation under anesthesia with Dr. Johnson to manage tightness due to presumed scar tissue within the knee. The benefits include potentially alleviating tightness and enhancing range of motion, though we acknowledged the uncertain response given previous treatment resistance. The importance of follow-up with an orthopedic surgeon remains if non-invasive methods prove ineffective. I emphasized that further genicular nerve blocks could be pursued contingent upon observable improvement with daily activity levels. The patient understands the current plan and the role of potential PT in managing his symptoms. No permanent nerve stimulation was advised, as it was previously ineffective, and patient consent aligns with the non-implant interventions discussed. Patient Instructions - Follow-up with Dr. Johnson for assessment of manual manipulation. - Start Physical Therapy aimed at knee flexibility. - Monitor symptoms and report any significant changes. - Avoid invasive implant options given prior lack of success. Coding Level of Care Code Est Pt Level 3 (05908) Diagnoses Chronic knee pain M25.569; G89.29 Status post total knee replacement, bilateral Z96.653
[2024-08-10 11:29] VITALS: BP 140/78; PULSE 85; RESP 16; O2SAT 97; BMI 33.6
--- OUTSIDE RECORDS SUMMARY | 2024-08-10 12:25 | XMS_ITS | Patient Health Record ---
Author Organization [facility] Address [address] [place] [address] Care Team Providers Care Store Consultant Name Role Phone Yanet SILVA, Sridhar Primary Care Provider Rafa Sánchez Jr Unavailable [phone] Reason For Referral No Information Medications Medication [...] Insured Coverage Start Date Coverage End Date [facility] [id number] [place], [place] [id number] [phone] [id number] RAFA OLSEN Self - patient is the insured Medical (General) History Medical History History ICD Code Denies IN,DM,CVA,Lung disease,renal dise ase Surgical History Surgery Date(Month/Year) umbilical hernia repair 2012 seborrheic keratosis left leg 2012 right knee arthroscopy
== END 2024-08-10 11:59 | disposition home or self-care (01) ==
LOC: HO.PMC 11:27
PROVIDERS: PCP Internal Medicine; Visit Provider Internal Medicine
DX: M25.569 Pain in unspecified knee (principal); G89.29 Other chronic pain; Z96.653 Presence of artificial knee joint, bilateral
CPT/HCPCS: 99213

== ENCOUNTER → 2024-08-10 11:27 | Outpatient (BNVA) | payer OTHER, SELFPAY | PROVIDERS: PCP Internal Medicine; Visit Provider Internal Medicine | DX: M25.561 Pain in right knee (principal); M25.562 Pain in left knee; G89.29 Other chronic pain; Z96.653 Presence of artificial knee joint, bilateral | CPT/HCPCS: 99212 ==

== ENCOUNTER 2024-08-13 10:27 | Outpatient (REF) | payer OTHER, SELFPAY ==
[2024-08-13 10:36] LABS: Appearance Urine Clear; Color Urine Yellow; Glucose Urine UA Negative (Negative); Leukocyte Esterase Urine Negative (Negative); Nitrite Urine Negative (Negative); PH 5.5 (5.0-9.0); Specific Gravity - Urine 1.015 (1.005-1.025); Urine Blood Negative (Negative); Urine Ketones Negative (Negative); Urine Protein Negative (Neg-Trace)
[2024-08-13 10:41] LABS: Bacteria Urine None Seen (None Seen); Hyaline Casts Urine 0-2 /LPF (0-2); RBC Urine 0-2 /HPF (0-2); Squamous Epithelial Cell Urine 0-2 /HPF (0-2); WBC Urine 0-5 /HPF (0-5)
--- OUTSIDE RECORDS SUMMARY | 2024-08-13 11:40 | XMS_ITS | Patient Health Record ---
Author Organization [facility] Address [address] [place] [address] Care Team Providers Care Diagnostic Imaging Manager Name Role Phone Yanet SILVA, Sridhar Primary [...] Insured Coverage Start Date Coverage End Date [facility] [id number] [place], [place] [id number] RAFA OLSEN Self - patient is the insured Medical (General) History Medical History History ICD Code Denies ID,DM,CVA,Lung disease,renal dise ase Surgical History Surgery Date(Month/Year) umbilical hernia repair 2012 seborrheic keratosis left leg 2012 right knee arthroscopy
== END 2024-08-13 10:28 | disposition home or self-care (01) ==
LOC: HO.LNP 10:27
PROVIDERS: Visit Provider Internal Medicine
DX: N39.0 Urinary tract infection, site not specified (principal)
CPT/HCPCS: 81001; 87086

== ENCOUNTER 2024-11-15 09:41 | Outpatient (AMB) | payer OTHER, SELFPAY ==
--- OUTSIDE RECORDS SUMMARY | 2024-10-09 04:30 | XMS_ITS ---
Author Organization Sridhar Holt MD Address [address] [place] [phone] Care Team Providers Care Book Agent Name Role Phone Srdihar Holt Primary Care Provider Allergies No Known Allergies REASON FOR VISIT 2 MO F/U Medications Medication SIG (Take, Route, Frequency, Duration) Notes Start Date End Date Status Viagra 50 MG 1 tablet as needed Orally Once a day for 30 day(s) 07/10/2015 Not-Taking DULoxetine HCl 30 MG TAKE 1 CAPSULE BY MOUTH EVERY DAY for 30 Not-Takin g Omeprazole 20 MG 3 Orally Once a day for 30 day(s) 08/30/2023 Not-Taking Vitamin B12 1000 MCG 1 tablet Orally Onc e a day Not-Taking Bactrim DS 800-160 MG 1 tablet Orally Tw ice a day for 5 days 2022 Not-Taking Cyclobenzaprine HCl 5 MG 1 tablet at bed time as needed Orally Once a day for 30 day(s) 11/14/2023 Not-Taking Ibuprofen 800 MG take 1 tablet by amna th three times daily with food or milk as needed Orally every 8 hrs for 90 days Not-Taking Tamsulosin HCl 0.4 MG TAKE 1 CAPSULE BY MOUTH EVERY DAY for 30 Active Albuterol Sulfate HFA 108 (90 Base) MCG/ACT 1 puff as needed Inhalation every 4 hrs for 30 days 06/24/2023 Active Scopolamine 1 MG/3DAYS 1 patch to skin b ehind the ear as needed Transdermal for 30 day(s) 07/03/2024 Not-Taking Tadalafil 20 MG 1 tablet Orally Once a day as needed 12/16/2020 Active Triamcinolone Acetonide 0.1 % 1 application Externally Two times a Week Active Tylenol 325 MG 1 tablet as needed Orally every 6 hrs Active Trospium Chloride 20 MG 1 tablet at bedt jignesh on an empty stomach Orally Twice a day Active Vital Signs Blood pressure systolic 128 mm Hg 10/10/19 25 Blood pressure diastolic 90 mm Hg 025 Height 72 in 10/09/2024 Weight 253 lbs 10/09/2024 BMI 34.31 kg/m2 10/09/2024 weight is up 8 pounds since 08-10-24 Encounters Encounter Location Date Provider Diagnosis Sridhar Holt MD [address] [place], [place] [phone] 10/09/2024 Sridhar Holt Spinal stenosis M48.00 ; Abdominal pain R10.9 and Vitamin B12 deficiency E53.8 Assessments Encounter Date Diagnosis (ICD Code) Assessment Notes Treatment Notes Treatment Clinical Notes Section Notes 10/09/2024 Spinal stenosis (ICD-10 - M48.00) sounds like he needs surgery 10/09/2024 Abdominal pain (ICD-10 - R10.9) pending diagnostic testing, order faxed to [facility] 10/09/2024 Vitamin B12 deficiency (ICD-10 - E53.8) pending labs Plan Of Treatment Treatment Notes Assessment Notes Spinal stenosis sounds like he needs surgery Abdominal pain pending diagnostic t esting, order faxed to [facility] Vitamin B12 deficiency pending labs Pending Test Test Name Order Date CT ABD & PELVIS WITH CONTRAST 10/09/2024 Vitamin B12 10/09/2024 Next Appt Details Follow Up: 4 Weeks, Reason: Provider Name:Sridhar miner, 01/15/2025 08:45:00 AM, [address], [place], [place], [phone], Provider Name:Sridhar Lieberman ier, 03/25/2025 07:15:00 AM, [address], [address], [place], [phone], Provider Name:Sridhar Lieberman ier, 04/01/2025 04:00:00 PM, [address], [address], [place], [phone], Progress Notes * Cedrick OLSEN MDOB:1960 (64 yo M)Acc No.[id number]:10/09/2024 Progress Notes Patient: Cedrick RAMIREZ Adin Provider: Keiry Holt MD :1960 A ge:64 Y S ex:Male Date:10/09/2024 Address:[address] [place], [place] [phone] Subjective: * Chief Complaints: * 2 MO F/U * HPI: S ymptom(s): patient is a 64 yo male here for 2 month follow up visit/ still feels like his gut is bloated/ all the way to top of knees feels weak. * ROS: G eneral/Constitutional: Denies C hills. D enies F atigue. D enies F ever. D enies H eadache. E NT: Denies S ore throat. R espiratory: Denies C ough. D enies S hortness of breath at rest. D enies S hortness of breath with exertion. G astrointestinal: Denies D iarrhea. D enies N ausea. * Medical History: * Surgical History: * Hospitalization/Major Diagno stic Procedure: * Medications: T akingTrospium Chloride 20 MG Tablet 1 tablet at bedtime on an empty stomach Orally Twice a day Tylenol 325 MG Tablet 1 tablet as needed Orally every 6 hrs Triamcinolone Acetonide 0.1 % Cream 1 application Externally Two times a Week Tadalafil 20 MG Tablet 1 tablet Orally Once a day as needed Albuterol Sulfate HFA 108 (90 Base) MCG/ACT Aerosol Solution 1 puff as needed Inhalation every 4 hrs Tamsulosin HCl 0.4 MG Capsule TAKE 1 CAPSULE BY MOUTH EVERY DAY Taking Trospium Chloride 20 MG Tablet 1 tablet at bedtime on an empty stomach Orally Twice a day Taking Tylenol 325 MG Tablet 1 tablet as needed Orally every 6 hrs Taking Triamcinolone Acetonide 0.1 % Cream 1 application Externally Two times a Week Taking Tadalafil 20 MG Tablet 1 tablet Orally Once a day as needed Taking Albuterol Sulfate HFA 108 (90 Base) MCG/ACT Aerosol Solution 1 puff as needed Inhalation every 4 hrs Taking Tamsulosin HCl 0.4 MG Capsule TAKE 1 CAPSULE BY MOUTH EVERY DAY Not-Taking/PRNIbuprofen 800 MG Tablet take 1 tablet by mouth three times daily with food or milk as needed Orally every 8 hrs Cyclobenzaprine HCl 5 MG Tablet 1 tablet at bedtime as needed Orally Once a day Scopolamine 1 MG/3DAYS Patch 72 Hour 1 patch to skin behind the ear as needed Transdermal Omeprazole 20 MG Capsule Delayed Release 3 [...] List reviewed and reconciled with the patientNot-Taking/PRN Ibuprofen 800 MG Tablet take 1 tablet by mouth three times daily with food or milk as needed Orally every 8 hrs Not-Taking/PRN Cyclobenzaprine HCl 5 MG Tablet 1 tablet at bedtime as needed Orally Once a day Not-Taking/PRN Scopolamine 1 MG/3DAYS Patch 72 Hour 1 patch to skin behind the ear as needed Transdermal Not-Taking/PRN Omeprazole 20 MG Capsule Delayed Release [...] reviewed and reconciled with the patient * Allergies: N .K.D.A.yes[Allergies Verified] Objective: * Vitals: H t: 72, Wt: 253, BMI:34.31, BP:128/90, Repeat BP:20/60, Wt-k.76. weight is up 8 pounds since 08-10-24. * Examination: G eneral Examination: GENERAL APPEARANCE: a lert, well hydrated, in no distress.? SKIN: g ood turgor. HEART: n o murmurs, rubs, gallops, regular rate and rhythm.? LUNGS: n o wheezes, rales, rhonchi, good air movement, clear to auscultation bilaterally. ABDOMEN: d iffuse tenderness. Assessment: * Assessment: 1. S danisha stenosis - M48.00 (Primary) 2 . A bdominal pain - R10.9 ? 3 . V itamin B12 deficiency - E53.8 Plan: * Treatment: 2. A bdominal pain I maging: CT ABD & PELVIS WITH CONTRAST Notes: pending diagnostic testing, order faxed to [facility] 3. V itamin B12 deficiency L AB: Vitamin B12 Notes: pending labs * Procedure Codes: * Follow Up: 4 Weeks * * Sign off status: Completed true * Provider: Keiry Holt MD Date: 0 10/09/2024 Generated for Janice tirado/Brynn/Cecilitting on: 0 11/15/2024 11:20 AM EDT History and Physical Notes * HPI (History of Present Illness) Category Sub-Category Detail Notes Category Not es Symptom(s) patient is a 64 yo male here for 2 month follow up visit/ still feels like his gut is bloated/ all the way to top of knees feels weak Examination Category Sub-Category Detail Notes Category Not es General Examination GENERAL APPEARANCE: alert, w ell hydrated, in no distress HEART: no murmurs, rubs, ga llops, regular rate and rhythm LUNGS: no wheezes, rales, r honchi, good air movement, clear to auscultation bilaterally ABDOMEN: diffuse tenderness SKIN: good turgor
--- OUTSIDE RECORDS SUMMARY | 2024-10-18 07:49 | XMS_ITS ---
Author Organization Sridhar Holt MD Address [address] [place] [phone] Care Team Providers Care Diagnostic Radiologist Name Role Phone Sridhar Holt Primary Care Provider Encounters Encounter Location Date Provider Diagnosis Sridhar Holt MD [address] [facility] [address] [place] [phone] 10/18/2024 Sridhar Holt Liver mass R16.0 Assessments Encounter Date Diagnosis (ICD Code) Assessment Notes Treatment Notes Treatment Clinical Notes Section Notes 10/18/2024 Liver mass (ICD-10 - R16.0) Order tomas and Kirstin to fax to [facility] for the P-A Patient notified. Plan Of Treatment Treatment Notes Assessment Notes Liver mass Order tomas and Kylah te to fax to [facility] for the P-A Patient notified. Pending Test Test Name Order Date MR abdomen wo/w con 10/18/2024 Next Appt Details Provider Name:Sridhar miner, 01/15/2025 08:45:00 AM, [address] [facility], [address] [facility], [place], [place], [phone], Provider Name:Sridhar Lieberman ier, 03/25/2025 07:15:00 AM, [address], [address], [place], [place], [phone], Provider Name:Sridhar Lieberman ier, 04/01/2025 04:00:00 PM, [address], [address], [place], [place], [phone], Progress Notes * Cedrick OLSEN MDOB:1960 (64 yo M)Acc No.[id number]:10/18/2024 Patient: Loy Cedrick PANCHAL :1960 A ge:64 Y S ex:Male Address:[address] [place] [address], [address] Subjective: * Chief Complaints: * * Medical History: * Surgical History: * Hospitalization/Major Diagno stic Procedure: * Medications: Objective: * Vitals: * Physical Examination: Assessment: * Assessment: 1. L iver mass - R16.0 Plan: * Treatment: * Procedure Codes: * true * Date: Generated for Janice tirado/Brynn/eTgabrielsmitting on: 0 11/15/2024 11:21 AM EDT
--- OUTSIDE RECORDS SUMMARY | 2024-10-19 06:27 | XMS_ITS ---
Author Organization Sridhar Holt MD Address [address] [place] [phone] Care Team Providers Care Supervisor Ditching Name Role Phone Sridhar Holt Primary Care Provider REASON FOR VISIT CT results Encounters Encounter Location Date Provider Diagnosis Sridhar Holt MD 10 [facility] [address] [place] [phone] 10/19/2024 Sridhar Holt Plan Of Treatment Next Appt Details Provider Name:Sridhar miner, 01/15/2025 08:45:00 AM, [address] [place] [address], [address], [phone], Provider Name:Sridhar miner, 03/25/2025 07:15:00 AM, [address] [place] [address], [address], [phone], Provider Name:Sridhar miner, 04/01/2025 04:00:00 PM, [address] [place] [address], [address], [phone], Progress Notes * Cedrick OLSEN MDOB:1960 (64 yo M)Acc No.[id number]:10/19/2024 Patient: Loy RITESHSRINIVAS Cedrick Oak[place] :1960 A ge:64 Y S ex:Male Address:[address] [place] [address], [place] [address] * true * Date: Generated for Janice tirado/Brynn/Indirasmitting on: 0 11/15/2024 11:21 AM EDT
--- OUTSIDE RECORDS SUMMARY | 2024-11-02 07:13 | XMS_ITS ---
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 Name Role Phone Sridhar Holt Primary Care Provider [phone] REASON FOR VISIT MRI RESULTS Encounters Encounter Location Date Provider Diagnosis Sridhar Holt MD [address] [facility] [address] [place] [phone] 11/02/2024 Sridhar Holt Plan Of Treatment Next Appt Details Provider Name:Sridhar miner, 01/15/2025 08:45:00 AM, [address] [place] [address], [address], [phone], Provider Name:Sridhar miner, 03/25/2025 07:15:00 AM, [address] [place] [address], [address], [phone], Provider Name:Sridhar miner, 04/01/2025 04:00:00 PM, [address] [place] [address], [address], [phone], Progress Notes * Cedrick OLSEN MDOB:1960 (64 yo M)Acc No.[id number]:11/02/2024 Patient: Loy RITESHSRINIVAS Cedrick Oakley :1960 A ge:64 Y S ex:Male Address:[address] [place] [address], [place] [id number] * true * Date: Generated for Janice tirado/Brynn/eTgabrielsmitting on: 0 11/15/2024 11:20 AM EDT
--- OUTSIDE RECORDS SUMMARY | 2024-11-09 05:15 | XMS_ITS ---
Author Organization Sridhar Holt MD Address [address] [place] [phone] Care Team Providers Care Team Lead Name Role Phone Sridhar Holt Primary Care Provider [phone] Allergies No Known Allergies REASON FOR VISIT 4 week/ needs orders for ABD US ( liver ), Accompanied by Medications Medication SIG (Take, Route, Frequency, Duration) Notes Start Date End Date Status Vitamin B12 1000 MCG 1 tablet Orally Onc e a day Not-Taking Viagra 50 MG 1 tablet as needed Orally Once a day for 30 day(s) 07/10/2015 Not-Taking Omeprazole 20 MG 3 Orally Once a day for 30 day(s) 08/30/2023 Not-Taking Bactrim DS 800-160 MG 1 tablet Orally Tw ice a day for 5 days 2022 Not-Taking DULoxetine HCl 30 MG TAKE 1 CAPSULE BY MOUTH EVERY DAY for 30 Not-Takin g Tamsulosin HCl 0.4 MG TAKE 1 CAPSULE BY MOUTH EVERY DAY for 30 Active Albuterol Sulfate HFA 108 (90 Base) MCG/ACT 1 puff as needed Inhalation every 4 hrs for 30 days 06/24/2023 Active Cyclobenzaprine HCl 5 MG 1 tablet at bed time as needed Orally Once a day for 30 day(s) 11/14/2023 Not-Taking Ibuprofen 800 MG take 1 tablet by amna th three times daily with food or milk as needed Orally every 8 hrs for 90 days Not-Taking Scopolamine 1 MG/3DAYS 1 patch to skin b ehind the ear as needed Transdermal for 30 day(s) 07/03/2024 Not-Taking Tylenol 325 MG 1 tablet as needed Orally every 6 hrs Active Tadalafil 20 MG 1 tablet Orally Once a day as needed 12/16/2020 Active Triamcinolone Acetonide 0.1 % 1 application Externally Two times a Week Active Trospium Chloride 20 MG 1 tablet at bedt jignesh on an empty stomach Orally Twice a day Active Immunizations Vaccine Route Administration Date Status Comme nts Fluarix Quadrivalent - 150 Unknown 11/09/2024 Refused Problems Problem Type SNOMED Code ICD Code Onset Dates Problem Status W/U Status Risk Notes Problem Computed tomography result abnormal (764173816) Abnormal CAT scan (R93.89) Active confirmed Problem Reflux esophagitis (102915281) Reflux esophagitis (K21.00) Active confirmed Vital Signs Blood pressure systolic 122 mm Hg 11/10/19 25 Blood pressure diastolic 70 mm Hg 025 Height 72 in 11/09/2024 Weight 253 lbs 11/09/2024 BMI 34.31 kg/m2 11/09/2024 Encounters Encounter Location Date Provider Diagnosis Sridhar Holt MD 10 [facility] [address] [place], [place] [phone] 11/09/2024 Sridhar Holt Abnormal CAT scan R93.89 ; Elevated PSA R97.20 ; Reflux esophagitis K21.00 ; Liver nodule K76.89 and Hemangioma of other sites D18.09 Assessments Encounter Date Diagnosis (ICD Code) Assessment Notes Treatment Notes Treatment Clinical Notes Section Notes 11/09/2024 Abnormal CAT scan (ICD-10 - R93.89) pending additional diagnostic testing 11/09/2024 Elevated PSA (ICD-10 - R97.20) is seeing dr lanier. had mri 3 months ago 11/09/2024 Reflux esophagitis (ICD-10 - K21.00) try pepcid, patiet verbalized understandong of medication and directions for use 11/09/2024 Liver nodule (ICD-10 - K76.89) us order faxed to [facility] , pending diagnostic testing 11/09/2024 Hemangioma of other sites (ICD-10 - D18.09) pending diagnostic testing Plan Of Treatment Treatment Notes Assessment Notes Abnormal CAT scan pending additional d iagnostic testing Elevated PSA is seeing dr ai mcrae. had mri 3 months ago Reflux esophagitis try pepcid, patiet v erbalized understandong of medication and directions for use Liver nodule us order faxed to [facility] , pending diagnostic testing Hemangioma of other sites pending diagno stic testing Pending Test Test Name Order Date US ABD 11/09/2024 Next Appt Details Follow Up: 2 Months, Reason: Provider Name:Sridhar miner, 01/15/2025 08:45:00 AM, [address] [place] [address], [address], [phone], Provider Name:Sridhar miner, 03/25/2025 07:15:00 AM, [address] [place] [address], [place] [address], [place], [place], [phone], Provider Name:Sridhar miner, 04/01/2025 04:00:00 PM, [address] [place] [address], [address], [phone], Progress Notes * Cedrick OLSEN MDOB:1960 (64 yo M)Acc No.[id number]:11/09/2024 Progress Notes Patient: Cedrick RAMIREZ Provider: Keiry Holt MD :1960 A ge:64 Y S ex:Male Date:11/09/2024 Address:[address] [place] [address], [id number] Subjective: * Chief Complaints: * 1 . 4 week/ needs orders for ABD US ( liver ). 2. Accompanied by . * HPI: S ymptom(s): patient is a 64 yo male here for 4 week follow up visit/ having occasional reflux. * ROS: G eneral/Constitutional: Denies C hills. D enies F atigue. D enies F ever. D enies H eadache. E NT: Denies S ore throat. R espiratory: Denies C ough. D enies S hortness of breath at rest. D enies S hortness of breath with exertion. G astrointestinal: Denies D iarrhea. D enies N ausea. * Medical History: C olonoscopy 01/31/2013 - repeat 10 years, Umbilical hernia. * Medications: T aking Trospium Chloride 20 MG Tablet 1 tablet at bedtime on an empty stomach Orally Twice a day , Taking Tylenol 325 MG Tablet 1 tablet as needed Orally every 6 hrs , Taking Triamcinolone Acetonide 0.1 % Cream 1 application Externally Two times a Week , Taking Tadalafil 20 MG Tablet 1 tablet Orally Once a day as needed , Taking Albuterol Sulfate HFA 108 (90 Base) MCG/ACT Aerosol Solution 1 puff as needed Inhalation every 4 hrs , Taking Tamsulosin HCl 0.4 MG Capsule TAKE 1 CAPSULE BY MOUTH EVERY DAY , Not-Taking/PRN Ibuprofen 800 MG Tablet take 1 tablet by mouth three times daily with food or milk as needed Orally every 8 hrs , Not-Taking/PRN Cyclobenzaprine HCl 5 MG Tablet 1 tablet at bedtime as needed Orally Once a day , Not-Taking/PRN Scopolamine 1 MG/3DAYS Patch 72 Hour 1 patch to skin behind the ear as needed Transdermal , Not-Taking/PRN Omeprazole 20 MG Capsule Delayed [...] tablet as needed Orally Once a day , Medication List reviewed and reconciled with the patient * Allergies: N .K.D.A. Objective: * Vitals: H t: 72, Wt: 253, BMI:34.31, BP:122/70, Wt-k.76. * Examination: G eneral Examination: GENERAL APPEARANCE: a lert, well hydrated, in no distress.? HEAD: n ormocephalic. SKIN: g ood turgor. HEART: r egular rate and rhythm, no murmurs, rubs, gallops.? LUNGS: n o wheezes, rales, rhonchi, good air movement, clear to auscultation bilaterally. ABDOMEN: s oft, nontender, nondistended. ? Assessment: * Assessment: 1. A bnormal CAT scan - R93.89 (Primary) 2 . E levated PSA - R97.20 ? 3 . R eflux esophagitis - K21.00 4 . L iver nodule - K76.89 ? 5 . H emangioma of other sites - D18.09 Plan: * Treatment: 2. E levated PSA Notes: is seeing dr lanier. had mri 3 months ago 3. R eflux esophagitis Notes: try pepcid, patiet verbalized understandong of medication and directions for use 4. L iver nodule I maging: US ABD Notes: us order faxed to [facility] , pending diagnostic testing??5.?Hemangioma of other sites?Imaging: US ABD* hemangioma of spleen Notes: pending diagnostic testing?? * Immunizations: Fluarix Quadrivalent - 150 (Not administered - Refused: Patient decision) * Preventive Medicine: Immunizations: I nfluenza H ave you had a flu shot since the most recent October 29? N o patient refused at visit today. * Follow Up: 2 Months * * The named appointment provid er may or may not be the originator of this progress note, and it is not deemed complete until electronically signed by the appointment provider. Sign off status: Pending * Provider: Keiry Holt MD Date: 0 11/09/2024 Generated for Janice tirado/Brynn/Cecilitting on: 0 11/15/2024 11:20 AM EDT History and Physical Notes * HPI (History of Present Illness) Category Sub-Category Detail Notes Category Not es Symptom(s) patient is a 64 yo male here for 4 week follow up visit/ having occasional reflux Examination Category Sub-Category Detail Notes Category Not es General Examination GENERAL APPEARANCE: alert, w ell hydrated, in no distress HEAD: normocephalic HEART: regular rate and rhy thm, no murmurs, rubs, gallops LUNGS: no wheezes, rales, r honchi, good air movement, clear to auscultation bilaterally ABDOMEN: soft, nontender, non distended SKIN: good turgor
[2024-11-15 09:46] VITALS: BMI 33.6
--- NOTE | 2024-11-15 09:46 | MHC.OFFVIS ---
Vital Signs 11/15/24 09:46 Height 5 ft 11 in Weight 241 lb BMI 33.6 Intake Visit Reasons: ov-S/P Lt quad repair 12/14/22-follow up Intake Note: Cedrick is a 64 year old male who presents today for a follow up of his Left Quad Tendon Repair 12/14/22. History of Bilateral TKA. Patient was last seen about 1 year ago where he reported continued ongoing pain in bilateral knees and he was referred to pain management to discuss Genicular nerve block. Dr. Swain has recommended that patient continue physical therapy and referral back to ortho to have a possible JONO Allergies No Known Allergies (No Known Allergies*) Allergy (Verified 11/15/24 09:48) HPI HPI ov-S/P Lt quad repair 12/14/22-follow up: Details: Cedrick is a 64 year old male who presents today for a follow up of his Left Quad Tendon Repair 12/14/22. History of Bilateral TKA. Patient was last seen about 1 year ago where he reported continued ongoing pain in bilateral knees and he was referred to pain management to discuss Genicular nerve block. Dr. Swain has recommended that patient continue physical therapy and referral back to ortho. 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 Physical Exam Vital Signs: BMI result Body Mass Index 33.6 Extrem Other: right knee with 0-130 stable arc of moption and stable to v/v stress inc c/d/i no effusion Left knee agapito 10-130 (10 deg ext lag) partial quad tear with diminutive VMO No effusion Nl gait Assessment & Plan Assessment & Plan (1) Rupture of left quadriceps tendon: Comment: S/P bilateral TKA, DOS: 09/21/22 Code(s): S76.112A - Strain of left quadriceps muscle, fascia and tendon, initial encounter Category: Medical Qualifiers: Encounter type: subsequent encounter Qualified Code(s): S76.112D - Strain of left quadriceps muscle, fascia and tendon, subsequent encounter Plan: Left partial quad rupture with 10 ext lag and good strength. We discussed this and discussed additional surgical options which include allograft reconstruction of extensor mechanism. I do not recommend this given his hig strength and his eversion to additional surgery. His primary complaint is bilateral knee pain. (2) Status post total knee replacement, bilateral: Code(s): Z96.653 - Presence of artificial knee joint, bilateral Category: Surgical Plan: No evidence of mechanical loosening or effusion/infection. He has moderate to severe stenosis of lumbar region and I think it is reasonable to consider referral to spine surgeon. His MRI report demonstrates moderate to severe stenosis and he complains of bilateral leg pain. His knee pain not be fully alleviated by treating his spine but his complaints have always been bilateral and atypical and I think it is worth a referral. We will get the actual MR images prior to formal referral. Coding Level of Care Code Est Pt Level 3 (84696) Complex EM visit Add On G2211 Diagnoses Rupture of left quadriceps tendon, subsequent encounter S76.112D Encounter type: subsequent encounter Status post total knee replacement, bilateral Z96.653
--- OUTSIDE RECORDS SUMMARY | 2024-11-15 11:20 | XMS_ITS | Patient Health Record ---
Author Organization Sridhar Holt MD Address [address] [place], [place] [id number] Care Team Providers Care Ostrich Farmer Name Role Phone Sridhar Holt Primary Care Provider [phone] Allergies No Known Allergies Results Component Value Reference Range Notes Hemoglobin A1c Reviewed date:08/10/2024 02:13:53 PM Interpretation: Performing Lab: Notes/Report: Hemoglobin A1c 5.3 Complete Blood Count Auto Di ff Reviewed date:03/16/2024 05:57:27 PM Interpretation: Performing Lab:[facility], [address] [place] [phone] Notes/Report: White Blood Count 6.3 4.8-10.8 X10*3/uL [...] 0.0-0.2 /100WBC Neutrophils Absolute Auto 3.6 2.0-8.3 x10*3/u L Imm Gran Abs Auto 0.03 0.00-0.03 X10*3/uL Lymphocytes Absolute Auto 1.9 1.2-4.9 X10*3/u L Monocytes Absolute Auto 0.4 0.1-1.2 X10*3/uL Eosinophils Absolute Auto 0.3 0.0-0.4 X10*3/u L Basophils Absolute Auto 0.1 0.0-0.2 X10*3/uL NRBC Abs Auto 0.000 0.0-0.012 X10*3/uL Comprehensive [place]. Panel Fa st Reviewed date:03/16/2024 12:31:05 PM Interpretation: Performing Lab:[facility], [address] [place] [phone] Notes/Report: Sodium 140 135-145 mmol/L Potassium 4.2 [...] Panel Reviewed date:03/16/2024 12:25:03 PM Interpretation: Performing Lab:[address] [phone] Notes/Report: Triglycerides 92 <150 mg/dL Desirable Triglyceride: [...] date:03/29/2024 08:56:24 AM Interpretation:STEPHEN 03/26/24 PSA Performing Lab:[address] [address] Notes/Report: PSA,Total (Free>4and<10) 5.24 0.00-4.00 ng/mL PSA methodology: Fletcher Alinity i Chemiluminescent Microparticle Immunoassay (CMIA) Microalbumin, Random Reviewed date:03/16/2024 12:29:44 PM Interpretation: Performing Lab:[address] [address] Notes/Report: Creatinine Urine 226.31 Microalbumin Urine 11.0 Microalbum/Creatinine Ratio Ur 4.8 <30 ug/mg cr Albumin/Creatinine Ratio Reference Ranges: Normal: < 30 ug/mg creatinine Microalbuminuria: 30 - 300 ug/mg creatinine Clinical Albuminuria: > 300 ug/mg creatinine Hemoglobin A1c Reviewed date:03/16/2024 12:33:01 PM Interpretation: Performing Lab:[facility] [address] [address] Notes/Report: Hemoglobin A1c % 5.1 <6.0 % [...] average glucose, using the formula of the K4R-Svxrgdb Average Glucose study (ADAG), Diabetes Care, Vol.31,#8, 2007 PSA,Total (Free>4and<10) Reviewed date:04/09/2024 12:36:50 PM Interpretation: Performing Lab:[address] [address] Notes/Report: PSA,Total (Free>4and<10) 4.73 0.00-4.00 ng/mL PSA methodology: Fletcher Alinity i Chemiluminescent Microparticle Immunoassay (CMIA) PSA,Total (Free>4and<10) Reviewed date:05/07/2024 12:40:05 PM Interpretation: Performing Lab:[facility], [address] [place] [phone] Notes/Report: PSA,Total (Free>4and<10) 4.90 0.00-4.00 ng/mL PSA methodology: Fletcher Alinity i Chemiluminescent Microparticle Immunoassay (CMIA) Occult Blood, Stool, Guaiac Reviewed date:03/27/2024 12:31:32 PM Interpretation:Negative Performing Lab: Notes/Report: Negative Occult Blood, Stool, Guaiac Neg XR knee LT 3V Reviewed date:04/20/2024 04:24:58 PM Interpretation: Performing Lab: Notes/Report: [address] [address] XRay Report Signed Patient: Cedrick Olsen MR#: [id number] : 1960 Acct:[id number] Age/Sex: 63 / M ADM Date: 04/19/24 Loc: [facility] Attending Dr: Sridhar Holt MD Ordering Physician: Sridhar Holt MD Date of Service: 04/19/24 Procedure(s): XR knee LT 3V Accession Number(s): [id number] cc: Sridhar Holt MD CLINICAL HISTORY: PAIN [...] in OV> 04/20/24 1116 DD/ 1115 TD/TT: 04/20/241114 Digital Print Operator: [place] [address] XRay Report Signed Patient: Cedrick Olsen MR#: [id number] : 1960 Acct:[id number] Age/Sex: 63 / M ADM Date: 04/19/24 Loc: HO.XRAY Attending Dr: Sridhar Holt MD Ordering Physician: Sridhar Holt MD Date of Service: 04/19/24 Procedure(s): XR kne e LT 3V Accession Number(s): [id number] cc: Sridhar Holt MD CLINICAL HISTORY: PAIN [...] OV> 04/20/24 1116 DD/ 1115 TD/TT: 04/20/24 111 Digital Print Operator: Glucose, finger stick Reviewed date:08/10/2024 02:01:26 PM Interpretation: Performing Lab: Notes/Report: Value 112 Urinalysis and Microscopic Reviewed date:08/13/2024 12:37:12 PM Interpretation: Performing Lab:[facility], [address] [place] [phone] Notes/Report: Color Urine Yellow Appearance Urine Clear PH 5.5 5.0-9.0 Glucose Urine UA Negative Negative mg/dL Urine Blood Negative Negative Specific [place] - Urine 1.015 1.005-1.025 Urine Protein Negative Neg-Trace mg/dL Urine Ketones Negative Negative mg/dL Nitrite Urine Negative Negative Leukocyte Esterase Urine Negative Negative RBC Urine 0-2 0-2 /HPF WBC Urine 0-5 0-5 /HPF Squamous Epithelial Cell Urine 0-2 0-2 /HPF Bacteria Urine None Seen None Seen Hyaline Casts Urine 0-2 0-2 /LPF Urine Culture Reviewed date:08/14/2024 05:04:52 PM Interpretation: Performing Lab:[facility], [address] [place] [phone] Notes/Report: Urine Culture No growth. PSA Free and Total Reviewed date:03/29/2024 08:55:57 AM Interpretation:STEPHEN 03/26 Performing Lab:[facility], [address] [place] [phone] Notes/Report: Prostate Specific Ag Total 5.6 < OR = 4.0 ng/mL Percent Free Prostate Spec Ag 11 >25 % (calc) PSA(ng/mL) Free PSA(%) Estimated(x) Probability of Cancer(as%) 0-2.5 (*) Approx. 1 2.6-4.0(1) 0-27(2) 24(3) 4.1-10(4) 0-10 56 11-15 28 16-20 20 21-25 16 >or =26 8 >10(+) N/A >50 References:(1)Fahad stapleton et al.:Urology 60: 469-474 (2002) (2)Mikal et al.:J.Urol 168: 922-925 (2002) Free PSA(%) Sensitivity(%) Specificity(%) < or = 25 85 19 < or = 30 93 9 (3)Mikal et al.:TAI 277: 3633-8457 (1996) (4)[place] et al.:TAI 279: 7246-6819 (1997) (x)These estimates vary with age, ethnicity, [...] of disease. THIS TEST WAS PERFORMED AT: [facility] [address] [place] [phone] NATHAN OSORIO MD Free Prostate Spec Ag 0.6 UA CC w/rflx Micro + Cult Reviewed date:03/16/2024 12:35:38 PM Interpretation: Performing Lab:[facility], [address] [place] [phone] Notes/Report: [id number] Urine, Clean Catch Color Urine Yellow Appearance Urine Clear PH 5.0 5.0-9.0 Glucose Urine UA Negative Negative mg/dL Urine Blood Negative Negative Specific [place] - Urine 1.025 1.005-1.025 Urine Protein Negative Neg-Trace mg/dL Urine Ketones Negative Negative mg/dL Nitrite Urine Negative Negative Leukocyte Esterase Urine Negative Negative PSA Free and Total Reviewed date:04/12/2024 04:51:47 PM Interpretation: Performing Lab:[facility], [address] [place] [phone] Notes/Report: Prostate Specific Ag Total 4.6 < OR = 4.0 ng/mL Percent Free Prostate Spec Ag 15 >25 % (calc) PSA(ng/mL) Free PSA(%) Estimated(x) Probability of Cancer(as%) 0-2.5 (*) Approx. 1 2.6-4.0(1) 0-27(2) 24(3) 4.1-10(4) 0-10 56 11-15 28 16-20 20 21-25 16 >or =26 8 >10(+) N/A >50 References:(1)Fahad stapleton et al.:Urology 60: 469-474 (2001) (2)Mikal et al.:J.Urol 168: 922-925 (2001) Free PSA(%) Sensitivity(%) Specificity(%) < or = 25 85 19 < or = 30 93 9 (3)[place] et al.:TAI 277: 2824-3102 (1996) (4)[place] et al.:TAI 279: 1860-7595 (1997) (x)These estimates vary with age, ethnicity, [...] of disease. THIS TEST WAS PERFORMED AT: [facility] [address] [address] NATHAN OSORIO MD Free Prostate Spec Ag 0.7 XR knee RT 3V Reviewed date:04/20/2024 12:20:46 PM Interpretation: Performing Lab: Notes/Report: [address] [address] XRay Report Signed Patient: Cedrick Olsen MR#: [id number] : 1960 Acct:[id number] Age/Sex: 63 / M ADM Date: 04/19/24 Loc: HO.XRAY Attending Dr: Sridhar Holt MD Ordering Physician: Sridhar Holt MD Date of Service: 04/19/24 Procedure(s): XR knee RT 3V Accession Number(s): [id number] cc: Sridhar Holt MD CLINICAL HISTORY: PAIN [...] signed by Marty Gary MD in OV> 04/20/241124 DD/ 22 TD/TT: 04/20/241122 Digital Print Operator: [address] [address] XRay Report Signed Patient: Cedrick Olsen MR#: [id number] : 1960 Acct:[id number] Age/Sex: 63 / M ADM Date: 04/19/24 Loc: HO.XRAY Attending Dr: Sridhar Holt MD Ordering Physician: Sridhar Holt MD Date of Service: 04/19/24 Procedure(s): XR kne e RT 3V Accession Number(s): [id number] cc: Sridhar Holt MD CLINICAL HISTORY: PAIN [...] by Marty Gary MD in OV> 04/20/24 112 DD/ 1123 TD/TT: 04/20/241122 Digital Print Operator: PSA Free and Total Reviewed date:05/08/2024 02:05:14 PM Interpretation: Performing Lab:[facility], [address] [place] [address] [place] [address] Notes/Report: Prostate Specific Ag Total 4.6 < OR = 4.0 ng/mL Percent Free Prostate Spec Ag 15 >25 % (calc) PSA(ng/mL) Free PSA(%) Estimated(x) Probability of Cancer(as%) 0-2.5 (*) Approx. 1 2.6-4.0(1) 0-27(2) 24(3) 4.1-10(4) 0-10 56 11-15 28 16-20 20 21-25 16 >or =26 8 >10(+) N/A >50 References:(1)Fahad stapleton et al.:Urology 60: 469-474 (2001) (2)Mikal et al.:J.Urol 168: 922-925 (2001) Free PSA(%) Sensitivity(%) Specificity(%) < or = 25 85 19 < or = 30 93 9 (3)[place] et al.:TAI 277: 9575-9228 (1996) (4)[place] et al.:TAI 279: 6899-2744 (1997) (x)These estimates vary with age, ethnicity, [...] mind. PSA was performed using the Misa [place] Immunoassay method. Values obtained from different assay methods cannot be used interchangeably. PSA levels, regardless of value, should not be interpreted as absolute evidence of the presence or absence of disease. THIS TEST WAS PERFORMED AT: [facility] [address] [place] [phone] NATHAN OSORIO MD Free Prostate Spec Ag 0.7 Reason For Referral Reason RECTUS DIASTASIS Diagnosis [...] application Externally Two times a Week Active Viagra 50 MG 1 tablet as needed Orally Once a day for 30 day(s) 07/10/2015 Not-Taking Tylenol 325 MG 1 tablet as needed Orally every 6 hrs Active Tamsulosin HCl 0.4 MG TAKE 1 CAPSULE BY MOUTH EVERY DAY for 30 Active Albuterol Sulfate HFA 108 (90 Base) MCG/ACT 1 puff as needed Inhalation every 4 hrs for 30 days 06/24/2023 Active Cyclobenzaprine HCl 5 MG 1 tablet at bed time as needed Orally Once a day for 30 day(s) 11/14/2023 Not-Taking Ibuprofen 800 MG take 1 tablet by amna three times daily with food or milk as needed Orally every 8 hrs for 90 days Not-Taking Omeprazole 20 MG 3 Orally Once a day for 30 day(s) 08/30/2023 Not-Taking Scopolamine 1 MG/3DAYS 1 patch to skin b ehind the ear as needed Transdermal for 30 day(s) 07/03/2024 Not-Taking Trospium Chloride 20 MG 1 tablet at bedt jigensh on an empty stomach Orally Twice a day Active Bactrim DS 800-160 MG 1 tablet Orally Tw ice a day for 5 days 2022 Not-Taking DULoxetine HCl 30 MG TAKE 1 CAPSULE BY MOUTH EVERY DAY for 30 Not-Takin g Immunizations Vaccine Route Administration Date Status Comme nts Tetanus Unknown 08/06/2017 Administered Given at [facility] [place] [facility] Covid Vaccine Unknown [...] Fluarix Quadrivalent - 150 Unknown 11/14/2023 Refused Fluarix Quadrivalent - 150 Unknown 11/09/2024 Refused Social History Tobacco Use: Social History [...] Status W/U Status Risk Notes Problem Nevus (4999375558) Nevus (216.9) Active confirm ed Problem 18369919 Prostatism (N40.0) Active confirmed Problem Reflux esophagitis (021792176) Reflux esophagitis (K21.00) Active confirmed Problem 632051149 Annual physical exam (Z00.00) Active confirmed Problem 82217839 Other chronic pain (G89.29) Active confirmed Problem 737542546 Body mass index (BMI) 32.0-32.9, adult (Z68.32) Active confirmed Problem 3601076 Arthritis (M19.90) Active confirmed Problem Disorder of lumbar disc (255730208) Lumbar disc disease (M51.9) Active confirmed Problem 5977113 Prediabetes (R73.09) Active confirmed Problem 573086330 Erectile dysfunction, unspecified erectile dysfunction type (N52.9) Active confirmed Problem 227184272 Vitamin B12 deficiency (E53.8) Active confirmed Problem Pressure sore, stage I (L89.91) Active confirmed Problem 96801613 Sciatica of righ t side (M54.31) Active confirmed Problem 526392779 Panic attack (F41.0) Active confirmed Problem 17151016 NATHALY (obstructive sleep apnea) (G47.33) Active confirmed Problem 792293408 Arthritis of kne e (M17.10) Active confirmed Problem 44171344 Sinusitis chronic, frontal (J32.1) Active confirmed Problem 660571175 BMI 32.0-32.9,adult (Z68.32) Active confirmed Problem 97950237 Hydronephrosis with urinary obstruction due to renal calculus (N13.2) Active confirmed Problem 222954995628034 Obesity (BMI 30.0-34.9) (E66.9) Active confirmed Problem 308177695 Neck arthritis (M46.92) Active confirmed Problem Computed tomography result abnormal (619464134) Abnormal CAT scan (R93.89) Active confirmed Problem 17908838 Kidney stone on left side (N20.0) Active confirmed Problem 1564993177302245 Arthritis of kalani th knees (M17.0) Active confirmed Problem 960272643 Cervical arthritis (M47.812) Active confirmed Problem 494070431 Gastric reflux (K21.9) Active confirmed Problem 28733181 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 Vital Signs Blood pressure diastolic 70 mm Hg 11/09/2024 Height 72 in 11/09/2024 Blood pressure systolic 122 mm Hg 11/09/2024 Weight 253 lbs 11/09/2024 BMI 34.31 kg/m2 11/09/2024 Encounters Encounter Location Date Provider Diagnosis Sridhar Holt MD [address] [place] [address] Drive [address] [place] [id number] 03/16/2024 Sridhar Holt Blood tests for routine general physical examination Z00.00 ; Prediabetes R73.09 and Prostatism N40.0 Sridhar Holt MD [address] [place] [id number] 04/09/2024 Sridhar Holt Elevated PSA R97.20 Sridhar Holt MD [address] [place] [id number] 05/07/2024 Sridhar Holt Prostatism N40.0 Sridhar Holt MD [address] [place] [id number] 11/09/2024 Sridhar Holt Abnormal CAT scan R93.89 ; Elevated PSA R97.20 ; Reflux esophagitis K21.00 ; Liver nodule K76.89 and Hemangioma of other sites D18.09 Sridhar Holt MD [address] [place] [id number] 03/26/2024 Sridhar Holt Elevated PSA R97.20 ; Annual physical exam Z00.00 ; Rectus diastasis M62.08 ; Arthritis of knee M17.10 ; Obesity (BMI 30.0-34.9) E66.9 ; Colon cancer screening Z12.11 and Depression screening Z13.31 Sridhar Holt MD [address] [place] [id number] 04/19/2024 Sridhar Holt Elevated PSA R97.20 ; Other chronic pain G89.29 ; Pain in right knee M25.561 and Pain in left knee M25.562 Sridhar Holt MD [address] [place] [id number] 08/10/2024 Sridhar Holt Prediabetes R73.09 ; Lumbar disc disease M51.9 ; UTI (urinary tract infection) N39.0 and Umbilical hernia K42.9 Sridhar Holt MD [address] [place] [id number] 10/09/2024 Sridhar Holt Spinal stenosis M48.00 ; Abdominal pain R10.9 and Vitamin B12 deficiency E53.8 Sridhar Holt MD [address] [place] [id number] 10/18/2024 Sridhar Holt Liver mass R16.0 Sridhar Holt MD [address] [place] [id number] 11/02/2024 Sridhar Holt MD [address] [place] [id number] 03/21/2024 Sridhar Holt MD [address] [place], [place] [id number] 04/05/2024 Sridhar Holt MD [address] [place], [place] [id number] 07/02/2024 Sridhar Holt MD [address] [place] [id number] 10/19/2024 Sridhar Holt Assessments Encounter Date Diagnosis (ICD Code) Assessment Notes Treatment Notes Treatment Clinical Notes Section Notes 03/16/2024 Blood tests for routine general physical examination (ICD-10 - Z00.00) 03/16/2024 Prediabetes (ICD-10 - R73.09) 04/09/2024 Elevated PSA (ICD-10 - R97.20) 05/07/2024 Prostatism (ICD-10 - N40.0) 11/09/2024 Abnormal CAT scan (ICD-10 - R93.89) pending additional diagnostic testing 11/09/2024 Elevated PSA (ICD-10 - R97.20) is seeing dr lanier. had mri 3 months ago 03/26/2024 Elevated PSA (ICD-10 - R97.20) referral to [facility] urology 03/26/2024 Annual physical exam (ICD-10 - Z00.00) labs reviewed and discussed with patient 04/19/2024 Elevated PSA (ICD-10 - R97.20) came down and is seeing urology next week, will continue to monitor 04/19/2024 Other chronic pain (ICD-10 - G89.29) 08/10/2024 Prediabetes (ICD-10 - R73.09) 08/10/2024 Lumbar disc disease (ICD-10 - M51.9) is being seen at [facility]. maybe the pain in his knees is involving that disc 10/09/2024 Spinal stenosis (ICD-10 - M48.00) sounds like he needs surgery 10/09/2024 Abdominal pain (ICD-10 - R10.9) pending diagnostic testing, order faxed to [facility] 10/18/2024 Liver mass (ICD-10 - R16.0) Order tomas and Kirstin to fax to [facility] for the P-A Patient notified. 03/16/2024 Prostatism (ICD-10 - N40.0) 11/09/2024 Reflux esophagitis (ICD-10 - K21.00) try pepcid, patiet verbalized understandong of medication and directions for use 03/26/2024 Rectus diastasis (ICD-10 - M62.08) no treatment needed/ THIS REFERRAL HAS BEEN CLOSED , SENT IN ERROR 04/19/2024 Pain in right knee (ICD-10 - M25.561) THE XRAY ORDER WAS PRINTED ANFD GIVEN TO PATIENT 08/10/2024 UTI (urinary tract infection) (ICD-10 - N39.0) patient coming back 08-13-24 10/09/2024 Vitamin B12 deficiency (ICD-10 - E53.8) pending labs 03/26/2024 Arthritis of knee (ICD-10 - M17.10) had surgery and not doing well 04/19/2024 Pain in left knee (ICD-10 - M25.562) 08/10/2024 Umbilical hernia (ICD-10 - K42.9) no treatment needed. the area in mid lower abdomen is normal on palpation and not in an area for a hernia 11/09/2024 Liver nodule (ICD-10 - K76.89) us order faxed to [facility] , pending diagnostic testing 03/26/2024 Obesity (BMI 30.0-34.9) (ICD-10 - E66.9) dieting 11/09/2024 Hemangioma of other sites (ICD-10 - D18.09) pending diagnostic testing 03/26/2024 Colon cancer screening (ICD-10 - Z12.11) guaiac negative 03/26/2024 Depression screening (ICD-10 - Z13.31) negative screen Plan Of Treatment Pending Test Test Name Order Date Electrocardiogram (EKG) 08/25/2018 Electrocardiogram (EKG) 07/10/2015 Electrocardiogram (EKG) 07/22/2016 Electrocardiogram (EKG) 08/18/2017 CT ABD & PELVIS WITH CONTRAST 10/09/2024 XR GI SERIES 08/30/2023 XR KNEE RT 3 VIEWS 04/19/2024 US ABD 11/09/2024 Vitamin B12 10/09/2024 MR abdomen wo/w con 10/18/2024 Next Appt Details Provider Name:Sridhar Lieberman ier, 01/15/2025 08:45:00 AM, [address], [address], [place], [phone], Provider Name:Sridhar Lieberman ier, 03/25/2025 07:15:00 AM, [address], [address], [place], [phone], Provider Name:Sridhar Lieberman ier, 04/01/2025 04:00:00 PM, [address], [address], [place], [id number], Insurance Providers Payer Name Payer Address Payer Phone Subscriber Number Group Number Insured Name Patient Relationship to Insured Coverage Start Date Coverage End Date [facility] [address] [place] [address] [id number] Cedrick Olsen Self - patient is the insured Medications Administered Medication Instructions Date of Administration Dosage Notes B12 08/26/2016 1 mL B12 10/25/2016 1 mL B12 11/29/2016 1 mL B12 01/17/2017 1 mL Medical (General) History Medical History History ICD Code colonoscopy 01/31/2013 - repeat 10 years Umbilical hernia
--- OUTSIDE RECORDS SUMMARY | 2024-11-15 11:20 | XMS_ITS | Patient Health Record ---
Author Organization [facility] Address [address] [place] [address] Care Team Providers Care Auto Polisher Name Role Phone Yanet SILVA, Sridhar Primary Care Provider Rafa Sánchez Jr Unavailable [phone] Reason For Referral No Information Medications Medication SIG (Take, Route, Fr equency, Duration) Notes Start Date End Date Status MoviPrep 100 GM as directed before c olonoscopy Orally for 1 dose 11/08/2012 02/29/2024 Active Problems Problem Type SNOMED Code ICD Code Onset Dates Problem Status W/U Status Risk Notes Problem Colon cancer screening (473859086) Colon cancer screening (V76.51) Active confirmed Plan Of Treatment No Information Insurance Providers Payer Name Payer Address Payer Phone Subscriber Number Group Number Insured Name Patient Relationship to Insured Coverage Start Date Coverage End Date [facility] [id number] [place], [place] [id number] RAFA OLSEN Self - patient is the insured Medical (General) History Medical History History ICD Code Denies ME,DM,CVA,Lung disease,renal dise ase Surgical History Surgery Date(Month/Year) umbilical hernia repair 2012 seborrheic keratosis left leg 2012 right knee arthroscopy
== END 2024-11-15 10:37 | disposition home or self-care (01) ==
LOC: HO.HOS 09:41
PROVIDERS: PCP Internal Medicine; Visit Provider Orthopaedic Surgery
DX: S76.112D Strain of left quadriceps muscle, fascia and tendon, subsequent encounter (principal); Z96.653 Presence of artificial knee joint, bilateral
CPT/HCPCS: 99213

== ENCOUNTER → 2024-11-15 09:41 | Outpatient (BNVA) | payer OTHER, SELFPAY | PROVIDERS: PCP Internal Medicine; Visit Provider Orthopaedic Surgery | DX: S76.112A Strain of left quadriceps muscle, fascia and tendon, initial encounter (principal); X58.XXXA Exposure to other specified factors, initial encounter; M25.562 Pain in left knee; M25.561 Pain in right knee; Z96.653 Presence of artificial knee joint, bilateral | CPT/HCPCS: 99212 ==